=== PATIENT | female | born 1945 | race Caucasian/White ===

== ENCOUNTER 2018-11-21 07:23 | Day surgery (SDC) | payer OTHER, BC ==
--- OUTSIDE RECORDS SUMMARY | 2018-11-21 07:26 | XMS REPORT | Clinical Summary ---
:1945 Author Organization [facility] Address [address] [place] [address] Care Team Providers Name Role Phone Cayden Guzmán MD Primary Care Provider Allergies No Known Allergies Medications Medication Sig Dispensed Refills Start Date End Date Status BIOTIN ORAL Take by 0 Active mouth. nebivolol Take 10 mg by 0 Active (BYSTOLIC) 10 MG mouth daily. tablet CALCIUM Take by 0 Active CARBONATE/VITAMIN mouth. D3 (CALTRATE 600 + D ORAL) ibandronate Take 150 mg 0 Active (BONIVA) 150 mg by mouth tablet every 30 (thirty) days. Take in AM with glass of water prior to food, don't lie down for 30 minutes. montelukast Take 10 mg by 0 Active (SINGULAIR) 10 mg mouth tablet nightly. ipratropium 0 10/30/2016 Active (ATROVENT) 0.06 % nasal spray TRAVATAN Z 0.004 % 0 09/21/2016 Active choline Take 1 90 capsule 3 11/30/2017 Active fenofibrate capsule (135 (TRILIPIX) 135 mg mg total) by capsule mouth daily. dabigatran Take 1 180 capsule 3 05/31/2018 Active etexilate capsule (75 (PRADAXA) 75 mg mg total) by capsuleIndications mouth 2 (two) : Coronary artery times a day. disease involving [place] heart with angina pectoris, unspecified vessel or lesion type (HCC) digOXIN (LANOXIN) Take 1 tablet 90 tablet 3 05/31/2018 Active 125 mcg (125 mcg tabletIndications: total) by Atrial mouth daily. fibrillation, unspecified type (HCC) choline Take 135 mg 0 11/30/2017 Discontinued fenofibrate by mouth (TRILIPIX) 135 mg daily. capsule dabigatran Take 1 180 capsule 3 02/10/2017 02/17/2018 Discontinued etexilate capsule (75 (PRADAXA) 75 mg mg total) by capsuleIndications mouth 2 (two) : Coronary artery times a day. disease involving [place] heart with angina pectoris, unspecified vessel or lesion type (HCC) digOXIN (LANOXIN) Take 1 tablet 90 tablet 3 07/12/2017 11/30/2017 Discontinued 125 mcg (125 mcg tabletIndications: total) by Atrial mouth daily. fibrillation, unspecified type (HCC) digOXIN (LANOXIN) Take 1 tablet 90 tablet 3 11/30/2017 05/31/2018 Discontinued 125 mcg (125 mcg tabletIndications: total) by Atrial mouth daily. fibrillation, unspecified type (HCC) PRADAXA 75 mg TAKE ONE 180 capsule 3 02/18/2018 05/31/2018 Discontinued capsuleIndications CAPSULE BY : Coronary artery MOUTH TWICE disease involving DAILY [place] heart with angina pectoris, unspecified vessel or lesion type (HCC) Active Problems Problem Noted Date Atrial fibrillation 12/01/2016 SOB (shortness of breath) 12/01/2016 Bilateral carotid bruits 12/01/2016 Encounters Date Type Specialty Care Team Description 05/31/2018 Office Visit Cardiology Lg Landin MD Atrial fibrillation , unspecified type (Primary Dx); Coronary artery disease involving [place] heart with angina pectoris, unspecified vessel or lesion type 02/17/2018 Refill Cardiology Lg Landin MD Med Refill 11/30/2017 Office Visit Cardiology Lg Landin MD Atrial fibrillation, unspecified type (Primary Dx) after 11/20/2017 Family History Relation Name Status Comments Other FAMILY HISTORY OF CAD Alive Social History Tobacco Use Types Packs/Day Years Used Date Former Smoker Smokeless Tobacco: Never Used Sex Assigned at Date Recorded Not on file Job Start Date Occupation Industry Not on file Not on file Not on file Travel History Travel Start Travel End No recent travel history available. Last Filed Vital Signs Vital Sign Reading Time Taken Blood Pressure 177/77 05/31/2018 10:42 AM CDT Pulse 69 05/31/2018 10:42 AM CDT Temperature - - Respiratory Rate - - Oxygen Saturation - - Inhaled Oxygen Concentration - - Weight 63.5 kg (140 lb) 05/31/2018 10:42 AM CDT Height 167.6 cm (5' 6") 05/31/2018 10:42 AM CDT Body Mass Index 22.6 05/31/2018 10:42 AM CDT Plan of Treatment Date Type Specialty Care Team Description 05/30/2019 Office Visit Cardiology Lg Landin MD [address] [facility] [address] [place] [address] Health Maintenance Due Date Last Done Comments BREAST CANCER SCREENING 1993 COLON CANCER SCREENING 1993 SHINGLES VACCINES (1 of 2) 1993 PNEUMOCOCCAL POLYSACCHARIDE VACCINE AGE 65 AND OVER 2008 PNEUMOCOCCAL-13 2008 INFLUENZA VACCINE 05/18/2018 Results Not on fileafter 11/20/2017 Insurance Payer Benefit Plan / Group Subscriber ID Type Phone Address MEDICARE MEDICARE PART A AND B xxxxxxxxxx Medicare [place], [place] BCBS BCBS CHOICE PPO/FEDERAL EMPL PPO xxxxxxxxx PPO Advance Directives Patient has advance care planning documents on file. For more information, please contact:Slava Daniel[address] [place] [address]
[2018-11-21] MEDS ORDERED: NA CHLORIDE 0.9% 500 ML ONE (07:43)
[2018-11-21] MEDS ORDERED: PHENYLEPHRINE 10% OPTH 5ML ONE (07:44)
[2018-11-21] MEDS ORDERED: TETRACAINE HCL 0.5% 2ML OPTH ONE (07:44)
[2018-11-21] MEDS ORDERED: BUPIVACAINE 0.25% PF 10 ML VIAL ONE (07:44)
[2018-11-21] MEDS ORDERED: LIDOCAINE 2% MPF 5 ML VIAL ONE (07:44)
[2018-11-21] MEDS ORDERED: CYCLOPENTOLATE 1% OPTH 2 ML ONE (07:44)
[2018-11-21] MEDS ORDERED: LIDOCAINE 1% MPF 5 ML VIAL ONE ×2 (07:46→08:23)
[2018-11-21] MEDS ORDERED: CYCLOPENTOLATE 1% OPTH 2 ML OPTH ONE ×2 (08:03→08:13)
[2018-11-21] MEDS ORDERED: PHENYLEPHRINE 10% OPTH 5ML OPTH ONE ×2 (08:03→08:13)
[2018-11-21] MEDS ORDERED: EPINEPHRINE/PF 1 MG/ML AMP ONE (08:20)
[2018-11-21] MEDS ORDERED: NS 0.9% VIAL 10 ML ONE (08:20)
[2018-11-21] MEDS ORDERED: BALANCED SALT IRRIG PLAIN 500 ML BTL IRR ONE (08:20)
[2018-11-21] MEDS ORDERED: DUOVISC 1 KIT OPTH ONE (08:21)
[2018-11-21] MEDS ORDERED: LIDOCAINE HCL/PF 3.5% OPTH GEL ONE (08:35)
[2018-11-21] MEDS ORDERED: FENTANYL CITR 100 MCG/2 ML ONE (09:40)
[2018-11-21] MEDS ORDERED: MIDAZOLAM HCL 2 MG/2 ML INJ ONE (09:41)
[2018-11-21] MEDS: MOXIFLOXACIN HCL 10 DROPS/ML **OR USE OPTH ONE ×2 (09:42→09:55)
--- NOTE | 2018-11-21 10:02 | P.BOP ---
Preoperative diagnosis: Nuclear sclerotic and cortical cataract OD Postoperative diagnosis: Same Primary procedure: Phacoemulsification with IOL OD Estimated blood loss: None Anesthesia: Local (Topical with anesthesia for cataract surgery) Complications: None Implants: SA60WF +20.0 Transferred to: Other (Day surgery) Condition: Good
[2018-11-21 10:44] VITALS: BP 151/63; TEMP 98.6; O2SAT 98
--- NOTE | 2018-11-21 21:28 | OP ---
Date of Procedure: 11/21/2018 Surgeon: Edith Amador MD Anesthesiologist: 1. Tea French CRNA. 2. Gamaliel Dougherty M.D. Preoperative Diagnosis: Nuclear sclerotic cataract and cortical cataract OD (right eye). Operation Performed: Phacoemulsification with intraocular lens implant, right eye. Anesthesia: Per cataract surgery. Complications: None. Description Of Procedure: In the operating room the patient was prepped and draped in the usual ster ile fashion for ophthalmic surgery. A lid speculum was placed in the right eye. Two paracentesis si bobby were made superiorly and inferiorly in the limbal cornea. Viscoat was placed in the anterior sarah mber and a crescent blade was used to make a corneal groove and tunnel, and a keratome was used to en ter the anterior chamber. Provisc was placed in the anterior chamber and a 360 degree capsulotomy wa s performed with a cystitome. The lens was hydrodissected with BSS and rotated freely. The lens was removed with a stop and chop technique. A 6.7 phaco CDE was used to remove the lens. Residual chinyere ex was removed with the irrigation and aspiration. Provisc was placed in the capsular bag. A SA60WF +20.0 lens was placed in the capsular bag without complications. Irrigation and aspiration was used to remove residual viscoelastic. The paracentesis sites were hydrated with BSS. The wound and para centesis sites were inspected and found to be watertight. Vigamox 0.07 cc was placed intracamerally at the end of the procedure. The eye was irrigated with balanced salt solution. The eye was patched with a soft cotton patch and Rogel metal shield. The patient was returned to day surgery in good condition. Comments: Akten was placed in the eye in Day Surgery and irrigated out of the eye with BSS in the OR . Preservative-free 1% lidocaine was placed in the anterior chamber prior to Viscoat. Discharge Instructions: Ms. Soriano is discharged to home in good condition. She is to follow up with Dr. Amador today at 3 and then in the a.m. JHL/MODL Voice ID: [id number] Report ID: [id number]
== END 2018-11-21 10:37 | disposition home or self-care (01) ==
LOC: OR 07:23
PROVIDERS: ATTEND Ophthalmology Retina Specialist
PROC: 08RJ3JZ Replacement of Right Lens with Synthetic Substitute, Percutaneous Approach (ICD-10-PCS; principal; 2018-11-21 09:10)
DX: H25.11 Age-related nuclear cataract, right eye (principal); E78.00 Pure hypercholesterolemia, unspecified; I10 Essential (primary) hypertension; M85.80 Other specified disorders of bone density and structure, unspecified site
CPT/HCPCS: 66984; J0171; J2250; J3010

== ENCOUNTER 2019-01-02 08:11 | Day surgery (SDC) | payer OTHER, BC ==
--- OUTSIDE RECORDS SUMMARY | 2019-01-02 08:16 | XMS REPORT | Clinical Summary ---
:1945 Author Organization [facility] Address [address] [place] [address] Care Team Providers Name Role Phone Cayden [...] Coronary artery times a day. disease involving [place] heart with angina pectoris, unspecified vessel or lesion type (HCC) digOXIN (LANOXIN) Take 1 tablet 90 tablet 3 05/31/2018 Active 125 mcg (125 mcg tabletIndications: total) by Atrial mouth daily. fibrillation, unspecified type (HCC) dabigatran Take 1 180 capsule 3 02/10/2017 02/17/2018 Discontinued etexilate capsule (75 (PRADAXA) 75 mg mg total) by capsuleIndications mouth 2 (two) : Coronary artery times a day. disease involving [place] heart with angina pectoris, unspecified vessel or lesion type (HCC) digOXIN (LANOXIN) Take 1 tablet 90 tablet 3 11/30/2017 05/31/2018 Discontinued 125 mcg (125 mcg tabletIndications: total) by Atrial mouth daily. fibrillation, unspecified type (HCC) PRADAXA 75 mg TAKE ONE 180 capsule 3 02/18/2018 05/31/2018 Discontinued capsuleIndications CAPSULE BY : Coronary artery MOUTH TWICE disease involving DAILY [place] heart with angina pectoris, unspecified vessel or lesion type (HCC) Active Problems Problem Noted Date Atrial fibrillation 12/01/2016 SOB (shortness of breath) 12/01/2016 Bilateral carotid bruits 12/01/2016 Encounters Date Type Specialty Care Team Description 05/31/2018 Office Visit Cardiology Lg Landin MD Atrial fibrillation , unspecified type (Primary Dx); Coronary artery disease involving [place] heart with angina pectoris, unspecified vessel or lesion type 02/17/2018 Refill Cardiology Lg Landin MD Med Refill after 01/01/2018 Family History Relation Name Status Comments Other [...] 05/30/2019 Office Visit Cardiology Lg Landin MD [address] [address] [phone] Health Maintenance Due Date Last Done Comments BREAST CANCER SCREENING 1993 COLON CANCER SCREENING 1993 SHINGLES VACCINES (#1) 1993 65+ PNEUMOCOCCAL VACCINE (1 of 2 - PCV13) 2008 PNEUMOCOCCAL POLYSACCHARIDE VACCINE AGE 65 AND OVER 2008 INFLUENZA VACCINE 05/18/2018 Results Not on fileafter 01/01/2018 Insurance Payer Benefit Plan / Group Subscriber ID Type Phone Address MEDICARE MEDICARE PART A AND B xxxxxxxxxx Medicare [place], [place] BCBS BCBS CHOICE PPO/FEDERAL EMPL PPO xxxxxxxxx PPO Advance Directives Patient has advance care planning documents on file. For more information, please contact:Slava Daniel[address] [place] [address]
[2019-01-02] MEDS ORDERED: LIDOCAINE 2% MPF 5 ML VIAL ONE (09:21)
[2019-01-02] MEDS ORDERED: BUPIVACAINE 0.25% PF 10 ML VIAL ONE (09:21)
[2019-01-02] MEDS ORDERED: NA CHLORIDE 0.9% 500 ML ONE (09:21)
[2019-01-02] MEDS ORDERED: CYCLOPENTOLATE 1% OPTH 2 ML ONE (09:21)
[2019-01-02] MEDS ORDERED: PHENYLEPHRINE 10% OPTH 5ML ONE (09:22)
[2019-01-02] MEDS ORDERED: NS 0.9% VIAL 10 ML ONE (09:25)
[2019-01-02] MEDS ORDERED: LIDOCAINE 1% MPF 2 ML AMPULE ONE (09:26)
[2019-01-02] MEDS ORDERED: LIDOCAINE HCL/PF 3.5% OPTH GEL ONE (09:26)
[2019-01-02] MEDS ORDERED: CYCLOPENTOLATE 1% OPTH 2 ML OPTH ONE ×2 (09:45→09:50)
[2019-01-02] MEDS ORDERED: PHENYLEPHRINE 10% OPTH 5ML OPTH ONE ×2 (09:45→09:50)
[2019-01-02] MEDS: BALANCED SALT IRRIG PLAIN 500 ML BTL IRR ONE ×2 (10:34→11:04)
[2019-01-02] MEDS: EPINEPHRINE/PF 1 MG/ML AMP ONE ×2 (10:35→11:04)
[2019-01-02] MEDS: TETRACAINE HCL 0.5% 2ML OPTH ONE ×2 (10:35→11:03)
[2019-01-02] MEDS: DUOVISC 1 KIT OPTH ONE ×2 (10:36→11:04)
[2019-01-02] MEDS: MOXIFLOXACIN HCL 10 DROPS/ML **OR USE OPTH ONE ×3 (10:37→11:12)
[2019-01-02] MEDS ORDERED: MIDAZOLAM HCL 2 MG/2 ML INJ ONE (10:40)
[2019-01-02] MEDS ORDERED: FENTANYL CITR 100 MCG/2 ML ONE (10:40)
--- NOTE | 2019-01-02 11:39 | P.BOP ---
Preoperative diagnosis: Nuclear sclerotic cataract OS Postoperative diagnosis: Same Primary procedure: Phacoemulsification with IOL OS Estimated blood loss: None Anesthesia: Local (Topical with anesthesia for cataract surgery) Complications: None Implants: SA60WF +20.5 Transferred to: Other (Day surgery) Condition: Good
[2019-01-02 11:54] VITALS: BP 132/67; TEMP 97.1; O2SAT 96
--- NOTE | 2019-01-02 23:03 | OP ---
Date of Procedure: 01/02/2019 Surgeon: Edith Amador MD Anesthesiologist: 1. Ki Meza CRNA. 2. Willie Hdz M.D. Preoperative Diagnosis: Nuclear sclerotic cataract, OS. Operation Performed: Phacoemulsification with intraocular lens implant, left eye. Anesthesia: Per cataract surgery. Complications: None. Description Of Procedure: In day surgery, the patient was prepped with Betadine and draped. A conjunctival incision was made in the inferior nasal quadrant with Sharmila scissors. A sub-Tenon block consisting of a 1:1 mixture of 2% Xylocaine and 0.25% bupivacaine was placed through the conjunctival incision with a blunt cannula. A [place] balloon was placed over the eye and the patient was transferred to the operating room. In the operating room the patient was prepped and draped in the usual sterile fashion for ophthalmic surgery. A lid speculum was placed in the left eye. Two paracentesis sites were made superiorly and inferiorly in the limbal cornea. Viscoat was placed in the anterior chamber and a crescent blade was used to make a corneal groove and tunnel, and a keratome was used to enter the anterior chamber. Provisc was placed in the anterior chamber and a 360 degree capsulotomy was performed with a cystitome. The lens was hydrodissected with BSS and rotated freely. The lens was removed with a stop and chop technique. A 5.81 phaco CDE was used to remove the lens. Residual cortex was removed with the irrigation and aspiration. Provisc was placed in the capsular bag. SA60WF +20.5 lens was placed in the capsular bag without complications. Irrigation and aspiration were used to remove residual viscoelastic. The paracentesis sites were hydrated with BSS. The wound and paracentesis sites were inspected and found to be watertight. Vigamox 0.07 cc was placed intracamerally at the end of the procedure. The eye was irrigated with balanced salt solution. The eye was patched with a soft cotton patch and Rogel metal shield. The patient was returned to day surgery in good condition. Comments: Akten was placed in the eye in day surgery and irrigated out of the eye with BSS in the OR. Preservative free 1% lidocaine was placed in the anterior chamber prior to Viscoat. Discharge Instructions: Ms. Soriano is discharged to home in good condition and is to follow up with Dr. Amador today at 3 in the morning. ALYSSA/HAILE Voice ID: [id number] Report ID: [id number]
== END 2019-01-02 12:20 | disposition home or self-care (01) ==
LOC: OR 08:11
PROVIDERS: ATTEND Ophthalmology Retina Specialist
PROC: 08RK3JZ Replacement of Left Lens with Synthetic Substitute, Percutaneous Approach (ICD-10-PCS; principal; 2019-01-02 10:45)
DX: H25.12 Age-related nuclear cataract, left eye (principal); H40.1230 Low-tension glaucoma, bilateral, stage unspecified; H04.123 Dry eye syndrome of bilateral lacrimal glands; I10 Essential (primary) hypertension; J44.9 Chronic obstructive pulmonary disease, unspecified; E78.00 Pure hypercholesterolemia, unspecified; Z86.73 Personal history of transient ischemic attack (TIA), and cerebral infarction without residual deficits; Z88.6 Allergy status to analgesic agent; Z88.3 Allergy status to other anti-infective agents; Z80.9 Family history of malignant neoplasm, unspecified; Z87.891 Personal history of nicotine dependence; Z82.3 Family history of stroke
CPT/HCPCS: 66984; J0171; J2250; J3010; J2001

== ENCOUNTER 2020-02-08 03:27 | Emergency (ER) | payer OTHER, BC ==
[2020-02-08] MEDS ORDERED: MORPHINE 2 MG/ML SYR ONE (04:00)
[2020-02-08] MEDS ORDERED: NA CHLORIDE 0.9% 500 ML ONE (04:00)
[2020-02-08 04:51] LABS: Basophils % 0.6 % (0-1.3); Hematocrit 37.2 % (36.0-45.0); Lymphocytes % 8.2 % (15.3-44.8); MPV 8.9 fL (7.6-11.3); RBC Red Blood Cell Count 4.14 M/uL (3.86-4.86)
--- NOTE | 2020-02-08 05:05 | ER ---
Nurse's Notes [facility] Name: Ruby Soriano Age: 74 yrs Sex: Female : 1945 Arrival Date: 02/08/2020 Time: 03:31 Bed 7 Private MD: Diagnosis: Sprain of ligaments of thoracic spine;Sprain of ligaments of lumbar spine Presentation: 02/07 03:43 Chief complaint: Patient states: sudden onset of mid left back pain that woke her up lp1 out of sleep; States radiating to left upper abdomen; Denies any chest pain, shortness of breath, fever. Coronavirus screen: Proceed with normal triage. Ebola Screen: No symptoms or risks identified at this time. Initial Sepsis Screen: Does the patient meet any 2 criteria? No. Patient's initial sepsis screen is negative. Does the patient have a suspected source of infection? No. Patient's initial sepsis screen is negative. Risk Assessment: Do you want to hurt yourself or someone else? Patient reports no desire to harm self or others. Onset of symptoms was February 08, 2020 at 03:00. 03:43 Method Of Arrival: Wheelchair lp1 03:43 Acuity: SERINA 3 lp1 Historical: - Allergies: 03:50 No Known Drug Allergies; lp1 - Home Meds: 03:50 fenofibric acid (choline) 135 mg oral cpDR 1 cap once daily [Active]; Bystolic 10 mg lp1 Oral tab 1 tab once daily [Active]; ProAir HFA 90 mcg/actuation inhalation HFAA [Active]; Pradaxa 75 mg Oral cap 2 times per day [Active]; digoxin 125 mcg Oral tab once daily [Active]; Travatan Z 0.004 % ophthalmic drop 1 drop nightly [Active]; - PMHx: 03:50 Hypertension; Irregular heart rate; COPD; Hyperlipidemia; lp1 - PSHx: 03:50 Hysterectomy; lp1 - Immunization history:: Adult Immunizations up to date. - Social history:: Smoking status: Patient denies any tobacco usage or history of. Screenin:51 Abuse screen: Denies threats or abuse. Denies injuries from another. Nutritional lp1 screening: No deficits noted. Tuberculosis screening: No symptoms or risk factors identified. Fall Risk None identified. Assessment: 03:50 General: Appears uncomfortable, Behavior is appropriate for age. Pain: Complains of lp1 pain in left mid back Pain radiates to left upper quadrant Pain currently is 6 out of 10 on a pain scale. Quality of pain is described as sharp, Aggravated by repositioning. Neuro: Level of Consciousness is awake, alert, obeys commands, Oriented to person, place, time, situation. Cardiovascular: Patient's skin is warm and dry. Respiratory: Respiratory effort is even, unlabored, Respiratory pattern is regular. GI: No signs and/or symptoms were reported involving the gastrointestinal system. : No signs and/or symptoms were reported regarding the genitourinary system. EENT: No signs and/or symptoms were reported regarding the EENT system. Derm: Skin is intact, Skin is dry, Skin is normal. Musculoskeletal: No deficits noted. 05:00 Reassessment: Patient appears in no apparent distress at this time. Patient is alert, lp1 oriented x 3, equal unlabored respirations, skin warm/dry/pink. Patient states feeling better. Patient states symptoms have improved. Vital Signs: 03:43 BP 201 / 83; Pulse 86; Resp 18; Temp 98.6(TE); Pulse Ox 98% on R/A; Weight 60.78 kg lp1 (R); Height 5 ft. 6 in. (167.64 cm); Pain 6/10; 04:40 BP 184 / 86; Pulse 79; Resp 18; Pulse Ox 98% on R/A; lp1 05:04 BP 169 / 90; Pulse 79; Resp 18; Pulse Ox 97% on R/A; lp1 06:06 BP 164 / 70; Pulse 70; Resp 16; Pulse Ox 99% on R/A; Pain 0/10; lp1 03:43 Body Mass Index 21.63 (60.78 kg, 167.64 cm) lp1 ED Course: 03:31 Patient arrived in ED. ag3 03:36 Boo Downs MD is Attending Physician. tw4 03:42 Marbella Santamaria, EIRKA is Primary Nurse. lp1 03:45 Triage completed. lp1 03:45 Arm band placed on. lp1 03:51 Patient has correct armband on for positive identification. lp1 03:55 Missed attempt(s): 18 gauge in left antecubital area. Bleeding controlled, band aid ds4 applied, catheter tip intact. 04:00 Missed attempt(s): 22 gauge in right antecubital area. lp1 04:02 Radiology exam delayed due to Having IV started with lab draw and meds given at this kw1 time. 04:06 CXR XRAY In Process Unspecified. EDMS 04:25 Inserted saline lock: 22 gauge in left hand, using aseptic technique. Blood collected. rr5 04:27 CT Stone Protocol In Process Unspecified. EDMS 04:37 Lab(s) recollected, by me, sent to lab. rr5 05:30 No provider procedures requiring assistance completed. IV discontinued, No lp1 redness/swelling at site. Pressure dressing applied. Administered Medications: 04:25 Drug: NS 0.9% 500 ml Route: IV; Rate: bolus; Site: left hand; rr5 05:30 Follow up: IV Status: Completed infusion; IV Intake: 500ml lp1 04:27 Drug: morphine 2 mg {Note: rass 0.} Route: IVP; Site: left hand; rr5 05:30 Follow up: Response: Pain is decreased lp1 Intake: 05:30 IV: 500ml; Total: 500ml. lp1 Outcome: 05:04 Discharge ordered by . tw4 06:06 Discharged to home ambulatory. lp1 06:06 Condition: good 06:06 Discharge instructions given to patient, Instructed on discharge instructions, follow up and referral plans. medication usage, Demonstrated understanding of instructions, follow-up care, medications, Prescriptions given X 2. 06:07 Patient left the ED. lp1 Signatures: Dispatcher [employer] EDAR Marbella Santamaria, RN RN lp1 Mike Balderas 4 Rosa Hammond kw1 Boo Downs MD MD tw4 Afsaneh Alegre 3 Poncho Arnold, RN RN rr5
--- NOTE | 2020-02-08 05:05 | EDPHYS ---
Physician Documentation [facility] Name: Ruby Soriano Age: 74 yrs Sex: Female : 1945 Arrival Date: 02/08/2020 Time: 03:31 Bed 7 Private MD: ED Physician Boo Downs HPI: 02/07 04:59 This 74 yrs old Female presents to ER via Wheelchair with complaints of Back tw4 Pain. 04:59 The patient presents with pain that is acute. The patient presents with pain that is tw4 acute, with no known mechanism of injury. The symptoms are located in the left mid back. Onset: The symptoms/episode began/occurred just prior to arrival, today. The pain does not radiate. The problem was sustained from unknown cause. Historical: - Allergies: 03:50 No Known Drug Allergies; lp1 - Home Meds: 03:50 fenofibric acid (choline) 135 mg oral cpDR 1 cap once daily [Active]; Bystolic 10 mg lp1 Oral tab 1 tab once daily [Active]; ProAir HFA 90 mcg/actuation inhalation HFAA [Active]; Pradaxa 75 mg Oral cap 2 times per day [Active]; digoxin 125 mcg Oral tab once daily [Active]; Travatan Z 0.004 % ophthalmic drop 1 drop nightly [Active]; - PMHx: 03:50 Hypertension; Irregular heart rate; COPD; Hyperlipidemia; lp1 - PSHx: 03:50 Hysterectomy; lp1 - Immunization history:: Adult Immunizations up to date. - Social history:: Smoking status: Patient denies any tobacco usage or history of. ROS: 04:59 Constitutional: Negative for fever, chills, and weight loss, Eyes: Negative for injury, tw4 pain, redness, and discharge, Cardiovascular: Negative for chest pain, palpitations, and edema, Respiratory: Negative for shortness of breath, cough, wheezing, and pleuritic chest pain, Abdomen/GI: Negative for abdominal pain, nausea, vomiting, diarrhea, and constipation, MS/Extremity: Negative for injury and deformity, Skin: Negative for injury, rash, and discoloration, Neuro: Negative for headache, weakness, numbness, tingling, and seizure. 04:59 Back: Positive for decreased range of motion, pain at rest, pain with movement, flank pain, on the left, radiated pain. Exam: 04:59 Constitutional: This is a well developed, well nourished patient who is awake, alert, tw4 and in no acute distress. Head/Face: Normocephalic, atraumatic. Chest/axilla: Normal chest wall appearance and motion. Nontender with no deformity. No lesions are appreciated. Cardiovascular: Regular rate and rhythm with a normal S1 and S2. No gallops, murmurs, or rubs. Normal PMI, no JVD. No pulse deficits. Respiratory: Lungs have equal breath sounds bilaterally, clear to auscultation and percussion. No rales, rhonchi or wheezes noted. No increased work of breathing, no retractions or nasal flaring. Abdomen/GI: Soft, non-tender, with normal bowel sounds. No distension or tympany. No guarding or rebound. No evidence of tenderness throughout. 04:59 MS/ Extremity: Pulses equal, no cyanosis. Neurovascular intact. Full, normal range of motion. Neuro: Awake and alert, GCS 15, oriented to person, place, time, and situation. Cranial nerves II-XII grossly intact. Motor strength 5/5 in all extremities. Sensory grossly intact. Cerebellar exam normal. Normal gait. 04:59 Back: CVA tenderness, that is moderate, is noted on the left. Vital Signs: 03:43 BP 201 / 83; Pulse 86; Resp 18; Temp 98.6(TE); Pulse Ox 98% on R/A; Weight 60.78 kg lp1 (R); Height 5 ft. 6 in. (167.64 cm); Pain 6/10; 04:40 BP 184 / 86; Pulse 79; Resp 18; Pulse Ox 98% on R/A; lp1 05:04 BP 169 / 90; Pulse 79; Resp 18; Pulse Ox 97% on R/A; lp1 06:06 BP 164 / 70; Pulse 70; Resp 16; Pulse Ox 99% on R/A; Pain 0/10; lp1 03:43 Body Mass Index 21.63 (60.78 kg, 167.64 cm) lp1 MDM: 03:36 Patient medically screened. tw4 05:01 Differential diagnosis: Fatigue Fracture Osteoarthritis Peptic Ulcer Pyelonephritis tw4 sprain, Ureterolithiasis. Data reviewed: vital signs, nurses notes. Data interpreted: Pulse oximetry: Interpretation: normal. Counseling: I had a detailed discussion with the patient and/or guardian regarding: the historical points, exam findings, and any diagnostic results supporting the discharge/admit diagnosis. Medication response: morphine markedly relieved the patient's pain. Symptoms have improved, Zofran markedly relieved the patient's nausea. Response to treatment: the patient's symptoms have markedly improved after treatment, and as a result, I will discharge patient. Special discussion: I discussed with the patient/guardian in detail that at this point there is no indication for admission to the hospital. It is understood, however, that if the symptoms persist or worsen the patient needs to return immediately for re-evaluation. 02/07 03:44 Order name: Basic Metabolic Panel; Complete Time: 05:25 02/07 05:25 Interpretation: Normal except: GFR 39; CRE 1.32; BUN 23; GLUC 138. 02/07 03:44 Order name: CBC with Diff; Complete Time: 05:05 02/07 05:05 Interpretation: Normal except: WBC 12.1; NEUT A 10.2; LYM% 8.2; YESSI% 84.2. 02/07 03:44 Order name: Creatinine for Radiology; Complete Time: 05:05 02/07 05:05 Interpretation: Normal except: GFR 40. 02/07 03:44 Order name: Hepatic Function; Complete Time: 05:25 02/07 05:25 Interpretation: Normal except: AST 105; BILID 0.4; GLOB 3.6; A/G 1.0. 02/07 03:44 Order name: Lipase 02/07 03:44 Order name: IV Saline Lock; Complete Time: 05:06 02/07 03:44 Order name: Labs collected and sent; Complete Time: 05:06 02/07 03:44 Order name: CXR XRAY 02/07 03:44 Order name: CT Stone Protocol Administered Medications: 04:25 Drug: NS 0.9% 500 ml Route: IV; Rate: bolus; Site: left hand; rr5 05:30 Follow up: IV Status: Completed infusion; IV Intake: 500ml lp1 04:27 Drug: morphine 2 mg {Note: rass 0.} Route: IVP; Site: left hand; rr5 05:30 Follow up: Response: Pain is decreased lp1 Disposition: 02/08/20 05:04 Discharged to Home. Impression: Sprain of ligaments of thoracic spine, Sprain of ligaments of lumbar spine. - Condition is Stable. - Discharge Instructions: Back Pain, Adult, Thoracic Strain, Back Injury Prevention. - Prescriptions for Cyclobenzaprine 10 mg Oral Tablet - take 1 tablet by ORAL route every 8 hours As needed; 30 tablet. Tramadol 50 mg Oral Tablet - take 1 tablet by ORAL route every 8 hours as needed; 12 tablet. - Medication Reconciliation Form, Thank You Letter, Antibiotic Education, Prescription Opioid Use form. - Follow up: Private Physician; When: Upon discharge from the Emergency Department; Reason: Recheck today's complaints, Continuance of care, Re-evaluation by your physician. - Problem is new. - Symptoms have improved. Signatures: Dispatcher [employer] EDMS Marbella Santamaria RN RN lp1 Boo Downs MD MD tw4 Poncho Arnold RN RN rr5 Corrections: (The following items were deleted from the chart) 06:07 05:04 02/08/2020 05:04 Discharged to Home. Impression: Sprain of ligaments of thoracic lp1 spine; Sprain of ligaments of lumbar spine. Condition is Stable. Forms are Medication Reconciliation Form, Thank You Letter, Antibiotic Education, Prescription Opioid Use. Follow up: Private Physician; When: Upon discharge from the Emergency Department; Reason: Recheck today's complaints, Continuance of care, Re-evaluation by your physician. Problem is new. Symptoms have improved. tw4
[2020-02-08 05:07] LABS: Albumin 3.7 g/dL (3.4-5.0); Bilirubin Direct 0.4 mg/dL (0-0.2); Bilirubin Total 0.6 mg/dL (0.2-1.0); Potassium 3.8 mmol/L (3.5-5.1); Protein, Total 7.3 g/dL (6.4-8.2)
[2020-02-08 06:14] VITALS: TEMP 98.6
[2020-02-08 06:18] VITALS: BP 164/70; O2SAT 99
--- NOTE | 2020-02-08 09:09 | RAD REPORT ---
EXAM DESCRIPTION: CT Abdomen and Pelvis Without Intravenous Contrast CLINICAL HISTORY: The patient is 74 years old and is Female; FLANK PAIN TECHNIQUE: Axial computed tomography images of the abdomen and pelvis without intravenous contrast. Sagittal and coronal reformatted images were created and reviewed. This CT exam was performed usi ng one or more of the following dose reduction techniques: automated exposure control, adjustment o f the mA and/or kV according to patient size, and/or use of iterative reconstruction technique. COMPARISON: CT of the abdomen and pelvis January 05, 2020 FINDINGS: ARTIFACTS: The exam is suboptimal secondary to motion artifact. LUNG BASES: Unremarkable. No mass. No consolidation. ABDOMEN: LIVER: The cyst within the left hepatic lobe are not well evaluated secondary to significant mot ion artifact at this level. GALLBLADDER AND BILE DUCTS: The gallbladder is significantly distended. Suggestion of mild gallbl adder wall thickening is noted. No calcified gallstones are seen. PANCREAS: Unremarkable. No ductal dilation. SPLEEN: Unremarkable. ADRENALS: Unremarkable. No mass. KIDNEYS AND URETERS: No obstructing stones. No hydronephrosis. No perinephric fluid. STOMACH AND BOWEL: The stomach is distended with food contents and air. The small bowel is normal in caliber. A moderate amount of stool is present throughout colon. There is no mucosal thickening o r evidence of bowel obstruction. PELVIS: APPENDIX: No findings to suggest acute appendicitis. BLADDER: Unremarkable. No stones. REPRODUCTIVE: Unremarkable as visualized. ABDOMEN and PELVIS: INTRAPERITONEAL SPACE: Unremarkable. No free air. No significant fluid collection. BONES/JOINTS: No acute fracture. SOFT TISSUES: The soft tissues are normal. VASCULATURE: Several calcified phleboliths are present within the pelvis. Atherosclerosis of the vasculature is present. The vessels are normal in caliber. No abdominal aortic aneurysm. LYMPH NODES: Unremarkable. No enlarged lymph nodes. IMPRESSION: Examination is limited secondary to motion artifact. Significantly distended gallbladder with suggestion of gallbladder wall thickening. If there is cli nical concern for acute gallbladder pathology, findings could be further evaluated with ultrasound or HIDA scan. Electronically signed by: Gwen Kinney MD 02/08/2020 4:34 AM CDT Due to temporary technical issues with the PACS/Fluency reporting system, reports are being signed by the in house radiologist as a courtesy to ensure prompt reporting. The interpreting radiologist is f jasonly responsible for the content of the report.
--- NOTE | 2020-02-08 10:59 | RAD REPORT ---
EXAM DESCRIPTION: RAD - Chest Single View - 02/08/2020 4:06 am CLINICAL HISTORY: RIB PAIN - LEFT Chest pain. COMPARISON: Chest Single View dated 07/05/2016; CHEST PA AND LAT 2 VIEW dated 01/27/2015; CHEST PA AND LAT 2 VIEW dated 03/11/2012; CHEST PA AND LAT 2 VIEW dated 02/01/2004; Stone Protocol dated 02/08/2020 FINDINGS: Portable technique limits examination quality. Emphysematous changes are present throughout the lungs. No focal infiltrate is seen. The heart is nor mal in size. No displaced fractures. IMPRESSION: Mild diffuse COPD.
== END 2020-02-08 06:07 | disposition home or self-care (01) ==
LOC: ER 03:27
DX: S23.3XXA Sprain of ligaments of thoracic spine, initial encounter (principal); S33.5XXA Sprain of ligaments of lumbar spine, initial encounter; X58.XXXA Exposure to other specified factors, initial encounter; Y93.9 Activity, unspecified; Y92.9 Unspecified place or not applicable; I10 Essential (primary) hypertension; E78.5 Hyperlipidemia, unspecified; J44.9 Chronic obstructive pulmonary disease, unspecified
CPT/HCPCS: 96361; 85025; 80048; 36415; 80076; 83690; 76377; 74176; 71045; 96374; 99284; J2270; J7040

== ENCOUNTER 2020-03-19 08:24 | Day surgery (SDC) | payer OTHER, BC ==
[2020-03-13 11:13] LABS: Absolute Lymphocytes (CBC) 1.2 K/uL (0.7-4.9); Basophils % 0.7 % (0-1.3); Hematocrit 39.8 % (36.0-45.0); MPV 8.6 fL (7.6-11.3); RBC Red Blood Cell Count 4.43 M/uL (3.86-4.86)
--- NOTE | 2020-03-13 12:50 | EKG ---
Test Date: 2020-03-13 Test Time: 09:21:23 Life Skills Trainer: YURI MEASUREMENT RESULTS: Intervals: Rate: 73 ID: QRSD: [id number] QT: 352 QTc: 387 [place]: P: ID: [id number] T: 14 INTERPRETIVE STATEMENTS: Atrial fibrillation Abnormal ECG Compared to ECG 07/05/2016 15:17:54 ST (T wave) deviation no longer present Electronically Signed On 03-13-20 12:50:00 CDT by Dallas Pappas
[2020-03-13 13:29] LABS: Albumin 3.6 g/dL (3.4-5.0); Bilirubin Direct 0.2 mg/dL (0-0.2); Bilirubin Total 0.5 mg/dL (0.2-1.0); Potassium 5.1 mmol/L (3.5-5.1); Protein, Total 7.8 g/dL (6.4-8.2)
[2020-03-19] MEDS ORDERED: Ringers Lactate 1,000 ML IV ONE (08:40)
[2020-03-19] MEDS ORDERED: CEFAZOLIN/SWI 1gm 1 GM/10 ML SYR ONE (08:40)
[2020-03-19] MEDS ORDERED: ROCURONIUM 50 MG/5 ML VIAL IV ONE (08:41)
[2020-03-19] MEDS ORDERED: FENTANYL CITR 100 MCG/2 ML ONE (08:41)
[2020-03-19] MEDS ORDERED: propofoL 200 MG/20 ML VIAL IV ONE (08:41)
[2020-03-19] MEDS ORDERED: LIDOCAINE 2% MPF 5 ML VIAL ONE (08:41)
[2020-03-19] MEDS ORDERED: KETOROLAC 30 MG/ML INJ ONE (08:41)
[2020-03-19] MEDS ORDERED: ONDANSETRON 4 MG/2 ML VIAL ONE (08:42)
[2020-03-19] MEDS ORDERED: dexAMETHasone 4 MG/ML VIAL ONE (08:42)
--- OUTSIDE RECORDS SUMMARY | 2020-03-19 09:24 | XMS REPORT | Clinical Summary ---
:1945 Author Organization [facility] Address [address] [place] [address] Care Team Providers Name Role Phone Cayden Guzmán MD Primary Care Provider Allergies No Known Allergies Medications Medication Sig Dispensed Refills Start Date End Date Status BIOTIN ORAL Take by 0 Active mouth. CALCIUM Take by 0 Active CARBONATE/VITAMIN mouth. D3 (CALTRATE 600 + D ORAL) ibandronate Take 150 mg 0 Active (BONIVA) 150 mg by mouth tablet every 30 (thirty) days. Take in AM with glass of water prior to food, don't lie down for 30 minutes. montelukast Take 10 mg 0 Active (SINGULAIR) 10 mg by mouth tablet nightly. ipratropium 0 10/30/2016 Active (ATROVENT) 0.06 % nasal spray TRAVATAN Z 0.004 0 09/21/2016 Ac tive % nebivolol Take 1 90 tablet 3 05/30/2019 Active (BYSTOLIC) 10 MG tablet (10 tablet mg total) by mouth daily. digOXIN (LANOXIN) Take 1 90 tablet 3 05/30/2019 A ctive 125 mcg tablet (125 tabletIndications mcg total) : Atrial by mouth fibrillation, daily. unspecified type (HCC) dabigatran Take 1 180 capsule 3 05/30/2019 Active etexilate capsule (75 (PRADAXA) 75 mg mg total) by capsuleIndication mouth 2 s: Coronary (two) times artery disease a day. involving q[place] heart with angina pectoris, unspecified vessel or lesion type (HCC) choline Take 1 90 capsule 3 05/30/2019 Active fenofibrate capsule (135 (TRILIPIX) 135 mg mg total) by capsule mouth daily. nebivolol Take 10 mg 0 Discontin ued (BYSTOLIC) 10 MG by mouth 9 (Re order) tablet daily. choline Take 1 90 capsule 3 11/30/2017 Disconti nued fenofibrate capsule (135 9 (Reor lindsay) (TRILIPIX) 135 mg mg total) by capsule mouth daily. dabigatran Take 1 180 capsule 3 05/31/2018 Discon tinued etexilate capsule (75 9 (Reorder ) (PRADAXA) 75 mg mg total) by capsuleIndication mouth 2 s: Coronary (two) times artery disease a day. involving q[place] heart with angina pectoris, unspecified vessel or lesion type (HCC) digOXIN (LANOXIN) Take 1 90 tablet 0 01/30/2019 D iscontinued 125 mcg tablet (125 9 (Reorder ) tabletIndications mcg total) : Atrial by mouth fibrillation, daily. unspecified type (HCC) digOXIN (LANOXIN) Take 1 90 tablet 0 05/23/2019 D iscontinued 125 mcg tablet (125 9 (Reorder ) tabletIndications mcg total) : Atrial by mouth fibrillation, daily. 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, unspecified vessel or lesion type (HCC); Bilateral carot id artery disease, unspecified type (HCC); Bilateral carot id bruits 05/23/2019 Orders Only Cardiology Nba Garcias MA Atrial fibrill ation, unspecified typ e (HCC) after 03/19/2019 Family History Relation Name Status Comments Other [...] Vital Signs Vital Sign Reading Time Taken Comments Blood Pressure 207/83 05/30/2019 11:02 AM CDT Pulse 72 05/30/2019 11:02 AM CDT Temperature - - Respiratory Rate - - Oxygen Saturation - - Inhaled Oxygen Concentration - - Weight 63.5 kg (140 lb) 05/30/2019 11:02 AM CDT Height 167.6 cm (5' 6") 05/30/2019 11:02 AM CDT Body Mass Index 22.6 05/30/2019 11:02 AM CDT Plan of Treatment Date Type Specialty Care Team Description 05/28/2020 Office Visit Cardiology Lg Mathews MD [address] [facility] [address] [place], [place] [address] [phone] Health Maintenance Due Date Last Done Comments COLONOSCOPY SCREENING 1993 SHINGLES VACCINES (#1) 1993 65+ PNEUMOCOCCAL VACCINE (1 of 2 - PCV13) 2008 INFLUENZA VACCINE 05/18/2020 Procedures Procedure Name Priority Date/Time Associated Diagnosis Comme nts US CAROTID DUPLEX Routine 06/27/2019 11:51 AM Coronary artery Results for this BILATERAL CDT disease involving procedure are in qagan [place] heart with the result s angina pectoris, section. unspecified vessel or lesion type ( HCC) Bilateral carotid artery disease, unspecified type (HCC) Bilateral carotid bruits ECG 12-LEAD Routine 05/30/2019 10:04 AM Atrial fibrillation, Results for this CDT unspecified type procedure a re in (HCC) the results section. after 03/19/2019 Results Us carotid duplex (06/27/2019 11:51 AM CDT) Specimen Narrative Performed At [facility] Carotid Camila ry Ultrasound Report Pat.Name: RUBY SORIANO Pat.ID: [id number] St.Date: 06/27/2019 Refer.MD: LG MATHEWS MD Exam Time: 11:10:00 AM Study Type:Ca rotid Age: 6 1945,74Y Sex: FEMALE Sonogrphr: Roxanne Voss RVT Pat. Stat.:Outp atient Room: [facility] ol: SD, CPT - 4: 25036 Echo Even t ID:[id number] Order ID: [id number] Reason for Study:Carotid bruit, HX of At rial fibrillation Race: C SUMMARY: CAROTID ARTERY SCAN RIGHT: There is intimal thickening in the common carotid artery. There is hard and calcified plaque not ed in the bulb extending into the proximal internal carotid artery. Colorflow is undisturbed. There is antegrade flow in the vertebral artery. LEFT: There is intimal thickening in the co mmon carotid artery. There is hard and calcified plaque not ed in the bulb extending into the proximal internal carotid artery. Colorflow is undisturbed. There is antegrade flow in the vertebral artery. PRELIMINARY FINDINGS 1. <50% stenosis in the bulb/internal carotid artery, bilaterally. 2. There is antegrade flow in the verte bral artery. PHYSICIAN INTERPRETATION Bilateral carotid duplex examination de monstrated atherosclerotic plaques in the bulbs. Less than 50% stenosis in the bulb and internal carotid artery, bilaterally. Both vertebral arteries are antegrade. Carotid Findings: Right Left Verteb.Flw Antegrade Antegrade Subclavian Biphasic Biphasic MEASUREMENTS: DOPPLER Right CCA Dist CCA Dist PSV 76.6 cm/s CCA Dist EDV 9.84 cm/s Right CCA Mid CCA Mid PSV 71.1 cm/s CCA Mid EDV 15.3 cm/s Right CCA Prox CCA Prox PSV 79.8 cm/s CCA Prox EDV 8.75 cm/s Right Bulb Bulb PSV 54.7 cm/s Bulb EDV 10.9 cm/s Right ECA ECA PSV 94.3 cm/s ECA EDV 3.43 cm/s Right ICA Dist ICA Dist PSV 120 cm/s ICA Dist EDV 24 cm/s Right ICA Mid ICA Mid PSV 97.7 cm/s ICA Mid EDV 18.9 cm/s Right ICA Prox ICA Prox PSV 87.4 cm/s ICA Prox EDV 12 cm/s Right Vertebral Vertebral PSV 68.6 cm/s Vertebral EDV 8.57 cm/s Right SCA Prox SCA Prox PSV 94.3 cm/s SCA Prox EDV 0 cm/s Left CCA Dist CCA Dist PSV 67.2 cm/s CCA Dist EDV 14.9 cm/s Left CCA Mid CCA Mid PSV 68.5 cm/s CCA Mid EDV 10.3 cm/s Left CCA Prox CCA Prox PSV 77.1 cm/s CCA Prox EDV 12.6 cm/s Left Bulb Bulb PSV 64.7 cm/s Bulb EDV 11.2 cm/s Left ECA Prox ECA Prox PSV 65.9 cm/s ECA Prox EDV 0 cm/s Left ICA Dist ICA Dist PSV 125 cm/s ICA Dist EDV 26.1 cm/s Left ICA Mid ICA Mid PSV 112 cm/s ICA Mid EDV 22.4 cm/s Left ICA Prox ICA Prox PSV 78.4 cm/s ICA Prox EDV 16.2 cm/s Left Vertebral Vertebral PSV 65 cm/s Vertebral EDV 12.2 cm/s Left SCA Prox SCA Prox PSV 153 cm/s SCA Prox EDV 0 cm/s Right ECA Prox ECA Prox PSV 94 cm/s ECA Prox EDV 3 cm/s Right ICA/CCA Ratio ICA/CCA PSV 1.23 Left ICA/CCA Ratio ICA/CCA PSV 1.14 Signed 06/29/2019 06:33 AM Lg Mathews MD Procedure Note Interface, Radiology Results In - 2018 6:33 AM CDT [facility] Carotid Artery Ultras ound Report Pat.Name: RUBY SORIANO Pat.I D: [id number] St.Date: 06/27/2019 Refer .MD: LG MATHEWS MD Exam Time: 11:10:00 AM Study Type:Carotid Age: 6 1945,74Y Sex: FEMALE Sonogrphr: Roxanne Voss RVT Pat. Stat.:Outpatient Room: [facility] Vol: SD, CPT - 4: 55621 Echo Event ID:[id number] Order ID: [id number] Reason for Study:Carotid bruit, HX of At rial fibrillation Race: C SUMMARY: CAROTID ARTERY SCAN RIGHT: There is intimal thickening i n the common carotid artery. There is hard and calcified plaque note d in the bulb extending into the proximal internal carotid artery. C olorflow is undisturbed. There is antegrade flow in the vertebral artery. LEFT: There is intimal thickening in the common carotid artery. There is hard and calcified plaque note d in the bulb extending into the proximal internal carotid artery. C olorflow is undisturbed. There is antegrade flow in the vertebral artery. PRELIMINARY FINDINGS 1. <50% stenosis in the bulb/internal carotid artery, bilaterally. 2. There is antegrade flow in the verte bral artery. PHYSICIAN INTERPRETATION Bilateral carotid duplex examination de monstrated atherosclerotic plaques in the bulbs. Less than 50% stenosis in the bulb and internal carotid artery, bilaterally. Both vertebral arteries are antegrade. Carotid Findings: Right Left Verteb.Flw Antegrade Antegrade Subclavian Biphasic Biphasic MEASUREMENTS: DOPPLER Right CCA Dist CCA Dist PSV 76.6 cm/s CCA Dist EDV 9.84 cm/s Right CCA Mid CCA Mid PSV 71.1 cm/s CCA Mid EDV 15.3 cm/s Right CCA Prox CCA Prox PSV 79.8 cm/s CCA Prox EDV 8.75 cm/s Right Bulb Bulb PSV 54.7 cm/s Bulb EDV 10.9 cm/s Right ECA ECA PSV 94.3 cm/s ECA EDV 3.43 cm/s Right ICA Dist ICA Dist PSV 120 cm/s ICA Dist EDV 24 cm/s Right ICA Mid ICA Mid PSV 97.7 cm/s ICA Mid EDV 18.9 cm/s Right ICA Prox ICA Prox PSV 87.4 cm/s ICA Prox EDV 12 cm/s Right Vertebral Vertebral PSV 68.6 cm/s Vert ebral EDV 8.57 cm/s Right SCA Prox SCA Prox PSV 94.3 cm/s SCA Prox EDV 0 cm/s Left CCA Dist CCA Dist PSV 67.2 cm/s CCA Dist EDV 14.9 cm/s Left CCA Mid CCA Mid PSV 68.5 cm/s CCA Mid EDV 10.3 cm/s Left CCA Prox CCA Prox PSV 77.1 cm/s CCA Prox EDV 12.6 cm/s Left Bulb Bulb PSV 64.7 cm/s Bulb EDV 11.2 cm/s Left ECA Prox ECA Prox PSV 65.9 cm/s ECA Prox EDV 0 cm/s Left ICA Dist ICA Dist PSV 125 cm/s ICA Dist EDV 26.1 cm/s Left ICA Mid ICA Mid PSV 112 cm/s ICA Mid EDV 22.4 cm/s Left ICA Prox ICA Prox PSV 78.4 cm/s ICA Prox EDV 16.2 cm/s Left Vertebral Vertebral PSV 65 cm/s Vert ebral EDV 12.2 cm/s Left SCA Prox SCA Prox PSV 153 cm/s SCA Prox EDV 0 cm/s Right ECA Prox ECA Prox PSV 94 cm/s ECA Prox EDV 3 cm/s Right ICA/CCA Ratio ICA/CCA PSV 1.23 Left ICA/CCA Ratio ICA/CCA PSV 1.14 Signed 06/29/2019 06:33 AM Lg Mathews MD Performing Organization Address City/State/Zipcode Phone Number [facility] [address] [place] [address] ECG 12 lead (05/30/2019 10:04 AM CDT) Pathologist Sig nature Ventricular rate 63 [facility] Atrial rate 416 [facility] QRSD interval 80 [facility] QT interval 352 [facility] QTC interval 360 [facility] QRS axis 1 54 [facility] T wave axis 19 [facility] EKG impression Atrial [facility] MUSE fibrillation-Nonspecifi c ST abnormality-Abnormal ECG-In automated comparison with ECG of 01-DEC-2016 11:25,-T wave inversion no longer evident in Inferior leads-Electronically Signed By Michelet CHACON, [facility] ([id number]) on 05/30/2019 12:09:38 PM Specimen Narrative Performed At This result has an attachment that is no t available. 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
[2020-03-19] MEDS ORDERED: LABETALOL 20 MG/4ML SYRINGE IV ONE (10:14)
[2020-03-19] MEDS ORDERED: GLYCOPYRROLATE 0.2 MG/ML SYR ONE (10:20)
[2020-03-19] MEDS ORDERED: NEOSTIGMINE 1 MG/ML -5 ML ONE (10:24)
--- NOTE | 2020-03-19 11:03 | OP ---
Date of Procedure: 03/19/2020 Surgeon: Mehrdad Crandall MD Outside Plant Cable Engineer: DOMINICK Duncan. Preoperative Diagnosis: Symptomatic cholelithiasis and left upper quadrant epigastric mass. Postoperative Diagnosis: Symptomatic cholelithiasis and left upper quadrant epigastric mass with yudy tral hernia in the epigastric region. Procedure Performed: Laparoscopic cholecystectomy and repair of ventral hernia. Estimated Blood Loss: Minimal. Specimens: Gallbladder, lymph node next to the cystic duct, as well as the hernia sac and contents. Findings: As above. Anesthesia: General. Complications: None. Patient tolerated the procedure in stable condition, taken to the Recovery in good general condition. Procedure In Detail: Patient was brought to the OR and placed in supine position. General anesthesi a began. Patient was prepped and draped in the usual sterile fashion. Marcaine 0.5% was infiltrated locally. A 15-blade was used to make a 1 cm infraumbilical midline incision. Subcutaneous tissue w as divided. Fascia was identified and divided. #1 Vicryl stay suture was placed. Peritoneal cavity entered with sharp and blunt dissection. 12 mm trocar was placed into the peritoneal cavity under d irect vision. Pneumoperitoneum was established and then three 5 mm trocars were placed, 1 in the epi gastrium just to the right of midline and 2 in the right subcostal region. Laparoscopy revealed plumbing warehouse helper deidra inflammation of the gallbladder with adhesions to the body and infundibulum which were taken down with sharp and blunt dissection. Bleeding controlled with cautery. Cystic duct and cystic artery w ere clearly identified with blunt dissection. Clips placed. Both structures were divided. There wa s lymph node there, parts of it were removed and sent to Pathology as well near the cystic duct and s ubsequently the gallbladder was from the liver bed utilizing cautery and bleeding was contr olled with cautery. Gallbladder was retrieved through the umbilicus via an EndoCatch bag. Right upp er quadrant was examined, no evidence of bleeding or bile leakage appreciated. Subsequently, all tro cars were removed under direct vision. Stay sutures were tied to each other to reapproximate the fas cial defect. Subcutaneous wounds were irrigated. Bleeding controlled with cautery. 3-0 chromic use d to approximate the subcutaneous tissue and close the skin. Then, a 3 cm incision made in the epiga strium just to the left of midline. Subcutaneous tissue divided. Hernia sac and contents were ident ified. The defect was at the fascia which was approximately 1 cm in diameter. The hernia sac and co ntents were sent to pathology and then #1 PDS [id number] suture was used to close the fascial de fect. Subcutaneous wounds were irrigated. Bleeding controlled with cautery. 3-0 chromic used to ap proximate the subcutaneous tissue and close the skin. Sterile dressing was applied. Patient was lola kened and taken to Recovery in good general condition. Discharge Note: Patient will go to Day Surgery and home when stable. Disposition: Home. Condition: Stable. Discharge Instructions: Resume home medications and diet. Activity as tolerated. No heavy lifting. Remove outer dressing in 2 days. Shower. Keep wound clean and dry. Keep Steri-Strips on at all t imes. Tylenol No. 3 one tablet p.o. q.4 p.r.n. pain. Follow up in my office in a week. Call for appointment. Incentive spirometry as ordered as well as abdominal binder. /MODL Voice ID: [id number] Report ID: [id number]
[2020-03-19] MEDS ORDERED: HYDROMORPHONE HCL 1 MG/ML INJ ONE (11:10)
[2020-03-19] MEDS ORDERED: PROMETHAZINE INJ 25 MG/ML AMP ONE (11:10)
[2020-03-19] MEDS ORDERED: CODEINE 30MG/APAP 300MG TAB ONE (12:00)
[2020-03-19 12:48] VITALS: BP 176/82; TEMP 97.2; O2SAT 95
== END 2020-03-19 12:35 | disposition home or self-care (01) ==
LOC: OR 08:24
PROVIDERS: ATTEND Surgery
PROC: 0WQF0ZZ Repair Abdominal Wall, Open Approach (ICD-10-PCS; 2020-03-19)
PROC: 0FT44ZZ Resection of Gallbladder, Percutaneous Endoscopic Approach (ICD-10-PCS; principal; 2020-03-19 09:30)
DX: K80.10 Calculus of gallbladder with chronic cholecystitis without obstruction (principal); Z11.59 Encounter for screening for other viral diseases; K43.9 Ventral hernia without obstruction or gangrene; R19.02 Left upper quadrant abdominal swelling, mass and lump; J44.9 Chronic obstructive pulmonary disease, unspecified; I10 Essential (primary) hypertension; I48.91 Unspecified atrial fibrillation; M19.90 Unspecified osteoarthritis, unspecified site
CPT/HCPCS: 47562; 49560; 93005; 85025; 80048; 36415; 82150; 80076; 88302; 88304; 88305; J2704; J2550; J3010; J1170; J2710; J0690; J7120; J2405

== ENCOUNTER 2021-09-02 12:41 | Inpatient (IN) | payer OTHER, BC ==
--- OUTSIDE RECORDS SUMMARY | 2021-09-02 12:43 | XMS REPORT | Continuity of Care Document ---
:1945 Author Organization [facility] Address [address] [place] [address] [address] [place] [address] Care Team Providers Name Role Phone BISI Attending Clinician Unavailable Problems This patient has no known problems. Allergies, Adverse Reactions, Alerts This patient has no known allergies or adverse reactions. Medications This patient has no known medications. Procedures This patient has no known procedures. Encounters Start End Encounter Admission Attending Care Care Encounter Source Date/Time Date/Time Type Type Clinicians Facility Department ID 2021-07-29 2021-07-29 Outpatient [facility] [id number] [place] 00:00:00 00:00:00 CATHIE [address] 2021-07-22 2021-07-22 Outpatient [facility] [id number] [place] 00:00:00 00:00:00 CATHIE [address] 2020-05-28 2020-05-28 Outpatient [facility] [id number] [place] 00:00:00 00:00:00 CATHIE [address] Results This patient has no known results.
[2021-09-02 13:45] LABS: Protime INR 1.47
[2021-09-02 13:49] LABS: Absolute Lymphocytes (CBC) 0.9 K/uL (0.7-4.9); Lymphocytes % 14.3 % (15.3-44.8); MPV 7.4 fL (7.6-11.3); RBC Red Blood Cell Count 2.37 M/uL (3.86-4.86)
[2021-09-02 13:51] LABS: Hematocrit 17.7 % (36.0-45.0)
[2021-09-02 14:05] LABS: ALT/SGPT 12 U/L (12-78); AST/SGOT 15 U/L (15-37); Alkaline Phosphatase 57 U/L (45-117); BUN Blood Urea Nitrogen 17 mg/dL (7-18); Bicarbonate 26 mmol/L (21-32); Bilirubin Direct 0.2 mg/dL (0-0.2); Bilirubin Total 0.3 mg/dL (0.2-1.0); Glucose Level 146 mg/dL (74-106); Magnesium 1.8 mg/dL (1.8-2.4); NT PRO-BNP 3953 pg/mL (<450); Potassium 5.1 mmol/L (3.5-5.1); Protein, Total 6.7 g/dL (6.4-8.2); Sodium Level 143 mmol/L (136-145); Troponin (Emerg Dept Use Only) < 0.02 ng/mL (0.0-0.045)
--- NOTE | 2021-09-02 14:16 | RAD REPORT ---
EXAM DESCRIPTION: RAD - Chest Single View - 09/02/2021 2:05 pm CLINICAL HISTORY: DYSPNEA COMPARISON: Chest Pa And Lat (2 Views) dated 08/18/2021; Chest Single View dated 02/08/2020; Chest Sin gle View dated 07/05/2016; CHEST PA AND LAT 2 VIEW dated 01/27/2015 FINDINGS: Lines: None. Lungs: No evidence of edema or pneumonia. Emphysema. Pleural: No significant pleural effusions or pneumothorax. Cardiac: The heart size is within normal limits. Atherosclerosis. Bones: No acute fractures. Other: IMPRESSION: Emphysema without superimposed acute process identified.
--- NOTE | 2021-09-02 14:29 | EDPHYS ---
Physician Documentation [facility] Name: Ruby Soriano Age: 76 yrs Sex: Female : 1945 Arrival Date: 09/02/2021 Time: 12:45 Bed 17 Private MD: Cayden Guzmán ED Physician Akil Hartman HPI: 09/02 14:26 This 76 yrs old Female presents to ER via Wheelchair with complaints of jr8 Anemia. 14:26 This is a 76-year-old female patient who presented to emergency room for further jr8 evaluation of anemia. Patient was seen by her primary care physician and had recent blood work showing that her hemoglobin was significantly low. Patient is on blood thinners but denies any hematemesis, hematochezia, black tarry stools. Patient has however had increased shortness of breath along with fatigue over the past few days.. Historical: - Allergies: 12:48 No Known Allergies; ll1 - PMHx: 12:48 COPD; Hyperlipidemia; Hypertension; Irregular heart rate; stroke 2011; ll1 - PSHx: 12:48 Cholecystectomy; hysterectomy; ll1 - Immunization history:: Client reports receiving the 2nd dose of the Covid vaccine. - Social history:: Smoking status: Patient/guardian denies using tobacco, the patient reports quitting approximately 16 years ago. ROS: 14:26 Eyes: Negative for injury, pain, redness, and discharge, ENT: Negative for injury, jr8 pain, and discharge, Neck: Negative for injury, pain, and swelling, Cardiovascular: Negative for chest pain, palpitations, and edema, Abdomen/GI: Negative for abdominal pain, nausea, vomiting, diarrhea, and constipation, Back: Negative for injury and pain, MS/Extremity: Negative for injury and deformity, Skin: Negative for injury, rash, and discoloration. 14:26 Neuro: Negative for headache, weakness, numbness, tingling, and seizure. 14:26 Constitutional: Positive for fatigue. 14:26 Respiratory: Positive for dyspnea on exertion, shortness of breath. Exam: 14:26 ENT: Nares patent. No nasal discharge, no septal abnormalities noted. Tympanic jr8 membranes are normal and external auditory canals are clear. Oropharynx with no redness, swelling, or masses, exudates, or evidence of obstruction, uvula midline. Mucous membranes moist. Neck: Trachea midline, no thyromegaly or masses palpated, and no cervical lymphadenopathy. Supple, full range of motion without nuchal rigidity, or vertebral point tenderness. No Meningismus. Cardiovascular: Regular rate and rhythm with a normal S1 and S2. No gallops, murmurs, or rubs. Normal PMI, no JVD. No pulse deficits. Respiratory: Lungs have equal breath sounds bilaterally, clear to auscultation and percussion. No rales, rhonchi or wheezes noted. No increased work of breathing, no retractions or nasal flaring. Abdomen/GI: Soft, non-tender, with normal bowel sounds. No distension or tympany. No guarding or rebound. No evidence of tenderness throughout. Skin: Warm, dry with normal turgor. Pale in appearance with no rashes, no lesions, and no evidence of cellulitis. MS/ Extremity: Pulses equal, no cyanosis. Neurovascular intact. Full, normal range of motion. Neuro: Awake and alert, GCS 15, oriented to person, place, time, and situation. Cranial nerves II-XII grossly intact. Motor strength 5/5 in all extremities. Sensory grossly intact. 14:26 Eyes: Periorbital structures: appear normal, Pupils: equal, round, and reactive to light and accomodation, Extraocular movements: intact throughout, Conjunctiva: pale, bilaterally. Vital Signs: 12:50 BP 135 / 52; Pulse 79; Resp 16; Temp 98.4; Pulse Ox 96% ; Weight 60.78 kg; Height 5 ft. ll1 6 in. (167.64 cm); Pain 0/10; 15:33 BP 148 / 61; Pulse 89; Resp 18; Temp 98.2; Pulse Ox 100% ; sl2 16:30 BP 160 / 60; Pulse 96; Resp 18; Pulse Ox 99% ; sl2 17:30 BP 154 / 66; Pulse 92; Resp 18; Temp 98.2; Pulse Ox 100% ; sl2 19:00 BP 116 / 47; Pulse 113; Resp 20 S; Temp 98.5(O); Pulse Ox 99% on R/A; cc4 19:30 BP 117 / 78; Pulse 97; Resp 20; Temp 98.0; Pulse Ox 99% on R/A; cc4 20:00 BP 117 / 48; Pulse 91; Resp 19; Temp 97.8(O); Pulse Ox 100% on R/A; cc4 20:30 BP 101 / 48; Pulse 83; Resp 19 S; Temp 97.2(O); Pulse Ox 100% on R/A; cc4 20:40 BP 113 / 47; Pulse 82; Resp 17 S; Temp 97.2(O); Pulse Ox 100% on R/A; cc4 21:15 BP 107 / 58; Pulse 71; Resp 17; Temp 97.2(T); Pulse Ox 100% on R/A; cc4 12:50 Body Mass Index 21.63 (60.78 kg, 167.64 cm) ll1 MDM: 12:56 Patient medically screened. [facility] 14:26 Data reviewed: vital signs, nurses notes, lab test result(s), EKG, radiologic studies, jr8 plain films. Data interpreted: Pulse oximetry: on room air is 96 %. Interpretation: normal. Counseling: I had a detailed discussion with the patient and/or guardian regarding: the historical points, exam findings, and any diagnostic results supporting the discharge/admit diagnosis, lab results, radiology results, the need for further work-up and treatment in the hospital. 09/02 12:56 Order name: Basic Metabolic Panel [facility] 09/02 12:56 Order name: CBC with Diff [facility] 09/02 12:56 Order name: LFT's [facility] 09/02 12:56 Order name: Magnesium [facility] 09/02 12:56 Order name: NT PRO-BNP [facility] 09/02 12:56 Order name: PT-INR [facility] 09/02 12:56 Order name: Troponin (emerg Dept Use Only); Complete Time: 14:06 [facility] 09/02 12:56 Order name: TS [facility] 09/02 12:57 Order name: Basic Metabolic Panel; Complete Time: 14:06 EDMS 09/02 12:57 Order name: CBC with Automated Diff; Complete Time: 13:59 EDMS 09/02 12:57 Order name: Liver (Hepatic) Function; Complete Time: 14:06 EDMS 09/02 12:57 Order name: Magnesium; Complete Time: 14:06 EDMS 09/02 12:57 Order name: NT PRO-BNP; Complete Time: 14:06 EDMS 09/02 12:57 Order name: Protime (+INR); Complete Time: 13:59 EDMS 09/02 12:56 Order name: XRAY Chest (1 view); Complete Time: 14:29 8 09/02 12:56 Order name: EKG; Complete Time: 12:57 8 09/02 12:56 Order name: Cardiac monitoring; Complete Time: 20:22 8 09/02 12:56 Order name: EKG - Nurse/Tech; Complete Time: 20:22 8 09/02 12:56 Order name: IV Saline Lock; Complete Time: 13:36 8 09/02 12:56 Order name: Labs collected and sent; Complete Time: 13:36 8 09/02 12:56 Order name: O2 Per Protocol; Complete Time: 13:36 [facility] 09/02 12:56 Order name: O2 Sat Monitoring; Complete Time: 13:36 [facility] 09/02 14:04 Order name: Bb Add On bd 09/02 14:25 Order name: Packed RBC Leukored EDMN 09/02 14:27 Order name: Labs - recollect needed: recollect type and screen, please fill tube.; bd Complete Time: 15:05 09/02 14:57 Order name: COVID-19 SARS RT PCR (Document "Date of Onset" if Symptomatic); Complete bd Time: 17:10 09/02 15:30 Order name: ABO/RH no charge; Complete Time: 15:35 EDMS 09/02 17:35 Order name: Diet 2 Gm Sodium; Complete Time: 17:35 ss Administered Medications: No medications were administered Disposition: 09/03 07:06 Co-signature as Attending Physician, Akil Hartman MD I agree with the assessment and rn plan of care. Attestation: The patient's history, exam findings, diagnostics, and a summary of any interventions or procedures was reviewed in detail with Joel GREENWOOD. Disposition Summary: 09/02/21 14:28 Hospitalization Ordered Hospitalization Status: Observation jr8 Provider: Cayden Guzmán Location: Telemetry/MedSur (observation) jr Condition: Stable jr8 Problem: new jr8 Symptoms: have improved jr8 Bed/Room Type: Standard [facility] Room Assignment: 429(09/02/21 20:47) cg Diagnosis - Anemia, unspecified jr8 Forms: - Medication Reconciliation Form jr8 - SBAR form jr8 Signatures: Dispatcher [employer] Johana Tabor Roman, MD MD rn Roszak, Josh, PA PA jr8 Heidy Ricci RN RN cg Lewis, Lynsay, RN RN 1 Isabel Jones RN RN cc4 Corrections: (The following items were deleted from the chart) 09/02 12:50 12:48 Social history: Smoking status: Patient denies any tobacco usage or history of. [facility] 20:47 14:28 8
--- NOTE | 2021-09-02 14:29 | ER ---
Nurse's Notes [facility] Name: Ruby Soriano Age: 76 yrs Sex: Female : 1945 Arrival Date: 09/02/2021 Time: 12:45 Bed 17 Private MD: Cayden Guzmán Diagnosis: Anemia, unspecified Presentation: 09/02 12:50 Chief complaint: Patient states: Sent in by Dr. Guzmán for anemia. + weak and pale. ll1 Lethargic and SOB with exertion. Coronavirus screen: Vaccine status: Patient reports receiving the 2nd dose of the covid vaccine. Client denies travel out of the [place] in the last 14 days. At this time, the client does not indicate any symptoms associated with coronavirus-19. Ebola Screen: Patient denies travel to an Ebola-affected area in the 21 days before illness onset. Initial Sepsis Screen: Does the patient meet any 2 criteria? No. Patient's initial sepsis screen is negative. Does the patient have a suspected source of infection? No. Patient's initial sepsis screen is negative. Risk Assessment: Do you want to hurt yourself or someone else? Patient reports no desire to harm self or others. Onset of symptoms was June 18, 2021. 12:50 Method Of Arrival: Wheelchair ll1 12:50 Acuity: SERINA 2 ll1 Triage Assessment: 19:30 General: Appears uncomfortable, Behavior is cooperative, restless. Neuro: No deficits cc4 noted. Level of Consciousness is awake, alert, obeys commands, Oriented to person, place, time, situation. Cardiovascular: Rhythm is atrial fibrillation. Respiratory: No deficits noted. Airway is patent Respiratory effort is even, unlabored, Respiratory pattern is regular, symmetrical. GI: No signs and/or symptoms were reported involving the gastrointestinal system. : No signs and/or symptoms were reported regarding the genitourinary system. Derm: No deficits noted. Skin is intact. Musculoskeletal: No signs and/or symptoms reported regarding the musculoskeletal system. Capillary refill < 3 seconds, Range of motion: intact in all extremities. Historical: - Allergies: 12:48 No Known Allergies; ll1 - PMHx: 12:48 COPD; Hyperlipidemia; Hypertension; Irregular heart rate; stroke 2011; ll1 - PSHx: 12:48 Cholecystectomy; hysterectomy; ll1 - Immunization history:: Client reports receiving the 2nd dose of the Covid vaccine. - Social history:: Smoking status: Patient/guardian denies using tobacco, the patient reports quitting approximately 16 years ago. Screenin:33 Abuse screen: Denies threats or abuse. Nutritional screening: No deficits noted. sl2 Tuberculosis screening: No symptoms or risk factors identified. Fall Risk None identified. No fall in past 12 months (0 pts). No secondary diagnosis (0 pts). No IV (0 pts). Ambulatory Aid- None/Bed Rest/Nurse Assist (0 pts). Gait- Normal/Bed Rest/Wheelchair (0 pts) Mental Status- Oriented to own ability (0 pts). Total Main Fall Scale indicates No Risk (0-24 pts). Assessment: 14:29 Reassessment: After speaking with Haresh pest management supervisor and Dr. Guzmán, patient was ss intended to be a direct admit as no TELE beds are available at this time and patient was told by Dr. Guzmán's office to come to ED for admission. This was not discovered until after patient's care was started in the emergency room. 15:33 General: Appears in no apparent distress. well groomed, well developed. sl2 15:33 Pain: Denies pain. Neuro: No deficits noted. Level of Consciousness is awake, alert, sl2 obeys commands, Oriented to person, place, time, situation, Appropriate for age. Cardiovascular: No deficits noted. Respiratory: No deficits noted. GI: No deficits noted. No signs and/or symptoms were reported involving the gastrointestinal system. : No deficits noted. No signs and/or symptoms were reported regarding the genitourinary system. EENT: No deficits noted. No signs and/or symptoms were reported regarding the EENT system. Derm: No deficits noted. No signs and/or symptoms reported regarding the dermatologic system. Musculoskeletal: No deficits noted. No signs and/or symptoms reported regarding the musculoskeletal system. 17:39 Reassessment: Patient AAO X 3, denies pain or discomfort at this time - requesting sl2 food, ER dinner tray ordered. 19:30 Reassessment: Rec'd resting in bed; restless; reports having restless leg syndrome; IV cc4 PRBC's unit # [id number] transfusing left AC \T\ 150 ml/hr/pump with no s/sx's of infiltration; VSS; family member sitting \T\ bedside; CM intact \T\ monitoring atrial fibrillation with no ventricular ectopy; VR 90's; wiil con't to monitor. 20:00 Reassessment: Patient appears in no apparent distress at this time. Sleeping; PRBC' cc4 transfusing with no difficulty; VSS. 20:40 Reassessment: IV PRBC's transfusion complete, merlin. well; VSS; sleeping. cc4 21:30 Reassessment: Patient appears in no apparent distress at this time. Sleeping; VSS; cc4 report telephoned to ERIKA Maharaj of 4th floor med-surg. Vital Signs: 12:50 BP 135 / 52; Pulse 79; Resp 16; Temp 98.4; Pulse Ox 96% ; Weight 60.78 kg; Height 5 ft. ll1 6 in. (167.64 cm); Pain 0/10; 15:33 BP 148 / 61; Pulse 89; Resp 18; Temp 98.2; Pulse Ox 100% ; sl2 16:30 BP 160 / 60; Pulse 96; Resp 18; Pulse Ox 99% ; sl2 17:30 BP 154 / 66; Pulse 92; Resp 18; Temp 98.2; Pulse Ox 100% ; sl2 19:00 BP 116 / 47; Pulse 113; Resp 20 S; Temp 98.5(O); Pulse Ox 99% on R/A; cc4 19:30 BP 117 / 78; Pulse 97; Resp 20; Temp 98.0; Pulse Ox 99% on R/A; cc4 20:00 BP 117 / 48; Pulse 91; Resp 19; Temp 97.8(O); Pulse Ox 100% on R/A; cc4 20:30 BP 101 / 48; Pulse 83; Resp 19 S; Temp 97.2(O); Pulse Ox 100% on R/A; cc4 20:40 BP 113 / 47; Pulse 82; Resp 17 S; Temp 97.2(O); Pulse Ox 100% on R/A; cc4 21:15 BP 107 / 58; Pulse 71; Resp 17; Temp 97.2(T); Pulse Ox 100% on R/A; cc4 12:50 Body Mass Index 21.63 (60.78 kg, 167.64 cm) ll1 ED Course: 12:45 Patient arrived in ED. mr 12:45 Cayden Guzmán MD is Private Physician. mr 12:49 Arm band placed on. ll1 12:52 Triage completed. ll1 12:54 Joel Araya PA is PHCP. jr8 12:54 Akil Hartman MD is Attending Physician. jr8 13:18 Heidy Armenta RN is Primary Nurse. ss 13:36 Inserted saline lock: 20 gauge in left antecubital area, using aseptic technique. Blood dh4 collected. 13:51 Notified Nurse Practitioner and/or Physician Furniture Polisher of a critical lab result(s), HGB ll1 5.5, HCT 17.7. 14:05 XRAY Chest (1 view) In Process Unspecified. EDMS 14:28 Cayden Guzmán MD is Hospitalizing Provider. jr8 15:33 Patient has correct armband on for positive identification. Placed in gown. Bed in low sl2 position. Call light in reach. Side rails up X2. Adult w/ patient. 15:33 No provider procedures requiring assistance completed. IV is patent, is intact, with sl2 fluids infusing freely, with good blood return. 20:10 Bb Add On Sent. cc4 20:22 Basic Metabolic Panel Sent. cc4 20:22 CBC with Diff Sent. cc4 20:22 LFT's Sent. cc4 20:22 Magnesium Sent. cc4 20:22 NT PRO-BNP Sent. cc4 20:22 PT-INR Sent. cc4 21:50 Patient admitted, IV remains in place. cc4 Administered Medications: No medications were administered Outcome: 14:28 Decision to Hospitalize by Provider. jr8 21:50 Admitted to Med/surg accompanied by tech, via stretcher, room 429, Report called to ccStaci Maharaj RN. 21:50 Condition: stable 21:50 Instructed on the need for admit, Demonstrated understanding of instructions. 21:58 Patient left the ED. cc4 Signatures: Dispatcher [employer] EDMA Desi Ontiveros mr Heidy Armenta, ERIKA RN Joel Araya PA PA jr8 Dino Ortega 4 Reed Avery RN RN 1 Isabel Jones RN RN cc4 Mei Ivey RN RN sl2 Corrections: (The following items were deleted from the chart) 12:50 12:48 Social history: Smoking status: Patient denies any tobacco usage or history of. ll1 ll1
[2021-09-02] MEDS ORDERED: ACETAMINOPHEN 325 MG TABLET ONE (18:00)
[2021-09-02] MEDS ORDERED: NA CHLORIDE 0.9% 1,000 ML ONE (18:00)
[2021-09-02] MEDS ORDERED: DIPHENHYDRAMINE 50 MG/ML VIAL ONE (18:01)
[2021-09-02] MEDS ORDERED: LORAZEPAM 0.5 MG TABLET ONE ×2 (18:35→19:10)
[2021-09-02] MEDS ORDERED: TEMAZEPAM 15 MG CAP ONE (19:10)
[2021-09-02] MEDS ORDERED: LORazepam 2 MG/ML VIAL IV PRN (19:15)
[2021-09-02] MEDS ORDERED: TEMAZEPAM 15 MG CAP PO PRN (19:16)
[2021-09-02 23:09] LABS: Hematocrit 21.8 % (36.0-45.0)
[2021-09-03 05:33] LABS: Absolute Lymphocytes (CBC) 1.2 K/uL (0.7-4.9); Basophils % 1.3 % (0-1.3); Hematocrit 25.8 % (36.0-45.0); Lymphocytes % 21.1 % (15.3-44.8); MPV 7.6 fL (7.6-11.3); RBC Red Blood Cell Count 3.29 M/uL (3.86-4.86)
[2021-09-03 05:46] LABS: Magnesium 1.8 mg/dL (1.8-2.4); Potassium 4.3 mmol/L (3.5-5.1)
[2021-09-03] MEDS ORDERED: NEBIVOLOL HCL 5 MG TAB PO ONE (10:11)
[2021-09-03] MEDS: ARFORMOTEROL TARTRATE 15 MCG/2 ML VIAL.NEB NEB SCH ×2 (12:01→20:00)
--- NOTE | 2021-09-03 17:00 | EKG ---
Test Date: 2021-09-02 Test Time: 13:56:33 Medical Library Assistant: LETY MEASUREMENT RESULTS: Intervals: Rate: 95 NE: QRSD: 76 QT: 332 QTc: 417 [place]: P: NE: QRS: 63 T: 53 INTERPRETIVE STATEMENTS: Atrial fibrillation Nonspecific ST abnormality Abnormal ECG Compared to ECG 03/13/2020 09:21:23 ST (T wave) deviation now present Electronically Signed On 09-03-21 16:57:14 BONDING MACHINE TENDER by Dallas Pappas
[2021-09-03] MEDS ORDERED: NA CHLORIDE 0.9% 250 ML ONE ×2 (17:04)
[2021-09-03 19:35] VITALS: BMI 21.6
[2021-09-03] MEDS: [UNRECOGNIZED DRUG - OTHER] PO SCH (20:10)
--- NOTE | 2021-09-03 21:54 | PN ---
Date of Progress Note: 09/03/2021 The patient states she felt significantly better after blood transfusion, although she is still weak. Her breathing has been stable. Seen by Pulmonology. Cardiology felt that she possibly would quali fy for a procedure for her paroxysmal atrial fib. At this time, her rate has been stable. She shelley nues to hold her anticoagulants with no external bleeding noted. Awaiting stool guaiac test. PT was slightly elevated. INR was normal. We restarted her beta-blockers and digoxin. We will possibly c onsult GI depending on her blood results tomorrow for an endoscopic procedure, either in or outpatien t. HR/MODL Voice ID: [id number] Report ID: [id number]
[2021-09-03] MEDS ORDERED: FUROSEMIDE 40 MG/4 ML VIAL IV ONE (23:44)
[2021-09-04] MEDS: ARFORMOTEROL TARTRATE 15 MCG/2 ML VIAL.NEB NEB SCH ×2 (01:45→08:25)
[2021-09-04 03:58] LABS: Absolute Lymphocytes (CBC) 0.8 K/uL (0.7-4.9); Basophils % 0.6 % (0-1.3); Hematocrit 30.7 % (36.0-45.0); MPV 7.5 fL (7.6-11.3); RBC Red Blood Cell Count 4.03 M/uL (3.86-4.86)
[2021-09-04 04:05] LABS: Potassium 4.4 mmol/L (3.5-5.1)
[2021-09-04] MEDS: NEBIVOLOL HCL 5 MG TAB PO SCH (05:46)
[2021-09-04] MEDS ORDERED: DIGOXIN 0.125 MG TABLET PO SCH (06:00)
--- NOTE | 2021-09-04 06:55 | ECHO ---
HEIGHT: 5 ft 6 in WEIGHT: 134 lb 0 oz DATE OF STUDY: 09/03/[address]: Cayden Guzmán MD 2-DIMENSIONAL: YES M.MODE: YES DOPPLER: YES COLOR FLOW: YES TDS: PORTABLE: DEFINITY: BUBBLE STUDY: DIAGNOSIS: ATRIAL FIBRILLATION CARDIAC HISTORY: CATHERIZATION: NO SURGERY: NO PROSTHETIC VALVE: NO PACEMAKER: NO MEASUREMENTS (cm) DIASTOLIC (NORMALS) SYSTOLIC (NORMALS) IVSd 1.3 (0.6-1.2) LA Diam 4.2 (1.9-4.0) LVEF 50% LVIDd 3.8 (3.5-5.7) LVIDs 2.9 (2.0-3.5) %FS 25% LVPWd 1.3 (0.6-1.2) Ao Diam 2.9 (2.0-3.7) 2 DIMENSIONAL ASSESSMENT: RIGHT ATRIUM: NORMAL LEFT ATRIUM: DILATED RIGHT VENTRICLE: NORMAL LEFT VENTRICLE: NORMAL TRICUSPID VALVE: NORMAL MITRAL VALVE: MITRAL ANNULAR CALCIFICATION PULMONIC VALVE: NORMAL AORTIC VALVE: NORMAL PERICARDIAL EFFUSION: NONE AORTIC ROOT: NORMAL LEFT VENTRICULAR WALL MOTION: NORMAL DOPPLER/COLOR FLOW: MILD MITRAL AND TRICUSPID REGURGITATION COMMENTS: NORMAL LEFT VENTRICULAR SIZE AND FUNCTION. MILD PULMONARY HYPERTENSION. RIGHT VENTRICULAR SYSTOLIC PRESSURE 43mmHg. MILD MITRAL AND TRICUSPID REGURGITATION. MITRAL ANNULAR CALCIFICATION. LEFT ATRIAL ENLARGEMENT. TECHNOLOGIST: KRISTIN LEE
[2021-09-04] MEDS: [UNRECOGNIZED DRUG - OTHER] PO SCH ×2 (07:51→19:14)
[2021-09-04] MEDS: DIGOXIN 0.125 MG TABLET PO SCH (08:09)
[2021-09-04] MEDS ORDERED: TRAVOPROST 0.004% 2.5ML OPTH EACH EYE SCH (09:00)
[2021-09-04] MEDS ORDERED: NEBIVOLOL HCL 5 MG TAB PO ONE (10:02)
--- NOTE | 2021-09-04 11:10 | RAD REPORT ---
EXAM DESCRIPTION: XR Chest, 2 Views CLINICAL HISTORY: The patient is 76 years old and is Female; SOB TECHNIQUE: Frontal and lateral views of the chest. COMPARISON: No relevant prior studies available. FINDINGS: LUNGS: The lungs are hyperinflated with extensive interstitial opacities. PLEURAL SPACE: Unremarkable. No pneumothorax. HEART: The cardiac silhouette is enlarged. MEDIASTINUM: Unremarkable. BONES/JOINTS: There are degenerative changes of the bones. UPPER ABDOMEN: Unremarkable as visualized. IMPRESSION: Cardiomegaly with diffuse interstitial opacities which may be a combination of edema and /or infection. Electronically signed by: Gwen Kinney MD 09/04/2021 12:45 AM PRESS PULLER Due to temporary technical issues with the PACS/Fluency reporting system, reports are being signed by the in house radiologists without review as a courtesy to insure prompt reporting. The interpreting radiologist is fully responsible for the content of the report.
--- NOTE | 2021-09-04 12:08 | P.CNS ---
Date of Consult: 09/04/21 Reason for Consult: COPD Chief Complaint: Shortness of breath and weakness History of Present Illness: Patient is 68 years of age admitted with profound weakness shortness of breath on exertion was found to be severely anemia admitted and transfuse is no prior history of any GI bleeding no melenic stools patient was functional at baseline prior history of stroke although with no residual deficit he is currently ill drowsy daughters by her bedside has COPD dyspnea on exertion just uses a p.r.n. bronchodilator quit smoking 17 years ago Allergies No Known Allergies Allergy (Verified 03/13/20 10:04) Home Medications: Travoprost [Travatan Z] 2.5 ml OP DAILY 06/27/12 Ascorbic Acid [Vitamin C] 1,000 mg PO DAILY 11/15/18 Biotin 5,000 mcg PO DAILY 11/15/18 Digoxin [Lanoxin*] 0.125 mg PO [id number] 11/15/18 Fenofibric Acid (Choline) [Fenofibric Acid] 135 mg PO DAILY 11/15/18 Nebivolol HCl [Bystolic] 10 mg PO [id number] 11/15/18 - Past Medical/Surgical History Diabetic: No -: Stroke -: COPD - Social History Smoking Status: Former smoker Alcohol use: No CD- Drugs: No Caffeine use: Yes Place of Residence: Home Review of Systems is unable to be obtained Physical Examination Temp Pulse Resp BP Pulse Ox 98.3 F 76 16 186/76 H 94 09/04/21 11:31 09/04/21 11:31 09/04/21 11:31 09/04/21 11:31 09/04/21 11:31 General: Alert, Cooperative Respiratory: Clear to auscultation bilaterally, Diminished Cardiovascular: No edema, Normal pulses, Normal S1 S2 - Problems (1) Severe anemia Current Visit: Yes Status: Acute Plan: Patient is 76 years of age admitted with severe anemia and no history of GI bleed patient was transfused 3 units of packed red blood cells will need outpatient workup in during an endoscopy colonoscopy he does have a slight microcytosis CT of the abdomen and pelvis is pending (2) COPD (chronic obstructive pulmonary disease) Current Visit: Yes Status: Acute Plan: Chest x-ray shows COPD changes patient uses short-acting beta agonist on a p.r.n. basis he had outpatient workup with pulmonary function testing chest x- ray shows hyperinflation continue with Breztri samples did have added Brovana patient does not qualify for home O2 Qualifiers: COPD type: unspecified COPD Qualified Code(s): J44.9 - Chronic obstructive pulmonary disease, unspecified
--- NOTE | 2021-09-04 12:48 | RAD REPORT ---
EXAM DESCRIPTION: CTAbdomen Pelvis W Contrast - 09/04/2021 12:19 pm CLINICAL HISTORY: Abdominal pain. severe anemia w/anorexia COMPARISON: No comparisons TECHNIQUE: Biphasic CT imaging of the abdomen and pelvis was performed with 100 ml non-ionic IV cont rast. All CT scans are performed using dose optimization technique as appropriate and may include automated exposure control or mA/KV adjustment according to patient size. FINDINGS: Small bilateral pleural effusions are seen.Small hiatal hernia. Several benign liver cysts are present, largest measuring 19 mm in the left lobe of the liver. No agg ressive liver lesion or biliary dilatation is seen. Cholecystectomy clips. No bowel obstruction, free air, free fluid or abscess. The appendix is normal. No evidence of signi ficant lymphadenopathy. No suspicious bony findings. IMPRESSION: No acute intra-abdominal or pelvic finding. Small bilateral pleural effusions.
[2021-09-04 17:42] LABS: Hematocrit 31.2 % (36.0-45.0)
--- NOTE | 2021-09-04 20:31 | PN ---
Date of Progress Note: 09/04/2021 The patient states she does feel somewhat better today. Her hemoglobin after 3 units is now over 10. No longer having any dyspneic problems as she did apparently have third unit of blood, which she re sponded to Lasix. CAT scan is negative. If in fact her blood count was normal. Tried getting her e ndoscopy while she is in the hospital, otherwise I could discharge her and follow up with her gastroe nterologist next week if in fact her blood counts are stable. HR/MODL Voice ID: [id number] Report ID: [id number]
[2021-09-05] MEDS: NEBIVOLOL HCL 5 MG TAB PO SCH (05:46)
[2021-09-05 06:15] LABS: Hematocrit 31.2 % (36.0-45.0)
[2021-09-05] MEDS: DIGOXIN 0.125 MG TABLET PO SCH (08:42)
[2021-09-05] MEDS: [UNRECOGNIZED DRUG - OTHER] PO SCH ×2 (08:42→21:00)
[2021-09-05] MEDS: ARFORMOTEROL TARTRATE 15 MCG/2 ML VIAL.NEB NEB SCH ×2 (09:55→19:45)
[2021-09-05] MEDS ORDERED: Ringers Lactate 1,000 ML IV ONE (15:00)
[2021-09-05] MEDS ORDERED: LIDOCAINE 1% MPF 5 ML VIAL ONE (15:25)
[2021-09-05] MEDS ORDERED: propofoL 200 MG/20 ML VIAL IV ONE (15:25)
[2021-09-05] MEDS ORDERED: Phenylephrine HCl 10 MG/ML 1 ML VIAL ONE (15:26)
--- NOTE | 2021-09-05 16:40 | ENDO RPT ---
[address], [address] EGD PROCEDURE REPORT EXAM DATE: 09/05/2021 PATIENT NAME: Ruby Soriano MR#: [id number] BIRTHDATE: 1945 ATTENDING: Keyshawn Valente Dr STATUS: inpatient - [facility] MACHINE TOOL DRESSER: Ruby aDvidson RN and Radha Gomez CST INDICATIONS: The patient is a 76 yr old Female here for an EGD due to iron deficiency anemia, early satiety, and dyspepsia PROCEDURE PERFORMED: EGD with biopsy MEDICATIONS: Per Anesthesia. TOPICAL ANESTHETIC: none CONSENT: The patient understands the risks and benefits of the procedure and understands that these risks include, but are not limited to: sedation, allergic reaction, infection, perforation and/or bleeding. Alternative means of evaluation and treatment include, among others: physical exam, x-rays, and/or surgical intervention. The patient elects to proceed with this endoscopic procedure. DESCRIPTION OF PROCEDURE: During intra-op preparation period all mechanical medical equipment was checked for proper function. Hand hygiene and appropriate measures for infection prevention was taken. Procedure, possible complications, and alternatives including but not limited to the possibility of bleeding, perforation, tear, infection, sepsis, need for surgery, need for blood transfusion, and anesthesia related complications were explained to the patient. After the risks, benefits and alternatives of the procedure were thoroughly explained, Informed consent was verified, confirmed and timeout was successfully executed by the treatment team. The patient was placed in the left lateral position. The patient was anesthetized with topical anesthesia. Through the anesthetized oropharyngeal area, the scope was passed without any difficulty. The [id number] ([id number]) endoscope was introduced through the mouth and advanced to the third portion of the duodenum. Retroflexed views revealed a small hiatal hernia. The gastroscope was then slowly withdrawn and removed. A Schatzki's ring was found in the lower esophagus. A small hiatal hernia was found Mild gastritis was found in the antrum. Multiple biopsies were obtained and sent to pathology. Small bowel biopsies obtained with history of iron deficiency anemia. ADVERSE EVENTS: There were no complications. IMPRESSIONS: 1. Schatzki's ring in the lower esophagus (no history of dysphagia) 2. Small hiatal hernia 3. Mild gastritis in the antrum, s/p biopsies 4. Small bowel biopsies obtained with history of iron deficiency anemia RECOMMENDATIONS: 1. await biopsy results 2. acid suppression therapy REPEAT EXAM: Keyshawn Valente Dr eSigned: Keyshawn Valente Dr 09/05/2021 4:39 PM cc: Cayden Guzmán M.D. CPT CODES: ICD9 CODES: PATIENT NAME: Ruby Soriano MR#: [id number]
--- NOTE | 2021-09-05 18:37 | PN ---
Date of Progress Note: 09/05/2021 The patient feels about the same. Her H and H are stable just over 10. Stool guaiac was negative. She is awaiting an EGD either later this afternoon or early in the a.m. Depending on the results, we will depend on the disposition and followup treatment. HR/MODL Voice ID: [id number] Report ID: [id number]
[2021-09-05 18:51] LABS: Hematocrit 32.3 % (36.0-45.0)
[2021-09-06] MEDS ORDERED: D5W 1,000 ML IV SCH
[2021-09-06 04:16] VITALS: O2SAT 97
[2021-09-06 05:58] LABS: Hematocrit 29.4 % (36.0-45.0)
[2021-09-06] MEDS: NEBIVOLOL HCL 5 MG TAB PO SCH (05:59)
[2021-09-06] MEDS: ARFORMOTEROL TARTRATE 15 MCG/2 ML VIAL.NEB NEB SCH (08:14)
[2021-09-06] MEDS: DIGOXIN 0.125 MG TABLET PO SCH (08:24)
[2021-09-06] MEDS: [UNRECOGNIZED DRUG - OTHER] PO SCH (08:25)
--- NOTE | 2021-09-06 12:20 | PN ---
Date of Progress Note: 09/06/2021 The patient states she feels about the same; however, hemoglobin was dropped almost 1 g, it maybe hyd ration factor. She says she is eating somewhat better. We will repeat the PT, INR and PTT and UA pr ior to discharge. She has not had a bowel movement. There was negative stool guaiac. Has EGD, basi terence negative as far as showing any source of the bleeding. We will follow up as an outpatient with serial H and Hs and colonoscopy and if this does not show anything hematology and she is also awaiti ng a WATCHMAN procedure for her atrial fibrillation to avoid anticoagulation with dental equipment installer and servicer in [facility]. We will follow up next week. HR/MODL Voice ID: [id number] Report ID: [id number]
[2021-09-06 12:49] VITALS: BP 178/76; TEMP 98.5
[2021-09-06 12:55] LABS: Protime INR 1.09
[2021-09-06 16:05] LABS: Urine Color YELLOW (Yellow)
[2021-09-06 16:06] LABS: Urine Appearance CLEAR (Clear); Urine Bacteria <20 /HPF (<20); Urine Bilirubin NEGATIVE (Negative); Urine Blood NEGATIVE (Negative); Urine Glucose NEGATIVE (Negative); Urine Protein NEGATIVE (Negative); Urine RBC <5 /HPF (NONE SEEN)
--- NOTE | 2021-09-08 09:23 | CON ---
Date of Consultation: 09/05/2021 Reason For Consultation: Atrial fibrillation and anemia. History Of Present Illness: Ms. Soriano is 76 years old, sees Dr. Landin in [place] from a cardiac stand point. Has had a history of CVA, COPD, atrial fibrillation, and anemia. Apparently, has had a recen t cardiac workup that was fairly unremarkable including a stress test and there has been some plan fo r a Watchman procedure because of her anemia, comes to the emergency room with anemia and weakness. Last hemoglobin was 10. Atrial fibrillation is chronic at a rate of 88. Complaining of weakness and some shortness of breath, but no chest pain. No nausea, vomiting, diaphoresis, PND, orthopnea, peda l edema, palpitation, or syncope. Echocardiogram showed an ejection fraction of 50% with pulmonary h ypertension with right ventricular systolic pressure of 43 mmHg. Past Medical History: As stated above. Allergies: NONE. Review of Systems: Negative. Social History: Negative. Family History: Noncontributory. Medications: At home include Bystolic, Lasix, digoxin, and inhalers. Blood thinners have been held. Physical Examination: Vital Signs: Stable. She was afebrile. She was in atrial fibrillation at rate of 88. General: She is in no acute distress. HEENT: Negative. Neck: Supple with no bruit, lymphadenopathy, JVD, or thyromegaly. Chest: Clear. Cardiac: Revealed atrial fibrillation. No murmurs, gallops, or rubs. Abdomen: Benign. Extremities: Revealed no clubbing, cyanosis, or edema. Diagnostic Data: Hemoglobin is 10. EKG showed AFib. Chest x-ray is clear. Echocardiogram showed a n ejection fraction of 50% with right ventricular systolic pressure of 43 mmHg. Impression And Plan: Chronic atrial fibrillation with anemia, history of cerebrovascular accident. The patient should have a Watchman procedure and that is apparently planned in [place] for her in the next few weeks. I am comfortable with her going home whenever it is okay with Dr. Guzmán and yancy iyer up with her travel professional in [place]. She should continue Bystolic, Lasix, digoxin. She should con tinue her inhalers for her chronic obstructive pulmonary disease. I will be available for questions if the need arises. Anticoagulation should continue to be held. Baby aspirin would be reasonable. LATESHA/HAILE Voice ID: [id number] Report ID: [id number]
== END 2021-09-06 14:05 | disposition home or self-care (01) | DRG 812 ==
LOC: ER 12:41 → ERHOLD 17:24 → 4TH 21:44 → OBSVTOIN 09-03 15:10 → 2ND 09-04 22:48
PROVIDERS: ADMIT Family Medicine; ATTEND Family Medicine
PROC: 30233N1 Transfusion of Nonautologous Red Blood Cells into Peripheral Vein, Percutaneous Approach (ICD-10-PCS; 2021-09-03)
PROC: 0DB88ZX Excision of Small Intestine, Via Natural or Artificial Opening Endoscopic, Diagnostic (ICD-10-PCS; 2021-09-05)
PROC: 0DB68ZX Excision of Stomach, Via Natural or Artificial Opening Endoscopic, Diagnostic (ICD-10-PCS; principal; 2021-09-05 14:45)
DX: D50.9 Iron deficiency anemia, unspecified (principal); R68.81 Early satiety; K29.70 Gastritis, unspecified, without bleeding; K44.9 Diaphragmatic hernia without obstruction or gangrene; K22.2 Esophageal obstruction; I10 Essential (primary) hypertension; E78.5 Hyperlipidemia, unspecified; I48.0 Paroxysmal atrial fibrillation; J44.9 Chronic obstructive pulmonary disease, unspecified; Z87.891 Personal history of nicotine dependence; Z86.73 Personal history of transient ischemic attack (TIA), and cerebral infarction without residual deficits; Z20.822 Contact with and (suspected) exposure to COVID-19
CPT/HCPCS: 36415; 71045; 71046; 74177; 80048; 80061; 80076; 81001; 82274; 82805; 83735; 83880; 84443; 84484; 85014; 85018; 85025; 85610; 85730; 86850; 86900; 86901; 87086; 87088; 88305; 88312; 93005; 93306; 94640; 99285; G0378; J1200; J1940; J2370; J2704; J7030; J7050; J7120; J7605; P9016; Q9967; U0003

== ENCOUNTER 2021-09-24 10:19 | Day surgery (SDC) | payer OTHER, BC ==
[2021-09-24] MEDS ORDERED: Ringers Lactate 1,000 ML IV ONE (10:52)
[2021-09-24] MEDS ORDERED: propofoL 200 MG/20 ML VIAL IV ONE ×2 (11:07)
[2021-09-24] MEDS ORDERED: LIDOCAINE 1% MPF 2 ML AMPULE ONE (11:07)
[2021-09-24] MEDS ORDERED: GLYCOPYRROLATE 0.2 MG/ML SYR ONE (11:31)
[2021-09-24] MEDS ORDERED: EPHEDRINE SULF 50 MG/ML VIAL ONE (11:32)
--- NOTE | 2021-09-24 12:24 | ENDO RPT ---
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 ESTIMATED BLOOD LOSS: None CONSENT: The patient understands the risks and benefits of the procedure and understands that these risks include, but are not limited to: sedation, allergic reaction, infection, perforation and/or bleeding. Alternative means of evaluation and treatment include, among others: physical exam, x-rays, and/or surgical intervention. The patient elects to proceed with this endoscopic procedure. DESCRIPTION OF PROCEDURE: During intra-op preparation period all mechanical medical equipment was checked for proper function. Hand hygiene and appropriate measures for infection prevention was taken. Procedure, possible complications, alternatives including, but not limited to possibility of bleeding, perforation, tear, infection, sepsis, need for surgery, need for blood transfusion, were explained to the patient. After the risks, benefits and alternatives of the procedure were thoroughly explained, Informed consent was verified, confirmed and timeout was successfully executed by the treatment team. The patient was placed in the left lateral position. A digital rectal exam was performed and revealed no abnormalities of the rectum. After appropriate level of anesthesia, the scope was passed. The [id number] ([id number]) endoscope was introduced through the anus and advanced to the terminal ileum which was intubated for a short distance. The quality of the prep was good. The instrument was then slowly withdrawn as the colon was fully examined. Scope withdrawal time was 7 minutes. COLON FINDINGS: A smooth flat polyp measuring 6 mm in size was found in the ascending colon. A polypectomy was performed with cold forceps. Mild diverticulosis was noted in the sigmoid colon. No bleeding was noted from the diverticulosis. Small internal hemorrhoids were found. Retroflexed views revealed small hemorrhoids. The scope was then completely withdrawn from the patient and the procedure terminated. ADVERSE EVENTS: There were no complications. IMPRESSIONS: 1. 6 mm flat polyp in the ascending colon; polypectomy was performed with cold forceps 2. Mild diverticulosis in the sigmoid colon 3. Small internal hemorrhoids 4. Intubation to terminal ileum RECOMMENDATIONS: 1. await biopsy results 2. avoid NSAIDS for 2 weeks RECALL: Keyshawn Valente Dr eSigned: Keyshawn Valente Dr 09/24/2021 12:24 PM cc: Cayden Guzmán M.D. CPT CODES: ICD9 CODES: PATIENT NAME: Ruby Soriano MR#: [id number]
[2021-09-24] MEDS ORDERED: HYDRALAZINE HCL 20 MG/ML VIAL ONE (12:52)
[2021-09-24 13:08] VITALS: TEMP 97.5; O2SAT 100
[2021-09-24 14:23] VITALS: BP 164/74
--- NOTE | 2021-09-24 16:11 | RAD REPORT ---
EXAM DESCRIPTION: RAD - Small Bowel Series - 09/24/2021 3:58 pm CLINICAL HISTORY: ANEMIA Abdominal pain COMPARISON: Abdomen Pelvis W Contrast dated 09/04/2021 FINDINGS: Supervisor [employer] film shows a nonspecific bowel gas pattern. No obstruction or free air. No suspiciou s calcifications. Surgical clips in the right upper quadrant. Gastric size and mucosal fold pattern are normal. No delay in transit of contrast into the small sebastian l. Small bowel is normal in diameter with no mucosal fold thickening. No intrinsic or extrinsic mass identifiable. Terminal ileum has normal appearance. Transit time to the colon is normal. No fluoroscopy was performed. Total images acquired: 10 IMPRESSION: Normal small bowel series.
== END 2021-09-24 16:00 | disposition home or self-care (01) ==
LOC: PRE 10:19
PROVIDERS: ATTEND Internal Medicine Gastroenterology
PROC: 0DBK8ZX Excision of Ascending Colon, Via Natural or Artificial Opening Endoscopic, Diagnostic (ICD-10-PCS; principal; 2021-09-24 11:30)
DX: D12.2 Benign neoplasm of ascending colon (principal); K64.8 Other hemorrhoids; K57.30 Diverticulosis of large intestine without perforation or abscess without bleeding; Z20.822 Contact with and (suspected) exposure to COVID-19
CPT/HCPCS: 88305; 74250; 45380; U0003; J0360; J2704; J7120

== ENCOUNTER 2022-05-14 11:04 | Day surgery (SDC) | payer OTHER, BC ==
[2022-05-13 13:20] LABS: Protime INR 1.31
[2022-05-13 13:49] LABS: SARS-CoV-2 Antigen Rapid Res Negative (Negative)
[2022-05-14] MEDS ORDERED: MIDAZOLAM HCL 10 ML ONE (11:25)
[2022-05-14] MEDS ORDERED: FENTANYL CITR 100 MCG/2 ML ONE (11:25)
[2022-05-14] MEDS ORDERED: FLUMAZENIL 0.1 MG/ML (5 mL VIAL) IV ONE (11:26)
[2022-05-14] MEDS ORDERED: METOPROLOL TARTRATE 5 MG/5 ML INJ IV ONE (11:26)
[2022-05-14] MEDS ORDERED: ATROPINE SULF 1 MG/10 ML SYR IV ONE (11:26)
[2022-05-14 11:47] VITALS: BP 126/59; O2SAT 100
--- NOTE | 2022-05-14 13:01 | EKG ---
Test Date: 2022-05-14 Test Time: 12:22:28 Credit Collection Specialist: CLIFFORD MEASUREMENT RESULTS: Intervals: Rate: 65 MN: 178 QRSD: 82 QT: 426 QTc: 443 [place]: P: 90 MN: 178 QRS: 70 T: 39 INTERPRETIVE STATEMENTS: Normal sinus rhythm Normal ECG Compared to ECG 09/02/2021 13:56:33 Atrial fibrillation no longer present ST (T wave) deviation no longer present Electronically Signed On 05-14-22 13:01:02 CDT by Favian Rasmussen
--- NOTE | 2022-05-14 23:45 | OP ---
Date of Procedure: 05/14/2022 Surgeon: HINA TOWNSEND Procedure Performed: Synchronized electrocardioversion. Indication: Atrial fibrillation, symptomatic. Complications: None. Bleeding: None. Sedation Used: 5 mg of Versed. Description Of Procedure: After risks, benefits, and alternatives, the patient agreed to procedure a nd signed informed consent. The patient was brought into the recovery area, and after a proper time- out and patient identification, the patient was attached to the leather belt loop cutter and she was still in atrial fibrillation. I gave 5 mg of Versed, and once the patient achieved a good moderate sedation, then a 200-joule synchronized electrocardioversion was done, successfully converting rhythm to sinus rhythm. The patient was able to move all extremities after the shock. Conclusion: Successful synchronized electrocardioversion of atrial fibrillation to normal sinus sofia holland SR/MODL Voice ID: [id number] Report ID: [id number]
== END 2022-05-14 13:30 | disposition home or self-care (01) ==
LOC: CCL 11:04
PROVIDERS: ATTEND Internal Medicine
DX: I48.91 Unspecified atrial fibrillation (principal); I10 Essential (primary) hypertension; E78.5 Hyperlipidemia, unspecified; Z79.02 Long term (current) use of antithrombotics/antiplatelets; Z79.82 Long term (current) use of aspirin; Z79.899 Other long term (current) drug therapy; Z87.891 Personal history of nicotine dependence; Z20.822 Contact with and (suspected) exposure to COVID-19; Z82.49 Family history of ischemic heart disease and other diseases of the circulatory system
CPT/HCPCS: 93005; 36415; 85610; 85730; 92960; 87811; J2250; J3010

== ENCOUNTER 2022-05-27 14:22 | Inpatient (IN) | payer OTHER, BC ==
[2022-05-27 15:33] LABS: SARS-CoV-2 Antigen Rapid Res Negative (Negative)
--- OUTSIDE RECORDS SUMMARY | 2022-05-27 15:56 | XMS REPORT | Continuity of Care Document ---
:1945 Author Organization [facility] t Address [address] [place] [address] Care Team Providers Name Role Phone Favian Rasmussen Attending Clinician Unavailable Diego Branham Attending Clinician Unavailable CATHIE MATHEWS Attending Clinician Unavailable Cayden Guzmán Admitting Clinician Unavailable Diego Branham Admitting Clinician Unavailable Payers Payer Name Policy Type Policy Number Effective Date Expiration Date S ource Problems This patient has no known problems. Allergies, Adverse Reactions, Alerts Allergy Allergy Status Severity Reaction(s) Onset Inactive Treating Comm ents Source Name Type Date Date Clinician No Known DA Active U [facility] All[facility]ie 10-20 Clear s 00:00: [address] Medications This patient has no known medications. Procedures Procedure Date / Time Performed Performing Clinician Florencio naqvi [id number] 2021-10-22 00:00:00 [facility] [id number] 2021-10-22 00:00:00 [facility] Encounters Start End Encounter Admission Attending Care Care Encounter Source Date/Time Date/Time Type Type Clinicians Facility Department ID 2021-11-24 Inpatient EL Guillermonae, JORJECL OUTD [id number] [facility] 10:30:00 Favian [id number] [facility] 2021-11-19 Inpatient EL Guillermonae, HCACL OUTD [id number] [facility] 09:30:00 Favian [id number] [facility] 2021-11-17 Inpatient EL Valery, HCACL OUTD [id number] [facility] 10:30:00 Favian [id number] [facility] 2021-10-20 Inpatient JAIDA Rasmussen, HCACL OUTD [id number] [facility] 13:00:00 Favian [id number] [facility] 2021-11-26 2021-11-26 Outpatient JAIDA Rasmussen, HCACL OUTD [id number] [facility] 05:24:00 05:24:00 Favian [id number] [facility] 2021-11-26 2021-11-26 Outpatient JAIDA Rasmussen, HCACL [facility] [id number] [facility] 05:24:00 05:24:00 Favian 13 [facility] 2021-10-22 2021-10-22 Inpatient JAIDA Branham, HCACL INTE.02 [id number] [facility] 09:25:00 15:34:00 Diego [id number] [facility] 2021-10-22 2021-10-22 Inpatient JAIDA Branham, HCACL INTE.02 [id number] [facility] 09:25:00 15:34:00 Diego 65 [facility] 2021-09-25 2021-09-25 [facility] [id number] [place] 00:00:00 00:00:00 CATHIE [address] 2021-09-23 2021-09-23 [facility] [id number] [address] [place] 00:00:00 00:00:00 CATHIE [address] 2021-07-29 2021-07-29 [facility] [id number] [place] 00:00:00 00:00:00 CATHIE [address] 2021-07-22 2021-07-22 [facility] [id number] [address] [place] 00:00:00 00:00:00 CATHIE [address] 2020-05-28 2020-05-28 [facility] [id number] [address] [place] 00:00:00 00:00:00 CATHIE [address] Results Test Description Test Time Test Comments Results Result Comments Source BASIC METABOLIC PANEL 2021-11-24 12:58:00 Test Item Value Reference Range Interpretation Comme nts SODIUM (test code = NA) 136 mEq/L 134-147 N POTASSIUM (test code = K) 4.7 mEq/L 3.4-5.0 N CHLORIDE (test code = CL) 102 mEq/L 100-108 N CARBON DIOXIDE (test code = CO2) 29 mEq/l 21-33 N ANION GAP (test code = GAP) 9 0-20 N GLUCOSE (test code = GLU) 99 mg/dL 70-110 N BLOOD UREA NITROGEN (test code = 12 mg/dL 7-18 N BUN) GLOMERULAR FILTRATION RATE (test 48.0 70-80 L Units of measure = ml/min/1.73 code = GFR) m2 CREATININE (test code = CREAT) 1.1 mg/dL 0.6-1.3 N CALCIUM (test code = CA) 9.8 mg/dL 8.0-10.5 N PROTHROMBIN [id number] 12:46:00 Test Item Value Reference Range Interpretation Comments PROTHROMBIN TIME 14.8 SECONDS 9.3-12.9 H PATIENT (test code = PTP) INTERNATIONAL NORMAL 1.3 0.8-1.2 H TARGET INR BY RATIO (test code = INDICATIO N Indication INR) INR1. Prophylax is of venous thrombos is 2.0 - 3.0 (orthoped ic surgery), Proph ylaxis of venous throm bosis (other than hig h-risk surgery), Treat ment of Deep Vein Thrombosis/Pulm onary Embolism, Preve ntion of systemic emb olism - Tissue heart va lves, Acute Myocardia l Infarction (to prevent systemic emboli sm), Valvular heart disease, Atria l Fibrillation, Bileaflet mecha nical valve in aortic position.2. Mec hanical prosthetic valv es (high risk), 2. 5 - 3.5 Presence of Lup us Anticoagulant o r Antiphospholipi d Antibodies, Pre vention of systemic emb olism - Acute Myocardia l Infarction (to prevent recurrent infar ct). CBC W/AUTO [id number] 12:39:00 Test Item Value Reference Range Interpretation Comments WHITE BLOOD CELL (test code = 8.3 x10 3/uL 4.5-11.0 N WBC) RED BLOOD CELL (test code = 4.63 x10 6/uL 3.54-5.02 N RBC) HEMOGLOBIN (test code = HGB) 11.6 g/dL 11.0-15.0 N HEMATOCRIT (test code = HCT) 38.2 % 33.0-45.0 N MEAN CELL VOLUME (test code = 82.5 fL 81.0-99.0 N MCV) MEAN CELL HGB (test code = MCH) 25.1 pg 27.0-33.0 L MEAN CELL HGB CONCETRATION 30.4 g/dL 33.0-37.0 L (test code = MCHC) RED CELL DISTRIBUTION WIDTH CV 18.6 % 11.5-14.5 H (test code = RDW) PLATELET COUNT (test code = 309 x10 3/uL 150-400 N PLT) NEUTROPHIL % (test code = NT%) 64.8 % 56.0-77.0 N LYMPHOCYTE % (test code = LY%) 17.5 % 14.0-32.0 N NEUTROPHIL # (test code = NT#) 5.38 x10 3/uL 2.0-7.6 N LYMPHOCYTE # (test code = LY#) 1.45 x10 3/uL 1.0-3.8 N MANUAL DIFF REQUIRED (test code NO = MDIFF) RED CELL DISTRIBUTION WIDTH SD 55.6 fL 37.0-54.0 H (test code = RDW-SD) MEAN PLATELET VOLUME (test code 9.7 fL 7.0-9.0 H = MPV) IMMATURE GRANULOCYTE % (test 1.2 % 0.0-2.0 N code = IG%) MONOCYTE % (test code = MO%) 9.3 % 4.8-9.0 H EOSINOPHIL % (test code = EO%) 6.1 % 0.3-3.7 H BASOPHIL % (test code = BA%) 1.1 % 0.0-2.0 N NUCLEATED RBC % (test code = 0.0 % 0-0 N NRBC%) IMMATURE GRANULOCYTE # (test 0.10 x10 3/uL 0.00-0.03 H code = IG#) MONOCYTE # (test code = MO#) 0.77 x10 3/uL 0.1-0.8 N EOSINOPHIL # (test code = EO#) 0.51 x10 3/uL 0.0-0.2 H BASOPHIL # (test code = BA#) 0.09 x10 3/uL 0.0-0.2 N NUCLEATED RBC # (test code = 0.00 x10 3/uL 0.0-0.1 N NRBC#) COAGULATION TIME [id number] 10:50:00 Test Item Value Reference Range Interpretation Comments COAGULATION TIME 317 SECONDS Performed b y ACTIVATED (test code = certi fied erector operator ACT) at [facility] COAGULATION TIME [id number] 10:50:00 Test Item Value Reference Range Interpretation Comments COAGULATION TIME 285 SECONDS Performed b y ACTIVATED (test code = certi fied erector operator ACT) at [facility] - XR CHEST 1 [id number] 00:00:00 [facility] : 1945 Sex: F FAX: Favian Garcia MD [phone] Gamaliel: St: [facility] FAX: Cayden Garcia MD [phone] FAX: Yifan Catalan F [phone] Name: KAVITHA BRANHAM [facility] : 1945 Age/S: 76/F [address] [place] [address] Unit #: [id number] Loc: [place] [address] Phys: Yifna Catalan [facility] Acct: [id number] Dis Date: Status: ADM IN PHONE #: [phone] Exam Date: 10/22/2021 1302 FAX #: [phone] Reason: WATCHMAN EXA MS: CPT CODE: [id number] XR CHEST 1 V 99933 PROCEDURE INFORMATION: Exam: XR Chest Exam date and time: 10/22/2021 11:42 AM Age: 76 years old Clinical indication: Condition or disease; Other: Watchman TECHNIQUE: Imaging protocol: XR of the chest. Views: 1 view. COMPARISON: DX XR CHEST 2 V 10/20/2021 2:59 PM FINDINGS: Tubes, catheters and devices: Left atrial appendage closure device is demonstrated. Lungs: Pleural and lung parenchymal scarring identified within bilateral apices. Pulmonary emphysema identified within the lungs. Mild central pulmonary venous congestion with bilateral perihilar and basilar interstitial opacities, suggesting pulmonary edema within the lungs. The peripheral lungs are otherwise clear. No consolidation. Pleural spaces: See "Lungs" finding. Heart/Mediastinum: Cardiac silhouette appears mildly enlarged. Mitral valve calcification is demonstrated. Vasculature: Moderate to severe atherosclerotic calcification demonstrated within the aorta. Bones/joints: Diffusely decreased bone density. Mild to moderate generalized bony degenerative changes. IMPRESSION: 1. Pulmonary emphysema. Mild interstitial edema. 2. Mild enlarged cardiac silhouette. 3. Degenerative and postsurgical changes are demonstrated, as described above. at 1315 Reported and signed by: Nicko Vidales M.D. CC: Favian Rasmussen MD; Cayden Guzmán MD; Yifan Catalan Technologist: DON Sutherland) Trnscrd Date/Time/By: 10/22/2021 (6545) : By: [email or web address] Orig Print D/T: S: 10/22/2021 (0557) PAGE 1 Signed ReportCBC W/AUTO [id number] 15:26:00 Test Item Value Reference Range Interpretation Comments WHITE BLOOD CELL (test code = 7.4 x10 3/uL 4.5-11.0 N WBC) RED BLOOD CELL (test code = 5.08 x10 6/uL 3.54-5.02 H RBC) HEMOGLOBIN (test code = HGB) 12.0 g/dL 11.0-15.0 N HEMATOCRIT (test code = HCT) 40.7 % 33.0-45.0 N MEAN CELL VOLUME (test code = 80.1 fL 81.0-99.0 L MCV) MEAN CELL HGB (test code = MCH) 23.6 pg 27.0-33.0 L MEAN CELL HGB CONCETRATION 29.5 g/dL 33.0-37.0 L (test code = MCHC) RED CELL DISTRIBUTION WIDTH CV 18.6 % 11.5-14.5 H (test code = RDW) RED CELL DISTRIBUTION WIDTH SD 54.3 fL 37.0-54.0 H (test code = RDW-SD) PLATELET COUNT (test code = 324 x10 3/uL 150-400 N PLT) MEAN PLATELET VOLUME (test code 9.8 fL 7.0-9.0 H = MPV) NEUTROPHIL % (test code = NT%) 70.0 % 56.0-77.0 N IMMATURE GRANULOCYTE % (test 0.5 % 0.0-2.0 N code = IG%) LYMPHOCYTE % (test code = LY%) 17.1 % 14.0-32.0 N MONOCYTE % (test code = MO%) 8.8 % 4.8-9.0 N EOSINOPHIL % (test code = EO%) 2.7 % 0.3-3.7 N BASOPHIL % (test code = BA%) 0.9 % 0.0-2.0 N NUCLEATED RBC % (test code = 0.0 % 0-0 N NRBC%) NEUTROPHIL # (test code = NT#) 5.18 x10 3/uL 2.0-7.6 N IMMATURE GRANULOCYTE # (test 0.04 x10 3/uL 0.00-0.03 H code = IG#) LYMPHOCYTE # (test code = LY#) 1.27 x10 3/uL 1.0-3.8 N MONOCYTE # (test code = MO#) 0.65 x10 3/uL 0.1-0.8 N EOSINOPHIL # (test code = EO#) 0.20 x10 3/uL 0.0-0.2 N BASOPHIL # (test code = BA#) 0.07 x10 3/uL 0.0-0.2 N NUCLEATED RBC # (test code = 0.00 x10 3/uL 0.0-0.1 N NRBC#) MANUAL DIFF REQUIRED (test code NO = MDIFF) BASIC METABOLIC [id number] 15:25:00 Test Item Value Reference Range Interpretation Comments SODIUM (test code = NA) 142 mEq/L 134-147 N POTASSIUM (test code = 4.5 mEq/L 3.4-5.0 N K) CHLORIDE (test code = 106 mEq/L 100-108 N CL) CARBON DIOXIDE (test 29 mEq/l 21-33 N code = CO2) ANION GAP (test code = 12 0-20 N GAP) GLUCOSE (test code = 105 mg/dL 70-110 N GLU) BLOOD UREA NITROGEN 12 mg/dL 7-18 N (test code = BUN) GLOMERULAR FILTRATION 48.0 70-80 L Units of measure = RATE (test code = GFR) ml/mi n/1.73 m2 CREATININE (test code = 1.1 mg/dL 0.6-1.3 N CREAT) CALCIUM (test code = 9.7 mg/dL 8.0-10.5 N CA) [id number] 15:25:00 Test Item Value Reference Range Interpretation Comments PREALBUMIN (test code = PREALB) 18.0 mg/dL 16.0-40.0 N PROTHROMBIN [id number] 15:23:00 Test Item Value Reference Range Interpretation Comments PROTHROMBIN TIME 15.9 SECONDS 9.3-12.9 H PATIENT (test code = PTP) INTERNATIONAL NORMAL 1.4 0.8-1.2 H TARGET INR BY RATIO (test code = INDICATIO N Indication INR) INR1. Prophylax is of venous thrombos is 2.0 - 3.0 (orthoped ic surgery), Proph ylaxis of venous throm bosis (other than hig h-risk surgery), Treat ment of Deep Vein Thrombosis/Pulm onary Embolism, Preve ntion of systemic emb olism - Tissue heart va lves, Acute Myocardia l Infarction (to prevent systemic emboli sm), Valvular heart disease, Atrial Fibrillation, Bileaflet mecha nical valve in aortic position.2. Mec hanical prosthetic valv es (high risk), 2. 5 - 3.5 Presence of Lup us Anticoagulant o r Antiphospholipi d Antibodies, Pre vention of systemic emb olism - Acute Myocardia l Infarction (to prevent recurrent infar ct). COVID 19 Asymptomatic IH [id number] 13:58:00 Test Item Value Reference Range Interpretation Comments COVID 19 Asymptomatic Negative Negative A nega tive result is AG (test code = presumpti ve and should COVNONPUIAG) be confirmedwit h an FDA authorized mole cular assay, if neces laura forpatient lior gement.A positive result does not rule out co-inf ections withother patho gens.This test detects xavier th viable (live) and non-viable,SARS -CoV, and SARS-CoV-2. Bobby t performance dep ends on theamount of vi whitney (antigen) in th e sample.This bobby t has not been FDA cleare d or approved; the t est hasbeen authori zed by FDA under an Em ergency Use Authorizati on(EUA) for use by labo ratories certified under the CLIA thatmeet the requirements to perform moderate, high or waivedcomplexit y tests. - XR CHEST 2 [id number] 00:00:00 [facility] : 1945 Sex: F FAX: Favian Garcia MD [phone] Gamaliel: St: PRE FAX: Cayden Garcia MD [phone] Name: CARROLDOROTAE [facility] : 1945 Age/S: 76/F [address] [place] [address] Unit #: [id number] Loc: [place], [place] [address]Nrmr: Favian Rasmussen MD Acct: [id number] Dis Date: Status: PRE SDC PHONE #: [phone] Exam Date: 10/20/2021 1501 FAX #: [phone] Reason: PREOP EXAMS: CPT CODE: [id number] XR CHEST 2 V [id number] PROCEDURE INFORMATION: Exam: XR Chest Exam date and time: 10/20/2021 2:59 PM Age: 76 years old Clinical indication: Pre-operative exam; Respiratory screening exam; Additional info: Preop TECHNIQUE: Imaging protocol: XR of the chest. Views: 2 views. PA and Lateral COMPARISON: No relevant prior studies available. FINDINGS: Lungs: Normal lung volumes. No consolidation or infiltrate. Normal pulmonary vascularity. Pleural spaces: No pleural effusion. No pneumothorax. Heart/Mediastinum: Heart size is within normal limits. Vasculature: Atherosclerotic calcification of the aorta. Bones/joints: No acute abnormality seen. Chronic healed right lateral 5th rib fracture. IMPRESSION: 1. No acute cardiopulmonary disease. 2. Atherosclerotic disease. at 1532 Reported and signed by: Niharika Willard M.D. CC: Favian Rasmussen MD; Jennifer CHACON Technologist: RT Ignacio(Nish) Trnscrd Date/Time/By: 10/20/2021 (153) : By: [email or web address] Orig Print D/T: S: 10/20/2021 (153) PAGE 1 Signed Report
[2022-05-27 16:51] LABS: Absolute Lymphocytes (CBC) 1.1 K/uL (0.7-4.9); Hematocrit 35.1 % (36.0-45.0); Lymphocytes % 9.5 % (15.3-44.8); MCV 78.6 fL (80-100); RBC Red Blood Cell Count 4.46 M/uL (3.86-4.86)
[2022-05-27] MEDS ORDERED: NA CHLORIDE 0.9% 1,000 ML IV SCH (17:00)
[2022-05-27 17:10] LABS: Potassium 4.8 mmol/L (3.5-5.1)
--- NOTE | 2022-05-27 17:24 | RAD REPORT ---
EXAM DESCRIPTION: CT - Abdomen Pelvis Wo Contrast - 05/27/2022 4:55 pm CLINICAL HISTORY: weakness, hyperkalemia COMPARISON: Abdomen Pelvis W Contrast dated 09/04/2021; Chest For Pe Angio dated 05/05/2022 TECHNIQUE: Axial [address] imaging of the abdomen and pelvis was performed without IV contrast. No IV contrast was given because of allergy, abnormal renal function, patient refusal or physician re quest. No oral contrast administered. All CT scans are performed using dose optimization technique as appropriate and may include automated exposure control or mA/KV adjustment according to patient size. FINDINGS: Trace pleural effusion is noted in the posterior gutter on the left. Large right pleural e ffusion is present increased from the May 05 CT chest study. There is complete or near complete righ t lower lobe atelectasis and partial atelectasis of the right middle lobe. This is not a complete exa mination of the lung wilkerson. Pericardial thickening/ effusion has not changed. The liver, spleen and pancreas show no suspicious findings on non-contrast imaging. Approximately 2.1 centimeter cyst in the midline left lobe has not changed from 2020 imaging. Cholecystectomy clips ar e present. No abnormal biliary tree dilatation. No hydronephrosis or suspicious renal mass. No obstructing or nonobstructing calculi. No renal change s since 2020. No significant adrenal finding. Isodense renal masses and pyelonephritis cannot be excl uded in the absence of IV contrast. Partially filled urinary bladder shows no suspicious findings. Ut erus is absent. Ovaries are absent or atrophic. No dilated bowel loops or bowel wall thickening. No acute GI process identifiable. No free air, free fluid or inflammatory stranding. No hernia, mass or bulky lymphadenopathy. No suspicious bony findings. Disc and bone degenerative changes are present. No pathologic bone proce ss. Dense aortoiliac atherosclerotic calcifications are present without aneurysm. Mesenteric artery calci fications also present. IMPRESSION: No acute finding in the abdomen or pelvis. Large right pleural effusion with right lower lobe and right middle lobe atelectasis. Pleural effusio n has enlarged since May 05 imaging. Pericardial thickening/ effusion similar to the May 05 CT study. Full assessment is limited is the absence of IV contrast.
[2022-05-27 17:40] LABS: Platelet Estimate ADEQ; Toxic Granulation 1+
[2022-05-27 17:41] LABS: Blood Morphology Comment NOT SEEN (NOT SEEN)
[2022-05-27 17:43] VITALS: BMI 22.7
[2022-05-27] MEDS ORDERED: METOPROLOL TAR 50 MG TAB PO SCH (21:00)
[2022-05-27] MEDS: LEVALBUTEROL 0.63 MG/3 ML NEB NEB SCH (22:50)
--- NOTE | 2022-05-28 00:22 | PN ---
Date of Progress Note: 05/27/2022 The patient's workup includes a normal potassium, so it was unclear as to why she has had intermitten t hyperkalemic results as an outpatient. Her oxygen saturation is also of 95, however, she is slight ly dyspneic when talking. Her CT scan was basically normal for the abdomen, pelvis, however, it did show some significant changes in her pleural effusion status compared to 3 weeks ago, possibly contri buting to her overall fatigue and anorexia. We will consult Dr. Dunlap, whom in fact she saw today and put her on steroids and inhalation therapy and classified her as severe COPD possibly contributi ng also to the anorexia and weight loss. Cardiology will also be consulted as she has had a recent p rocedure and is slated for another one on a couple weeks. We will continue to monitor her atrial fib rillation and her intake as well. HR/MODL Voice ID: [id number] Report ID: [id number]
[2022-05-28] MEDS ORDERED: NA CHLORIDE 0.9% 1,000 ML IV SCH (01:00)
[2022-05-28] MEDS: LEVALBUTEROL 0.63 MG/3 ML NEB NEB SCH ×3 (03:10→14:00)
[2022-05-28 06:04] LABS: Absolute Lymphocytes (CBC) 0.9 K/uL (0.7-4.9); Hematocrit 31.6 % (36.0-45.0); Lymphocytes % 8.5 % (15.3-44.8); MCV 79.6 fL (80-100); MPV 7.1 fL (7.6-11.3); RBC Red Blood Cell Count 3.98 M/uL (3.86-4.86)
[2022-05-28 06:05] LABS: Potassium 4.2 mmol/L (3.5-5.1)
[2022-05-28] MEDS: ALBUTEROL 2.5 MG/3 ML NEB SOL IH SCH ×2 (08:41→14:00)
[2022-05-28] MEDS: IPRATROPIUM BROM 0.5MG/2.5ML NEB SCH ×3 (08:41→19:30)
[2022-05-28] MEDS ORDERED: HOME MED 1 EA UNK (Metoprolol Tartrate [Metoprolol Tartrate] 100 MG Tablet) PO SCH (09:00)
[2022-05-28] MEDS ORDERED: DILTIAZEM HCL 240 MG PO SCH (09:00)
--- NOTE | 2022-05-28 09:09 | RAD REPORT ---
EXAM DESCRIPTION: RAD - Chest Single View - 05/28/2022 9:00 am CLINICAL HISTORY: SOB COMPARISON: Chest Pa And Lat (2 Views) dated 09/04/2021; Chest Single View dated 09/02/2021; Chest P a And Lat (2 Views) dated 08/18/2021; Chest Single View dated 02/08/2020; Abdomen Pelvis Wo Contrast dated 05/27/2022 FINDINGS: Lines: None. Lungs: Diffuse prominence of the pulmonary interstitium. Pleural: Moderate right pleural effusion. Small left effusion. Cardiac: Cardiomegaly. Atrial appendage occluding device. Bones: No acute fractures. Other: IMPRESSION: Interstitial airspace disease bilaterally with effusions favored represent edema. Superi mposed pneumonia difficult to exclude radiographically.
[2022-05-28] MEDS: dexAMETHasone 4 MG/ML VIAL IV SCH ×2 (09:16→20:09)
[2022-05-28] MEDS: SERTRALINE HCL 50 MG TAB PO SCH (09:17)
[2022-05-28] MEDS: ASPIRIN 81 MG CHEWABLE TABLET PO SCH (09:17)
[2022-05-28] MEDS: DILTIAZEM HCL 120 MG SR CAP PO SCH (09:17)
[2022-05-28] MEDS: ROSUVASTATIN 10 MG TAB PO SCH (09:18)
--- NOTE | 2022-05-28 12:49 | P.CNS ---
Date of Consult: 05/28/22 Reason for Consult: Shortness of breath right-sided pleural effusion Chief Complaint: Shortness of breath hyperkalemia History of Present Illness: Patient is 77 years of age well-known to me I just saw her in my office complaining of worsening dyspnea tachypneic at rest patient also has baseline intermittent hyperkalemia also has a history of atrial fibrillation blockers were increased recently denies any fever or chills patient does have a significant right-sided pleural effusion Allergies No Known Allergies Allergy (Verified 09/23/21 14:48) Home Medications: Albuterol Sulfate [Proair Digihaler] 2 puff IH DAILY 05/27/22 Aspirin [Susan Chewable Aspirin] 1 tab PO DAILY 05/27/22 Diltiazem HCl [Cardizem Cd] 1 cap PO DAILY 05/27/22 Fluticasone/Umeclidin/Vilanter [Trelegy Ellipta 100-62.5-25] 1 puff IH BREAKFAST 05/27/22 Metoprolol Tartrate 1 tab PO BID 05/27/22 Rosuvastatin [Crestor*] 1 tab PO DAILY 05/27/22 Sertraline [Zoloft*] 0.5 tab PO DAILY 05/27/22 - Past Medical/Surgical History Diabetic: No -: Stroke -: COPD - Social History Smoking Status: Former smoker Alcohol use: No CD- Drugs: No Caffeine use: No Review of Systems 10-point ROS is otherwise unremarkable General: Weakness Respiratory: Shortness of Breath Physical Examination Temp Pulse Resp BP Pulse Ox 97.0 F 138 H 18 161/93 H 95 05/28/22 12:00 05/28/22 12:00 05/28/22 12:00 05/28/22 12:00 05/28/22 12:00 General: Alert, In no apparent distress, Moderate distress Respiratory: Diminished (Diminished air entry in the right lower lung) Cardiovascular: No edema, Irregular heart rate/rhythm Gastrointestinal: Soft and benign Laboratory Data (last 24 hrs) 05/28/22 05:27: Sodium 133 L, Potassium 4.2, BUN 12, Creatinine 0.83, Glucose 135 H 05/28/22 05:27: WBC 11.0 H, Hgb 10.7 L, Hct 31.6 L, Plt Count 374 05/27/22 16:41: Sodium 134 L, Potassium 4.8, BUN 17, Creatinine 1.02, Glucose 108 H 05/27/22 16:41: WBC 11.8 H, Hgb 11.7 L, Hct 35.1 L, Plt Count 385 - Problems (1) COPD (chronic obstructive pulmonary disease) Current Visit: No Status: Acute Plan: Patient is 77 years of age has underlying severe obstructive airways disease in addition patient has right-sided basal pleural effusion associated with dyspnea have added bronchodilators and steroid Qualifiers: (2) Hyperkalemia Current Visit: Yes Status: Acute Plan: Patient has intermittent hyperkalemia work-up has been ordered she is not on any EUGENIA inhibitor's have ordered serum aldosterone level urinary potassium and osmolality is quite possible the side effect of beta-blockers can cause hyperkalemia (3) Pleural effusion Current Visit: Yes Status: Acute Plan: Patient has right-sided pleural effusion this was absent on May 05 CT scan of the chest rule out thromboembolism ordered a CT pulmonary angiogram lateral decubitus of the chest echocardiogram recent thyroid function test was normal may have underlying diastolic dysfunction
--- NOTE | 2022-05-28 14:20 | RAD REPORT ---
EXAM DESCRIPTION: CT - Chest For Pe Angio - 05/28/2022 2:11 pm CLINICAL HISTORY: Chest pain. RO PE COMPARISON: Chest Single View dated 05/28/2022; Chest For Pe Angio dated 05/05/2022; Abdomen Pelvis W Contrast dated 09/04/2021 TECHNIQUE: CT angiogram of the pulmonary arteries was performed with MIP. All CT scans are performed using dose optimization technique as appropriate and may include automated exposure control or mA/KV adjustment according to patient size. FINDINGS: No evidence of pulmonary thromboembolism. No acute aortic finding demonstrated. Moderate diffuse emphysema. Small left and small to moderate right effusion. No concerning bony finding. IMPRESSION: No evidence of pulmonary thromboembolism. Moderate diffuse COPD. Small left and small to moderate right pleural effusion.
--- NOTE | 2022-05-28 14:34 | RAD REPORT ---
EXAM DESCRIPTION: RAD - Chest Lateral Decubitus - 05/28/2022 2:26 pm CLINICAL HISTORY: R effusion Pleural effusion COMPARISON: Chest Single View dated 05/28/2022; Abdomen Pelvis Wo Contrast dated 05/27/2022 FINDINGS: Right-sided up decubitus view shows no significantly layering left pleural fluid. Left-elie e up decubitus view shows moderate sized partially layering right pleural effusion.
[2022-05-28 15:48] LABS: Arterial Blood Carboxyhemoglob 1.2 % (0-1.5); Blood Gas Oxyhemoglobin 85.7 % (94-97); Blood O2 Saturation 87.6 % (92-98.5)
[2022-05-28 16:35] LABS: Specific Gravity <= 1.005 (1.005-1.030); Urine Bilirubin Negative (Negative); Urine Blood Trace-intact (Negative); Urine Clarity Clear (Clear); Urine Color Yellow (Yellow); Urine Glucose Trace (Negative); Urine Protein Negative (Negative); Urine pH 5.5 (5.0-7.0)
[2022-05-28 16:43] LABS: Urine Bacteria <20 /HPF (<20); Urine RBC <5 /HPF (None Seen)
[2022-05-28] MEDS ORDERED: AMIODARONE HCL 150 MG in D5W 100 ML IV STA (17:37)
[2022-05-28] MEDS ORDERED: AMIODARONE HCL 900 MG in Dextrose 5%-Water 482 ML IV SCH (18:00)
--- NOTE | 2022-05-28 19:23 | CON ---
Date of Consultation: 05/28/2022 Reason For Consultation: Atrial fibrillation. History Of Present Illness: A 77-year-old female, history of atrial fibrillation and diastolic conge stive heart failure, diagnosed recently with severe COPD, is having significant shortness of breath o n exertion. She comes into the hospital because her potassium was elevated. Metoprolol was held and her heart rate is running high. She does have shortness of breath on minimal exertion. No chest pa in. Past Medical History: As outlined above in the HPI. Medications: Refer to reconciliation sheet for detailed list. Allergies: NO KNOWN DRUG ALLERGIES. Family History: No premature coronary artery disease or cancer. Social History: Does not smoke or drink. Does not use any drugs. Review of Systems: All systems reviewed and they were negative except for what mentioned in HPI. Physical Examination: Vital Signs: Reviewed. Head and Neck: Pupils are equal, reactive to light. Intact eye movements. No JVD. No cervical lym phadenopathy. Neck is supple. Thyroid is not enlarged. Lungs: Decreased breathing sounds with scattered wheezing. No accessory muscle use or muscle retrac tion. Heart: Irregularly irregular. No extra sounds. Abdomen: Soft, nontender. Bowel sounds positive. No organomegaly. No masses or hernia. No rigidi ty or rebound. Extremities: No clubbing or cyanosis. Intact pulses. Skin: No rash. Neurologic: Alert, awake, oriented x3. No acute focal deficits appreciated. Investigations: Labs were reviewed. Hemoglobin is 10.7, white blood cell count is 11, creatinine 0. 83. Assessment And Recommendations: 1.Atrial fibrillation. Rate is uncontrolled. We will start her on amiodarone, start 150 mg over 10 minutes and then 1 mg/minute for 6 hours and then 0.5 mg/minute for 16 hours. She is status post le ft atrial appendage closure, so continue aspirin. Get control on above, we will consider doing atria l fibrillation ablation. 2.Diastolic heart failure. Resume home medications and adjust diuretics as needed. Thank you for the consult. /HAILE Voice ID: [id number] Report ID: [id number]
[2022-05-28] MEDS: ENSURE CLEAR 200 ML CAN PO SCH (20:09)
--- NOTE | 2022-05-28 20:53 | PN ---
Date of Progress Note: 05/28/2022 The patient is basically status quo as far as her eating is concerned, closer questioning of the fami ly. Apparently, there have been some significant stress and possible anxiety, depression status with the patient in the past. These have resulted. She has some anorexia. CT scan and enzymes are with in normal limits as far as her GI problem is concerned cardiac system and then decide whet her further coping procedures are necessary although the latter was done around 6 months ago at the [facility] of GI bleed and basically negative as far as any other pathology is concerned. The fluid will be evaluated with a lateral decubitus and a CT angio and the rhythm will be handled by Cardiology with medication hopefully successfully. Hydration has improved. The potassium has improved. Some questi on whether the latter was related to beta-blockers. We will continue to monitor. HR/MODL Voice ID: [id number] Report ID: [id number]
[2022-05-29] MEDS: IPRATROPIUM BROM 0.5MG/2.5ML NEB SCH ×2 (01:20→08:00)
[2022-05-29 06:09] LABS: Absolute Lymphocytes (CBC) 0.6 K/uL (0.7-4.9); Hematocrit 33.4 % (36.0-45.0); Lymphocytes % 5.8 % (15.3-44.8); MCV 79.9 fL (80-100); RBC Red Blood Cell Count 4.19 M/uL (3.86-4.86)
[2022-05-29 06:20] LABS: Potassium 3.7 mmol/L (3.5-5.1)
--- NOTE | 2022-05-29 07:07 | ECHO ---
HEIGHT: 5 ft 6 in WEIGHT: 141 lb 0 oz DATE OF STUDY: 05/28/[address]: Kemar Dunlap MD 2-DIMENSIONAL: YES M.MODE: YES DOPPLER: YES COLOR FLOW: YES TDS: PORTABLE: DEFINITY: BUBBLE STUDY: DIAGNOSIS: SHORTNESS OF BREATH CARDIAC HISTORY: CATHERIZATION: SURGERY: PROSTHETIC VALVE: PACEMAKER: MEASUREMENTS (cm) DIASTOLIC (NORMALS) SYSTOLIC (NORMALS) IVSd 1.3 (0.6-1.2) LA Diam 4.3 (1.9-4.0) LVEF 50-60% LVIDd 3.5 (3.5-5.7) LVIDs 2.9 (2.0-3.5) %FS 17% LVPWd 1.3 (0.6-1.2) Ao Diam 2.3 (2.0-3.7) 2 DIMENSIONAL ASSESSMENT: RIGHT ATRIUM: NORMAL LEFT ATRIUM: ENLARGED RIGHT VENTRICLE: NORMAL LEFT VENTRICLE: MILD LEFT VENTRICULAR HYPERTROPHY TRICUSPID VALVE: MILD TRICUSPID REGURGIATION MITRAL VALVE: MITRAL ANNULAR CALCIFICATION WITH MITRAL REGURGITATION PULMONIC VALVE: NORMAL AORTIC VALVE: NORMAL PERICARDIAL EFFUSION: NONE AORTIC ROOT: NORMAL LEFT VENTRICULAR WALL MOTION: NORMAL DOPPLER/COLOR FLOW: SEE BELOW COMMENTS: NORMAL LEFT VENTRICULAR EJECTION FRACTION 50-60%. NORMAL WALL MOTION. SEVERE LEFT ATRIAL ENLARGEMENT. MITRAL ANNULAR CALCIFICATION WITH MILD MITRAL REGURGIATION. MILD TRICUSPID REGURGITATION. TECHNOLOGIST: GULSHAN DUMONT
[2022-05-29] MEDS: HOME MED 1 EA UNK (Fluticasone/Umeclidin/Vilanter [Trelegy Ellipta 100-62.5-25] Blst.W.Dev IH SCH (08:00)
--- NOTE | 2022-05-29 08:01 | P.PN ---
Subjective Date of Service: 05/29/22 Chief Complaint: Shortness of breath hyperkalemia Subjective: Improving (Patient is doing slightly better still complaining of dyspnea on exertion) Review of Systems General: Weakness Respiratory: Shortness of Breath Physical Examination - Vital Signs Temperature: 97 F Blood Pressure: 163/84 Pulse: 108 Respirations: 19 Pulse Ox (%): 97 - Physical Exam General: Alert, Mild distress Respiratory: Diminished (Diminished at the right base some crackles) Cardiovascular: No edema, Irregular heart rate/rhythm - Studies Laboratory Data (last 24 hrs) 05/29/22 05:48: Sodium 131 L, Potassium 3.7, BUN 10, Creatinine 1.06, Glucose 250 H 05/29/22 05:48: WBC 10.7, Hgb 11.3 L, Hct 33.4 L, Plt Count 469 H D Assessment And Plan - Current Problems (Diagnosis) (1) COPD (chronic obstructive pulmonary disease) Current Visit: No Status: Acute Plan: Currently stable continue with Trelegy reduce the dose of dexamethasone arterial blood gases show moderate hypoxemia Qualifiers: (2) Hyperkalemia Current Visit: Yes Status: Acute Plan: Most likely is from a beta-blockers she has been now changed to amiodarone patient is transtubular potassium gradient is 4 possibility of hypoaldosteronism. Serum aldosterone level is pending (3) Pleural effusion Current Visit: Yes Status: Acute Plan: Patient has a moderate right-sided pleural effusion that layers on decubitus chest x-ray no evidence of thromboembolism we will discuss with cardiology regarding low-dose anticoagulation
--- NOTE | 2022-05-29 08:42 | RAD REPORT ---
EXAM DESCRIPTION: RAD - Chest Single View - 05/29/2022 5:42 am CLINICAL HISTORY: SOB Chest pain. COMPARISON: Chest Single View dated 05/28/2022; Chest Pa And Lat (2 Views) dated 09/04/2021; Chest Si ngle View dated 09/02/2021; Chest Pa And Lat (2 Views) dated 08/18/2021 FINDINGS: Portable technique limits examination quality. Since yesterday's study, improvement pulmonary aeration is noted with reduction in the size of the ri ght pleural effusion mildly. The heart remains moderately enlarged. No displaced fractures. IMPRESSION: Mild improvement in lung aeration is seen since yesterday's study.
[2022-05-29] MEDS: ENSURE CLEAR 200 ML CAN PO SCH ×2 (09:05→21:00)
[2022-05-29] MEDS: dexAMETHasone 4 MG TAB PO SCH ×2 (09:06→21:28)
[2022-05-29] MEDS: ASPIRIN 81 MG CHEWABLE TABLET PO SCH (09:06)
[2022-05-29] MEDS: ROSUVASTATIN 10 MG TAB PO SCH (09:06)
[2022-05-29] MEDS: SERTRALINE HCL 50 MG TAB PO SCH (09:07)
[2022-05-29] MEDS: DILTIAZEM HCL 120 MG SR CAP PO SCH (09:07)
[2022-05-29] MEDS: FUROSEMIDE 20 MG/ 2ML VIAL IV SCH ×2 (09:10→17:23)
[2022-05-29 10:47] LABS: Platelet Estimate INCR; Platelets, Giant PRESENT
[2022-05-29 10:48] LABS: Anisocytosis SLIGHT; Blood Morphology Comment NOTED (NOT SEEN); Hypochromasia 1+
[2022-05-29] MEDS: METOPROLOL XL 25 MG TAB PO SCH (17:23)
--- NOTE | 2022-05-29 19:36 | PN ---
Date of Progress Note: 05/29/2022 Subjective: Seen by bedside. Continues to feel short of breath. Heart rate still running close to 100. Denies having any chest pain. Review of Systems: No chest pain and shortness of breath and palpitations, nausea, vomiting, diarrhea. No abdominal judith n. No dysuria, polyuria, or urinary urgency. No skin rash. All other systems reviewed and are nega tive. Physical Examination: Vital Signs: Reviewed. Head and Neck: Pupils are equal, reactive to light. Intact eye movements. No JVD. No cervical lym phadenopathy. Neck: Supple. Thyroid is not enlarged. Lungs: Clear to auscultation bilaterally. No rhonchi, wheezing, or crackles. No accessory muscle u se. Heart: Regular rate and rhythm. No extra sounds. Abdomen: Soft, nontender. Bowel sounds positive. No organomegaly. No masses or hernia. No rigidi ty or rebound. Extremities: No clubbing or cyanosis. Intact pulses. Skin: No rash noted. Neurologic: Alert, awake, oriented x3. No acute focal deficits appreciated. Lymph Nodes: No cervical or axillary lymphadenopathy. Investigations: Labs were reviewed. Assessment And Recommendations: 1.Atrial fibrillation with rapid ventricle response. Continue IV amiodarone load. Once the full 24 hours IV load is completed to switch to amiodarone 200 mg twice a day by mouth. Also start the logan ent on Toprol-XL 25 mg only and we will monitor her potassium closely. 2.Acute on chronic diastolic heart failure. Agree with Lasix. Monitor BUN, creatinine, electrolyte s. This patient will need atrial fibrillation ablation, which I have already arranged for. When she gets released, we will plan to proceed with this on an outpatient basis. SR/MODL Voice ID: [id number] Report ID: [id number]
[2022-05-30 06:37] LABS: Absolute Lymphocytes (CBC) 0.6 K/uL (0.7-4.9); Hematocrit 32.2 % (36.0-45.0); Lymphocytes % 2.6 % (15.3-44.8); MCV 80.8 fL (80-100); MPV 7.1 fL (7.6-11.3); RBC Red Blood Cell Count 3.99 M/uL (3.86-4.86)
[2022-05-30 06:59] LABS: Potassium 4.3 mmol/L (3.5-5.1)
[2022-05-30] MEDS: HOME MED 1 EA UNK (Fluticasone/Umeclidin/Vilanter [Trelegy Ellipta 100-62.5-25] Blst.W.Dev IH SCH (08:00)
--- NOTE | 2022-05-30 08:32 | P.PN ---
Subjective Date of Service: 05/30/22 Chief Complaint: COPD exacerbation atrial fibrillation Subjective: Improving (Patient is doing better able to ambulate not appear to be as short of breath) Review of Systems General: Weakness Respiratory: Shortness of Breath Physical Examination - Vital Signs Temperature: 97.6 F Blood Pressure: 162/90 Pulse: 89 Respirations: 20 Pulse Ox (%): 96 - Physical Exam General: Alert, In no apparent distress, Oriented x3 Respiratory: Diminished (Diminished at the right base) Cardiovascular: No edema, Irregular heart rate/rhythm - Studies Laboratory Data (last 24 hrs) 05/30/22 06:04: Sodium 132 L, Potassium 4.3, BUN 16, Creatinine 0.89, Glucose 198 H 05/30/22 06:04: WBC 22.9 H* D, Hgb 10.7 L, Hct 32.2 L, Plt Count 467 H 05/29/22 05:48: WBC 10.7, Hgb 11.3 L, Hct 33.4 L, Plt Count 469 H D Assessment And Plan - Current Problems (Diagnosis) (1) COPD (chronic obstructive pulmonary disease) Current Visit: No Status: Acute Plan: Doing well reduce the Decadron to 2 mg once a day now as patient back on Trelegy Qualifiers: (2) Pleural effusion Current Visit: Yes Status: Acute Plan: Patient has a moderate right-sided pleural effusion that layers on decubitus chest x-ray no evidence of thromboembolism we will discuss with cardiology regarding low-dose anticoagulation (3) Diastolic heart failure Current Visit: Yes Status: Acute Plan: Continue with Lasix p.o. Qualifiers: Heart failure chronicity: acute on chronic Qualified Code(s): I50.33 - Acute on chronic diastolic (congestive) heart failure (4) Atrial fibrillation Current Visit: Yes Status: Acute Plan: Patient is now on amiodarone very low-dose of beta-mayr and diltiazem Qualifiers: Atrial fibrillation type: longstanding persistent Qualified Code(s): I48.11 - Longstanding persistent atrial fibrillation
[2022-05-30] MEDS: ENSURE CLEAR 200 ML CAN PO SCH ×2 (09:00→22:24)
[2022-05-30] MEDS: DILTIAZEM HCL 120 MG SR CAP PO SCH (09:00)
[2022-05-30] MEDS: ASPIRIN 81 MG CHEWABLE TABLET PO SCH (09:21)
[2022-05-30] MEDS: ROSUVASTATIN 10 MG TAB PO SCH (09:21)
[2022-05-30] MEDS: METOPROLOL XL 25 MG TAB PO SCH (09:21)
[2022-05-30] MEDS: FUROSEMIDE 40 MG TABLET PO SCH (09:23)
[2022-05-30] MEDS: dexAMETHasone 4 MG TAB PO SCH (09:23)
[2022-05-30] MEDS: SERTRALINE HCL 50 MG TAB PO SCH (09:24)
[2022-05-30] MEDS: AMIODARONE HCL 200 MG TAB PO SCH ×2 (09:24→22:24)
[2022-05-30 10:08] LABS: Blood Morphology Comment NOT SEEN (NOT SEEN); Platelet Estimate ADEQ; White Blood Cell Scan OK (OK)
--- NOTE | 2022-05-30 20:03 | PN ---
Date of Progress Note: 05/30/2022 The patient continues to improve. Physical therapy is being started. Her breathing is somewhat bett er. Cough is loose. Electrolytes are stable. Her pulse is also stable, but increases with minimal exertion. Will observe for the next 24 hours and then decide whether to try her as an outpatient or just try and transfer her to have her ablation. HR/MODL Voice ID: [id number] Report ID: [id number]
[2022-05-31] MEDS: HOME MED 1 EA UNK (Fluticasone/Umeclidin/Vilanter [Trelegy Ellipta 100-62.5-25] Blst.W.Dev IH SCH (08:00)
[2022-05-31] MEDS: METOPROLOL XL 50 MG TAB PO SCH (08:23)
[2022-05-31] MEDS: ASPIRIN 81 MG CHEWABLE TABLET PO SCH (08:23)
[2022-05-31] MEDS: ROSUVASTATIN 10 MG TAB PO SCH (08:23)
[2022-05-31] MEDS: AMIODARONE HCL 200 MG TAB PO SCH ×2 (08:24→21:22)
[2022-05-31] MEDS: SERTRALINE HCL 50 MG TAB PO SCH (08:24)
[2022-05-31] MEDS: dexAMETHasone 4 MG TAB PO SCH (08:24)
[2022-05-31] MEDS: FUROSEMIDE 40 MG TABLET PO SCH (08:24)
[2022-05-31] MEDS: ENSURE CLEAR 200 ML CAN PO SCH ×2 (08:25→21:22)
[2022-05-31] MEDS: DILTIAZEM HCL 120 MG SR CAP PO SCH (08:25)
[2022-05-31 12:05] LABS: Absolute Lymphocytes (CBC) 0.5 K/uL (0.7-4.9); Hematocrit 36.2 % (36.0-45.0); Lymphocytes % 2.1 % (15.3-44.8); MCV 81.3 fL (80-100); RBC Red Blood Cell Count 4.45 M/uL (3.86-4.86)
[2022-05-31 12:24] LABS: Potassium 3.7 mmol/L (3.5-5.1)
[2022-05-31] MEDS ORDERED: GLUCAGON 1 MG/VIAL IM PRN (15:12)
[2022-05-31] MEDS ORDERED: DEXTROSE 10%-WATER 500 ML IV BAG IV PRN (15:19)
[2022-05-31] MEDS: INSULIN -REGULAR HUMAN 50 UNIT/0.5 ML ML SQ SCH ×2 (17:10→21:22)
--- NOTE | 2022-05-31 22:45 | PN ---
Date of Progress Note: 05/31/2022 Subjective: Seen at bedside. She is clinically doing better. Does not have any chest pain, but she still has shortness of breath with activity. No nausea, vomiting, diarrhea. No abdominal pain, dys uria, polyuria, or urinary urgency. All other systems reviewed and are negative. Physical Examination: Vital Signs: Reviewed. Head and Neck: Pupils are equal, reactive to light. Intact eye movements. No JVD. No cervical lym phadenopathy. Neck: Supple. Thyroid is not enlarged. Lungs: Decreased breathing sounds bilaterally. No accessory muscle use or muscle retraction. Heart: Irregularly irregular. No extra sounds. Abdomen: Soft, nontender. Bowel sounds positive. No organomegaly. No masses or hernia. No rigidi ty or rebound. Extremities: No clubbing or cyanosis. Intact pulses. Skin: No rash noted. Neurologic: Alert, awake, oriented x3. No acute focal deficits appreciated. Investigations: Labs were reviewed. Assessment And Recommendations: 1.Atrial fibrillation with rapid ventricular response. Rate is getting better. I will plan for deneen ctrical cardioversion tomorrow, as the patient is followed with amiodarone and continue baby aspirin. The patient is status post left atrial appendage closure. 2.Chronic obstructive pulmonary disease exacerbation, gradually improving. Continue current managem ent. 3.Acute on chronic diastolic heart failure. Now on oral Lasix. Continue current treatment. Monitor BUN, creatinine, and electrolytes. SR/MODL Voice ID: [id number] Report ID: [id number]
--- NOTE | 2022-05-31 22:54 | PN ---
Date of Progress Note: 05/30/2022 Subjective: Seen by bedside. Heart rate is better and the patient is feeling generally better. Review of Systems: There is shortness of breath on exertion. No nausea, vomiting, diarrhea. No abdominal pain. No silvio st pain. All others systems reviewed and are negative. Physical Examination: Vital Signs: Reviewed. Head and Neck: Pupils are equal, reactive to light. Intact eye movements. No JVD. No cervical lym phadenopathy. Neck: Supple. Thyroid is not enlarged. Lungs: Decreased breathing sounds bilaterally. No accessory muscle use or muscle retraction. Heart: Irregularly irregular. No extra sounds. Abdomen: Soft, nontender. Bowel sounds positive. No organomegaly. No masses or hernia. No rigidi ty or rebound. Extremities: No clubbing or cyanosis. Intact pulses. Skin: No rash noted. Neurologic: Alert, awake. No acute focal deficits appreciated. Investigations: Labs were reviewed. Assessment And Recommendations: 1.Atrial fibrillation. Rate is still fast. Increase Toprol-XL to 50 mg. Continue amiodarone by [facility] and aspirin. The patient is status post left atrial appendage closure. 2.Acute on chronic diastolic heart failure exacerbation. Agree with Lasix. However, recommend to c hange it to oral and carefully monitor BUN, creatinine, and electrolytes. 3.Chronic obstructive pulmonary disease, clinically improving under the care of Pulmonology. SR/MODL Voice ID: [id number] Report ID: [id number]
[2022-06-01 05:58] LABS: Absolute Lymphocytes (CBC) 1.1 K/uL (0.7-4.9); Hematocrit 34.2 % (36.0-45.0); Lymphocytes % 5.1 % (15.3-44.8); MCV 80.8 fL (80-100); MPV 6.8 fL (7.6-11.3); RBC Red Blood Cell Count 4.23 M/uL (3.86-4.86)
[2022-06-01] MEDS: INSULIN -REGULAR HUMAN 50 UNIT/0.5 ML ML SQ SCH ×4 (07:30→21:04)
[2022-06-01] MEDS ORDERED: FENTANYL CITR 100 MCG/2 ML ONE (07:38)
[2022-06-01] MEDS ORDERED: MIDAZOLAM HCL 2 MG/2 ML INJ ONE (07:38)
[2022-06-01] MEDS ORDERED: ATROPINE SULF 1 MG/10 ML SYR IV ONE (07:39)
[2022-06-01] MEDS ORDERED: FLUMAZENIL 0.1 MG/ML (5 mL VIAL) IV ONE (07:39)
[2022-06-01] MEDS ORDERED: METOPROLOL TARTRATE 5 MG/5 ML INJ IV ONE (07:39)
[2022-06-01] MEDS ORDERED: MIDAZOLAM HCL 5 ML ONE (07:39)
[2022-06-01] MEDS: HOME MED 1 EA UNK (Fluticasone/Umeclidin/Vilanter [Trelegy Ellipta 100-62.5-25] Blst.W.Dev IH SCH (08:00)
[2022-06-01] MEDS ORDERED: NA CHLORIDE 0.9% 500 ML ONE (08:10)
[2022-06-01 08:17] LABS: Protime INR 1.24
--- NOTE | 2022-06-01 08:35 | RAD REPORT ---
EXAM DESCRIPTION: RAD - Chest Pa And Lat (2 Views) - 06/01/2022 6:09 am CLINICAL HISTORY: Follow upthe Pleural effusion Chest pain. COMPARISON: Chest Single View dated 05/29/2022; Chest Single View dated 05/28/2022; Chest Pa And Lat ( 2 Views) dated 09/04/2021; Chest Single View dated 09/02/2021; Chest For Pe Angio dated 05/28/2022 FINDINGS: The lungs are clear. Small right pleural effusion is seen with little change since prior s tudy. The heart is moderately enlarged. IMPRESSION: Small right pleural effusion.
--- NOTE | 2022-06-01 09:06 | OP ---
Date of Procedure: 06/01/2022 Surgeon: HINA TOWNSEND Procedure Performed: Synchronized electrocardioversion. Indication: Atrial fibrillation, symptomatic. Complications: None. Bleeding: None. Anesthesia: Sedation time was 15 minutes. Used Versed. Description Of Procedure: After risks, benefits, and alternatives were explained, the patient agreed to the procedure and signed informed consent. The patient was brought into the preop recovery area and she was connected to the case monitor. We gave 5 mg of Versed. After proper sedation, synchr onized electrocardioversion was performed using 200 joules successfully converting the rhythm into si nus. The patient tolerated the procedure very well. Conclusion: Successful electrocardioversion into sinus rhythm. Plan: Continue amiodarone and metoprolol. SR/MODL Voice ID: [id number] Report ID: [id number]
[2022-06-01] MEDS: ASPIRIN 81 MG CHEWABLE TABLET PO SCH (09:24)
[2022-06-01] MEDS: ROSUVASTATIN 10 MG TAB PO SCH (09:24)
[2022-06-01] MEDS: DILTIAZEM HCL 120 MG SR CAP PO SCH (09:25)
[2022-06-01] MEDS: SERTRALINE HCL 50 MG TAB PO SCH (09:26)
[2022-06-01] MEDS: FUROSEMIDE 40 MG TABLET PO SCH (09:26)
[2022-06-01] MEDS: dexAMETHasone 4 MG TAB PO SCH (09:27)
[2022-06-01] MEDS: AMIODARONE HCL 200 MG TAB PO SCH ×2 (09:27→21:03)
[2022-06-01] MEDS: METOPROLOL XL 50 MG TAB PO SCH (09:27)
[2022-06-01] MEDS: ENSURE CLEAR 200 ML CAN PO SCH ×2 (09:29→21:00)
--- NOTE | 2022-06-01 11:00 | PN ---
Date of Progress Note: 05/29/2022 The patient is still not stable as far as her AFib is concerned despite the amiodarone drip. Discuss ion is moving upper her time table for the procedure in [place] for ablation was discussed. Dr. Nathanael fitzgerald also added steroids to the regimen which seemed to improve her appetite and her breathing. Her overall status has improved. HR/MODL Voice ID: [id number] Report ID: [id number]
--- NOTE | 2022-06-01 19:27 | PN ---
Date of Progress Note: 06/01/2022 Subjective: Seen at bedside. Continues to be in atrial fibrillation that she does not tolerate very well. Review of Systems: Positive for shortness of breath and generalized fatigue. No chest pain. No nausea, vomiting, or di arrhea. All other systems reviewed and are negative. Laboratory Investigations: Creatinine 0.98 today. BUN is 27 and white count is 20,900, but she is o n steroids. Physical Examination: Vital Signs: Reviewed. Head and Neck: Pupils are equal, reactive to light. Intact eye movements. No JVD. No cyanosis. Neck: Supple. Thyroid is not enlarged. Lungs: Decreased breathing sounds bilaterally. No accessory muscle use or muscle retraction. Heart: Irregularly irregular. No extra sounds. Abdomen: Soft, nontender. Bowel sounds positive. No organomegaly. No masses or hernia. No rigidi ty or rebound. Extremities: No clubbing or cyanosis. Intact pulses. Skin: No rash noted. Neurologic: Alert, awake. No acute focal deficits appreciated. Investigations and labs were reviewed. Assessment And Recommendation: 1.Atrial fibrillation. Rate is still fast. She was loaded with amiodarone. We will plan for synch ronized electrocardioversion today and keep medications the same. 2.Chronic obstructive pulmonary disease with exacerbation, gradually improving. Continue current me dications. 3.Acute on chronic diastolic heart failure, currently appears to be euvolemic. Carefully monitor BU N and creatinine while on Lasix. SR/MODL Voice ID: [id number] Report ID: [id number]
[2022-06-02] MEDS: INSULIN -REGULAR HUMAN 50 UNIT/0.5 ML ML SQ SCH ×4 (07:30→19:54)
[2022-06-02] MEDS: HOME MED 1 EA UNK (Fluticasone/Umeclidin/Vilanter [Trelegy Ellipta 100-62.5-25] Blst.W.Dev IH SCH (08:00)
--- NOTE | 2022-06-02 08:16 | EKG ---
Test Date: 2022-06-01 Test Time: 08:34:50 Fiber Designer: CLIFFORD MEASUREMENT RESULTS: Intervals: Rate: 77 VA: 166 QRSD: 90 QT: 410 QTc: 463 [place]: P: 102 VA: 166 QRS: 40 T: 49 INTERPRETIVE STATEMENTS: Sinus rhythm with premature atrial complexes Otherwise normal ECG Compared to ECG 05/14/2022 12:22:28 Atrial premature complex(es) now present Electronically Signed On 06-02-22 08:11:27 CDT by Dallas Pappas
[2022-06-02] MEDS: DILTIAZEM HCL 120 MG SR CAP PO SCH (09:28)
[2022-06-02] MEDS: ROSUVASTATIN 10 MG TAB PO SCH (09:28)
[2022-06-02] MEDS: AMIODARONE HCL 200 MG TAB PO SCH ×2 (09:29→19:53)
[2022-06-02] MEDS: FUROSEMIDE 40 MG TABLET PO SCH (09:29)
[2022-06-02] MEDS: METOPROLOL XL 50 MG TAB PO SCH (09:29)
[2022-06-02] MEDS: ASPIRIN 81 MG CHEWABLE TABLET PO SCH (09:29)
[2022-06-02] MEDS: SERTRALINE HCL 50 MG TAB PO SCH (09:30)
[2022-06-02] MEDS: ENSURE CLEAR 200 ML CAN PO SCH ×2 (09:31→19:54)
--- NOTE | 2022-06-02 15:39 | PN ---
Date of Progress Note: 06/02/2022 Subjective: Seen by bedside. She is feeling much better. She remains in sinus. Review of Systems: No chest pain. Minimal shortness of breath on exertion. No nausea, vomiting, diarrhea. No abdomina l pain. No dysuria, polyuria, or urinary urgency. All other systems reviewed and they were negative . Physical Examination: Vital Signs: Reviewed. Head and Neck: Pupils are equal, reactive to light. Intact eye movements. No JVD. No cervical lym phadenopathy. Neck is supple. Thyroid is not enlarged. Lungs: Clear to auscultation bilaterally. No rhonchi, wheezing, or crackles. No accessory muscle u se. Heart: Regular rate and rhythm. No extra sounds. Abdomen: Soft, nontender. Bowel sounds positive. No organomegaly. No masses or hernia. No rigidi ty or rebound. Extremities: No clubbing or cyanosis. Intact pulses. Skin: No rash. Neurologic: Alert, awake. No acute focal deficits appreciated. Investigations: Labs were reviewed. Assessment And Recommendations: 1.Atrial fibrillation, status post cardioversion. Rate is controlled at this point and she is statu s post left atrial appendage closure. Discontinue aspirin and plan for outpatient atrial fibrillatio n ablation. From Cardiology standpoint, the patient can be released and follow up as an outpatient. 2.Chronic obstructive pulmonary disease exacerbation, off steroids and doing well. 3.Chronic diastolic congestive heart failure. She is euvolemic. SR/MODL Voice ID: [id number] Report ID: [id number]
[2022-06-02 17:23] VITALS: TEMP 97.1
[2022-06-02 18:40] VITALS: O2SAT 94
[2022-06-02 20:06] VITALS: BP 131/66
--- NOTE | 2022-06-03 04:46 | PN ---
The patient is feeling fine tonight. Her pulse has been stable since the cardioversion. No evidence of any atrial fibrillation, seen by Cardiology. Will discharge on her home medications with the add ition of amiodarone 200 mg twice a day and Lasix 40 mg daily. She is to continue on her home medicat ions with Crestor, metoprolol 100 mg b.i.d., and Zoloft 50, and Cardizem 240 myself on ne cessary basis the next week or so. HR/MODL Voice ID: [id number] Report ID: [id number]
== END 2022-06-02 20:15 | disposition home health service (06) | DRG 291 ==
LOC: 2ND 15:53 → OBSVTOIN 05-28 11:01
PROVIDERS: ADMIT Family Medicine; ATTEND Family Medicine
PROC: 5A2204Z Restoration of Cardiac Rhythm, Single (ICD-10-PCS; principal; 2022-06-01)
DX: I11.0 Hypertensive heart disease with heart failure (principal); I50.33 Acute on chronic diastolic (congestive) heart failure; I48.11 Longstanding persistent atrial fibrillation; E44.0 Moderate protein-calorie malnutrition; J44.1 Chronic obstructive pulmonary disease with (acute) exacerbation; Z68.22 Body mass index [BMI] 22.0-22.9, adult; I25.10 Atherosclerotic heart disease of native coronary artery without angina pectoris; R09.02 Hypoxemia; E87.5 Hyperkalemia; Z86.73 Personal history of transient ischemic attack (TIA), and cerebral infarction without residual deficits; Z87.891 Personal history of nicotine dependence; Z20.822 Contact with and (suspected) exposure to COVID-19
CPT/HCPCS: 36415; 71045; 71046; 71275; 74176; 80048; 80061; 81001; 82088; 82150; 82805; 82947; 83690; 83930; 83935; 84132; 85025; 85610; 85730; 87070; 87086; 87088; 87205; 87811; 92960; 93005; 93306; 94640; 97116; 97161; 97530; J0282; J1100; J1815; J1940; J2250; J3010; J7030; J7040; J7060; J8540; Q9967

== ENCOUNTER 2022-09-04 10:58 | Inpatient (IN) | payer OTHER, BC ==
--- OUTSIDE RECORDS SUMMARY | 2022-09-04 11:03 | XMS REPORT | Continuity of Care Document ---
:1945 Author Organization [facility] t Address [address] [place] [address] Care Team Providers Name Role Phone Cayden Guzmán MD Primary Care Physician Nba Garcias MA Attending Clinician Unavailable Bisi CHACON, Cathie Medina Attending Clinician Doctor Unassigned, [place] Attending Clinician Unavailable MACO FULLER Attending Clinician Unavailable Hortencia Zamorano MD Attending Clinician Maco Fuller DO Attending Clinician Jimmie Neal MD Attending Clinician HORTENCIA ZAMORANO Attending Clinician Unavailable Favian Rasmussen Attending Clinician Unavailable Diego Branham Attending Clinician Unavailable JIMMIE NEAL Admitting Clinician Unavailable Jimmie Neal MD Admitting Clinician Cayden Guzmán Admitting Clinician Unavailable Diego Branham Admitting Clinician Unavailable Payers Payer Name Policy Type Policy Number Effective Date Expiration Date S ource Problems Condition Condition Condition Status Onset Resolution Last Treating Co mments Source Name Details Category Date Date Treatment Clinician Date Paroxysmal Paroxysmal Disease Active U nivers atrial atrial 06-18 [place] COPD COPD Disease Recurre Univers (chronic (chronic nce 06-18 ity of obstructiv [place]iv [place] Medical pulmonary pulmonary Bran ch disease) disease) CAD in CAD in Disease Active 2020-10 [facility] [place] 2-07 [facility] artery artery 00:00: [facility]ospita 00 l Primary Primary Disease Active 2020-10 [facility] hypertensi hypertensi 2-07 st on on 00:00: Hospita 00 l Atrial Atrial Disease Active [facility]i fibrillati fibrillati 2-14 st on on 00:00: Hospita 00 l SOB SOB Disease Active [facility] (shortness (shortness 2-14 st of breath) of breath) 00:00: Ho spita 00 l Bilateral Bilateral Disease Active Met hodi carotid carotid 2-14 st bruits bruits 00:00: Hospita 00 l Allergies, Adverse Reactions, Alerts Allergy Allergy Status Severity Reaction(s) Onset Inactive Treating Comm ents Source Name Type Date Date Clinician No Known DA Active U [facility] Allergie 1-03 Clear s 00:00: [place] [address] [facility] NO KNOWN Drug Active Univers ALLERGIE Class ity of S [facility] Family History Family Member Diagnosis Comments Start Date Stop Date Source Other [facility] Social History Social Habit Start Date Stop Date Quantity Comments Source History of Current smoker [facility] use [facility] Tobacco use and 2017-11-30 2017-11-30 Smokeless tobacco [facility] exposure 00:00:00 00:00:00 non-user Hospital Sex Assigned At [birth year] [facility] 00:[facility] Hospital Smoking Status Start Date Stop Date Source Tobacco smoking [facility] [place] consumption unknown Medical Bran ch Ex-smoker 2017-11-30 00:00:00 2017-11-30 [facility] 00:[facility]:00 Medications Ordered Filled Start Stop Current Ordering Indication Dosage Frequency Signature Comments Components Source Medication Medication Date Date Medication? Clinician (SIG) Name Name metoprolol 2021-10 Yes 100mg Q.5D Take 1 Meth lyn tartrate 1-[address] (LOPRESSOR) 00:00: (100 mg Hos breonna 100 mg 00 total) by l tablet mouth 2 (two) times a day. ALBUTEROL 0 Yes Inhale. Unive rs SULFATE 02 ity of INHALE 14:24: [place] [address] Medical Branch fluticasone 0 Yes Inhale Univ ers -umeclidin- 02 daily. ity of vilanter 14:24: [place] (TRELEGY 58 Medical ELLIPTA) Branch 100-62.5-25 mcg DsDv SERTraline 0 Yes 25mg Take 25 mg U nivers 25 mg 06-19 by mouth ity of tablet 14:24: in the [place] [address] morning. Medical Branch metoprolol Yes 100mg Take 100 Un padmini succinate 06-19 mg by ity of XL 100 mg 14:24: mouth in [facility] 24 hr 58 the Medical tablet morning. Branch rosuvastati Yes Take by Uni vers n 10 mg 06-19 mouth. ity of CpSP 14:24: [place] [address] Medical Branch furosemide 0 Yes 40mg Take 40 mg U nivers 40 mg 06-19 by mouth ity of tablet 14:24: in the [place] [address] morning. Medical Branch amiodarone Yes 200mg Take 200 Un padmini 200 mg 06-19 mg by ity of tablet 14:24: mouth in [place] [address] the Medical morning. Branch diltiazem Yes 240mg Take 240 Uni vers XR 240 mg 06-19 mg by ity of 24 hr 14:24: mouth in [place] [address] the Medical morning. Branch SERTraline Yes [id number] 25mg 25 mg, Univers (ZOLOFT) 06-19 Oral, ity of tablet 25 14:00: DAILY, [place] mg 00 First dose Medical on Wed Branch 06/19/22 at 0900, Until Discontinu ed, Routine metoprolol 0 Yes [id number] 100mg 100 mg, Univers succinate 06-19 Oral, ity of XL (TOPROL 14:00: DAILY, [place] XL) tablet 00 First dose Med ical 100 mg on Wed Branch 06/19/22 at 0900, Until Discontinu ed, Routine furosemide 2021-0 Yes [id number] 40mg 40 mg, Univers (LASIX) 06-19 Oral, ity of tablet 40 14:00: DAILY, [place] mg 00 First dose Medical on Wed Branch 06/19/22 at 0900, Until Discontinu ed, Routine diltiazem Yes [id number] 240mg 240 mg, Univers XR 06-19 Oral, ity of (DILT-XR) 14:00: DAILY, [place] capsule 240 00 First dose Me dical mg on Wed Branch 06/19/22 at 0900, Until Discontinu ed, Routine amiodarone Yes [id number] 200mg 200 mg, Univers (PACERONE) 06-19 Oral, ity of tablet 200 14:00: DAILY, [place] mg 00 First dose Medical on Wed Branch 06/19/22 at 0900, Until Discontinu ed, Routine amiodarone 2021- No [id number] 200mg 200 mg, Univers (PACERONE) 06-19 Oral, ity of tablet 200 14:00: 21:25 DAILY, [place] mg 00 :00 First dose Medical on Wed Branch 06/19/22 at 0900, Until Discontinu ed, Routine SERTraline 2021- No [id number] 25mg 25 mg, Univers (ZOLOFT) 06-19 Oral, ity of tablet 25 14:00: 21:25 DAILY, [place] mg 00 :00 First dose Medical on Wed Branch 06/19/22 at 0900, Until Discontinu ed, Routine metoprolol 2021- No [id number] 100mg 100 mg, Univers succinate 06-19 Oral, ity of XL (TOPROL 14:00: 21:25 DAILY, [place] XL) tablet 00 :00 First dose Med ical 100 mg on Wed Branch 06/19/22 at 0900, Until Discontinu ed, Routine furosemide 2021- No [id number] 40mg 40 mg, Univers (LASIX) 06-19 Oral, ity of tablet 40 14:00: 21:25 DAILY, [place] mg 00 :00 First dose Medical on Wed Branch 06/19/22 at 0900, Until Discontinu ed, Routine diltiazem 2021- No [id number] 240mg 240 mg, Univers XR 06-19 Oral, ity of (DILT-XR) 14:00: 21:25 DAILY, [place] capsule 240 00 :00 First dose Me dical mg on Wed Branch 06/19/22 at 0900, Until Discontinu ed, Routine apixaban Yes [id number] 2.5mg 2.5 mg, Univers (ELIQUIS) 06-19 Oral, BID, ity of tablet 2.5 13:45: First [place] mg 00 (after Medical last Branch modificati on) on Wed06/19/22 at 0845, Until Discontinu ed, Routine
Indicatio ns: Non-Valvul ar Atrial Fibrillati on apixaban 2021- No [id number] 2.5mg 2.5 mg, Univers (ELIQUIS) 06-19 Oral, BID, ity of tablet 2.5 13:45: 21:25 First dose [place] mg 00 :00 (after Medical last Branch modificati on) on Wed06/19/22 at 0845, Until Discontinu ed, Routine
Indicatio ns: Non-Valvul ar Atrial Fibrillati on ALBUTEROL Yes Inhale. Unive rs SULFATE 06-19 ity of INHALE 11:20: [place] [address] Medical Branch fluticasone Yes Inhale Univ ers -umeclidin- 06-19 daily. ity of vilanter 11:20: [place] [address] Medical ELLIPTA) Branch 100-62.5-25 mcg DsDv SERTraline Yes 25mg Take 25 mg U nivers 25 mg 06-19 by mouth ity of tablet 11:20: in the [place] [address] morning. Medical Branch metoprolol Yes 100mg Take 100 Un padmini succinate 06-19 mg by ity of XL 100 mg 11:20: mouth in [facility] s 24 hr 12 the Medical tablet morning. Branch rosuvastati Yes Take by Uni vers n 10 mg 06-19 mouth. ity of CpSP 11:20: [place] [address] Medical Branch furosemide Yes 40mg Take 40 mg U nivers 40 mg 06-19 by mouth ity of tablet 11:20: in the [place] [address] morning. Medical Branch amiodarone Yes 200mg Take 200 Un padmini 200 mg - mg by ity of tablet 11:20: mouth in [place] 12 the morning. Branch diltiazem Yes 240mg Take 240 Uni vers XR 240 mg 9- mg by ity of 24 hr 11:20: mouth in [facility] 12 the morning. Branch rosuvastati Yes [id number] 10mg 10 mg, Univers n (CRESTOR) 06-19 Oral, QHS, it y of tablet 10 02:00: [place] 00 on [facility] 06/18/22 at Clear 2100, Until Discontinu ed rosuvastati 2021- No [id number] 10mg 10 mg, Univers n (CRESTOR) 06-19 Oral, QHS, i ty of tablet 10 02:00: 21:25 First dose [place] mg 00 :00 on [facility] 06/18/22 at Clear 2100, Until Discontinu ed apixaban Yes 1358 2.5mg Take 1 Univer s 2.5 mg 06-19 tablet by ity of tablet 00:00: mouth in [place] 00 the morning Branch and 1 tablet in the evening. Indication s: atrial fibrillati on apixaban Yes 1358 2.5mg Take 1 Univer s 2.5 mg 06-19 tablet by ity of tablet 00:00: mouth in [place] 00 the morning Branch and 1 tablet in the evening. Indication s: atrial fibrillati on apixaban Yes 1358 2.5mg Take 1 Univer s 2.5 mg 06-19 tablet by ity of tablet 00:00: mouth in [address] morning Clear and 1 tablet in the evening. Indication s: atrial fibrillati on heparin 2021- No [id number] 18U/kg/ 18 U nivers 25,000 06-18 0902 h Units/kg/h ity of Units/250 23:00: 13:00 r ?64 kg [place] as mL 00 :00 (11.52 Medical (Premixed mL/hr), IV Bran ch Bag) in Infusion, 0.45 % NS TITRATE, Starting on [place] 06/18/22 at 1800, Until Wed06/19/22 at 0800, Routine heparin 2021- No [id number] 18U/kg/ 18 U nivers 25,000 06-1802 h Units/kg/h ity of Units/250 23:00: 13:00 r ?64 kg [place] as mL 00 :00 (11.52 Medical (Premixed mL/hr), IV Bran ch Bag) in Infusion, 0.45 % NS TITRATE, Starting on [place] 06/18/22 at 1800, Until Wed06/19/22 at 0800, Routine ondansetron Yes 4mg 4 mg, Slow Univers (ZOFRAN 06-18 IV Push, ity of (PF)) 18:12: Q6HPRN, [place] injection 4 30 Starting Medi adeline mg on [place] Branch 06/18/22 at 1312, Until Discontinu ed, Routine, Nausea and Vomiting (N/V) ondansetron 2021- No 4mg 4 mg, Slow Univers (ZOFRAN 06-18 IV Push, ity of (PF)) 18:12: 21:25 Q6HPRN, [place] injection 4 30 :00 Starting Medi adleine mg on [place] Branch 06/18/22 at 1312, Until Wed06/19/22 at 1625, Routine, Nausea and Vomiting (N/V) HYDROcodone 2021- Yes 1{tbl} 1 tablet, Univers -acetaminop 06-18 Oral, ity of hen (NORCO 18:12: 18:11 Q6HPRN, [place] as 5) 5-325 mg 25 :25 Starting Medi adeline tablet 1 on [place] Branch tablet 06/18/22 at 1312, Until 06/20/22 at 1311, Routine, Pain (scale 4-6) HYDROcodone 0 2021- No 1{tbl} 1 tablet, Univers -acetaminop 06-18 Oral, ity of hen (NORCO 18:12: 21:25 Q6HPRN, [place] as 5) 5-325 mg 25 :00 Starting Medi adeline tablet 1 on [place] Branch tablet 06/18/22 at 1312, Until Wed06/19/22 at 1625, Routine, Pain (scale 4-6) acetaminoph Yes 650mg 650 mg, Un padmini en 06-18 Oral, ity of (TYLENOL) 18:12: Q6HPRN, [place] tablet 650 23 Starting Medic al mg on [facility] Branch 06/18/22 at 1312, Until Discontinu ed, Routine, Pain (scale 1-3) acetaminoph 2021- No 650mg 650 mg, U nivers en 06-18 Oral, ity of (TYLENOL) 18:12: 21:25 Q6HPRN, [place] tablet 650 23 :00 Starting Medic al mg on [place] Branch 06/18/22 at 1312, Until 06/19/22 at 1625, Routine, Pain (scale 1-3) albuterol Yes [id number] 2.5mg 2.5 mg, Univers (PROVENTIL) 06-18 Inhalation it y of 2.5 mg /3 17:34: , Q4HPRN, [place] as mL (0.083 45 Starting Medica l %) on [facility] Branch nebulizer 06/18/22 at solution 1234, 2.5 mg Until Discontinu ed, Routine, Shortness of Breath, Wheezing albuterol 2021- No [id number] 2.5mg 2.5 mg, Univers (PROVENTIL) 06-18 Inhalation i ty of 2.5 mg /3 17:34: 21:25 , Q4HPRN, [place] mL (0.083 45 :00 Starting Medica l %) on [facility] Branch nebulizer 06/18/22 at solution 1234, 2.5 mg Until 06/19/22 at 1625, Routine, Shortness of Breath, Wheezing BIOTIN ORAL 2020-10 Yes Take by Met hodi 2-[address] 11:02: Hospita 00 l CALCIUM 2020-10 Yes Take by Methodi CARBONATE/V 2-[address] ITAMIN D3 11:02: Hospita (CALTRATE 00 l 600 + D ORAL) ibandronate 2020-10 Yes 150mg Q30D Take 150 M ethodi (BONIVA) 2-[address] 150 mg 11:02: mouth Hospita tablet 00 every 30 l (thirty) days. Take in AM with glass of water prior to food, don't lie down for 30 minutes. montelukast 2020-10 Yes 10mg QD Take 10 mg Methodi (SINGULAIR) [address] 10 mg 11:02: nightly. Hospita tablet 00 l apixaban 2020-10 Yes 2.5mg Q.5D Take 1 Method i (Eliquis) 2-[address] 2.5 mg 00:00: (2.5 mg Hospita tablet 00 total) by l mouth 2 (two) times a day. metoprolol 2020-10- No 100mg Q.5D Take 1 Met hodi tartrate 11-24- tablet st (LOPRESSOR) 00:00: 00:00 (100 mg Ho spita 100 mg 00 :00 total) by l tablet mouth 2 (two) times a day. digOXIN 2020-10 Yes [id number] Take 1 Meth lyn (LANOXIN) 11-[address] 125 mcg 00:00: mouth once Hosp deion (0.125 mg) 00 daily l tablet apixaban 2020-10- No 5mg Q.5D Take 1 Method i (Eliquis) 5 10-28 tablet (5 st mg tablet 00:00: 00:00 mg total) Ho spita 00 :00 by mouth 2 l (two) times a day. Bystolic 10 2020- No Take 1 Met hodi mg tablet 07-[address] 00:00: 00:00 mouth once Hospit a 00 :00 daily l choline Yes 135mg QD Take 1 Methodi fenofibrate - capsule st (TRILIPIX) 00:00: (135 mg Hosp deion 135 mg 00 total) by l capsule mouth daily. digOXIN 2020- No [id number] 125ug QD Take 1 Me thodi (LANOXIN) 8 11- tablet st 125 mcg 00:00: 00:00 (125 mcg Hospi ta (0.125 mg) 00 :00 total) by l tablet mouth daily. ipratropium Yes Method i (ATROVENT) 1-13 st 0.06 % 00:00: Hospita nasal spray 00 l TRAVATAN Z 2015-10 Yes Methodi 0.004 % 2-05 st 00:00: Hospita 00 l Vital Signs Vital Name Observation Time Observation Value Comments Source Systolic blood 2022-06-19 12:31:00 164 mm[Hg] Univer sity of pressure [facility] Diastolic blood 2022-06-19 12:31:00 78 mm[Hg] Unive rsity of pressure [facility] Heart rate 2022-06-19 12:31:00 91 /[facility] 2022-06-19 12:31:00 36.33 [facility] [place] [facility] saturation in 2022-06-19 12:31:00 92 /min University of Arterial blood by [place] [employer] adeline Pulse oximetry Branch Respiratory rate 2022-06-19 09:30:00 18 /min Univ ersity [facility] Systolic blood 2022-06-18 14:45:00 158 mm[Hg] Univer sity of pressure [facility] Diastolic blood 2022-06-18 14:45:00 72 mm[Hg] [facility] Heart rate 2022-06-18 14:45:00 71 /min [facility] Respiratory rate 2022-06-18 14:45:00 20 /min [facility] [place] [facility] Oxygen saturation in 2022-06-18 14:45:00 100 /min University of Arterial blood by [place] [facility] [employer] [facility] Pulse oximetry Branch Systolic blood 2021-09-23 17:08:00 230 mm[Hg] [facility] [place] pressure Diastolic blood 2021-09-23 17:08:00 93 mm[Hg] [facility] pressure Heart rate 2021-09-23 17:08:00 70 /min [facility] Body height 2021-09-23 17:01:[address] [facility] Body weight 2021-09-23 17:01:[address] [facility] BMI 2021-09-23 17:01:00 22.08 kg/m2 [facility] Procedures Procedure Date / Time Performing Clinician Source Performed EXTERNAL PROVIDER RECORDS 2022-06-29 05:01:00 Doctor Unassigned, [facility] [place] Medical Branch BASIC METABOLIC PANEL (NA, 2022-06-19 05:29:00 [facility], CL, CO2, GLUCOSE, BUN, Medica l Branch CREATININE, CA) CBC WITH DIFF 2022-06-19 05:29:00 [facility] [place] [facility] ACTIVATED PARTIAL THRMPLAS 2022-06-19 05:29:00 Amadeo [facility] BASIC METABOLIC PANEL (NA, 2022-06-19 05:29:00 Codijacque [facility] K, CL, CO2, GLUCOSE, BUN, Medica l Branch CREATININE, CA) CBC WITH DIFF 2022-06-19 05:29:00 [facility] [place] [facility] ACTIVATED PARTIAL THRMPLAS 2022-06-19 05:29:00 Amadeo [facility] POCT ACT LOW RANGE 2022-06-18 17:06:[address] [facility] POCT ACT LOW RANGE 2022-06-18 17:06:[address] [facility] ELECTROPHYSIOLOGY PROCEDURE 2022-06-18 16:49:58 Lona [facility] POCT ACT LOW RANGE 2022-06-18 16:29:[address] [facility] POCT ACT LOW RANGE 2022-06-18 16:29:[address] [facility] POCT ACT LOW RANGE 2022-06-18 16:07:[address] [facility] POCT ACT LOW RANGE 2022-06-18 16:07:[address] [facility] POCT ACT LOW RANGE 2022-06-18 15:50:[address] [facility] POCT ACT LOW RANGE 2022-06-18 15:50:[address] [facility] CATH PROCEDURE LOG 2022-06-18 15:25:[address] [facility] CATH PROCEDURE LOG 2022-06-18 15:25:[address] [facility] TRANSESOPHAGEAL ECHO (ALIE) 2022-06-18 14:19:29 Hortencia Zamorano [facility] COMPLETE W/ DOPPLER AND Medical Branch COLOR HB ECG ROUTINE & RHYTHM 2022-06-18 12:25:50 Hortencia Zamorano Uni versity [facility] HB ABO GROUPING 2022-06-18 12:10:00 Jose [facility] o f [facility] EXTERNAL PROVIDER RECORDS 2022-06-12 05:01:00 Doctor Unassigned, [facility] [place] [facility] EXTERNAL PROVIDER RECORDS 2022-06-12 05:01:00 Doctor Unassigned, [facility] [place] [facility] Branch [id number] 2021-10-22 00:00:00 RASSA [facility] [id number] 2021-10-22 00:00:00 RASSA [facility] US RENAL DOPPLER 2021-09-25 17:00:18 Cathie Landin H ospital ECG 12-LEAD 2021-09-23 17:05:29 Cathie Landin Ho spital Plan of Care Planned Activity Planned Date Details Comments Source Future Scheduled 2022-09-03 HEPATITIS B VACCINES [facility] Test 09:04:03 (1 of 3 - 3-dose series) [code = HEPATITIS B VACCINES (1 of 3 - 3-dose series)] Future Scheduled 2022-09-03 COVID-19 VACCINE (#1) [facility] Test 09:04:03 [code = COVID-19 VACCINE (#1)] Future Scheduled 2022-09-03 65+ [facility]OCCAL [facility] 09:04:03 VACCINE (1 - PCV) [code = 65+ PNEUMOCOCCAL VACCINE (1 - PCV)] Future Scheduled 2022-09-03 Hepatitis C screening [facility] Test 09:04:03 (procedure) [code = [id number]] Future Scheduled 2022-09-03 SHINGLES VACCINES (1 [facility] Test 09:04:03 of 2) [code = SHINGLES VACCINES (1 of 2)] Future Scheduled 2022-09-03 INFLUENZA VACCINE [facility] Test 09:04:03 [code = INFLUENZA VACCINE] Encounters Start End Encounter Admission Attending Care Care Encounter Source Date/Time Date/Time Type Type Clinicians Facility Department ID 2022-09-03 2022-09-03 Orders Nba Garcias 1.2.840.1 [id number] Methodi 00:00:00 00:00:[address] 3.430.2.7 Hospit a .3.533739 l .8 2022-09-03 2022-09-03 Orders Nba Garcias 1.2.840.1 [id number] 2099 [id number] Methodi 00:00:00 00:00:[address] 3.430.2.7 Hospit a .3.773013 l .8 2022-08-20 2022-08-20 Marissa Landin 1.2.840.1 [id number] Methodi 00:00:00 00:00:00 Cathie Medina [address]75.1.[address] 3.430.2.7 Hospit a .3.268958 l .8 2022-08-20 2022-08-20 Marissa Landin 1.2.840.1 [id number] Methodi 00:00:00 00:00:00 Cathie Medina [address]1401.1.[address] 3.430.2.7 Hospit a .3.461843 l .8 2022-06-29 2022-06-29 Orders Doctor VIDALES 1.2.840.114 [id number] Univers 00:00:00 00:00:00 Only Unassigned, MAXI 350.1.13.10 ity of [place] [facility] 4.2.7.2.686 [place] as [id number] [address] 2022-06-18 2022-06-19 Outpatient Nish FULELR [facility] [id number] Univers 07:00:00 12:30:00 MACO ity [facility] 2022-06-18 2022-06-19 Outpatient Nish FULLER [facility] [id number] Univers 07:00:00 12:30:00 MACO ity [facility] 2022-06-18 2022-06-19 [facility] Hortencia Zamorano [facility] 1.2.840. 114 [id number] Univers 07:00:00 12:30:00 Encounter Maco Fuller [facility] 350.1.13.10 ity of Jimmie Neal CLEAR 4.2.7.2.686 [place] EDISON [id number] [facility] 110 Branch ([facility]) 2022-06-18 2022-06-18 Surgery [facility] 1.2.840.114 [id number] Univers 09:00:00 11:00:00 [facility] 350.1.13.10 it y of [place] 4.[place].2.686 [place] [id number] [facility] 840 Branch ([facility]) 2022-06-18 2022-06-18 Hospital [facility] 1.2.723.968 [id number] Univers 06:57:51 06:59:00 Encounter [facility] 350.1.13.10 ity of [place] 4.[place].2.686 [place] [id number] [facility] 851 Branch ([facility]) 2022-06-16 2022-06-16 Outpatient [facility] [id number] [facility] 09:30[facility]00 [facility] 2021-11-26 2021-11-26 Inpatient JAIDA Valery, [facility]ACL OUTD [id number] [facility] 05:24:00 05:24:00 Favian 13 [facility] 2021-10-22 2021-10-22 Inpatient JAIDA Simmonsz, HCACL INTE.02 [id number] [facility] 09:25:00 15:34:00 Diego 65 [facility] 2021-09-25 2021-09-25 Travel 1.2.840.1 [id number] [id number] Methodi 00:00:00 00:00:[address] 3.430.2.7 0.2.7.3.698 Ho spita .3.827492 084.8 l .8 2021-09-25 2021-09-25 [facility] [id number] [place] 00:00:00 00:00:[address] CATHIE [address] 2021-09-25 2021-09-25 Travel 1.2.840.1 [id number] [id number] Methodi 00:00:00 00:00:[address] 3.430.2.7 0.2.7.3.698 Ho spita .3.973637 084.8 l .8 2021-09-23 2021-09-23 Office Landin, 1.2.840.1 [id number] Methodi 11:00:00 12:42:45 Visit Cathie Medina 40637.1.[address] 3.430.2.7 Hospit a .3.679196 l .8 2021-09-23 2021-09-23 Office Landin, 1.2.840.1 [id number] Methodi 11:00:00 12:42:45 Visit Cathie Medina 63126.1.[address] 3.430.2.7 Hospit a .3.038408 l .8 2021-09-23 2021-09-23 Travel 1.2.840.1 1.2.189.134 [id number] Methodi 00:00:00 00:00:[address] 3.430.2.7 0.2.7.3.698 Ho spita .3.267400 084.8 l .8 2021-09-23 2021-09-23 Travel 1.2.840.1 1.2.753.852 [id number] Methodi 00:00:00 00:00:[address] 3.430.2.7 0.2.7.3.698 Ho spita .3.116427 084.8 l .8 2021-09-16 2021-09-16 Telephone Landin, 1.2.840.1 [id number] [id number] Methodi 00:00:00 00:00:00 Cathie Medina [address]84.1.[address] 3.430.2.7 Hospit a .3.077780 l .8 2021-09-16 2021-09-16 Telephone Bisi, 1.2.840.1 [id number] Methodi 00:00:00 00:00:[address] 3.430.2.7 Hospit a .3.965532 l .8 2021-09-13 2021-09-13 Refill Bisi, 1.2.840.1 [id number] Methodi 00:00:00 00:00:[address] 3.430.2.7 Hospit a .3.303952 l .8 2021-09-13 2021-09-13 Refill Bisi, 1.2.840.1 [id number] Methodi 00:00:00 00:00:[address] 3.430.2.7 Hospit a .3.696250 l .8 2021-07-29 2021-07-29 Outpatient [facility] [id number] [place] 00:00:00 00:00:00 CATHIE [address] 2021-07-22 2021-07-22 Outpatient [facility] [id number] [place] 00:00:00 00:00:00 CATHIE [address] 2020-05-28 2020-05-28 Outpatient [facility] [id number] 393 [place] 00:00:00 00:00:00 CATHIE [address] Results Test Description Test Time Test Comments Results Result Comments Source aPTT (for use with Heparin Drip) 2022-06-19 06:47:24 Test Item Value Reference Range Interpretation Comme nts APTT Patient (test code = See_Comment [ Automated message] The system 3173-2) which generated this result transmitted ref erence range: 26 - 36 Seconds. T he reference range was not u sed to interpret this result as normal/abnormal. Lab Interpretation (test code Abnormal = 36112-4) [facility]2022-06-19 06:47:24 Test Item Value Reference Range Interpretation Comments APTT Patient (test code See_Comment HH [Au tomated message] = 3173-2) The system whic h generated this result transmitted ref erence range: 26 - 36 Seconds. The reference range was not used to int erpret this result as normal/abnormal . Lab Interpretation (test Abnormal code = 98419-7) [place] [facility] [facility] with [id number] 06:22:37 Test Item Value Reference Range Interpretation Comments WBC (test code = See_Comment [Automated 6690-2) message] The sy stem which generated this result transmitted reference range : 4.30 - 11.10 10*3/?L. The reference range was not used to interpret this result as normal/abnormal . RBC (test code = See_Comment [Automated 789-8) message] The sy stem which generated this result transmitted reference range : 3.93 - 5.25 10*6/?L. The reference range was not used to interpret this result as normal/abnormal . HGB (test code = 11.1 g/dL 11.6-15 L 718-7) HCT (test code = 33.7 % 35.7-45.2 L 4544-3) MCV (test code = 81.6 fL 80.6-95.5 787-2) MCH (test code = 26.9 pg 25.9-32.8 785-6) MCHC (test code = 32.9 g/dL 31.6-35.1 786-4) RDW-SD (test code = 47.8 fL 39-49.9 77530-1) RDW-CV (test code = 16.0 % 12-15.5 H 788-0) PLT (test code = See_Comment [Automated 777-3) message] The sy stem which generated this result transmitted reference range : 166 - 358 10*3/ ?L. The reference r abdirizak was not used to interpret this result as normal/abnormal . MPV (test code = 8.6 fL 9.5-12.9 L 99785-5) NRBC/100 WBC (test See_Comment [Automat ed code = 2529725262) message] The system which generated this result transmitted reference range : 0.0 - 10.0 /100 WBCs. The refer ence range was not u sed to interpret th is result as normal/abnormal . NRBC x10^3 (test code See_Comment [Auto mated = 0216357866) message] The s ystem which generated this result transmitted reference range : 10*3/?L. The reference range was not used to interpret this result as normal/abnormal . SEG % (test code = 91 % 33-76 H 36587-2) BAND % (test code = 2 % 0-1 H 86437-0) MYELO % (test code = 1 % See_Comment H [Autom ated 72408-2) message] The sy stem which generated this result transmitted reference range : <=0. The refere nce range was not u sed to interpret th is result as normal/abnormal . LYMPH % (test code = 4 % 14-54 L 61177-5) MONO % (test code = 2 % 0-4 10332-6) ANC (test code = 9.69 10*3/uL 1.88-7.09 H 753-4) RITCHIE CELLS (test code 2+ See_Comment A [Auto mated = 4290-9) message] The sy stem which generated this result transmitted reference range : (none). The reference range was not used to interpret this result as normal/abnormal . Lab Interpretation Abnormal (test code = 27265-1) [facility] with Aiusqhwsznca4683-42-63 06:22:37 Test Item Value Reference Range Interpretation Comments WBC (test code = See_Comment [Automated 6690-2) message] The sy stem which generated this result transmitted reference range : 4.30 - 11.10 10*3/?L. The reference range was not used to interpret this result as normal/abnormal . RBC (test code = See_Comment [Automated 789-8) message] The sy stem which generated this result transmitted reference range : 3.93 - 5.25 10*6/?L. The reference range was not used to interpret this result as normal/abnormal . HGB (test code = 11.1 g/dL 11.6-15 L 718-7) HCT (test code = 33.7 % 35.7-45.2 L 4544-3) MCV (test code = 81.6 fL 80.6-95.5 787-2) MCH (test code = 26.9 pg 25.9-32.8 785-6) MCHC (test code = 32.9 g/dL 31.6-35.1 786-4) RDW-SD (test code = 47.8 fL 39-49.9 76195-8) RDW-CV (test code = 16.0 % 12-15.5 H 788-0) PLT (test code = See_Comment [Automated 777-3) message] The sy stem which generated this result transmitted reference range : 166 - 358 10*3/ ?L. The reference r abdirizak was not used to interpret this result as normal/abnormal . MPV (test code = 8.6 fL 9.5-12.9 L 28858-4) NRBC/100 WBC (test See_Comment [Automat ed code = 6172268329) message] The system which generated this result transmitted reference range : 0.0 - 10.0 /100 WBCs. The refer ence range was not u sed to interpret th is result as normal/abnormal . NRBC x10^3 (test code See_Comment [Auto mated = 3387813051) message] The s ystem which generated this result transmitted reference range : 10*3/?L. The reference range was not used to interpret this result as normal/abnormal . SEG % (test code = 91 % 33-76 H 82635-3) BAND % (test code = 2 % 0-1 H 11822-4) MYELO % (test code = 1 % See_Comment H [Autom ated 59380-5) message] The sy stem which generated this result transmitted reference range : <=0. The refere nce range was not u sed to interpret th is result as normal/abnormal . LYMPH % (test code = 4 % 14-54 L 89648-1) MONO % (test code = 2 % 0-4 28381-6) ANC (test code = 9.69 10*3/uL 1.88-7.09 H 753-4) RITCHIE CELLS (test code 2+ See_Comment A [Auto mated = 7790-9) message] The sy stem which generated this result transmitted reference range : (none). The reference range was not used to interpret this result as normal/abnormal . Lab Interpretation Abnormal (test code = 98465-5) [facility] Metabolic Panel (NA, K, CL, CO2, GLUCOSE, BUN, CREATININE, CA)2022-06-19 05:51:33 Test Item Value Reference Range Interpretation Comments NA (test code = 135 mmol/L 135-145 0435441181) K (test code = 3.3 mmol/L 3.5-5 L 5982755858) CL (test code = 96 mmol/L 98-108 L 2168971579) CO2 TOTAL (test code = 31 mmol/L 23-31 5583643864) AGAP (test code = 2-16 5859111706) BUN (test code = 15 mg/dL 7-23 8179023373) GLUCOSE (test code = 210 mg/dL 70-110 H 6156451369) CREATININE (test code = 0.82 mg/dL 0.5-1.04 7266512963) CALCIUM (test code = 8.5 mg/dL 8.6-10.6 L 6413956923) eGFR (test code = mL/min/1.73m2 6361174420) VIK (test code = VIK) Association of Glomerular Filtration Rate (GFR) and Staging of Kidney Disease* + --+ --+ ------+| GFR (mL/min/1.73 m2) ?| With Kidney Damage ?| ?Without Kidney Damage+ --------+ --------+ +| ?>90 ?| ?Stage one ?| ? Normal ?+ ---+ ---+ -------+| ?60-89 ?| ?Stage two ?| ? Decreased GFR ? + --+ --+ ------+| ?30-59 ?| ?Stage three ?| ? Stage three ? + --+ --+ ------+| ?15-29 ?| ?Stage four ? | ? Stage four ?+ ---+ ---+ -------+| ?<15 (or dialysis) ? ?| ?Stage five ? | ? Stage five ?+ ---+ ---+ -------+ *Each stage assumes the associated GFR level has been in effect for at least three months. ?Stages 1 to 5, with or without kidney disease, indicate chronic kidney disease. Notes: Determination of stages one and two (with eGFR >59mL/min/1.73 m2) requires estimation of kidney damage for at least three months as defined by structural or functional abnormalities of the kidney, manifested by either:Pathological abnormalities or Markers of kidney damage (including abnormalities in the composition of the blood or urine or abnormalities in imaging tests). Lab Interpretation Abnormal (test code = 20226-0) [facility] Metabolic Panel (NA, K, CL, CO2, GLUCOSE, BUN, CREATININE, CA)2022-06-19 05:51:33 Test Item Value Reference Range Interpretation Comments NA (test code = 135 mmol/L 135-145 7565973167) K (test code = 3.3 mmol/L 3.5-5 L 7023732082) CL (test code = 96 mmol/L 98-108 L 6378782624) CO2 TOTAL (test code = 31 mmol/L 23-31 3000818025) AGAP (test code = 2-16 7323395815) BUN (test code = 15 mg/dL 7-23 6056824342) GLUCOSE (test code = 210 mg/dL 70-110 H 0084581598) CREATININE (test code = 0.82 mg/dL 0.5-1.04 9304696365) CALCIUM (test code = 8.5 mg/dL 8.6-10.6 L 9014015814) eGFR (test code = mL/min/1.73m2 5401674210) VIK (test code = VIK) Association of Glomerular Filtration Rate (GFR) and Staging of Kidney Disease* + --+ --+ ------+| GFR (mL/min/1.73 m2) ?| With Kidney Damage ?| ?Without Kidney Damage+ --------+ --------+ +| ?>90 ?| ?Stage one ?| ? Normal ?+ ---+ ---+ -------+| ?60-89 ?| ?Stage two ?| ? Decreased GFR ? + --+ --+ ------+| ?30-59 ?| ?Stage three ?| ? Stage three ? + --+ --+ ------+| ?15-29 ?| ?Stage four ? | ? Stage four ?+ ---+ ---+ -------+| ?<15 (or dialysis) ? ?| ?Stage five ? | ? Stage five ?+ ---+ ---+ -------+ *Each stage assumes the associated GFR level has been in effect for at least three months. ?Stages 1 to 5, with or without kidney disease, indicate chronic kidney disease. Notes: Determination of stages one and two (with eGFR >59mL/min/1.73 m2) requires estimation of kidney damage for at least three months as defined by structural or functional abnormalities of the kidney, manifested by either:Pathological abnormalities or Markers of kidney damage (including abnormalities in the composition of the blood or urine or abnormalities in imaging tests). Lab Interpretation Abnormal (test code = 02408-2) [facility] LOW [id number] 21:01:51 Test Item Value Reference Range Interpretation Comments ACTLR (test code = See_Comment H [Automat ed message] 2062918988) The system Kimeltu generated this result transmitted ref erence range: 89 - 169 Seconds. The reference range was not used to int erpret this result as normal/abnormal . Lab Interpretation (test Abnormal code = 32088-7) [facility] LOW [id number] 21:01:51 Test Item Value Reference Range Interpretation Comments ACTLR (test code = See_Comment [Automat ed message] 6073724105) The system Kimeltu generated this result transmitted ref erence range: 89 - 169 Seconds. The re ference range was not u sed to interpret this result as normal/abnor mal. Lab Interpretation (test Normal code = 54380-3) [facility] LOW [id number] 21:01:51 Test Item Value Reference Range Interpretation Comments ACTLR (test code = See_Comment H [Automat ed message] 3708006914) The system Kimeltu generated this result transmitted ref erence range: 89 - 169 Seconds. The reference range was not used to int erpret this result as normal/abnormal . Lab Interpretation (test Abnormal code = 14332-5) [facility] LOW [id number] 21:01:51 Test Item Value Reference Range Interpretation Comments ACTLR (test code = See_Comment [Automat ed message] 4368528958) The system Kimeltu generated this result transmitted ref erence range: 89 - 169 Seconds. The re ference range was not u sed to interpret this result as normal/abnor mal. Lab Interpretation (test Normal code = 83299-7) [facility] LOW [id number] 21:01:50 Test Item Value Reference Range Interpretation Comments ACTLR (test code = See_Comment H [Automat ed message] 2137365182) The system Kimeltu generated this result transmitted ref erence range: 89 - 169 Seconds. The reference range was not used to int erpret this result as normal/abnormal . Lab Interpretation (test Abnormal code = 73214-5) [facility] LOW [id number] 21:01:50 Test Item Value Reference Range Interpretation Comments ACTLR (test code = See_Comment H [Automat ed message] 2679065172) The system Kimeltu generated this result transmitted ref erence range: 89 - 169 Seconds. The reference range was not used to int erpret this result as normal/abnormal . Lab Interpretation (test Abnormal code = 48446-4) [facility] LOW [id number] 21:01:45 Test Item Value Reference Range Interpretation Comments ACTLR (test code = See_Comment H [Automat ed message] 0543112988) The system Kimeltu generated this result transmitted ref erence range: 89 - 169 Seconds. The reference range was not used to int erpret this result as normal/abnormal . Lab Interpretation (test Abnormal code = 00494-2) [facility] LOW [id number] 21:01:45 Test Item Value Reference Range Interpretation Comments ACTLR (test code = See_Comment H [Automat ed message] 3122421086) The system Kimeltu generated this result transmitted ref erence range: 89 - 169 Seconds. The reference range was not used to int erpret this result as normal/abnormal . Lab Interpretation (test Abnormal code = 36928-4) [facility] 18:15:42 Test Item Value Reference Range Interpretation Comments Height (test code = in 0579064924) Weight (test code = lbs 7351964677) Systolic BP (test mmHg code = 9754169850) Diastolic BP (test mmHg code = 2459522761) Heart Rate (test code bpm = 4967168604) BSA (test code = 1.72 m2 9222340027) Radiology Study observation (narrative) (test code = 03819-1) VIK (test code = VIK) Formatting of this result is different from the original. ?Left?Atrium: No PFO present by color Doppler. Left atrial appendage is occluded with occluder device likely Watchman device which appears to be sitting well and partially endothelialized. There is non-significant awilda-device leak with vena contracta of about 3 mm. ?Right?Ventricle: Normal systolic function. ?Mitral?Valve: Moderate transvalvular regurgitation. ?Tricuspid?Valve: Mild anterior leaflet prolapse. Mild to moderate transvalvular regurgitation. ?Pericardium: No pericardial effusion. Left VentricleLeft ventricle size is normal. Septal motion is normal. No regional wall motion abnormalities. Normal systolic function.Right VentricleRight ventricle size is normal. Normal systolic function.Left AtriumLeft atrium is severely dilated. No PFO present by color Doppler. Left atrial appendage is occluded with occluder device likely Watchman device which appears to be sitting well and partially endothelialized. There is non-significant awilda-device leak with vena contracta of about 3 mm.Right AtriumRight atrium is dilated.IVC/SVCIVC was not well visualized. SVC was not well visualized.Mitral ValveMildly thickened leaflets. Moderate mitral annular calcification. Moderate transvalvular regurgitation. No stenosis.Tricuspid ValveMild anterior leaflet prolapse. Mild to moderate transvalvular regurgitation. No stenosis.Aortic ValveTricuspid. Mildly thickened cusps. Mildly calcified cusps. No transvalvular regurgitation. No evidence of aortic stenosis.Pulmonic ValveValve structure is normal. Trace transvalvular regurgitation. No stenosis.Ascending AortaAnnulus, sinus of Valsalva, ascending aorta and descending aorta is normal in size. Mild atherosclerosis of descending thoracic aorta.PericardiumNo pericardial effusion.Study DetailsA complete transesophageal echocardiogram was performed using complete 2D, color flow Doppler, spectral Doppler and complete 3D. During the study the esophageal, transgastric and descending thoracic views were captured. The probe was inserted by the cad specialist. There was no probe insertion difficulty.There were 1 attempts to insert the probe. Probe in 08:17 am. Probe out 08: 39 am. Sedation and monitoring provided by anesthesia, see Epic documentation. There were no complications during the procedure. Based on abnormal findings of 2D echocardiogram, 3D was performed on an acquisition scanner for further assessment of the left atrium. [facility] ONCE [id number] 13:33:41 Test Item Value Reference Range Interpretation Comments ABO & RH (test code O Positive Performe d at [facility] = 20) Laboratory Serv [facility] [address] [place], [place] [address]Toll Free: [phone] 266CLIA No. [id number] IAT (test code = Negative Performed a t [facility] 1185) Laboratory Serv [facility] [address] [place], [place] [address]Toll Free: [phone] 266CLIA No. [id number] [facility] MET[facility]OL[facility] [id number] 12:58:00 Test Item Value Reference Range Interpretation Comments SODIUM (test code = NA) 136 mEq/L 134-147 N POTASSIUM (test code = 4.7 mEq/L 3.4-5.0 N K) CHLORIDE (test code = 102 mEq/L 100-108 N CL) CARBON DIOXIDE (test 29 mEq/l 21-33 N code = CO2) ANION GAP (test code = 9 0-20 N GAP) GLUCOSE (test code = 99 mg/dL 70-110 N GLU) BLOOD UREA NITROGEN 12 mg/dL 7-18 N (test code = BUN) GLOMERULAR FILTRATION 48.0 70-80 L Units of measure = RATE (test code = GFR) ml/mi n/1.73 m2 CREATININE (test code = 1.1 mg/dL 0.6-1.3 N CREAT) CALCIUM (test code = 9.8 mg/dL 8.0-10.5 N CA) PROTHROMBIN [id number] 12:46:00 Test Item Value Reference Range Interpretation Comments PROTHROMBIN TIME 14.8 SECONDS 9.3-12.9 H PATIENT (test code = PTP) INTERNATIONAL NORMAL 1.3 0.8-1.2 H TARGE T INR BY RATIO (test code = INDICATIO N Indication INR) INR1. Prophylax is of venous thrombos is 2.0 - 3.0 (orthoped ic surgery), Proph ylaxis of venous throm bosis (other than hig h-risk surgery), Treat ment of Deep Vein Thrombosis/Pulm onary Embolism, Preve ntion of systemic emb olism - Tissue heart va lves, Acute Myocardia l Infarction (to prevent systemic embol ism), Valvular heart disease, Atrial Fibrillation, Bileaflet mecha nical valve in aortic position.2. Mec hanical prosthetic valv es (high risk), 2. 5 - 3.5 Presence of Lup us Anticoagulant o r Antiphospholipi d Antibodies, Pre vention of systemic emb olism - Acute Myocardia l Infarction (to prevent recurrent infar ct). 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 [facility] - XR CHEST 1 [id number] 00:00:00 [facility] : 1945 Sex: F FAX: Favian Garcia MD [phone] [place]: St: ADM FAX: Cayden Garcia MD [phone] FAX: Yifan Catalan [phone] Name: KAVITHA BRANHAM [facility] [place]In[facility] [place] : 1945 Age/S: 76/F [address] [place] [address] Blvd Unit #: [id number] Loc: [place] [address] Phys: Yifan Catalan Acct: [id number] Dis Date: Status: ADM IN PHONE #: [phone] Exam Date: 10/22/2021 1308 FAX #: [phone] Reason: WATCHMAN EX AMS: CPT CODE: [id number] XR CHEST 1 V 31664 PROCEDURE INFORMATION: Exam: XR Chest Exam date [...] by: Nicko Vidales M.D. CC: Favian Rasmussen MD;Cayden Guzmán MD; Yifan Catalan Technologist: Ivonne Morales RT(R) Trnscrd Date/Time/By: 10/22/2021 (0855) : By: [email or web address] Orig Print D/T: S: 10/22/2021 (1755) PAGE 1 Signed ReportCBC W/AUTO [id number] 15:26:00 Test Item Value Reference Range Interpretation [...] (test code NO = MDIFF) BASIC METABOLIC [id number] 15:25:00 Test Item Value Reference Range Interpretation [...] code = 9.7 mg/dL 8.0-10.5 N CA) [id number] 15:25:00 Test Item Value Reference Range Interpretation Comments PREALBUMIN (test code = PREALB) 18.0 mg/dL 16.0-40.0 N PROTHROMBIN [id number] 15:23:00 Test Item Value Reference Range Interpretation [...] recurrent infar ct). COVID 19 Asymptomatic IH [id number] 13:58:00 Test Item Value Reference Range Interpretation Comments COVID 19 Asymptomatic Negative Negative A nega tive result is IH AG (test code = presumpti ve and [...] waivedcomplexit y tests. - XR CHEST 2 [id number] 00:00:00 [facility] : 1945 Sex: F FAX: Favian Garcia MD [phone] [place]: St: PRE FAX: Cayden Garcia MD [phone] Name: KAVITHA BRANHAM [facility] : 1945 Age/S: 76/F [address] [place] [address] Unit #: [id number] Loc: [place], [place] [address]Bwqf: Favian Rasmussen MD Acct: [id number] Dis Date: Status: PRE [facility] PHONE #: [phone] Exam Date: 10/20/2021 1501 FAX #: [phone] Reason: PREOP EXAMS: CPT CODE: [id number] XR CHEST 2 V 39294 PROCEDURE INFORMATION: Exam: XR Chest Exam date [...] Niharika Willard M.D. CC: Favian Rasmussen MD; Cayden odom MD Technologist: Tsering Guerrero RT(R) Trnscrd Date/Time/By: 10/20/2021 (153) : By: [email or web address] Orig Print D/T: S: 10/20/2021 (7143) PAGE [address] Signed ReportECG [address] [place], [place] [id number] 20:48:45 Test Item Value Reference Range Interpretation Comments Ventricular rate (test code = 253) Atrial rate (test code = 255) QRSD interval (test code = 260) QT interval (test code = 264) QTC interval (test code = 265) QRS axis 1 (test code = 268) T wave axis (test code = 270) EKG impression (test atrial fibrillation-ST code = 273) & T wave abnormality, consider inferior ischemia-Abnormal ECG-In automated comparison with ECG of 22-JUL-2021 11:30,-Sinus rhythm has replaced Atrial fibrillation-T wave inversion now evident in Lateral leads- [facility] HospitalEC08 Cook [id number] 20:48:45 Test Item Value Reference Range Interpretation Comments Ventricular rate (test code = 253) Atrial rate (test code = 255) QRSD interval (test code = 260) QT interval (test code = 264) QTC interval (test code = 265) QRS axis 1 (test code = 268) T wave axis (test code = 270) EKG impression (test atrial fibrillation-ST code = 273) & T wave abnormality, consider inferior ischemia-Abnormal ECG-In automated comparison with ECG of 22-JUL-2021 11:30,-Sinus rhythm has replaced Atrial fibrillation-T wave inversion now evident in Lateral leads- [facility]
[2022-09-04] MEDS ORDERED: LEVALBUTEROL 1.25 MG/3 ML NEB ONE (11:52)
[2022-09-04] MEDS ORDERED: METHYLPREDNISOLONE 125 MG INJ ONE (11:52)
[2022-09-04 11:58] LABS: Absolute Lymphocytes (CBC) 0.5 K/uL (0.7-4.9); Hematocrit 34.9 % (36.0-45.0); Lymphocytes % 2.6 % (15.3-44.8); MCV 88.1 fL (80-100); MPV 7.3 fL (7.6-11.3); RBC Red Blood Cell Count 3.96 M/uL (3.86-4.86)
[2022-09-04 11:59] LABS: Protime INR 1.21
[2022-09-04 12:18] LABS: Bilirubin Direct 0.7 mg/dL (0-0.2); Bilirubin Total 1.1 mg/dL (0.2-1.0); Magnesium 2.2 mg/dL (1.8-2.4); Potassium 4.2 mmol/L (3.5-5.1); Protein, Total 7.5 g/dL (6.4-8.2); Troponin High Sensitivity 44.5 pg/mL (<58.9)
[2022-09-04] MEDS ORDERED: CEFTRIAXONE 1000 MG/VIAL ONE (12:39)
[2022-09-04 12:40] LABS: SARS-COV-2 RT PCR NEGATIVE (NEGATIVE)
[2022-09-04 12:55] LABS: Blood Morphology Comment NOT SEEN (NOT SEEN); Platelet Estimate ADEQ; White Blood Cell Scan OK (OK)
--- NOTE | 2022-09-04 13:42 | RAD REPORT ---
EXAM DESCRIPTION: RAD - Chest Single View - 09/04/2022 1:17 pm CLINICAL HISTORY: SOB COMPARISON: Chest Pa And Lat (2 Views) dated 07/20/2022; Chest Pa And Lat (2 Views) dated 06/01/2022; Chest Single View dated 05/29/2022; Chest Single View dated 05/28/2022 FINDINGS: Lines: None. Lungs: Diffuse coarsening of the pulmonary interstitium. Pleural: No significant pleural effusions or pneumothorax. Cardiac: The heart size is within normal limits. Mediastinum: Within normal limits. Bones: No acute fractures. Other: None IMPRESSION: Coarsened interstitium that may reflect multifocal pneumonia and/or edema.
[2022-09-04] MEDS ORDERED: OSELTAMIVIR 75 MG CAP ONE (14:33)
--- NOTE | 2022-09-04 15:23 | P.HP ---
Certification for Inpatient Patient admitted to: Inpatient With expected LOS: >2 Midnights Practitioner: I am a practitioner with admitting privileges, knowledge of patient current condition, hospital course, and medical plan of care. Services: Services provided to patient in accordance with Admission requirements found in Title 42 Section 412.3 of the Code of Federal Regulations Patient History Date of Service: 09/04/22 Reason for admission: Shortness of breath History of Present Illness: 77-year-old woman with a history of COPD presented to the emergency department with a complaint of progressive shortness of breath. Symptoms have been present for about 10 days. According to the patient had initial symptom were sore throat, nonproductive cough, runny nose which progressed to shortness of breath and productive cough. Patient also reports generalized weakness and poor oral intake over the last 3 days, fever and chills. Has symptoms did not improve with steroid. Patient presented to the emergency department with chest x-ray demonstrated multifocal pneumonia. She is influenza A positive, has leukocytosis, WBC count up to 21,000. Lactic acid is pending. Blood work shows acute renal failure. Patient requiring 3 L oxygen by nasal cannula. She is admitted for further management. Allergies No Known Allergies Allergy (Verified 09/23/21 14:48) Home Medications: Albuterol Sulfate [Proair Digihaler] 2 puff IH DAILY 05/27/22 Diltiazem HCl [Cardizem Cd] 1 cap PO DAILY 05/27/22 Fluticasone/Umeclidin/Vilanter [Trelegy Ellipta 100-62.5-25] 1 puff IH BREAKFAST 05/27/22 Metoprolol Tartrate 1 tab PO BID 05/27/22 Rosuvastatin [Crestor*] 1 tab PO DAILY 05/27/22 Sertraline [Zoloft*] 0.5 tab PO DAILY 05/27/22 Amiodarone HCl [Cordarone*] 200 mg PO BID #60 tab 06/02/22 Furosemide [Lasix] 40 mg PO DAILY #30 tab 06/02/22 - Past Medical/Surgical History Diabetic: No -: Stroke -: COPD - Family History Family History: Reviewed- Non-Contributory - Social History Alcohol use: No CD- Drugs: No Caffeine use: No Review of Systems Other: Patient denied any diarrhea or nausea or vomiting. She denied any chest pain She endorsed cough productive of yellowish sputum. Except as documented, all other systems reviewed and negative. Physical Examination - Physical Exam General: Alert, In no apparent distress, Moderate distress HEENT: PERRLA, Mucous membr. moist/pink Neck: Supple, JVD not distended Respiratory: Normal air movement, Crackles/rales (Bibasilar crackles), Expiratory wheezes Cardiovascular: Regular rate/rhythm, Normal S1 S2, Edema (1+ bilateral lower extremity edema) Gastrointestinal: Soft and benign, Non-distended, No tenderness Musculoskeletal: No swelling, No tenderness Integumentary: No rashes, No cyanosis Neurological: Normal speech, Normal strength at 5/5 x4 extr, Cranial nerves 3-12 intact Lymphatics: No axilla or inguinal lymphadenopathy - Studies Laboratory Data (last 24 hrs) 09/04/22 11:40: PT 13.3 H, INR 1.21 09/04/22 11:40: WBC 21.20 H*, Hgb 11.5 L, Hct 34.9 L, Plt Count 276 09/04/22 11:40: Sodium 130 L, Potassium 4.2, BUN 81 H, Creatinine 3.43 H, Glucose 301 H, Magnesium 2.2, Total Bilirubin 1.1 H, AST 14 L, ALT 21, Alkaline Phosphatase 146 H Assessment and Plan - Problems (Diagnosis) (1) Pneumonia Current Visit: Yes Status: Acute (2) Influenza A Current Visit: Yes Status: Acute (3) Hyponatremia Current Visit: Yes Status: Acute (4) COPD exacerbation Current Visit: Yes Status: Acute (5) Acute renal failure Current Visit: Yes Status: Acute - Plan Admit patient to the medical floor. Start Tamiflu. Start aggressive antibiotics for secondary bacterial pneumonia-IV Rocephin and Zithromax. Diet as tolerated IV normal saline for RICHARD and hyponatremia. Consult to pulmonary. Schedule bronchodilators. Follow blood cultures. Follow lactate level. Monitor CBC to follow leukocytosis. Monitor renal function. Supplemental oxygen. - Advance Directives Does patient have a Living Will: No Does patient have a Durable POA for Healthcare: No
--- NOTE | 2022-09-04 15:25 | EDPHYS ---
Physician Documentation [facility] Name: Ruby Soriano Age: 77 yrs Sex: Female : 1945 Arrival Date: 09/04/2022 Time: 11:00 Bed 13 Private MD: Cayden Guzmán ED Physician Joo Silva HPI: 09/04 11:11 This 77 yrs old Female presents to ER via Wheelchair with complaints of Low O2. jmm 11:11 The patient or guardian reports cough. Onset: The symptoms/episode began/occurred jmm gradually, 2 week(s) ago. This is a 77-year-old female with history of COPD, hyperlipidemia, hypertension, atrial fibrillation the presents emerged department with complaints of cough shortness of breath progressively worsening over the past 2 weeks. Patient was put on a course of steroids with no relief. Historical: - Allergies: 11:14 No Known Allergies; vg1 - PMHx: 11:14 COPD; Hyperlipidemia; Hypertension; Irregular heart rate; stroke 2011; vg1 - Immunization history:: Client reports receiving the 2nd dose of the Covid vaccine. - Social history:: Smoking status: Patient/guardian denies using tobacco, the patient reports quitting approximately 25 years ago. ROS: 11:11 Constitutional: Positive for body aches. jmm 11:11 Cardiovascular: Positive for chest pain, with cough. 11:11 Respiratory: Positive for cough, shortness of breath. 11:11 All other systems are negative. Exam: 11:11 Constitutional: This is a well developed, well nourished patient who is awake, alert, jmm and in no acute distress. Head/Face: atraumatic. Eyes: EOMI, no conjunctival erythema appreciated ENT: Moist Mucus Membranes Neck: Trachea midline, Supple Chest/axilla: Normal chest wall appearance and motion. 11:11 Abdomen/GI: Non distended Back: Normal ROM Skin: General appearance color normal MS/ Extremity: Moves all extremities, no obvious deformities appreciated, no edema noted to the lower extremities Neuro: Awake and alert Psych: Behavior is normal, Mood is normal, Patient is cooperative and pleasant 11:11 Cardiovascular: Rate: normal. 11:11 Respiratory: mild respiratory distress is noted, Respirations: diffuse wheezing appreciated. Vital Signs: 11:12 BP 118 / 80; Pulse 90; Resp 28; Temp 98.3(O); Pulse Ox 97% on 4 lpm NC; vg1 MDM: 11:11 Patient medically screened. sarah 15:23 Data reviewed: vital signs, nurses notes. Counseling: I had a detailed discussion with [facility] the patient and/or guardian regarding: the historical points, exam findings, and any diagnostic results supporting the discharge/admit diagnosis, lab results, radiology results, the need for further work-up and treatment in the hospital. ED course: I discussed the patient with Dr. Lowery whom accepted the patient to his service. . 09/04 11:23 Order name: Basic Metabolic Panel; Complete Time: 12:23 [facility] 09/04 11:23 Order name: CBC with Diff; Complete Time: 12:56 [facility] 09/04 11:23 Order name: LFT's; Complete Time: 12:23 [facility] 09/04 11:23 Order name: Magnesium; Complete Time: 12:23 [facility] 09/04 11:23 Order name: NT PRO-BNP; Complete Time: 12:23 [facility] 09/04 11:23 Order name: PT-INR; Complete Time: 12:13 [facility] 09/04 11:23 Order name: Troponin HS; Complete Time: 12:23 [facility] 09/04 11:23 Order name: XRAY Chest (1 view); Complete Time: 13:46 [facility] 09/04 11:23 Order name: COVID-19/FLU A+B; Complete Time: 12:47 [facility] 09/04 12:03 Order name: CBC Smear Scan; Complete Time: 12:56 [facility] 09/04 12:35 Order name: Blood Culture Adult (2) [facility] 09/04 12:39 Order name: Lactate w/ 2H reflex if indic.; Complete Time: 16:19 [facility] 09/04 11:23 Order name: EKG; Complete Time: 11:24 [facility] 09/04 11:23 Order name: Cardiac monitoring; Complete Time: 12:30 [facility] 09/04 11:23 Order name: EKG - Nurse/Tech; Complete Time: 12:30 [facility] 09/04 11:23 Order name: IV Saline Lock; Complete Time: 11:59 [facility] 09/04 11:23 Order name: Labs collected and sent; Complete Time: 11:59 [facility] 09/04 11:23 Order name: O2 Per Protocol; Complete Time: 12:09 [facility] 09/04 11:23 Order name: O2 Sat Monitoring; Complete Time: 12:09 [facility] Administered Medications: 12:09 Drug: SOLU-Medrol (methylPrednisoLONE) 125 mg Route: IVP; Site: right antecubital; kr3 12:09 Drug: Xopenex (levalbuterol) (3) 1.25 mg Route: Inhalation; kr3 14:32 Drug: Tamiflu (oseltamivir) 75 mg Route: PO; kr3 15:59 Drug: Rocephin (cefTRIAXone) 1 grams Route: IV; Rate: calculated rate; Site: right kr3 antecubital; Disposition Summary: 09/04/22 15:25 Hospitalization Ordered Hospitalization Status: Inpatient Admission [facility] Provider: Arvind Lowery Location: Telemetry/MedSurg (Inpatient) [facility] Condition: Stable [facility] Problem: new jmm Symptoms: are unchanged [facility] Bed/Room Type: Standard [facility] Room Assignment: 412(09/04/22 15:47) Diagnosis - Influenza jmm - Acute Kidney Injury [facility] Forms: - Medication Reconciliation Form [facility] - SBAR form [facility] Addendum: 09/06/2022 13:36 Co-signature as Attending Physician, Joo Silva MD I agree with the assessment and c hidalgo plan of care. Signatures: Dispatcher [employer] Marisa Urias, RN Joo Pulido MD MD cha Mickail, Joel PA TIMO [facility] Tatiana Concepcion Victoria RN RN vg1 Maya Barnes RN RN kr3 Corrections: (The following items were deleted from the chart) 09/04 15:45 15:25 [facility] eb 15:47 15:[address] [place] [address]
--- NOTE | 2022-09-04 15:25 | ER ---
Nurse's Notes [facility] Name: Ruby Soriano Age: 77 yrs Sex: Female : 1945 Arrival Date: 09/04/2022 Time: 11:00 Bed 13 Private MD: Cayden Guzmán Diagnosis: Influenza;Acute Kidney Injury Presentation: 09/04 11:12 Chief complaint: Patient's son or daughter states: Was at Dr Rivas office and pt O2 vg1 was 70% RA; stated cough x 2 weeks; pt placed on O2 4L NC at 97%. Pt uses O2 at home 2 L NC. Pt Left leg appears to be swollen. Coronavirus screen: Vaccine status: Patient reports receiving the 2nd dose of the covid vaccine. Client denies travel out of the [place] in the last 14 days. Ebola Screen: Patient negative for fever greater than or equal to 101.5 degrees Fahrenheit, and additional compatible Ebola Virus Disease symptoms. Initial Sepsis Screen: Does the patient meet any 2 criteria? RR > 20 per min. Does the patient have a suspected source of infection? No. Patient's initial sepsis screen is negative. Risk Assessment: Do you want to hurt yourself or someone else? Patient reports no desire to harm self or others. Onset of symptoms was September 04, 2022. 11:12 Method Of Arrival: Wheelchair vg1 11:12 Acuity: SERINA 2 vg1 Triage Assessment: 11:14 General: Appears distressed, uncomfortable, Behavior is cooperative. Cardiovascular: vg1 Capillary refill is > 3 seconds in bilateral fingers. Respiratory: Airway is patent Respiratory effort is labored, pursed lip, Respiratory pattern is tachypnea. Derm: Skin is pink, warm \T\ dry. Musculoskeletal: Swelling present in left leg. Historical: - Allergies: 11:14 No Known Allergies; vg1 - PMHx: 11:14 COPD; Hyperlipidemia; Hypertension; Irregular heart rate; stroke 2011; vg1 - Immunization history:: Client reports receiving the 2nd dose of the Covid vaccine. - Social history:: Smoking status: Patient/guardian denies using tobacco, the patient reports quitting approximately 25 years ago. Screenin:00 Fall Risk IV access (20 points). Gait- Weak (10 pts.). Total Main Fall Scale indicates kr3 Low Risk Score (25-44 pts). Fall prevention measures have been instituted. Side Rails Up X 2 Frequent Obs/Assesments occuring Family Present and informed to notify staff if they need to leave bedside. 18:39 Abuse screen: Denies threats or abuse. Nutritional screening: No deficits noted. kr3 Tuberculosis screening: No symptoms or risk factors identified. Vital Signs: 11:12 BP 118 / 80; Pulse 90; Resp 28; Temp 98.3(O); Pulse Ox 97% on 4 lpm NC; vg1 ED Course: 11:00 Patient arrived in ED. mr 11:00 Cayden Guzmán MD is Private Physician. mr 11:09 Fernando Taylor [facility]. jmm 11:09 Joo Silva MD is Attending Physician. jmm 11:14 Triage completed. vg1 11:14 Arm band placed on. vg1 11:47 Maya Barnes, RN is Primary Nurse. kr3 13:19 XRAY Chest (1 view) In Process Unspecified. EDMS 15:24 Arvind Lowery is Hospitalizing Provider. m 18:40 No provider procedures requiring assistance completed. Patient admitted, IV remains in kr3 place. Administered Medications: 12:09 Drug: SOLU-Medrol (methylPrednisoLONE) 125 mg Route: IVP; Site: right antecubital; kr3 12:09 Drug: Xopenex (levalbuterol) (3) 1.25 mg Route: Inhalation; kr3 14:32 Drug: Tamiflu (oseltamivir) 75 mg Route: PO; kr3 15:59 Drug: Rocephin (cefTRIAXone) 1 grams Route: IV; Rate: calculated rate; Site: right kr3 antecubital; Outcome: 15:25 Decision to Hospitalize by Provider. jmm 17:21 Patient left the ED. ld1 18:41 Admitted to Med/surg accompanied by tech, via wheelchair. kr3 18:41 Condition: stable 18:41 Instructed on the need for admit. Signatures: Dispatcher [employer] EDMS Fernando Taylor PA PA jennifer PadillaaDesi Kina Ricci, RN RN vg1 Rain Frost RN RN ld1 Maya Barnes RN RN kr3
[2022-09-04 17:38] VITALS: BMI 21.1
[2022-09-04] MEDS ORDERED: ONDANSETRON 4 MG/2 ML VIAL IV PRN (18:05)
[2022-09-04] MEDS ORDERED: ACETAMINOPHEN 500 MG TAB PO PRN (18:05)
[2022-09-04] MEDS: HEPARIN 5000 UNIT/ML 1 ML VIAL SQ SCH (18:22)
[2022-09-04] MEDS: ALBUTEROL 2.5 MG/3 ML NEB SOL NEB SCH (20:30)
[2022-09-04] MEDS: IPRATROPIUM BROM 0.5MG/2.5ML NEB SCH (20:30)
[2022-09-04] MEDS: AZITHROMYCIN IV 500 MG in NA CHLORIDE 0.9% 250 ML IVPB SCH (21:34)
[2022-09-04] MEDS: CEFTRIAXONE 1,000 MG in NA CHLORIDE 0.9% 50 ML IVPB SCH (21:52)
[2022-09-05] MEDS: HEPARIN 5000 UNIT/ML 1 ML VIAL SQ SCH ×3 (00:09→17:00)
[2022-09-05] MEDS: ALBUTEROL 2.5 MG/3 ML NEB SOL NEB SCH ×4 (02:00→19:40)
[2022-09-05] MEDS: IPRATROPIUM BROM 0.5MG/2.5ML NEB SCH ×4 (02:00→19:40)
[2022-09-05 05:51] LABS: Absolute Lymphocytes (CBC) 0.3 K/uL (0.7-4.9); Hematocrit 31.1 % (36.0-45.0); Lymphocytes % 1.9 % (15.3-44.8); MCV 88.1 fL (80-100); MPV 7.5 fL (7.6-11.3); RBC Red Blood Cell Count 3.53 M/uL (3.86-4.86)
[2022-09-05 06:19] LABS: Albumin 1.8 g/dL (3.4-5.0); Bilirubin Total 0.4 mg/dL (0.2-1.0); Magnesium 2.1 mg/dL (1.8-2.4); Phosphorus 5.1 mg/dL (2.5-4.9); Potassium 3.3 mmol/L (3.5-5.1); Protein, Total 6.7 g/dL (6.4-8.2); Thyroid Stimulating Hormone 0.782 uIU/mL (0.360-3.740)
[2022-09-05] MEDS ORDERED: D50W 25 GM/50 ML SYRINGE IV PRN (06:34)
[2022-09-05] MEDS ORDERED: GLUCAGON 1 MG/VIAL IM PRN (06:34)
[2022-09-05] MEDS ORDERED: D10W 125 ML IV PRN (06:40)
[2022-09-05] MEDS: INSULIN -REGULAR HUMAN 50 UNIT/0.5 ML ML SQ SCH ×4 (06:48→21:04)
[2022-09-05 08:16] LABS: Platelet Estimate ADEQ
[2022-09-05 08:17] LABS: Blood Morphology Comment NOT SEEN (NOT SEEN); Platelets, Giant 1+
[2022-09-05] MEDS: AZITHROMYCIN IV 500 MG in NA CHLORIDE 0.9% 250 ML IVPB SCH (08:46)
[2022-09-05] MEDS: CEFTRIAXONE 1,000 MG in NA CHLORIDE 0.9% 50 ML IVPB SCH ×2 (08:47→21:05)
[2022-09-05] MEDS: INSULIN GLARGINE 100 UNIT/ML SQ SCH (08:47)
[2022-09-05] MEDS ORDERED: POTASSIUM CL SA 10 MEQ TAB PO ONE (09:00)
--- NOTE | 2022-09-05 13:26 | P.PN ---
Subjective Date of Service: 09/05/22 Chief Complaint: Shortness of breath Patient states she feels better than yesterday though still significantly short of breath. Physical Examination - Vital Signs Temperature: 97.9 F Blood Pressure: 113/51 Pulse: 112 Respirations: 18 Pulse Ox (%): 93 Assessment And Plan - Current Problems (Diagnosis) (1) Pneumonia Current Visit: Yes Status: Acute (2) Influenza A Current Visit: Yes Status: Acute (3) Hyponatremia Current Visit: Yes Status: Acute (4) COPD exacerbation Current Visit: Yes Status: Acute (5) Acute renal failure Current Visit: Yes Status: Acute (6) Hyperglycemia Current Visit: Yes Status: Acute - Plan Continue Tamiflu. WBC is trending doen. Continue IV Rocephin. Change Zithromax to IV Levaquin. Renal function is improving slowly with IV fluid. Sodium level corrected for hyperglycemia is 138. Pulmonary consulted Continue bronchodilators. Blood cultures are pending. Normal lactate level. Monitor CBC to follow leukocytosis. Monitor renal function. Wean oxygen. Diet as tolerated. Increase activity as tolerated.
[2022-09-05] MEDS: Levofloxacin 750mg IV 750 MG/150 ML BAG IV SCH (14:42)
--- NOTE | 2022-09-05 19:13 | EKG ---
Test Date: 2022-09-04 Test Time: 12:22:34 Wagon Driver: YUAN MEASUREMENT RESULTS: Intervals: Rate: 94 SC: QRSD: 86 QT: 368 QTc: 460 [place]: P: SC: QRS: 46 T: -5 INTERPRETIVE STATEMENTS: Atrial fibrillation Nonspecific ST abnormality Abnormal ECG Compared to ECG 06/01/2022 08:34:50 ST (T wave) deviation now present Sinus rhythm no longer present Atrial premature complex(es) no longer present Electronically Signed On 09-05-22 19:10:31 TACKER OFF by Dallas Pappas
[2022-09-05] MEDS: METOPROLOL TAR 50 MG TAB PO SCH (21:02)
[2022-09-06] MEDS: HEPARIN 5000 UNIT/ML 1 ML VIAL SQ SCH ×4 (00:02→23:19)
[2022-09-06] MEDS: IPRATROPIUM BROM 0.5MG/2.5ML NEB SCH ×4 (01:20→20:15)
[2022-09-06] MEDS: ALBUTEROL 2.5 MG/3 ML NEB SOL NEB SCH ×4 (02:00→20:00)
[2022-09-06 05:41] LABS: Absolute Lymphocytes (CBC) 0.6 K/uL (0.7-4.9); Hematocrit 31.7 % (36.0-45.0); Lymphocytes % 2.2 % (15.3-44.8); RBC Red Blood Cell Count 3.61 M/uL (3.86-4.86)
[2022-09-06 05:52] LABS: Albumin 1.8 g/dL (3.4-5.0); Bilirubin Total 0.3 mg/dL (0.2-1.0); Potassium 5.1 mmol/L (3.5-5.1); Protein, Total 6.5 g/dL (6.4-8.2)
[2022-09-06] MEDS: INSULIN -REGULAR HUMAN 50 UNIT/0.5 ML ML SQ SCH ×4 (07:30→19:27)
[2022-09-06] MEDS: METOPROLOL TAR 50 MG TAB PO SCH ×2 (08:34→20:35)
[2022-09-06] MEDS: CEFTRIAXONE 1,000 MG in NA CHLORIDE 0.9% 50 ML IVPB SCH ×2 (08:34→20:35)
[2022-09-06 10:23] LABS: Anisocytosis 1+; Blood Morphology Comment NOTED (NOT SEEN); Platelet Estimate ADEQ
--- NOTE | 2022-09-06 12:25 | P.PN ---
Subjective Date of Service: 09/06/22 Chief Complaint: Shortness of breath No major changes from yesterday. Patient still with significant cough and short of breath. Physical Examination - Vital Signs Temperature: 97.6 F Blood Pressure: 113/76 Pulse: 89 Respirations: 18 Pulse Ox (%): 99 Assessment And Plan - Current Problems (Diagnosis) (1) Pneumonia Current Visit: Yes Status: Acute (2) Influenza A Current Visit: Yes Status: Acute (3) Hyponatremia Current Visit: Yes Status: Acute (4) COPD exacerbation Current Visit: Yes Status: Acute (5) Acute renal failure Current Visit: Yes Status: Acute (6) Hyperglycemia Current Visit: Yes Status: Acute - Plan On Tamiflu WBC trended up from yesterday. I suspect superimposed steroid-induced hyperglycemia Continue IV Rocephin and IV Levaquin. Chest physiotherapy. Renal function is improving slowly. Encourage oral intake. Pulmonary edema not excluded on the chest x-ray. Hold IV fluid for now. IV Lasix as needed. Sodium level corrected for hyperglycemia is 138. Pulmonary consulted Continue bronchodilators. Blood cultures: No growth to date Normal lactate level. Monitor CBC to follow leukocytosis. Monitor renal function. Wean oxygen. Diet as tolerated. Increase activity as tolerated.
[2022-09-06] MEDS: INSULIN GLARGINE 100 UNIT/ML SQ SCH (12:41)
[2022-09-06] MEDS: Levofloxacin 750mg IV 750 MG/150 ML BAG IV SCH (12:42)
[2022-09-06] MEDS: OSELTAMIVIR 75 MG CAP PO SCH ×2 (12:42→20:35)
[2022-09-07] MEDS: ALBUTEROL 2.5 MG/3 ML NEB SOL NEB SCH ×3 (02:00→14:00)
[2022-09-07] MEDS: IPRATROPIUM BROM 0.5MG/2.5ML NEB SCH ×4 (02:15→20:45)
[2022-09-07 03:42] LABS: Hematocrit 33.3 % (36.0-45.0); Lymphocytes % 4.6 % (15.3-44.8); MCV 87.6 fL (80-100); MPV 7.1 fL (7.6-11.3)
[2022-09-07 04:07] LABS: Albumin 1.6 g/dL (3.4-5.0); Bilirubin Total 0.3 mg/dL (0.2-1.0); Potassium 4.9 mmol/L (3.5-5.1)
[2022-09-07] MEDS: INSULIN -REGULAR HUMAN 50 UNIT/0.5 ML ML SQ SCH ×4 (07:30→21:24)
[2022-09-07] MEDS: INSULIN GLARGINE 100 UNIT/ML SQ SCH (08:08)
[2022-09-07] MEDS ORDERED: DILTIAZEM HCL 240 MG PO SCH (09:00)
[2022-09-07] MEDS: AZITHROMYCIN 250 MG TAB PO SCH (09:22)
[2022-09-07] MEDS: DILTIAZEM HCL 120 MG SR CAP PO SCH (09:22)
[2022-09-07] MEDS: METOPROLOL TAR 50 MG TAB PO SCH ×2 (09:22→21:24)
[2022-09-07] MEDS: FUROSEMIDE 40 MG/4 ML VIAL IV SCH (09:22)
[2022-09-07] MEDS: OSELTAMIVIR 75 MG CAP PO SCH ×2 (09:23→21:24)
[2022-09-07] MEDS: HEPARIN 5000 UNIT/ML 1 ML VIAL SQ SCH ×2 (09:23→16:33)
--- NOTE | 2022-09-07 12:22 | P.CNS ---
Date of Consult: 09/07/22 Reason for Consult: COPD exacerbation Chief Complaint: Shortness of breath History of Present Illness: Patient is 77 years of age has been complaining of cough congestion for the past 2 weeks ended up in the hospital there is been no change in her status short of breath and congested pliant with therapy at home Allergies No Known Allergies Allergy (Verified 09/23/21 14:48) Home Medications: Albuterol Sulfate [Proair Digihaler] 2 puff IH DAILY PRN 05/27/22 Diltiazem HCl [Cardizem Cd] 1 cap PO DAILY 05/27/22 Fluticasone/Umeclidin/Vilanter [Trelegy Ellipta 100-62.5-25] 1 puff IH BREAKFAST 05/27/22 Metoprolol Tartrate 1 tab PO BID 05/27/22 Rosuvastatin [Crestor*] 1 tab PO DAILY 05/27/22 Furosemide [Lasix] 40 mg PO DAILY #30 tab 06/02/22 - Past Medical/Surgical History Diabetic: No -: Stroke -: COPD - Family History Mother Notes: Congestive heart failure - Social History Smoking Status: Former smoker Alcohol use: No CD- Drugs: No Caffeine use: Yes Place of Residence: Home Review of Systems General: Weakness Respiratory: Cough, Shortness of Breath Physical Examination Temp Pulse Resp BP Pulse Ox 97.8 F 87 20 143/82 H 100 09/07/22 08:00 09/07/22 08:00 09/07/22 08:00 09/07/22 08:00 09/07/22 08:00 General: Alert, Oriented x3, Mild distress Respiratory: Clear to auscultation bilaterally, Crackles/rales, Expiratory wheezes, Rhonchi/gurgles Cardiovascular: No edema, Regular rate/rhythm, Normal S1 S2 Gastrointestinal: Normal bowel sounds, Soft and benign, W/out succussion splash Integumentary: No rashes, No breakdown - Problems (1) COPD exacerbation Current Visit: Yes Status: Acute Plan: Patient is 77 years of age admitted with COPD exacerbation no change since admission he is on levofloxacin sputum cultures have been ordered renal function is improving I have added Lasix oxygenation stable sputum culture Zithromax for anti-inflammatory purposes resume home bronchodilators patient is positive for influenza A chest x-ray shows COPD changes
--- NOTE | 2022-09-07 13:45 | P.PN ---
Subjective Date of Service: 09/07/22 Chief Complaint: Shortness of breath Patient states she is still short of breath. She is in rapid A. fib today. She reports generalized weakness. Physical Examination - Vital Signs Temperature: 97.8 F Blood Pressure: 142/62 Pulse: 123 Respirations: 20 Pulse Ox (%): 95 Assessment And Plan - Current Problems (Diagnosis) (1) Pneumonia Current Visit: Yes Status: Acute (2) Influenza A Current Visit: Yes Status: Acute (3) Hyponatremia Current Visit: Yes Status: Acute (4) COPD exacerbation Current Visit: Yes Status: Acute (5) Acute renal failure Current Visit: Yes Status: Acute (6) Hyperglycemia Current Visit: Yes Status: Acute - Plan On Tamiflu WBC trended up from yesterday. I suspect superimposed steroid-induced hyperglycemia Continue IV Rocephin and IV Levaquin. Chest physiotherapy. Renal function continues to improve. Serum creatinine trended down to 1.8 Monitor renal Encourage oral intake. Pulmonary edema not excluded on the chest x-ray. Hold IV fluid for now. IV Lasix as needed. Encourage oral intake. Sodium level corrected for hyperglycemia is 138. Noted an episode of hypoglycemia this morning. Discontinue Lantus insulin. Seen by pulmonary. Chest physiotherapy with Mucomyst. Continue bronchodilators. Blood cultures: No growth to date Normal lactate level. Leukocytosis trended down from yesterday. Patient with intermittent atrial fibrillation. Pulmonary added Cardizem to metoprolol for A. fib rate control. Status post cardiac ablation recently. Cardiology consult. Wean oxygen. Diet as tolerated. Increase activity as tolerated.
--- NOTE | 2022-09-07 19:53 | P.PN ---
Date of Service: 09/08/22 Subjective: no acute events overnight feels very mild improvement no significant worsening / new symptoms ROS: 10 point ROS as noted above, otherwise negative Physical Exam: Gen: NAD, AOx3, fatigued appearing HEENT: normal conjunctiva, sclera anicteric CV: irregularly irregular rhythm, no edema Pulm: non-labored respirations, clear bilaterally Abd: soft, non-tender, non-distended Neuro: normal speech, normal affect, moves all extremities vitals reviewed Problem List acute hypoxemic respiratory failure pneumonia secondary to influenza A acute on chronic COPD exacerbation RICHARD, prerenal DM2, with hyperglycemia afib, paroxysmal Flu respiratory failure COPD steroids levaquin pulm consulted chest physiotherapy blood Cx: NGTD improving slowly wean O2 as tolerated uses O2 supplementation as needed at home - has been several weeks since last needed RICHARD, prerenal significant improvement afib paroxysmal/intermittent continue metoprolol cardizem added by pulm cardiology consulted h/o cardiac ablation recently. and had watchman done within last ~year VTE: heparin SQ Code: full Dispo: home; pending PT consult and further improvement Time Spent Managing Pts Care (In Minutes): 25 in
[2022-09-07] MEDS: ACETYLCYST 20% 4 ML VIAL IH SCH (20:45)
--- NOTE | 2022-09-07 21:03 | CON ---
Date of Consultation: 09/07/2022 Reason For Consultation: Atrial fibrillation. History Of Present Illness: This is a 77-year-old female who was admitted to the hospital back on 2021 for shortness of breath and diagnosed with pneumonia and influenza. The patient has a past medical history of COPD, dyslipidemia, atrial fibrillation on amiodarone at home and diastolic heart failure and presented with worsening shortness of breath, cough, generalized weakness, and fev er and chills for 3 days. Diagnosed with pneumonia and COPD exacerbation. The patient, while in the hospital went into rapid ventricular response with AFib and hence Cardiology was consulted. Denies having any chest pain. No nausea, vomiting, diarrhea, dysuria, polyuria, or urinary urgency. All ot her systems reviewed are negative. Past Medical History: As outlined above in the HPI. Medications: Refer to reconciliation sheet for detailed list. Allergies: NO KNOWN DRUG ALLERGIES. Family History: No premature coronary artery disease or cancer. Social History: Does not smoke or drink. Does not use any drugs. Review of Systems: All systems reviewed and they were negative except as mentioned in HPI. Physical Examination: Vital Signs: Reviewed. Head And Neck: Pupils are equal, reactive to light. Intact eye movements. No JVD. No cervical lym phadenopathy. Neck is supple. Thyroid is not enlarged. Lungs: Bilateral rhonchi. No accessory muscle use or muscle retraction. Heart: Irregularly irregular. No extra sounds. Abdomen: Soft, nontender. Bowel sounds positive. No organomegaly. No masses or hernia. No rigidi ty or rebound. Extremities: No clubbing or cyanosis. Intact pulses. Skin: No rash. Neurologic: Alert, awake, and oriented x3. No focal deficits appreciated. Investigations: BUN 66, creatinine 1.82. Troponin is negative. White blood count 21,000 and hemogl obin 11.0. Assessment And Recommendation: 1.Atrial fibrillation with rapid ventricular response. The patient is on high dose of metoprolol an d diltiazem. Continue current management and use metoprolol 5 mg IV q.1 hour as needed for rate cont rol and this patient will need to be placed on anticoagulant. Recommend Eliquis 2.5 mg twice a day a nd obtain echocardiogram. 2.Congestive heart failure, chronic on Lasix. Continue current management. 3.Pneumonia with chronic obstructive pulmonary disease exacerbation. Current antibiotics per [facility] and nebulizers treatment. I expect once the pneumonia is controlled, her heart rate wi ll improve. In the interim, use metoprolol IV as needed for rate control. Thank you for the consult. /HAILE Voice ID: [id number] Report ID: [id number]
[2022-09-08] MEDS: HEPARIN 5000 UNIT/ML 1 ML VIAL SQ SCH (00:27)
[2022-09-08] MEDS: ACETYLCYST 20% 4 ML VIAL IH SCH ×2 (01:40→08:00)
[2022-09-08] MEDS: IPRATROPIUM BROM 0.5MG/2.5ML NEB SCH ×4 (01:40→20:00)
[2022-09-08 04:07] LABS: Absolute Lymphocytes (CBC) 1.1 K/uL (0.7-4.9); Hematocrit 34.6 % (36.0-45.0); Lymphocytes % 5.5 % (15.3-44.8); MCV 87.6 fL (80-100); MPV 7.5 fL (7.6-11.3); RBC Red Blood Cell Count 3.95 M/uL (3.86-4.86)
[2022-09-08 04:12] LABS: Albumin 1.7 g/dL (3.4-5.0); Bilirubin Total 0.3 mg/dL (0.2-1.0); Potassium 3.7 mmol/L (3.5-5.1); Protein, Total 6.1 g/dL (6.4-8.2)
[2022-09-08 04:17] LABS: Magnesium 1.4 mg/dL (1.8-2.4)
[2022-09-08] MEDS: INSULIN -REGULAR HUMAN 50 UNIT/0.5 ML ML SQ SCH ×4 (07:30→21:19)
[2022-09-08] MEDS ORDERED: Magnesium Sulfate 2gm IVPB 2 G/50 ML BAG IV ONE (09:00)
[2022-09-08] MEDS ORDERED: POTASSIUM CL SA 10 MEQ TAB PO ONE (09:00)
[2022-09-08] MEDS: HOME MED 1 EA UNK (Fluticasone/Umeclidin/Vilanter [Trelegy Ellipta 100-62.5-25] Blst.W.Dev IH SCH (09:29)
[2022-09-08] MEDS: FUROSEMIDE 40 MG/4 ML VIAL IV SCH (09:31)
[2022-09-08] MEDS: ENOXAPARIN 30 MG/0.3 ML SQ SCH (09:31)
[2022-09-08] MEDS: METOPROLOL TAR 50 MG TAB PO SCH ×2 (09:31→21:29)
[2022-09-08] MEDS: AZITHROMYCIN 250 MG TAB PO SCH (09:31)
[2022-09-08] MEDS: OSELTAMIVIR 75 MG CAP PO SCH ×2 (09:32→21:16)
[2022-09-08] MEDS: DILTIAZEM HCL 120 MG SR CAP PO SCH (09:34)
[2022-09-08] MEDS: predniSONE 20 MG TAB PO SCH ×2 (09:35→21:16)
--- NOTE | 2022-09-08 11:59 | RAD REPORT ---
EXAM DESCRIPTION: Joselin Single View09/08/2022 10:54 am CLINICAL HISTORY: Chest pain COMPARISON: 2020 FINDINGS: Small bilateral pleural effusions Diffuse bilateral interstitial lung opacities. Lungs are hyperaerated. Heart is mildly enlarged IMPRESSION: COPD Diffuse bilateral interstitial lung opacities. I suspect that this represents a combination of inters titial pulmonary edema superimposed over chronic changes.
[2022-09-08] MEDS: levoFLOXacin 750 MG TAB PO SCH (12:39)
--- NOTE | 2022-09-08 12:42 | P.PN ---
Subjective Date of Service: 09/08/22 Chief Complaint: COPD exacerbation No change still complaining of cough congestion unable to cough up any phlegm short of breath no change Review of Systems General: Weakness Respiratory: Cough, Shortness of Breath Physical Examination - Vital Signs Temperature: 98 F Blood Pressure: 101/57 Pulse: 108 Respirations: 21 Pulse Ox (%): 92 - Physical Exam General: Alert, Oriented x3, Mild distress Respiratory: Diminished, Expiratory wheezes Cardiovascular: No edema, Regular rate/rhythm, Normal S1 S2 Gastrointestinal: Normal bowel sounds, Soft and benign Assessment And Plan - Current Problems (Diagnosis) (1) COPD exacerbation Current Visit: Yes Status: Acute Plan: Patient is 77 years of age admitted with COPD exacerbation no change complaining of cough congestion complains of hoarseness with Mucomyst will DC patient is renal function is improving continue with diuretic White count is also declining
[2022-09-08] MEDS ORDERED: INSULIN GLARGINE 100 UNIT/ML SQ SCH (17:00)
[2022-09-08] MEDS ORDERED: INSULIN -REGULAR HUMAN 50 UNIT/0.5 ML ML SQ ONE (18:47)
[2022-09-08] MEDS ORDERED: GLUCAGON 1 MG/VIAL IM PRN (18:47)
[2022-09-08] MEDS ORDERED: D50W 25 GM/50 ML SYRINGE IV PRN (18:47)
[2022-09-08] MEDS ORDERED: DEXTROSE 10%-WATER 125 ML IV PRN (18:55)
--- NOTE | 2022-09-08 18:56 | PN ---
Date of Progress Note: 09/08/2022 Subjective: Seen by bedside, doing clinically well. No chest pain, but she is having shortness of b reath and cough. Heart rate has improved. Review of Systems: No chest pain. Positive shortness of breath and cough. No nausea, vomiting, or diarrhea. No abdomi nal pain. Generally, she is weak. All other systems reviewed and they were negative. Physical Examination: Vital Signs: Reviewed. Head and Neck: Pupils are equal and reactive to light. Intact eye movements. No JVD. No cervical lymphadenopathy. Neck is supple. Thyroid is not enlarged. Lungs: Clear to auscultation bilaterally. No rhonchi, wheezing, or crackles. No accessory muscle u se. Heart: Irregularly irregular. No extra sounds. Abdomen: Soft, nontender. Bowel sounds positive. No organomegaly. No masses or hernia. No rigidi ty or rebound. Extremities: No clubbing or cyanosis. Intact pulses. Skin: No rash. No nodules. Neurologic: Alert, awake, and oriented x3. No acute focal deficits appreciated. Investigations: Labs reviewed. Assessment And Recommendation: 1.[id number] diastolic heart failure exacerbation, improving with Lasix. BUN and creatinine h ave improved. Carefully diurese, monitoring BUN, creatinine, and electrolytes. Her blood pressure i s on the low side. I will hold off on any further Lasix for now and re-dose on daily basis. 2.Atrial fibrillation. Rate is better. Continue beta-mary and calcium channel mary and use IV metoprolol as needed for rate control. SR/MODL Voice ID: [id number] Report ID: [id number]
[2022-09-09] MEDS: IPRATROPIUM BROM 0.5MG/2.5ML NEB SCH ×5 (01:55→20:05)
[2022-09-09 04:09] LABS: Magnesium 2.1 mg/dL (1.8-2.4); Potassium 4.5 mmol/L (3.5-5.1)
[2022-09-09 07:24] LABS: Hematocrit 34.8 % (36.0-45.0); MCV 88.5 fL (80-100); MPV 7.7 fL (7.6-11.3); RBC Red Blood Cell Count 3.93 M/uL (3.86-4.86)
[2022-09-09] MEDS: INSULIN -REGULAR HUMAN 50 UNIT/0.5 ML ML SQ SCH ×4 (07:30→20:43)
--- NOTE | 2022-09-09 08:23 | RAD REPORT ---
EXAM DESCRIPTION: RAD - Chest Single View - 09/09/2022 5:31 am CLINICAL HISTORY: COPD Chest pain. COMPARISON: Chest Single View dated 09/08/2022; Chest Single View dated 09/04/2022; Chest Pa And Lat (2 Views) dated 07/20/2022; Chest Pa And Lat (2 Views) dated 06/01/2022 FINDINGS: Portable technique limits examination quality. The lungs are emphysematous but grossly clear. The heart is mildly enlarged in size. No displaced fra ctures. IMPRESSION: Prominent COPD.
[2022-09-09] MEDS: HOME MED 1 EA UNK (Fluticasone/Umeclidin/Vilanter [Trelegy Ellipta 100-62.5-25] Blst.W.Dev IH SCH (09:38)
[2022-09-09] MEDS: METOPROLOL TAR 50 MG TAB PO SCH ×2 (09:39→21:00)
[2022-09-09] MEDS: ENOXAPARIN 30 MG/0.3 ML SQ SCH (09:39)
[2022-09-09] MEDS: predniSONE 20 MG TAB PO SCH ×2 (09:39→20:43)
[2022-09-09] MEDS: OSELTAMIVIR 75 MG CAP PO SCH ×2 (09:39→20:43)
[2022-09-09] MEDS: DILTIAZEM HCL 120 MG SR CAP PO SCH (09:39)
[2022-09-09] MEDS ORDERED: GLUCAGON 1 MG/VIAL IM PRN (16:02)
[2022-09-09] MEDS ORDERED: D50W 25 GM/50 ML SYRINGE IV PRN (16:02)
[2022-09-09] MEDS ORDERED: INSULIN -REGULAR HUMAN 50 UNIT/0.5 ML ML SQ ONE ×2 (16:03→18:47)
--- NOTE | 2022-09-09 16:32 | P.PN ---
Date of Service: 09/09/22 Subjective: feels improvement, breathing easier, cough is less hyperglycemic no new/worsening symptoms has not ambulated much ROS: 10 point ROS as noted above, otherwise negative Physical Exam: Gen: NAD, AOx3, fatigued appearing HEENT: normal conjunctiva, sclera anicteric CV: irregularly irregular rhythm, no edema Pulm: non-labored respirations, +cough Abd: soft, non-tender, non-distended Neuro: normal speech, normal affect, moves all extremities vitals reviewed Problem List acute hypoxemic respiratory failure pneumonia secondary to influenza A acute on chronic COPD exacerbation RICHARD, prerenal DM2, with hyperglycemia afib, paroxysmal Flu respiratory failure COPD steroids, levaquin pulm consulted blood Cx: NGTD improving slowly wean O2 as tolerated uses O2 supplementation as needed at home - has been several weeks since last needed worsening leukocytosis, suspect secondary to steroid use, decrease steroids, repeat CXR, pt clinically improving, afebrile RICHARD documented as possible chf vs prerenal, did not receive IV fluids or diuretics early on had improvement with IV fluids from antibiotics and PO intake received a day of lasix 09/07 improved, now plateau'd, slight increase Cr 09/09 afib paroxysmal/intermittent continue metoprolol cardizem added by pulm cardiology consulted h/o cardiac ablation recently. and had watchman done within last ~year VTE: heparin SQ Code: full Dispo: home; home health, PT anticipate dc Tuesday 09/11 Time Spent Managing Pts Care (In Minutes): 25 in
[2022-09-09] MEDS: INSULIN GLARGINE 100 UNIT/ML SQ SCH (17:04)
[2022-09-10] MEDS: IPRATROPIUM BROM 0.5MG/2.5ML NEB SCH ×4 (01:40→20:00)
[2022-09-10 05:35] LABS: Hematocrit 33.3 % (36.0-45.0); Lymphocytes % 3.4 % (15.3-44.8); MCV 87.7 fL (80-100); MPV 6.9 fL (7.6-11.3); RBC Red Blood Cell Count 3.79 M/uL (3.86-4.86)
[2022-09-10 05:50] LABS: Potassium 4.4 mmol/L (3.5-5.1)
[2022-09-10 06:10] LABS: Platelets, Giant FEW
[2022-09-10 06:11] LABS: Anisocytosis 1+; Blood Morphology Comment NOTED (NOT SEEN); Platelet Estimate ADEQ
[2022-09-10] MEDS: INSULIN -REGULAR HUMAN 50 UNIT/0.5 ML ML SQ SCH ×4 (08:27→20:37)
[2022-09-10] MEDS: DILTIAZEM HCL 120 MG SR CAP PO SCH (08:33)
[2022-09-10] MEDS: ENOXAPARIN 30 MG/0.3 ML SQ SCH (08:34)
[2022-09-10] MEDS: OSELTAMIVIR 75 MG CAP PO SCH ×2 (08:34→20:36)
[2022-09-10] MEDS: predniSONE 20 MG TAB PO SCH ×2 (08:34→20:36)
[2022-09-10] MEDS: METOPROLOL TAR 50 MG TAB PO SCH ×2 (08:34→20:36)
[2022-09-10] MEDS: HOME MED 1 EA UNK (Fluticasone/Umeclidin/Vilanter [Trelegy Ellipta 100-62.5-25] Blst.W.Dev IH SCH (08:34)
--- NOTE | 2022-09-10 10:34 | P.CNS ---
Date of Consult: 09/10/22 Reason for Consult: RICHARD Requesting Physician: Poncho Hartman Chief Complaint: COPD exacerbation History of Present Illness: 77F w/ PMHx of COPD, DM2, & afib, who p/w worsening SOB w/ sore throat & non- productive cough, admitted for acute respi failure 2/2 influenza pna & copd exacerbation. Referred to Nephrology for RICHARD. Baseline SCr 0.9 -1.1 as of 07/20/2022. SCr on adm 3.4, improved to 1.4, now increased to 1.8. Bld gluc very high a few days ago, now better. BP borderline low yesterday. Allergies No Known Allergies Allergy (Verified 09/23/21 14:48) Home Medications: Albuterol Sulfate [Proair Digihaler] 2 puff IH DAILY PRN 05/27/22 Diltiazem HCl [Cardizem Cd] 1 cap PO DAILY 05/27/22 Fluticasone/Umeclidin/Vilanter [Trelegy Ellipta 100-62.5-25] 1 puff IH BREAKFAST 05/27/22 Metoprolol Tartrate 1 tab PO BID 05/27/22 Rosuvastatin [Crestor*] 1 tab PO DAILY 05/27/22 Furosemide [Lasix] 40 mg PO DAILY #30 tab 06/02/22 - Past Medical/Surgical History Diabetic: No -: Stroke -: COPD - Family History Mother Notes: Congestive heart failure - Social History Smoking Status: Former smoker Alcohol use: No CD- Drugs: No Caffeine use: Yes Place of Residence: Home Review of Systems General: Malaise Eyes: Unremarkable ENT: Unremarkable Respiratory: Cough, Shortness of Breath, SOB with Excertion Cardiovascular: Unremarkable Gastrointestinal: Unremarkable Genitourinary: Unremarkable Musculoskeletal: Unremarkable Integumentary: Unremarkable Neurological: Unremarkable Lymphatics: Unremarkable Physical Examination Temp Pulse Resp BP Pulse Ox 97.8 F 104 H 16 128/63 96 09/10/22 08:00 09/10/22 08:34 09/10/22 08:00 09/10/22 08:34 09/10/22 08:00 General: Other (Appears as her stated age) HEENT: Atraumatic, Normocephalic Neck: Supple Respiratory: Other (Symmetric chest expansion) Cardiovascular: No rubs, No murmurs Gastrointestinal: Soft and benign, No guarding Musculoskeletal: No clubbing Integumentary: No warmth Neurological: Normal tone Urinary: Other (No bladder distention) External genitalia: Deferred Rectal: Deferred Conclusions/Impression: # RICHARD 2/2 prerenal state, aggravated by hyperglycemia & relative hypotension SCr on adm 3.4, improved to 1.4, now increased to 1.8 Baseline SCr 0.9 -1.1 as of 07/20/2022 Urinalysis no proteinuria but +pyuria, no hematuria. F/u UCx. +Min proteinuria on random UPCR Urine chem c/w prerenal state +/- secondary hyperaldo state F/u CPK BNP sig elevated. Avoid Na containing IV fluid. [place] po fluid intake. If po fluid intake is poor, give D5W gtt & inc insulin dosing accordingly. Bld gluc very high a few days ago, now better BP borderline low yesterday. Keep MAP > 65. # Hyponatremia Mild, monitor # Acute respi failure 2/2 influenza A pna + copd exacerbation On empiric abx, steroids, inhalers, O2 suppl # pAfib Hx of watchman & cardiac ablation On metoprolol + cardizem # DM2 Mngt per primary team
--- NOTE | 2022-09-10 13:36 | PN ---
Subjective: The patient lying in bed. According to the staff, the patient was very short of breath with mild exertion. Denies any chest pain, abdominal pain, constipation, or diarrhea. Continued to have some cough. Currently on 3 L nasal cannula. Objective: Vital Signs: Temperature 97.8, pulse 104, respirations 16, blood pressure 128/63. Lungs: Basal crackles. Heart: S1, S2. Regular. Abdomen: Soft, nontender. Bowel sounds present. Extremities: No edema. Laboratory Data: Shows WBC 28.2, hemoglobin 11.1, platelets are 320. Chemistry shows BUN 68, creati nine 1.8. Assessment And Plan: Multifocal pneumonia. Leukocytosis, possible infectious versus steroids. Cons ider switching to meropenem. Continue current pulmonary hygiene and respiratory care. We will follo w the patient as needed. NF/MODL Voice ID: [id number] Report ID: [id number]
[2022-09-10] MEDS: levoFLOXacin 750 MG TAB PO SCH (14:04)
--- NOTE | 2022-09-10 15:43 | P.PN ---
Date of Service: 09/10/22 Subjective: no significant change compared to yesterday, maybe slightly easier to breathe still very fatigued, with generalized weakness denies new / worsening symptoms no diarrhea ROS: 10 point ROS as noted above, otherwise negative Physical Exam: Gen: NAD, AOx3, fatigued appearing HEENT: normal conjunctiva, sclera anicteric CV: irregularly irregular rhythm, no edema Pulm: non-labored respirations, clear bilaterally, +cough Abd: soft, non-tender, non-distended Neuro: normal speech, normal affect, moves all extremities vitals reviewed Problem List acute hypoxemic respiratory failure pneumonia secondary to influenza A acute on chronic COPD exacerbation RICHARD, prerenal DM2, with hyperglycemia afib, paroxysmal Flu respiratory failure COPD steroids, levaquin - changed to IV on 09/10 per ID recs leukocytosis increasing, likely steroid induced, clinically improving, CXR on 09/09 without worsening pulm consulted blood Cx: NGTD improving slowly wean O2 as tolerated uses O2 supplementation as needed at home - has been several weeks since last needed RICHARD documented as possible chf vs prerenal, did not receive IV fluids or diuretics early on had improvement with IV fluids from antibiotics and PO intake received a day of lasix 09/07 improved, now increasing again nephrology consulted afib paroxysmal/intermittent continue metoprolol cardizem added by pulm cardiology consulted h/o cardiac ablation recently. and had watchman done within last ~year VTE: heparin SQ Code: full Dispo: possibly good candidate for inpatient rehab licensed master social worker consulted anticipate dc Wednesday vs Wednesday, pending renal function / leukocytosis Time Spent Managing Pts Care (In Minutes): 25 in
[2022-09-10] MEDS ORDERED: Levofloxacin500mg IV 500 MG/100 ML BAG IV SCH (16:00)
[2022-09-10] MEDS: INSULIN GLARGINE 100 UNIT/ML SQ SCH (17:35)
[2022-09-10 18:21] LABS: UR SODIUM < 15 mmol/L (27-287)
[2022-09-10 18:23] LABS: Specific Gravity 1.013 (1.005-1.030); Urine Bilirubin NEGATIVE (Negative); Urine Blood Negative (Negative); Urine Clarity Clear (Clear); Urine Color Light-Yellow (Yellow); Urine Glucose 4+ (Over) (Negative); Urine Mucus Slight /HPF (None Seen); Urine Protein NEGATIVE (Negative); Urine RBC <5 /HPF (None Seen); Urine Urobilinogen Normal (Normal); Urine WBC Clump Rare /HPF (None Seen)
[2022-09-10 18:31] LABS: UR PROTEIN 23.2 mg/dL (<11.9); Urine Protein/Creatinine Ratio 0.39 ratio (<0.15)
[2022-09-11] MEDS: IPRATROPIUM BROM 0.5MG/2.5ML NEB SCH ×4 (01:35→20:15)
[2022-09-11 06:23] LABS: Absolute Lymphocytes (CBC) 0.9 K/uL (0.7-4.9); Lymphocytes % 3.5 % (15.3-44.8); MCV 88.2 fL (80-100); MPV 6.9 fL (7.6-11.3); RBC Red Blood Cell Count 3.75 M/uL (3.86-4.86)
[2022-09-11 06:35] LABS: Magnesium 1.9 mg/dL (1.8-2.4); Potassium 4.7 mmol/L (3.5-5.1)
--- NOTE | 2022-09-11 09:00 | RAD REPORT ---
EXAM DESCRIPTION: Joselin Single View09/11/2022 5:42 am CLINICAL HISTORY: Cough COMPARISON: September 09, 2022 FINDINGS: The lungs are moderately hyperaerated consistent COPD Mild bilateral interstitial opacities probably chronic. There may be a small left pleural effusion. Heart remains enlarged
[2022-09-11] MEDS: INSULIN -REGULAR HUMAN 50 UNIT/0.5 ML ML SQ SCH ×4 (09:12→21:21)
[2022-09-11] MEDS: predniSONE 20 MG TAB PO SCH (09:13)
[2022-09-11] MEDS: HOME MED 1 EA UNK (Fluticasone/Umeclidin/Vilanter [Trelegy Ellipta 100-62.5-25] Blst.W.Dev IH SCH (09:13)
[2022-09-11] MEDS: OSELTAMIVIR 75 MG CAP PO SCH (09:13)
[2022-09-11] MEDS: DILTIAZEM HCL 120 MG SR CAP PO SCH (09:14)
[2022-09-11] MEDS: METOPROLOL TAR 50 MG TAB PO SCH ×2 (09:14→21:20)
[2022-09-11] MEDS: ENOXAPARIN 30 MG/0.3 ML SQ SCH (09:15)
--- NOTE | 2022-09-11 10:23 | P.PN ---
Subjective Date of Service: 09/11/22 Chief Complaint: COPD exacerbation Patient is still very congested and weak able to cough up any sputum shortness of breath on mild exertion Review of Systems General: Weakness Respiratory: Cough, Dry, Shortness of Breath Physical Examination - Vital Signs Temperature: 97.4 F Blood Pressure: 136/68 Pulse: 60 Respirations: 19 Pulse Ox (%): 96 - Physical Exam General: Alert, In no apparent distress, Mild distress Respiratory: Clear to auscultation bilaterally, Crackles/rales Cardiovascular: No edema, Regular rate/rhythm, Normal S1 S2 Assessment And Plan - Current Problems (Diagnosis) (1) COPD exacerbation Current Visit: Yes Status: Acute Plan: Patient is 77 years of age admitted with COPD exacerbation White count remains persistently elevated less cough congestion with rhonchi I have advised the daughter to get a flutter valve patient is unable to cough up anything renal function is improving oxygenation and vital signs satisfactory changed to meropenem and doxycycline
--- NOTE | 2022-09-11 14:32 | PN ---
Subjective: Patient is lying in bed. No new acute event. Daughter by the bedside. Currently, on 3 L nasal cannula. Denies any chest pain, back pain, abdominal pain. Only exertional dyspnea. Objective: Vital Signs: Temperature 97, pulse 60, respiration 19, blood pressure 136/68. Lungs: Basal crackles. Heart: S1, S2. Regular. Abdomen: Soft, nontender. Bowel sounds present. Extremities: No edema. Laboratory Data: Shows WBC 26,000, hemoglobin 11, platelets are 339. Chemistry shows BUN 60, creati nine 1.6. Assessment And Plan: Multifocal pneumonia with chronic obstructive pulmonary disease; leukocytosis, infections versus steroids. Continue IV antibiotic while patient is in hospital. We will follow the patient closely. No other recommendation. Continue steroid therapy. We will follow the patient as needed. NF/MODL Voice ID: [id number] Report ID: [id number]
--- NOTE | 2022-09-11 14:44 | P.PN ---
Subjective Date of Service: 09/11/22 Chief Complaint: COPD exacerbation Subjective: No new changes Physical Examination - Vital Signs Temperature: 97.6 F Blood Pressure: 104/60 Pulse: 86 Respirations: 18 Pulse Ox (%): 96 - Physical Exam General: In no apparent distress HEENT: Atraumatic, Normocephalic Neck: Supple Respiratory: Clear to auscultation bilaterally Cardiovascular: No rubs, No murmurs Gastrointestinal: Soft and benign, No guarding Musculoskeletal: No clubbing Integumentary: No warmth Neurological: Normal speech, Normal tone Urinary: Other (No bladder distention) External genitalia: Deferred Rectal: Deferred Assessment And Plan - Plan # RICHARD 2/2 prerenal state, aggravated by hyperglycemia & relative hypotension SCr on adm 3.4, improved to 1.4, increased to 1.8, now improved to 1.6 Baseline SCr 0.9 -1.1 as of 07/20/2022 Urinalysis no proteinuria but +pyuria, no hematuria. F/u UCx. +Min proteinuria on random UPCR Urine chem c/w prerenal state +/- secondary hyperaldo state CPK low, no rhabdo BNP sig elevated. Avoid Na containing IV fluid. [place] po fluid intake. If po fluid intake is poor, give D5W gtt & inc insulin dosing accordingly. Bld gluc very high a few days ago, now better Keep MAP > 65. # Hyponatremia Mild, monitor # Acute respi failure 2/2 influenza A pna + copd exacerbation On empiric abx, steroids, inhalers, O2 suppl # pAfib Hx of watchman & cardiac ablation On metoprolol + cardizem # DM2 Mngt per primary team
--- NOTE | 2022-09-11 15:09 | RAD REPORT ---
EXAM DESCRIPTION: US - Renal Ultrasound-Complete - 09/11/2022 2:05 pm CLINICAL HISTORY: Abdominal pain COMPARISON: None FINDINGS: The right kidney measures 9 cm with a mildly echotexture. The left kidney measures 9 cm with a mildly echotexture. Hydronephrosis is not seen. No gross abnormality of bladder IMPRESSION: Mildly increased renal echotexture may indicate parenchymal disease
--- NOTE | 2022-09-11 16:09 | P.PN ---
Date of Service: 09/11/22 Subjective: feels improved compared to yesterday still dyspneic, but breathing better, cough better no diarrhea, no dysuria, denies changes in urinary habits ROS: 10 point ROS as noted above, otherwise negative Physical Exam: Gen: NAD, AOx3, fatigued appearing HEENT: normal conjunctiva, sclera anicteric CV: irregularly irregular rhythm, no edema Pulm: non-labored respirations on 3L NC, +cough Abd: soft, non-tender, non-distended Neuro: normal speech, normal affect, moves all extremities vitals reviewed Problem List acute hypoxemic respiratory failure pneumonia secondary to influenza A acute on chronic COPD exacerbation RICHARD, prerenal DM2, with hyperglycemia afib, paroxysmal Flu Respiratory failure COPD steroids, levaquin - changed to IV on 09/10 per ID recs; considering merrem if clinically worsens Leukocytosis increasing, likely steroid induced, clinically improving, CXR on 09/09 without worsening pulm consulted blood Cx: NGTD improving slowly wean O2 as tolerated uses O2 supplementation as needed at home - has been several weeks since last needed RICHARD documented as possible chf vs prerenal, did not receive IV fluids or diuretics early on had improvement with IV fluids from antibiotics and PO intake received a day of lasix 09/07 improved, now Cr increasing again nephrology consulted afib paroxysmal/intermittent; remains in afib continue metoprolol cardizem added by pulm cardiology consulted h/o cardiac ablation recently. and had watchman done within last ~year VTE: heparin SQ Code: full Dispo: possibly good candidate for inpatient rehab social media marketing specialist consulted anticipate dc ~Wednesday, pending renal function / leukocytosis Time Spent Managing Pts Care (In Minutes): 25
[2022-09-11] MEDS: Meropenem 500 MG in NA CHLORIDE 0.9% 100 ML IV SCH (17:12)
[2022-09-11] MEDS: INSULIN GLARGINE 100 UNIT/ML SQ SCH (17:12)
[2022-09-11] MEDS: DOXYCYCLINE 100 MG CAP PO SCH (21:22)
[2022-09-11] MEDS: predniSONE 10 MG TAB PO SCH (21:22)
[2022-09-12] MEDS: Meropenem 500 MG in NA CHLORIDE 0.9% 100 ML IV SCH ×3 (00:27→16:22)
[2022-09-12] MEDS: IPRATROPIUM BROM 0.5MG/2.5ML NEB SCH ×4 (01:25→20:10)
[2022-09-12 06:35] LABS: Hematocrit 35.2 % (36.0-45.0); Lymphocytes % 4.2 % (15.3-44.8); MPV 6.6 fL (7.6-11.3)
[2022-09-12 06:48] LABS: Magnesium 1.8 mg/dL (1.8-2.4); Potassium 5.2 mmol/L (3.5-5.1)
[2022-09-12] MEDS: INSULIN -REGULAR HUMAN 50 UNIT/0.5 ML ML SQ SCH ×4 (07:30→20:34)
[2022-09-12] MEDS: ENOXAPARIN 30 MG/0.3 ML SQ SCH (08:51)
[2022-09-12] MEDS: predniSONE 10 MG TAB PO SCH ×2 (08:51→20:35)
[2022-09-12] MEDS: DOXYCYCLINE 100 MG CAP PO SCH ×2 (08:51→20:35)
[2022-09-12] MEDS: METOPROLOL TAR 50 MG TAB PO SCH ×2 (08:51→20:42)
[2022-09-12] MEDS: DILTIAZEM HCL 120 MG SR CAP PO SCH (08:52)
[2022-09-12] MEDS: HOME MED 1 EA UNK (Fluticasone/Umeclidin/Vilanter [Trelegy Ellipta 100-62.5-25] Blst.W.Dev IH SCH (08:52)
[2022-09-12] MEDS ORDERED: MAGNESIUM SULFATE 1 gm IVPB 1 GM/100 ML BAG IV ONE (09:00)
--- NOTE | 2022-09-12 14:06 | P.PN ---
Subjective Date of Service: 09/12/22 Chief Complaint: COPD exacerbation Subjective: No new changes Physical Examination - Vital Signs Temperature: 97 F Blood Pressure: 115/62 Pulse: 70 Respirations: 18 Pulse Ox (%): 97 - Physical Exam General: Other (Appears as her stated age) HEENT: Atraumatic, Normocephalic Neck: Supple Respiratory: Other (Symmetric chest expansion) Cardiovascular: No rubs, No murmurs Gastrointestinal: Soft and benign, No rebound Musculoskeletal: No clubbing Integumentary: No warmth Neurological: Normal tone Urinary: Other (No bladder distention) External genitalia: Deferred Rectal: Deferred Assessment And Plan - Plan # RICHARD 2/2 prerenal state, aggravated by hyperglycemia & relative hypotension SCr on adm 3.4, improved to 1.4, increased to 1.8, now improved to 1.4 Baseline SCr 0.9 -1.1 as of 07/20/2022 Urinalysis no proteinuria but +pyuria, no hematuria. F/u UCx. +Min proteinuria on random UPCR Urine chem c/w prerenal state +/- secondary hyperaldo state CPK low, no rhabdo BNP sig elevated. Avoid Na containing IV fluid. [place] po fluid intake. If po fluid intake is poor, give D5W gtt & inc insulin dosing accordingly. Bld gluc very high a few days ago, now better Keep MAP > 65 Encourage po fluid intake # Hyponatremia Mild, monitor # Acute respi failure 2/2 influenza A pna + copd exacerbation On empiric abx, steroids, inhalers, O2 suppl # pAfib Hx of watchman & cardiac ablation On metoprolol + cardizem # DM2 Mngt per primary team
--- NOTE | 2022-09-12 14:21 | P.PN ---
Date of Service: 09/12/22 Subjective: continues with daily improvement sitting up in bedside chair voiding, generalized weakness unsure when she last had BM ROS: 10 point ROS as noted above, otherwise negative Physical Exam: Gen: NAD, AOx3, pleasant HEENT: normal conjunctiva, sclera anicteric CV: irregularly irregular rhythm, no edema Pulm: non-labored respirations on 2L NC, +cough Abd: soft, non-tender, non-distended Neuro: normal speech, normal affect, moves all extremities vitals reviewed Problem List acute hypoxemic respiratory failure pneumonia secondary to influenza A acute on chronic COPD exacerbation RICHARD, prerenal DM2, with hyperglycemia afib, paroxysmal Flu Respiratory failure COPD steroids, levaquin - changed to IV on 09/10 per ID recs; changed to IV merrem and PO doxy on 09/11 Leukocytosis increasing, likely steroid induced, clinically improving, CXR on 09/09 without worsening leukocytosis improved prior to change of abx, but will continue for now pulm consulted blood Cx: NGTD improving slowly wean O2 as tolerated, has O2 at home, which she uses intermittently RICHARD secondary to prerenal state, aggravated by hyperglycemia and relative hypotension Cr: 3.4 -> 1.4, now to 1.6 documented as possible chf vs prerenal, did not receive IV fluids or diuretics early on had improvement with IV fluids from antibiotics and PO intake received a day of lasix 09/07 nephrology consulted plateau'd UA +pyuria, culture negative afib paroxysmal/intermittent; remains in afib continue metoprolol cardizem added by pulm cardiology consulted h/o cardiac ablation recently. and had watchman done within last ~year VTE: heparin SQ Code: full Dispo: inpatient rehab [employer] school social science teacher consulted anticipate dc ~Wednesday, pending renal function / leukocytosis continues to improve pulm recommends 7-10 days antibiotics Time Spent Managing Pts Care (In Minutes): 25
[2022-09-12] MEDS: INSULIN GLARGINE 100 UNIT/ML SQ SCH (16:21)
[2022-09-12 22:15] LABS: SARS-COV-2 RT PCR NEGATIVE (NEGATIVE)
[2022-09-13] MEDS: Meropenem 500 MG in NA CHLORIDE 0.9% 100 ML IV SCH ×2 (00:10→08:20)
[2022-09-13] MEDS: IPRATROPIUM BROM 0.5MG/2.5ML NEB SCH ×2 (02:15→08:45)
[2022-09-13 05:57] LABS: Absolute Lymphocytes (CBC) 0.8 K/uL (0.7-4.9); Hematocrit 35.4 % (36.0-45.0); Lymphocytes % 4.3 % (15.3-44.8); MCV 87.5 fL (80-100); MPV 6.6 fL (7.6-11.3); RBC Red Blood Cell Count 4.05 M/uL (3.86-4.86)
[2022-09-13 06:17] LABS: Magnesium 1.9 mg/dL (1.8-2.4)
[2022-09-13 06:19] LABS: Potassium 5.6 mmol/L (3.5-5.1)
[2022-09-13] MEDS ORDERED: SOD POLYSTYREN SUL 15 GM/60 ML UCUP PO ONE (06:27)
[2022-09-13] MEDS: INSULIN -REGULAR HUMAN 50 UNIT/0.5 ML ML SQ SCH ×2 (07:26→12:12)
[2022-09-13] MEDS ORDERED: NA CHLORIDE 0.9% 500 ML IV ONE (08:04)
--- NOTE | 2022-09-13 08:06 | P.PN ---
Subjective Date of Service: 09/13/22 Chief Complaint: COPD exacerbation Subjective: No new changes Physical Examination - Vital Signs Temperature: 97 F Blood Pressure: 115/62 Pulse: 70 Respirations: 18 Pulse Ox (%): 97 - Physical Exam General: In no apparent distress HEENT: Atraumatic, Normocephalic Neck: Supple Respiratory: Other (Symmetric chest expansion) Cardiovascular: No rubs, No murmurs Gastrointestinal: Soft and benign, No guarding Musculoskeletal: No clubbing Integumentary: No warmth Neurological: Normal tone Urinary: Other (No bladder distention) External genitalia: Deferred Rectal: Deferred Assessment And Plan - Plan # RICHARD 2/2 prerenal state, aggravated by hyperglycemia & relative hypotension SCr on adm 3.4, improved to 1.4, increased to 1.8, now improved to 1.5 Baseline SCr 0.9 -1.1 as of 07/20/2022 Urinalysis no proteinuria but +pyuria, no hematuria. F/u UCx. +Min proteinuria on random UPCR Urine chem c/w prerenal state +/- secondary hyperaldo state CPK low, no rhabdo BNP sig elevated. Avoid Na containing IV fluid. [place] po fluid intake. If po fluid intake is poor, give D5W gtt & inc insulin dosing accordingly. Bld gluc very high a few days ago, now better Keep MAP > 65 Encourage po fluid intake # HyperK from renal dysfxn aggravated by constipation Serum K increased to 5.6 Received kayexalate Start stool softeners as below Give NS 500 cc IV bolus + lasix 40 mg IV x 1 # Constipation Start docusate 100 mg po bid + senna 8.6 mg po bid # Hyponatremia Mild, monitor # Acute respi failure 2/2 influenza A pna + copd exacerbation On empiric abx, steroids, inhalers, O2 suppl # pAfib Hx of watchman & cardiac ablation On metoprolol + cardizem # DM2 Mngt per primary team # Dispo Transfer to rehab flr today
[2022-09-13] MEDS: ENOXAPARIN 30 MG/0.3 ML SQ SCH (08:20)
[2022-09-13] MEDS: predniSONE 10 MG TAB PO SCH (08:20)
[2022-09-13] MEDS: METOPROLOL TAR 50 MG TAB PO SCH (08:21)
[2022-09-13] MEDS: DOXYCYCLINE 100 MG CAP PO SCH (08:21)
[2022-09-13] MEDS: HOME MED 1 EA UNK (Fluticasone/Umeclidin/Vilanter [Trelegy Ellipta 100-62.5-25] Blst.W.Dev IH SCH (08:21)
[2022-09-13] MEDS: DILTIAZEM HCL 120 MG SR CAP PO SCH (08:21)
--- NOTE | 2022-09-13 08:25 | P.DS ---
Admission Date: 09/04/22 Discharge Date: 09/13/22 Disposition: TRANSFER TO INPATIENT REHAB Discharge Condition: GOOD Reason for Admission: COPD exacerbation Hospital Course: Continue Merrem and Doxycycline to complete 7 day course. End date: 09/18 5 more days of prednisone 10mg twice daily Vital Signs/Physical Exam: Temp Pulse Resp BP Pulse Ox 97 F 70 18 115/62 97 09/13/22 08:06 09/13/22 08:06 09/13/22 08:06 09/13/22 08:06 09/13/22 08:06 Laboratory Data at Discharge: WBC 19.10 K/uL (4.3-10.9) H 09/13/22 05:18 Hgb 11.7 g/dL (12.0-15.0) L 09/13/22 05:18 Hct 35.4 % (36.0-45.0) L 09/13/22 05:18 Plt Count 325 K/uL (152-406) 09/13/22 05:18 PT 13.3 SECONDS (9.5-12.5) H 09/04/22 11:40 INR 1.21 09/04/22 11:40 Sodium 131 mmol/L (136-145) L 09/13/22 05:18 Potassium 5.6 mmol/L (3.5-5.1) H* 09/13/22 05:18 BUN 52 mg/dL (7-18) H 09/13/22 05:18 Creatinine 1.46 mg/dL (0.55-1.3) H 09/13/22 05:18 Glucose 108 mg/dL (74-106) H 09/13/22 05:18 Phosphorus 5.1 mg/dL (2.5-4.9) H 09/05/22 05:34 Magnesium 1.9 mg/dL (1.8-2.4) 09/13/22 05:18 Total Bilirubin 0.3 mg/dL (0.2-1.0) 09/08/22 02:47 AST 10 U/L (15-37) L 09/08/22 02:47 ALT 20 U/L (12-78) 09/08/22 02:47 Alkaline Phosphatase 118 U/L (45-117) H 09/08/22 02:47 Triglycerides 170 mg/dL (<150) H 09/05/22 05:34 Cholesterol 108 mg/dL (<200) 09/05/22 05:34 HDL Cholesterol 24 mg/dL (40-60) L 09/05/22 05:34 Cholesterol/HDL Ratio 4.50 09/05/22 05:34 Home Medications: Albuterol Sulfate [Proair Digihaler] 2 puff IH DAILY PRN 05/27/22 Diltiazem HCl [Cardizem Cd] 1 cap PO DAILY 05/27/22 Fluticasone/Umeclidin/Vilanter [Trelegy Ellipta 100-62.5-25] 1 puff IH BREAKFAST 05/27/22 Metoprolol Tartrate 1 tab PO BID 05/27/22 Rosuvastatin [Crestor*] 1 tab PO DAILY 05/27/22 predniSONE [Deltasone*] 10 mg PO BID 5 Days #10 tab 09/13/22 Followup: Cayden Guzmán MD [Primary Care Provider] -
[2022-09-13] MEDS ORDERED: DOCUSATE NA/SENNA CONC 1 TAB PO SCH (09:00)
[2022-09-13] MEDS ORDERED: FUROSEMIDE 40 MG/4 ML VIAL IV ONE (09:00)
[2022-09-13 10:12] VITALS: O2SAT 100
[2022-09-14 07:05] VITALS: BP 115/62; TEMP 97
--- NOTE | 2022-09-14 10:54 | CON ---
History Of Present Illness: This is a 77-year-old female with longstanding history of COPD, oxygen-d ependent, coming in with progressive shortness of breath. The patient was found to have shortness of breath, cough, with fever and chills. The patient's chest x-ray demonstrated multifocal pneumonia m ostly focused in the lower base area, with white count of 21,000. The patient is currently on steroi ds and Zithromax and Levaquin. Feels slightly better. Currently on 4 L nasal cannula. Denies any c hest pain, back pain, or abdominal pain. She continues to have cough and congestion. Past Medical History: COPD, stroke, hypertension, coronary artery disease, cardiac arrhythmias. Social History: Former tobacco use. No alcohol use. Family History: Noncontributory. Medications: Zithromax and Levaquin. See MAR for other medications. Allergies: NO KNOWN DRUG ALLERGIES. Review of Systems: A 10-point review was performed. Physical Examination: General: This is a 77-year-old female, lying in bed. Daughter by the bedside. Not in any acute car diopulmonary distress except mild shortness of breath. Vital Signs: Temperature 97.8, pulse 87, respirations 20, blood pressure 143/82. HEENT: Unremarkable. Neck: Supple. Lungs: Basal crackles. Right-sided rhonchi heard. Heart: S1, S2. Regular. Abdomen: Soft, nontender. Bowel sounds present. Extremities: No edema. Laboratory Data: Shows WBC 21,000, hemoglobin 11, platelets are 225. Chemistry shows BUN of 66, cre atinine 1.2 down from 3.4, albumin level is 1.6. Micro data; blood cultures are negative for 24 hour s. Assessment And Plan: 1.A 77-year-old female coming in with influenza A and multifocal pneumonia, currently on Zithromax a nd Levaquin empirically as cultures are negative. Otherwise, leukocytosis, steroid plus infections. Etiology is is elevated. 2.Anemia of chronic disease. 3.Severe protein-calorie malnutrition. 4.Renal failure including to dehydration. We will follow the patient closely. Thank you Dr. Lowery for consult. NF/MODL Voice ID: [id number] Report ID: [id number]
--- NOTE | 2022-09-14 10:54 | PN ---
Subjective: The patient is lying in bed. Daughter by the bedside. Denies any chest pain, abdominal pain. Continue to have cough and shortness of breath. Objective: Vital Signs: Temperature 97.5, pulse 84, respirations 24, blood pressure 102/50, current ly on 2 L nasal cannula. Lungs: Basal crackles. Scattered rhonchi. Heart: S1, S2. Regular. Abdomen: Soft, nontender. Bowel sounds present. Extremities: No edema. Laboratory Data: WBC 27.9, hemoglobin 9.5, platelets 284. Chemistry shows BUN of 61, creatinine 1.6 . Currently, patient is on Levaquin. Assessment And Plan: Acute hypoxic respiratory failure with pneumonia, secondary to influenza A; candie kocytosis, steroid versus infectious; chronic obstructive pulmonary disease exacerbation; diabetes me llitus; anemia of chronic disease; renal insufficiency. Continue pulmonary hygiene. We will follow the patient closely. NF/MODL Voice ID: [id number] Report ID: [id number]
--- NOTE | 2022-09-15 01:17 | PN ---
Chief Complaint: Acute kidney injury. Subjective: Patient is a 77-year-old woman with history of COPD, diabetes mellitus, and atrial fibri llation. She presented to the hospital and was admitted on 09/10 for nonproductive cough, respirator y failure secondary to influenza, pneumonia, and COPD exacerbation. Nephrology was consulted for deneen vated creatinine, level on admission was 3.4, baseline creatinine was 0.9 to 1.5 in July 2022. Se rum creatinine subsequently improved to 1.4, but increased to 1.8. Review of Systems: Denies fever or chills. Physical Examination: Lungs: Clear to auscultation bilaterally. Heart: S1, S2. Abdomen: Soft. Extremities: No edema. Impression And Plan: 1.Waqgt-[id number] kidney injury. Avoid nephrotoxic medication. Adjust Lasix for volume control. Continue low-sodium diet. 2.Hypertension. Continue blood pressure medication. 3.Deconditioning. Patient will continue rehab. 4.Fluid overload. Continue Lasix. Monitor fluid balance. 5.Hyperlipidemia. Patient does not have muscle aches. CK level will be checked. 6.Atrial fibrillation, per Primary Team. EB/MODL Voice ID: [id number] Report ID: [id number]
== END 2022-09-13 13:30 | DRG 193 ==
LOC: ER 10:58 → ERHOLD 15:07 → 4TH 16:49
PROVIDERS: ADMIT Internal Medicine; ATTEND Hospitalist
DX: J10.08 Influenza due to other identified influenza virus with other specified pneumonia (principal); E43 Unspecified severe protein-calorie malnutrition; I50.33 Acute on chronic diastolic (congestive) heart failure; J96.01 Acute respiratory failure with hypoxia; E87.1 Hypo-osmolality and hyponatremia; N17.9 Acute kidney failure, unspecified; J15.9 Unspecified bacterial pneumonia; J44.1 Chronic obstructive pulmonary disease with (acute) exacerbation; J44.0 Chronic obstructive pulmonary disease with (acute) lower respiratory infection; I11.0 Hypertensive heart disease with heart failure; I48.91 Unspecified atrial fibrillation; E78.5 Hyperlipidemia, unspecified; E11.65 Type 2 diabetes mellitus with hyperglycemia; E11.649 Type 2 diabetes mellitus with hypoglycemia without coma; I48.0 Paroxysmal atrial fibrillation; E87.5 Hyperkalemia; K59.00 Constipation, unspecified; D63.8 Anemia in other chronic diseases classified elsewhere; E86.0 Dehydration; Z79.52 Long term (current) use of systemic steroids; Z68.21 Body mass index [BMI] 21.0-21.9, adult; Z99.81 Dependence on supplemental oxygen; Z86.73 Personal history of transient ischemic attack (TIA), and cerebral infarction without residual deficits; Z79.899 Other long term (current) drug therapy; Z87.891 Personal history of nicotine dependence; Z20.822 Contact with and (suspected) exposure to COVID-19
CPT/HCPCS: 0240U; 36415; 71045; 76770; 80048; 80053; 80061; 80076; 81001; 82550; 82570; 82947; 83036; 83605; 83735; 83880; 83935; 84100; 84132; 84145; 84156; 84300; 84443; 84484; 85025; 85027; 85610; 87040; 87086; 87088; 93005; 94640; 96374; 96375; 97110; 97116; 97161; 97530; 99285; J0456; J1644; J1650; J1815; J1940; J2930; J3475; J7040; J7050; J7512; J7608; J7613; J7614; J7644; Q0144

== ENCOUNTER 2022-10-08 11:30 | Day surgery (SDC) | payer OTHER, BC ==
[2022-10-07 14:31] LABS: Absolute Lymphocytes (CBC) 1.8 K/uL (0.7-4.9); Hematocrit 30.8 % (36.0-45.0); Lymphocytes % 20.2 % (15.3-44.8); MPV 6.6 fL (7.6-11.3); RBC Red Blood Cell Count 3.42 M/uL (3.86-4.86)
[2022-10-07 14:46] LABS: Potassium 4.8 mmol/L (3.5-5.1)
[2022-10-07 15:37] LABS: Protime INR 1.67
[~2022-10-08 11:30] MED LIST: ATROPINE SULF 1 MG/10 ML SYR IV ONE; FENTANYL CITR 100 MCG/2 ML ONE; METOPROLOL TARTRATE 5 MG/5 ML INJ IV ONE; MIDAZOLAM HCL 10 ML ONE; NA CHLORIDE 0.9% 500 ML ONE
[2022-10-08] MEDS ORDERED: FLUMAZENIL 0.1 MG/ML (5 mL VIAL) IV ONE (12:10)
[2022-10-08] MEDS ORDERED: AMIODARONE HCL 150 MG in D5W 100 ML IV ONE (13:30)
--- NOTE | 2022-10-08 14:43 | OP ---
Date of Procedure: 10/08/2022 Surgeon: HINA TOWNSEND Procedure Performed: Synchronized electrocardioversion into normal sinus rhythm. Diagnosis: Atrial fibrillation. Description Of Procedure: After risks, benefits, and alternatives were explained, patient agreed to procedure and signed informed consent. Patient was brought into the recovery area. After proper angela e-out, we gave 5 mg of Versed and the patient was sedated appropriately. Then, a synchronized electr ocardioversion was done using 200 joules successfully converting the rhythm into sinus rhythm. Conclusion: Successful cardioversion into normal sinus rhythm. Plan: Start on amiodarone and follow up with me in the office in 4 weeks. SR/MODL Voice ID: [id number] Report ID: [id number]
[2022-10-08 14:59] VITALS: BP 163/77; O2SAT 97
--- NOTE | 2022-10-10 17:27 | EKG ---
Test Date: 2022-10-08 Test Time: 13:45:10 Truck Headlight Assembler: CLIFFORD MEASUREMENT RESULTS: Intervals: Rate: 74 AL: 178 QRSD: 80 QT: 420 QTc: 466 [place]: P: 86 AL: 178 QRS: 21 T: 55 INTERPRETIVE STATEMENTS: Sinus rhythm with premature atrial complexes Otherwise normal ECG Compared to ECG 10/07/2022 14:04:28 Atrial premature complex(es) now present Atrial fibrillation no longer present Electronically Signed On 10-10-22 17:25:07 SLIDE ATTENDANT by Favian Rasmussen
--- NOTE | 2022-10-10 17:31 | EKG ---
Test Date: 2022-10-07 Test Time: 14:04:28 Packing Inspector: MICHELE MEASUREMENT RESULTS: Intervals: Rate: 109 [place]: QRSD: 86 QT: 358 QTc: 482 [place]: P: [place]: QRS: 69 T: 112 INTERPRETIVE STATEMENTS: Atrial fibrillation with rapid ventricular response Abnormal ECG Compared to ECG 09/04/2022 12:22:34 ST (T wave) deviation no longer present Electronically Signed On 10-10-22 17:27:37 CASH MANAGEMENT SPECIALIST by Favian Rasmussen
== END 2022-10-08 14:20 | disposition home or self-care (01) ==
LOC: CCL 11:30
PROVIDERS: ATTEND Internal Medicine
PROC: 5A2204Z Restoration of Cardiac Rhythm, Single (ICD-10-PCS; principal; 2022-10-08)
DX: I48.91 Unspecified atrial fibrillation (principal); I10 Essential (primary) hypertension; E78.5 Hyperlipidemia, unspecified; Z87.891 Personal history of nicotine dependence; Z82.49 Family history of ischemic heart disease and other diseases of the circulatory system
CPT/HCPCS: 36415; 80048; 85025; 85610; 85730; 92960; 93005; J0282; J0461; J2250; J3010; J7040

== ENCOUNTER 2022-10-09 23:57 | Inpatient (IN) | payer OTHER, BC ==
--- OUTSIDE RECORDS SUMMARY | 2022-10-10 00:04 | XMS REPORT | Continuity of Care Document ---
:1945 Author Organization [facility] t Address 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 2-[address] st bruits bruits 00:00: Hospita 00 l Atrial Atrial Disease Active [facility] fibrillati fibrillati 2-14 st on on 00:00: Hospita 00 l Allergies, Adverse Reactions, Alerts Allergy Allergy Status Severity Reaction(s) Onset Inactive Treating Comm ents Source Name Type Date Date Clinician No Known DA Active [facility] Allergie 10-20 Clear s 00:00: [facility] 00 [facility] NO KNOWN Drug Active [facility] ALLERGIE Class ity of S [facility] Family History Family Member Diagnosis Comments Start Date Stop Date Source [facility] Social History Social Habit Start Date Stop Date Quantity Comments Source History of Current smoker [facility] Tobacco use and 2017-11-30 2017-11-30 Smokeless tobacco [facility] exposure 00:00:00 00:00:00 non-user Hospital Sex Assigned At [birth year] [facility] Smoking Status Start Date Stop Date Source Tobacco smoking [facility] consumption [facility] Bran ch Ex-smoker 2017-11-30 00:00:00 2017-11-30 [facility] 00:[facility]:00 Medications Ordered Filled Start Stop Current Ordering Indication Dosage Frequency Signature Comments Components Source Medication Medication Date Date Medication? Clinician (SIG) Name Name metoprolol 2021-10 Yes 100mg Q.5D Take 1 Meth lyn tartrate 1-[address] (LOPRESSOR) 00:00: (100 mg Hos breonna 100 mg 00 total) by l tablet mouth 2 (two) times a day. metoprolol 2021-10 Yes 100mg Q.5D Take 1 Meth lyn tartrate 1-[address] (LOPRESSOR) 00:00: (100 mg Hos breonna 100 mg 00 total) by l tablet mouth 2 (two) times a day. metoprolol 1 Yes 100mg Q.5D Take 1 Meth lyn tartrate 1-[address] (LOPRESSOR) 00:00: (100 mg Hos breonna 100 mg 00 total) by l tablet mouth 2 (two) times a day. ALBUTEROL 0 Yes Inhale. Unive rs SULFATE 06-19 ity of INHALE 14:24: [place] [address] Medical Branch fluticasone 0 Yes Inhale Univ ers -umeclidin- 06-19 daily. ity of vilanter 14:24: [place] (TRELE 58 Medical ELLIP) Branch 100-62.5-25 mcg DsDv SERTraline Yes 25mg Take 25 mg U nivers 25 mg 02 by mouth ity of tablet 14:24: in the [place] [address] morning. Medical Branch metoprolol Yes 100mg Take 100 Un padmini succinate 9-02 mg by ity of XL 100 mg 14:24: mouth in [facility] 24 hr 58 the Medical tablet morning. Branch rosuvastati Yes Take by Uni vers n 10 mg 02 mouth. ity of CpSP 14:24: [place] [address] Medical Branch furosemide 0 Yes 40mg Take 40 mg U nivers 40 mg 02 by mouth ity of tablet 14:24: in the [place] [address] morning. Medical Branch amiodarone 0 Yes 200mg Take 200 Un padmini 200 mg 9-02 mg by ity of tablet 14:24: mouth in [place] [address] the Medical morning. Branch diltiazem 0 Yes 240mg Take 240 Uni vers XR 240 mg 9-02 mg by ity of 24 hr 14:24: mouth in [place] [address] the Medical morning. Branch SERTraline 0 Yes [id number] 25mg 25 mg, Univers (ZOLOFT) 02 Oral, ity of tablet 25 14:00: DAILY, [place] mg 00 First dose Medical on Wed Branch 06/19/22 at 0900, Until Discontinu ed, Routine metoprolol Yes [id number] 100mg 100 mg, Univers succinate 06-19 Oral, ity of XL (TOPROL 14:00: DAILY, [place] XL) tablet 00 First dose Med ical 100 mg on Wed Branch 06/19/22 at 0900, Until Discontinu ed, Routine furosemide Yes [id number] 40mg 40 mg, Univers (LASIX) 06-19 Oral, ity of tablet 40 14:00: DAILY, [place] mg 00 First dose Medical on Wed Branch 06/19/22 at 0900, Until Discontinu ed, Routine diltiazem Yes [id number] 240mg 240 mg, Univers XR 06-19 Oral, ity of (DILT-XR) 14:00: DAILY, [place] capsule 240 00 First dose Me dical mg on Wed Branch 06/19/22 at 0900, Until Discontinu ed, Routine amiodarone Yes [id number] 200mg 200 mg, Univers (PACERONE) 06-19 Oral, ity of tablet 200 14:00: DAILY, [place] mg 00 First dose Medical on Wed Branch 06/19/22 at 0900, Until Discontinu ed, Routine SERTraline 2021- No [id number] 25mg 25 mg, Univers (ZOLOFT) 06-19 Oral, ity of tablet 25 14:00: 21:25 DAILY, [place] mg 00 :00 First dose Medical on Wed Branch 06/19/22 at 0900, Until Discontinu ed, Routine metoprolol 2021- No [id number] 100mg 100 mg, Univers succinate 06-19 Oral, ity of XL (TOPROL 14:00: 21:25 [place]ILY, [place] XL) tablet 00 :00 First dose Med ical 100 mg on Wed Branch 06/19/22 at 0900, Until Discontinu ed, Routine furosemide 2021- No [id number] 40mg 40 mg, Univers (LASIX) 06-19 Oral, ity of tablet 40 14:00: 21:25 DAILY, [place] mg 00 :00 First dose Medical on Wed Branch 06/19/22 at 0900, Until Discontinu ed, Routine diltiazem 2021- No [id number] 240mg 240 mg, Univers XR 06-19 Oral, ity of (DILT-XR) 14:00: 21:25 DAILY, [place] capsule 240 00 :00 First dose Me dical mg on Wed Branch 06/19/22 at 0900, Until Discontinu ed, Routine amiodarone 2021- No [id number] 200mg 200 mg, Univers (PACERONE) 06-19 Oral, ity of tablet 200 14:00: 21:25 [place]ILY, [place] mg 00 :00 First dose Medical on Wed Branch 06/19/22 at 0900, Until Discontinu ed, Routine apixaban Yes [id number] 2.5mg 2.5 mg, Univers (ELIQUIS) 06-19 Oral, BID, ity of tablet 2.5 13:45: First dose [place] mg 00 (after Medical last Branch modificati on) on Wed06/19/22 at 0845, Until Discontinu ed, Routine
Indicatio ns: Non-Valvul ar Atrial Fibrillati on apixaban 2021- No [id number] 2.5mg 2.5 mg, Univers (ELIQUIS) 06-19 Oral, BID, ity of tablet 2.5 13:45: 21:25 First dose [place] mg 00 :00 (after Medical last Branch modificati on) on Wed06/19/22 at 0845, Until Discontinu ed, Routine
Indicatio ns: Non-Valvul ar Atrial Fibrillati on ALBUTEROL Yes Inhale. Unive rs SULFATE 06-19 ity of INHALE 11:20: [address] Branch fluticasone Yes Inhale Univ ers -umeclidin- 06-19 daily. ity of vilanter 11:20: [place] [facility]LL[facility] Branch 100-62.5-25 mcg DsDv SERTraline Yes 25mg Take 25 mg U nivers 25 mg 06-19 by mouth ity of tablet 11:20: in the [place] [address] morning. Medical Branch metoprolol Yes 100mg Take 100 Un padmini succinate 06-19 mg by ity of XL 100 mg 11:20: mouth in [facility] 24 hr 12 the Medical tablet morning. Branch rosuvastati Yes Take by Uni vers n 10 mg 06-19 mouth. ity of CpSP 11:20: [place] [address] Medical Branch furosemide Yes 40mg Take 40 mg U nivers 40 mg 02 by mouth ity of tablet 11:20: in the [place] [address] morning. Medical Branch amiodarone Yes 200mg Take 200 Un padmini 200 mg 06-19 mg by ity of tablet 11:20: mouth in [place] [address] the Medical morning. Branch diltiazem Yes 240mg Take 240 Uni vers XR 240 mg 06-19 mg by ity of 24 hr 11:20: mouth in [facility] 12 the Medical morning. Branch rosuvastati Yes [id number] 10mg 10 mg, Univers n (CRESTOR) 902 Oral, QHS, it y of tablet 10 02:00: [place] 00 on [facility] 06/18/22 at [place] 2100, Until Discontinu ed rosuvastati 2021- No [id number] 10mg 10 mg, Univers n (CRESTOR) 9- 09-02 Oral, QHS, i ty of tablet 10 02:00: 21:25 First dose [place] mg 00 :00 on [facility] 06/18/22 at Branch 2100, Until Discontinu ed apixaban Yes 1358 2.5mg Take 1 Univer s 2.5 mg - tablet by ity of tablet 00:00: mouth in [place] [address] the morning Branch and 1 tablet in the evening. Indication s: atrial fibrillati on apixaban Yes 1358 2.5mg Take 1 Univer s 2.5 mg -02 tablet by ity of tablet 00:00: mouth in [place] [address] the Medical morning Branch and 1 tablet in the evening. Indication s: atrial fibrillati on apixaban Yes 1358 2.5mg Take 1 Univer s 2.5 mg 9-02 tablet by ity of tablet 00:00: mouth in [place] [address] the morning Branch and 1 tablet in the evening. Indication s: atrial fibrillati on heparin 2021- No [id number] 18U/kg/ 18 U nivers 25,000 06-18 h Units/kg/h ity of Units/250 23:00: 13:00 r ?64 kg [place] as mL 00 :00 (11.52 Medical (Premixed mL/hr), IV Bran ch Bag) in Infusion, 0.45 % NS TITRATE, Starting on [place] 06/18/22 at 1800, Until Wed06/19/22 at 0800, Routine heparin 2021- No [id number] 18U/kg/ 18 U nivers 25,000 06-18 h Units/kg/h ity of Units/250 23:00: 13:00 r ?64 kg [place] as mL 00 :00 (11.52 Medical (Premixed mL/hr), IV Bran ch Bag) in Infusion, 0.45 % NS TITRATE, Starting on [place] 06/18/22 at 1800, Until Wed06/19/22 at 0800, Routine ondansetron Yes 4mg 4 mg, Slow Univers (ZOFRAN 06-18 IV Push, ity of (PF)) 18:12: Q6HPRN, [place] injection 4 30 Starting Medi adeline mg on [place] Branch 06/18/22 at 1312, Until Discontinu ed, Routine, Nausea and Vomiting (N/V) ondansetron 2021- No 4mg 4 mg, Slow Univers (ZOFRAN 06-18 IV Push, ity of (PF)) 18:12: 21:25 Q6HPRN, [place] injection 4 30 :00 Starting Medi adeline mg on [place] Branch 06/18/22 at 1312, Until 06/19/22 at 1625, Routine, Nausea and Vomiting (N/V) HYDROcodone 2021- No 1{tbl} 1 tablet, Univers -acetaminop 06-18 Oral, ity of hen (NORCO 18:12: 18:11 Q6HPRN, [place] as 5) 5-325 mg 25 :25 Starting Medi adeline tablet 1 on [place] Branch tablet 06/18/22 at 1312, Until 06/20/22 at 1311, Routine, Pain (scale 4-6) HYDROcodone 2021- No 1{tbl} 1 tablet, Univers -acetaminop 06-18 Oral, ity of hen (NORCO 18:12: 21:25 Q6HPRN, [place] as 5) 5-325 mg 25 :00 Starting Medi adeline tablet 1 on [facility] tablet 06/18/22 at 1312, Until 06/19/22 at 1625, Routine, Pain (scale 4-6) acetaminoph 2021-0 Yes 650mg 650 mg, Un padmini en 06-18 Oral, ity of (TYLENOL) 18:12: Q6HPRN, [place] tablet 650 23 Starting Medic al mg on [place] Branch 06/18/22 at 1312, Until Discontinu ed, Routine, Pain (scale 1-3) acetaminoph 2021-0 2021- No 650mg 650 mg, U nivers en 06-18 Oral, ity of (TYLENOL) 18:12: 21:25 Q6HPRN, [place] tablet 650 23 :00 Starting Medic al mg on [facility] Branch 06/18/22 at 1312, Until Wed06/19/22 at 1625, Routine, Pain (scale 1-3) albuterol 0 Yes [id number] 2.5mg 2.5 mg, Univers (PROVENTIL) 06-18 Inhalation it y of 2.5 mg /3 17:34: , Q4HPRN, [place] as mL (0.083 45 Starting Medica l %) on [facility] Branch nebulizer 06/18/22 at solution 1234, 2.5 mg Until Discontinu ed, Routine, Shortness of Breath, Wheezing albuterol 2021-0 202- No [id number] 2.5mg 2.5 mg, Univers (PROVENTIL) 06-18 Inhalation i ty of 2.5 mg /3 17:34: 21:25 , Q4HPRN, [place] mL (0.083 45 :00 Starting Medica l %) on [facility] Branch nebulizer 06/18/22 at solution 1234, 2.5 [...] 10mg QD Take 10 mg [facility] (SINGULAIR) 2-[address] 10 mg 11:02: nightly. Hospita tablet 00 l BIOTIN ORAL 2020-10 Yes Take by Met [...] 10mg QD Take 10 mg [facility] (SINGULAIR) 2-[address] 10 mg 11:02: nightly. Hospita tablet 00 l BIOTIN ORAL 2020-10 Yes Take by Met [...] 10mg QD Take 10 mg [facility] (SINGULAIR) 2-[address] 10 mg 11:02: nightly. Hospita tablet 00 l apixaban 2020-10 Yes 2.5mg Q.5D Take 1 Method i (Eliquis) 2-[address] 2.5 mg 00:00: (2.5 mg Hospita tablet 00 total) by l mouth 2 (two) times a day. apixaban 2020-10 Yes 2.5mg Q.5D Take 1 Method i (Eliquis) 2-[address] 2.5 mg 00:00: (2.5 mg Hospita tablet 00 total) by l mouth 2 (two) times a day. apixaban 2020-10 Yes 2.5mg Q.5D Take 1 Method i (Eliquis) 2-[address] 2.5 mg 00:00: (2.5 mg Hospita tablet 00 total) by l mouth 2 (two) times a day. metoprolol 2020-10 No 100mg Q.5D Take 1 Met hodi tartrate 11-[address] (LOPRESSOR) 00:00: 00:00 (100 mg Ho spita 100 mg 00 :00 total) by l tablet mouth 2 (two) times a day. metoprolol 2020-10 No 100mg Q.5D Take 1 Met hodi tartrate 11-[address] (LOPRESSOR) 00:00: 00:00 (100 mg Ho spita 100 mg 00 :00 total) by l tablet mouth 2 (two) times a day. metoprolol 2020-10- No 100mg Q.5D Take 1 Met hodi tartrate 11-[address] (LOPRESSOR) 00:00: 00:00 (100 mg Ho spita 100 mg 00 :00 total) by l tablet mouth 2 (two) times a day. digOXIN 2020-10 Yes [id number] Take 1 Meth lyn (LANOXIN) 1-[address] 125 mcg 00:00: mouth once Hosp deion (0.125 mg) 00 daily l tablet digOXIN 2020-10 Yes [id number] Take 1 Meth lyn (LANOXIN) 1-[address] 125 mcg 00:00: mouth once Hosp deion (0.125 mg) 00 daily l tablet digOXIN 2020-10 Yes [id number] Take 1 Meth lyn (LANOXIN) 1-[address] 125 mcg 00:00: mouth once Hosp deion (0.125 mg) 00 daily l tablet apixaban 2020-10- No 5mg Q.5D Take 1 Method i (Eliquis) 5 10-28 tablet (5 st mg tablet 00:00: 00:00 mg total) Ho spita 00 :00 by mouth 2 l (two) times a day. apixaban 2020-10- No 5mg Q.5D Take 1 Method i (Eliquis) 5 10-28 tablet (5 st mg tablet 00:00: 00:00 mg total) Ho spita 00 :00 by mouth 2 l (two) times a day. Bystolic 10 2020- No Take 1 Met hodi mg tablet 07-[address] 00:00: 00:00 mouth once Hospit a 00 :00 daily l Bystolic 10 2020- No Take 1 Met hodi mg tablet 07-[address] 00:00: 00:00 mouth once Hospit a 00 :00 daily l choline 2020-0 Yes 135mg QD Take 1 [facility] fenofibrate 8-[address] (TRILIPIX) 00:00: (135 mg Hosp deion 135 mg 00 total) by l capsule mouth daily. choline 2020-0 Yes 135mg QD Take 1 [facility] fenofibrate 8-[address] (TRILIPIX) 00:00: (135 mg Hosp deion 135 mg 00 total) by l capsule mouth daily. choline 2020-0 Yes 135mg QD Take 1 [facility] fenofibrate 8-[address] (TRILIPIX) 00:00: (135 mg Hosp deion 135 mg 00 total) by l capsule mouth daily. digOXIN 2020- No [id number] 125ug QD Take 1 Me thodi (LANOXIN) 05-[address] 125 mcg 00:00: 00:00 (125 mcg Hospi ta (0.125 mg) 00 :00 total) by l tablet mouth daily. digOXIN 2020- No [id number] 125ug QD Take 1 Me thodi (LANOXIN) 05-[address] 125 mcg 00:00: 00:00 (125 mcg Hospi ta (0.125 mg) 00 :00 total) by l tablet mouth daily. ipratropium 2017-0 Yes Method i (ATROVENT) 1-13 st 0.06 % 00:00: Hospita nasal spray 00 l ipratropium 2017-0 Yes Method i (ATROVENT) 1-13 st 0.06 % 00:00: Hospita nasal spray 00 l ipratropium 2017-0 Yes Method i (ATROVENT) 1-13 st 0.06 % 00:00: Hospita nasal spray 00 l TRAVATAN Z 2015-10 Yes Methodi 0.004 % 2-05 st 00:00: Hospita 00 l TRAVATAN Z 2015-10 Yes Methodi 0.004 % 2-05 st 00:00: Hospita 00 l TRAVATAN Z 2015-10 Yes Methodi 0.004 % 2-05 st 00:00: Hospita 00 l Vital Signs Vital Name Observation Time Observation Value Comments Source Systolic blood 2022-06-19 12:31:00 164 mm[Hg] Univer sity of pressure [facility] Diastolic blood 2022-06-19 12:31:00 78 mm[Hg] Unive rsity of [facility] Heart rate 2022-06-19 12:31:00 91 /min [facility] Body temperature 2022-06-19 12:31:00 36.33 [facility] saturation in 2022-06-19 12:31:00 92 /min University of Arterial blood by [facility] Pulse oximetry Branch Respiratory rate 2022-06-19 09:30:00 18 /min Univ ersity [facility] Systolic blood 2022-06-18 14:45:00 158 mm[Hg] Univer sity of [facility] Branch Diastolic blood 2022-06-18 14:45:00 72 mm[Hg] Unive rsity of pressure [facility] Heart rate 2022-06-18 14:45:00 71 /min [facility] Respiratory rate 2022-06-18 14:45:00 20 /min [facility] Oxygen saturation in 2022-06-18 14:45:00 100 /min University of Arterial blood by [facility] Pulse oximetry Branch Systolic blood 2021-09-23 17:08:00 230 mm[Hg] Method ist [facility] pressure Diastolic blood 2021-09-23 17:08:00 93 mm[Hg] Metho [facility] pressure Heart rate 2021-09-23 17:08:00 70 /min [facility] Body height 2021-09-23 17:01:00 167.6 cm [facility] Body weight 2021-09-23 17:01:00 62.052 kg [facility] BMI 2021-09-23 17:01:00 22.08 kg/m2 [facility] Procedures Procedure Date / Time Performing Clinician Source Performed EXTERNAL PROVIDER RECORDS 2022-06-29 05:01:00 Doctor Unassigned, [facility] BASIC METABOLIC PANEL (NA, 2022-06-19 05:29:00 [facility], CO2, GLUCOSE, BUN, Medica l [place] CREATININE, [place]) CBC WITH DIFF 2022-06-19 05:29:00 AlexisDell [facility] [place] ACTIVATED PARTIAL THRMPLAS 2022-06-19 05:29:00 [facility]OL[facility] PANEL (NA, 2022-06-19 05:29:00 [facility], CL, CO2, GLUCOSE, BUN, Medica l [place] CREATININE, [place]) CBC WITH DIFF 2022-06-19 05:29:00 [facility] ACTIVATED PARTIAL THRMPLAS 2022-06-19 05:29:00 [facility] PO[facility] ACT LOW RANGE 2022-06-18 17:06:00 Artem [facility] POCT ACT LOW RANGE 2022-06-18 17:06:00 Artem [facility] ELECTROPHYSIOLOGY PROCEDURE 2022-06-18 16:49:58 Artem [facility] POCT ACT LOW RANGE 2022-06-18 16:29:00 Artem [facility] POCT ACT LOW RANGE 2022-06-18 16:29:00 rodo [facility] POCT ACT LOW RANGE 2022-06-18 16:07:00 rodo [facility] POCT ACT LOW RANGE 2022-06-18 16:07:00 Hortencia Zamorano [facility] POCT ACT LOW RANGE 2022-06-18 15:50:00 [facility] POCT ACT LOW RANGE 2022-06-18 15:50:00 Lona [facility] CATH PROCEDURE LOG 2022-06-18 15:25:11 Artem [facility] CATH PROCEDURE LOG 2022-06-18 15:25:11 Artem [facility] TRANSESOPHAGEAL ECHO (ALIE) 2022-06-18 14:19:29 Hortencia Zamorano [facility] COMPLETE W/ DOPPLER AND [facility] COLOR HB ECG ROUTINE & RHYTHM 2022-06-18 12:25:50 Hortencia Zamorano Uni versity [place] [facility] HB ABO GROUPING 2022-06-18 12:10:00 Jose Lange [place] o [facility] EXTERNAL PROVIDER RECORDS 2022-06-12 05:01:00 Doctor Unassigned, [facility] [place] [facility] EXTERNAL PROVIDER RECORDS 2022-06-12 05:01:00 Doctor Unassigned, [facility] [place] [facility] [id number] 2021-10-22 00:00:00 ROJELIOA [facility] [id number] 2021-10-22 00:00:00 ELEAZAR [facility] US RENAL DOPPLER 2021-09-25 17:00:18 Cathie Landin H ospital ECG 12-LEAD 2021-09-23 17:05:29 Cathie Landin Ho spital Plan of Care Planned Activity Planned Date Details Comments Source Future Scheduled 2022-10-02 COVID-19 VACCINE (#1) [facility] [place] [facility] Test 17:15:31 [code = COVID-19 VACCINE (#1)] Future Scheduled 2022-10-02 65+ PNEUMOCOCCAL [facility] Test 17:15:31 VACCINE (1 - PCV) [code = 65+ PNEUMOCOCCAL VACCINE (1 - PCV)] Future Scheduled 2022-10-02 [facility] 17:15:31 (procedure) [code = 570752133] Future Scheduled 2022-10-02 SHINGLES VACCINES (1 Met [facility] Test 17:15:31 of 2) [code = SHINGLES VACCINES (1 of 2)] Future Scheduled 2022-10-02 INFLUENZA VACCINE Method [facility] Test 17:15:31 [code = INFLUENZA VACCINE] Future Scheduled 2022-09-09 HEPATITIS B VACCINES Met [facility] Test 07:58:21 (1 of 3 - 3-dose series) [code = HEPATITIS B VACCINES (1 of 3 - 3-dose series)] Future Scheduled 2022-09-09 COVID-19 VACCINE (#1) [facility] Test 07:58:21 [code = COVID-19 VACCINE (#1)] Future Scheduled 2022-09-09 65+ [facility] 07:58:21 VACCINE (1 - PCV) [code = 65+ PNEUMOCOCCAL VACCINE (1 - PCV)] Future Scheduled 2022-09-09 Hepatitis C screening [facility] [place] [facility] Test 07:58:21 (procedure) [code = 369307485] Future Scheduled 2022-09-09 SHINGLES VACCINES (1 Met [facility] Test 07:58:21 of 2) [code = SHINGLES VACCINES (1 of 2)] Future Scheduled 2022-09-09 INFLUENZA VACCINE [facility] Test 07:58:21 [code = INFLUENZA VACCINE] Future Scheduled 2022-09-03 HEPATITIS B VACCINES Met [facility] Test 09:04:03 (1 of 3 - 3-dose series) [code = HEPATITIS B VACCINES (1 of 3 - 3-dose series)] Future Scheduled 2022-09-03 COVID-19 VACCINE (#1) [facility] Test 09:04:03 [code = COVID-19 VACCINE (#1)] Future Scheduled 2022-09-03 65+ PNEUMOCOCCAL [facility] Test 09:04:03 VACCINE (1 - PCV) [code = 65+ PNEUMOCOCCAL VACCINE (1 - PCV)] Future Scheduled 2022-09-03 Hepatitis C screening [facility] [place] [facility] Test 09:04:03 (procedure) [code = [id number]] Future Scheduled 2022-09-03 SHINGLES VACCINES (1 Met [facility] Test 09:04:03 of 2) [code = SHINGLES VACCINES (1 of 2)] Future Scheduled 2022-09-03 INFLUENZA VACCINE Method ist Hospital Test 09:04:03 [code = INFLUENZA VACCINE] Encounters Start End Encounter Admission Attending Care Care Encounter Source Date/Time Date/Time Type Type Clinicians Facility Department ID 2022-09-03 2022-09-03 Orders Nba Garcias 1.2.840.1 [id number] Methodi 00:00:00 00:00:[address] 3.430.2.7 Hospit a .3.550851 l .8 2022-09-03 2022-09-03 Orders Nba Garcias 1.2.840.1 [id number] Methodi 00:00:00 00:00:[address] 3.430.2.7 Hospit a .3.763802 l .8 2022-08-20 2022-08-20 Marissa Landin 1.2.840.1 [id number] Methodi 00:00:00 00:00:00 Ctahie Medina [address]202.[address] 3.430.2.7 Hospit a .3.163032 l .8 2022-08-20 2022-08-20 Marissa Landin 1.2.840.1 [id number] Methodi 00:00:00 00:00:00 Cathie Medina [address]64.1.[address] 3.430.2.7 Hospit a .3.803743 l .8 2022-06-29 2022-06-29 Orders Doctor VIDALES [id number] Univers 00:00:00 00:00:00 Only Unassigned, MAXI 350.1.13.10 ity of [place] [facility] 4.2.7.2.686 [place] as [id number] [address] 2022-06-18 2022-06-19 Outpatient Nish [facility]ULLER [facility] [id number] Univers 07:00:00 12:30:00 MACO ospina of [facility] 2022-06-18 2022-06-19 Outpatient Nish [facility] [id number] Univers 07:00:00 12:30:00 MACO ity of [facility] 2022-06-18 2022-06-19 [facility] 1.2.840. 114 [id number] Univers 07:00:00 12:30:00 Encounter Maco Fuller HEALTH 350.1.13.10 ity of Jimmie Neal CLEAR 4.2.7.2.686 [place] MOORE [id number] [facility] [address] ([facility]) 2022-06-18 2022-06-18 Surgery [facility] 1.2.840.114 [id number] Univers 09:00:00 11:00:00 [facility] HEALTH 350.1.13.10 it y of [place].686 [place] [id number] [facility] [address] [place] ([facility]) 2022-06-18 2022-06-18 [facility] 1.2.105.683 [id number] Univers 06:57:51 06:59:00 Encounter [facility] 350.1.13.10 ity of [place] [id number] [facility] [address] [place] ([facility]) 2022-06-16 2022-06-16 Outpatient R [facility] [id number] [facility] 09:30:00 09:30:00 [facility] 2021-11-26 2021-11-26 Inpatient JAIDA Rasmussen, [facility] OUTD [id number] [facility] 05:24:00 05:24:00 F[facility] 13 [facility] 2021-10-22 2021-10-22 Inpatient JAIDA Branham, [facility] INTE.02 [id number] [facility] 09:25:00 15:34:00 [place] 65 [facility] 2021-09-25 2021-09-25 Outpatient [facility] [id number] [place] 00:00:00 00:00:00 CATHIE Morgan [facility] 2021-09-25 2021-09-25 Travel 1.2.840.1 1.2.066.872 [id number] [id number] Methodi 00:00:00 00:00:[address] 3.430.2.7 0.2.7.3.698 Ho spita .3.724396 084.8 l .8 2021-09-23 2021-09-23 Office [place], 1.2.840.1 [id number] Methodi 11:00:00 12:42:45 Visit Cathie R. 52878.1.[address] 3.430.2.7 Hospit a .3.244744 l .8 2021-09-23 2021-09-23 Travel 1.2.840.1 1.2.430.206 [id number] [id number] Methodi 00:00:00 00:00:[address] 3.430.2.7 0.2.7.3.698 Ho spita .3.544081 084.8 l .8 2021-09-16 2021-09-16 Telephone Landin, 1.2.840.1 [id number] Methodi 00:00:00 00:00:[address] 3.430.2.7 Hospit a .3.403816 l .8 2021-09-13 2021-09-13 Refill Landin, 1.2.840.1 [id number] 6749 Methodi 00:00:00 00:00:[address] 3.430.2.7 Hospit a .3.812063 l .8 2021-07-29 2021-07-29 Outpatient [facility] [id number] [place] 00:00:00 00:00:00 CATHIE [address] 2021-07-22 2021-07-22 Outpatient [facility] [id number] 110 [place] 00:00:00 00:00:00 CATHIE [address] 2020-05-28 2020-05-28 Outpatient [facility] [id number] 393 [place] 00:00:00 00:00:00 CATHIE [address] Results Test Description Test Time Test Comments Results Result Comments Source aPTT (for use with Heparin Drip) 2022-06-19 06:47:24 Test Item Value Reference Range Interpretation Comme nts APTT Patient (test code = See_Comment HH [ Automated message] The system 3173-2) which generated this result transmitted ref erence range: 26 - 36 Seconds. T he reference range was not u sed to interpret this result as normal/abnormal. Lab Interpretation (test code Abnormal = 71646-2) [facility]2022-06-19 06:47:24 Test Item Value Reference Range Interpretation Comments APTT Patient (test code See_Comment HH [Au tomated message] = 3173-2) The system whic h generated this result transmitted ref erence range: 26 - 36 Seconds. The reference range was not used to int erpret this result as normal/abnormal . Lab Interpretation (test Abnormal code = 98326-4) [facility] with [id number] 06:22:37 Test Item Value Reference Range Interpretation Comments WBC (test code = See_Comment [Automated 6690-2) message] The sy stem which generated this result transmitted reference range : 4.30 - 11.10 10*3/?L. The reference range was not used to interpret this result as normal/abnormal . RBC (test code = See_Comment [Automated 089-8) message] The sy stem which generated this [...] RDW-SD (test code = 47.8 fL 39-49.9 58085-4) RDW-CV (test code = 16.0 % 12-15.5 H 788-0) PLT (test code = See_Comment [Automated 777-3) message] The sy stem which generated this result transmitted reference range : 166 - 358 10*3/ ?L. The reference r abdirizak was not used to interpret this result as normal/abnormal . MPV (test code = 8.6 fL 9.5-12.9 L 55181-6) NRBC/100 WBC (test See_Comment [Automat ed code = 0574308659) message] The system which generated this result transmitted reference range : 0.0 - 10.0 /100 WBCs. The refer ence range was not u sed to interpret th is result as normal/abnormal . NRBC x10^3 (test code See_Comment [Auto mated = 4936909195) message] The s ystem which generated this result transmitted reference range : 10*3/?L. The reference range was not used to interpret this result as normal/abnormal . SEG % (test code = 91 % 33-76 H 03975-6) BAND % (test code = 2 % 0-1 H 61277-8) MYELO % (test code = 1 % See_Comment H [Autom ated 04681-0) message] The sy stem which generated this result transmitted reference range : <=0. The refere nce range was not u sed to interpret th is result as normal/abnormal . LYMPH % (test code = 4 % 14-54 L 44191-8) MONO % (test code = 2 % 0-4 49643-5) ANC (test code = 9.69 10*3/uL 1.88-7.09 H 753-4) RITCHIE CELLS (test code 2+ See_Comment A [Auto mated = 6790-9) message] The sy stem which generated this result transmitted reference range : (none). The reference range was not used to interpret this result as normal/abnormal . Lab Interpretation Abnormal (test code = 41707-1) [facility] with [id number] 06:22:37 Test Item Value Reference Range Interpretation [...] RDW-SD (test code = 47.8 fL 39-49.9 43787-1) RDW-CV (test code = 16.0 % 12-15.5 H 788-0) PLT (test code = See_Comment [Automated 777-3) message] The sy stem which generated this result transmitted reference range : 166 - 358 10*3/ ?L. The reference r abdirizak was not used to interpret this result as normal/abnormal . MPV (test code = 8.6 fL 9.5-12.9 L 44296-5) NRBC/100 WBC (test See_Comment [Automat ed code = 9569873843) message] The system which generated this result transmitted reference range : 0.0 - 10.0 /100 WBCs. The refer ence range was not u sed to interpret th is result as normal/abnormal . NRBC x10^3 (test code See_Comment [Auto mated = 0366630900) message] The s ystem which generated this result transmitted reference range : 10*3/?L. The reference range was not used to interpret this result as normal/abnormal . SEG % (test code = 91 % 33-76 H 93024-8) BAND % (test code = 2 % 0-1 H 41645-6) MYELO % (test code = 1 % See_Comment H [Autom ated 54090-0) message] The sy stem which generated this result transmitted reference range : <=0. The refere nce range was not u sed to interpret th is result as normal/abnormal . LYMPH % (test code = 4 % 14-54 L 77974-5) MONO % (test code = 2 % 0-4 04787-3) ANC (test code = 9.69 10*3/uL 1.88-7.09 H 753-4) RITCHIE CELLS (test code 2+ See_Comment A [Auto mated = 7790-9) message] The sy stem which generated this result transmitted reference range : (none). The reference range was not used to interpret this result as normal/abnormal . Lab Interpretation Abnormal (test code = 64470-2) [facility] Metabolic Panel (NA, K, CL, CO2, GLUCOSE, BUN, CREATININE, CA)2022-06-19 05:51:33 Test Item Value Reference Range Interpretation Comments NA (test code = 135 mmol/L 135-145 1560991242) K (test code = 3.3 mmol/L 3.5-5 L 0192363845) CL (test code = 96 mmol/L 98-108 L 3479456213) CO2 TOTAL (test code = 31 mmol/L 23-31 6408678620) AGAP (test code = 2-16 9755246106) BUN (test code = 15 mg/dL 7-23 2234399656) GLUCOSE (test code = 210 mg/dL 70-110 H 7584492612) CREATININE (test code = 0.82 mg/dL 0.5-1.04 3115859647) CALCIUM (test code = 8.5 mg/dL 8.6-10.6 L 8355348053) eGFR (test code = mL/min/1.73m2 6845267921) VIK (test code = VIK) Association of [...] tests). Lab Interpretation Abnormal (test code = 64872-7) [facility] Metabolic Panel (NA, K, CL, CO2, GLUCOSE, BUN, CREATININE, CA)2022-06-19 05:51:33 Test Item Value Reference Range Interpretation Comments NA (test code = 135 mmol/L 135-145 8024873929) K (test code = 3.3 mmol/L 3.5-5 L 6843688729) CL (test code = 96 mmol/L 98-108 L 7123098489) CO2 TOTAL (test code = 31 mmol/L 23-31 8544560961) AGAP (test code = 2-16 2360186422) BUN (test code = 15 mg/dL 7-23 8333543906) GLUCOSE (test code = 210 mg/dL 70-110 H 7294932678) CREATININE (test code = 0.82 mg/dL 0.5-1.04 8384794897) CALCIUM (test code = 8.5 mg/dL 8.6-10.6 L 5619116027) eGFR (test code = mL/min/1.73m2 7871217647) VIK (test code = VIK) Association of [...] tests). Lab Interpretation Abnormal (test code = 63063-9) [facility] ACT LOW [id number] 21:01:51 Test Item Value Reference Range Interpretation Comments ACTLR (test code = See_Comment H [Automat ed message] 7967219602) The system [employer] generated this result transmitted ref erence range: 89 - 169 Seconds. The reference range was not used to int erpret this result as normal/abnormal . Lab Interpretation (test Abnormal code = 19395-5) [facility] ACT LOW [id number] 21:01:51 Test Item Value Reference Range Interpretation Comments ACTLR (test code = See_Comment [Automat ed message] 4152287271) The system [employer] generated this result transmitted ref erence range: 89 - 169 Seconds. The re ference range was not u sed to interpret this result as normal/abnor mal. Lab Interpretation (test Normal code = 33981-1) [facility] ACT LOW [id number] 21:01:51 Test Item Value Reference Range Interpretation Comments ACTLR (test code = See_Comment H [Automat ed message] 9275481654) The system [employer] generated this result transmitted ref erence range: 89 - 169 Seconds. The reference range was not used to int erpret this result as normal/abnormal . Lab Interpretation (test Abnormal code = 25156-2) [facility] ACT LOW [id number] 21:01:51 Test Item Value Reference Range Interpretation Comments ACTLR (test code = See_Comment [Automat ed message] 8387100200) The system [employer] generated this result transmitted ref erence range: 89 - 169 Seconds. The re ference range was not u sed to interpret this result as normal/abnor mal. Lab Interpretation (test Normal code = 00410-8) [facility] LOW [id number] 21:01:50 Test Item Value Reference Range Interpretation Comments ACTLR (test code = See_Comment H [Automat ed message] 5228259830) The system [employer] generated this result transmitted ref erence range: 89 - 169 Seconds. The reference range was not used to int erpret this result as normal/abnormal . Lab Interpretation (test Abnormal code = 00817-5) [facility] ACT LOW [id number] 21:01:50 Test Item Value Reference Range Interpretation Comments ACTLR (test code = See_Comment H [Automat ed message] 3663080372) The system [employer] generated this result transmitted ref erence range: 89 - 169 Seconds. The reference range was not used to int erpret this result as normal/abnormal . Lab Interpretation (test Abnormal code = 29650-4) [facility] ACT LOW [id number] 21:01:45 Test Item Value Reference Range Interpretation Comments ACTLR (test code = See_Comment H [Automat ed message] 4125439642) The system [employer] generated this result transmitted ref erence range: 89 - 169 Seconds. The reference range was not used to int erpret this result as normal/abnormal . Lab Interpretation (test Abnormal code = 19756-3) [facility] ACT LOW [id number] 21:01:45 Test Item Value Reference Range Interpretation Comments ACTLR (test code = See_Comment H [Automat ed message] 3453814342) The system [employer] generated this result transmitted ref erence range: 89 - 169 Seconds. The reference range was not used to int erpret this result as normal/abnormal . Lab Interpretation (test Abnormal code = 42908-9) [facility] 18:15:42 Test Item Value Reference Range Interpretation Comments Height (test code = in 3757269193) Weight (test code = lbs 1484713373) Systolic BP (test mmHg code = 0609399844) Diastolic BP (test mmHg code = 2038942210) Heart Rate (test code bpm = 6184493729) BSA (test code = 1.72 m2 1122891433) Radiology Study observation (narrative) (test code = 26617-3) VIK (test code = VIK) Formatting of [...] captured. The probe was inserted by the c d still operator. There was no probe insertion difficulty.There were 1 attempts to insert the probe. Probe in 08:17 am. Probe out 08: 39 am. Sedation and monitoring provided by anesthesia, see Epic documentation. There were no complications during the procedure. Based on abnormal findings of 2D echocardiogram, 3D was performed on an acquisition scanner for further assessment of the left atrium. [facility] and Screen - ONCE [id number] 13:33:41 Test Item Value Reference Range Interpretation Comments ABO & RH (test code O Positive Performe d at [facility] = 20) Laboratory [facility] [address] [address] 4Toll Free: [phone] 266CLIA No. [id number] IAT (test code = Negative Performed a t [facility] 1185) Laboratory [facility] [address] [id number] 4Toll Free: [phone] 266CLIA No. [id number] [facility] [id number] 12:58:00 Test Item Value Reference Range Interpretation [...] = 9.8 mg/dL 8.0-10.5 N CA) PROTHROMBIN [id number] 12:46:00 Test Item Value Reference Range Interpretation [...] (to prevent recurrent infar ct). CBC W/AUTO [id number] 12:39:00 Test Item Value Reference Range Interpretation [...] x10 3/uL 0.0-0.1 N NRBC#) COAGULATION TIME [id number] 10:50:00 Test Item Value Reference Range Interpretation Comments COAGULATION TIME 317 SECONDS Performed b y ACTIVATED (test code = certi fied well drill operator ACT) at [facility] COAGULATION TIME [id number] 10:50:00 Test Item Value Reference Range Interpretation Comments COAGULATION TIME 285 SECONDS Performed b y ACTIVATED (test code = certi fied well drill operator ACT) at [facility] - XR CHEST 1 [id number] 00:00:00 [facility] : 1945 Sex: F FAX: Favian Garcia MD [phone] [place]: St: ADM FAX: Cayden Garcia MD [phone] FAX: Yifan Catalan [phone] Name: KAVITHA BRANHAM [facility] [place] : 1945 Age/S: 76/F [address] [place] [address] Unit #: [id number] Loc: [place] [address] Phys: Yifan Catalan [facility] Acct: [id number] Dis Date: Status: ADM IN PHONE #: [phone] Exam Date: 10/22/2021 1308 FAX #: [phone] Reason: WATCHMAN EXAMS: CPT CODE: [id number] XR CHEST 1 V 09599 PROCEDURE INFORMATION: Exam: XR Chest Exam date and time: 10/22/2021 11:42 AM Age: 76 years old Clinical indication: Condition or disease; Other: Watchman TECHNIQUE: Imaging protocol: XR of the chest. Views: 1 view. COMPARISON: DX XR CHEST 2 V 10/20/2021 2:59 PM FI NDINGS: Tubes, catheters and devices: Left atrial appendage closure device is demonstrated. Lungs: Pleural and lung parenchymal scarring identified within bilateral apices. Pulmonary emphysema identified within the lungs. Mild central pulmonary venous congestion with bilateral perihilar and basilar interstitial opacities, suggesting pulmonary edema within the lungs. The peripheral lungs are otherwiseclear. No consolidation. Pleural spaces: See "Lungs" finding. Heart/Mediastinum: Cardiac silhouette appears mildly enlarged. Mitral valve calcification is demonstrated. Vasculature: Moderate to severe atherosclerotic calcification demonstrated within the aorta. Bones/joints: Diffusely decreased bone density. Mild to moderate generalized bony degenerative changes. IMPRESSION: 1. Pulmonary emphysema. Mild interstitial edema. 2. Mild enlarged cardiac silhouette. 3. Degenerative and postsurgical changesare demonstrated, as described above. at 1315 Reported and signed by: Nicko Vidales M.D. CC: Favian Rasmussen MD; Cayden Guzmán MD; Yifan Catalan Technologist: RT Koko(Nish) Trnscrd Date/Time/By: 10/22/2021 (1592) : By: [email or web address] Orig Print D/T: S: 10/22/2021 (2946) PAGE 1 Signed ReportCBC W/AUTO [id number] 15:26:00 Test Item Value Reference Range Interpretation [...] (test code NO = MDIFF) BASIC METABOLIC [id number] 15:25:00 Test Item Value Reference Range Interpretation [...] code = 9.7 mg/dL 8.0-10.5 N CA) [id number] 15:25:00 Test Item Value Reference Range Interpretation Comments PREALBUMIN (test code = PREALB) 18.0 mg/dL 16.0-40.0 N PROTHROMBIN [id number] 15:23:00 Test Item Value Reference Range Interpretation [...] recurrent infar ct). COVID 19 Asymptomatic IH [id number] 13:58:00 Test Item Value Reference Range Interpretation [...] Use Authorizati on(EUA) for use by labo tristen certified under the CLIA thatmeet the requirements to perform moderate, high or waivedcomplexit y tests. - XR CHEST 2 [id number] 00:00:00 [facility] : 1945 Sex: F FAX: Favian Garcia MD [phone] [place]: St: PRE FAX: Cayden Garcia MD [phone] Name: CARROLKAVITHA [facility] : 1945 Age/S: 76/F [address] [place] [address] Unit #: [id number] Loc: [place] [address] Phys: Favian Rasmussen MD Acct: [id number] Dis Date: Status: PRE [facility] PHONE #: [phone] Exam Date: 10/20/2021 1501 FAX #: [phone] Reason: PREOP EXAMS: CPT CODE: [id number] XR CHEST 2 V 32148 PROCEDURE INFORMATION: Exam: XR Chest Exam date [...] Favian Rasmussen MD; Jennifer CHACON Technologist: RT Ignacio(R) Trnscrd Date/Time/By: 10/20/2021 (1531) : By: [email or web address] Orig Print D/T: S: 10/20/2021 (1531) PAGE 1 Signed ReportECG [address] [place], [place] [id number] 20:48:45 Test Item Value Reference Range Interpretation [...] wave inversion now evident in Lateral leads- [facility] [address] [place], [place] [id number] 20:48:45 Test Item Value Reference Range Interpretation [...] ischemia-Abnormal ECG-In automated comparison with ECG of 05-OCT-2021 11:30,-Sinus rhythm has replaced Atrial fibrillation-T wave inversion now evident in Lateral leads- [facility]
[2022-10-10] MEDS ORDERED: ALBUTEROL 2.5 MG/3 ML NEB SOL ONE (00:20)
[2022-10-10] MEDS ORDERED: METHYLPREDNISOLONE 125 MG INJ ONE (00:20)
[2022-10-10] MEDS ORDERED: IPRATROPIUM BROM 0.5MG/2.5ML ONE (00:20)
[2022-10-10 01:20] LABS: Absolute Lymphocytes (CBC) 0.8 K/uL (0.7-4.9); Hematocrit 30.6 % (36.0-45.0); Lymphocytes % 5.4 % (15.3-44.8); MCV 90.7 fL (80-100); MPV 6.9 fL (7.6-11.3); RBC Red Blood Cell Count 3.38 M/uL (3.86-4.86)
[2022-10-10 01:36] LABS: Albumin 2.6 g/dL (3.4-5.0); Bilirubin Total 1.2 mg/dL (0.2-1.0); Potassium 4.1 mmol/L (3.5-5.1); Protein, Total 7.2 g/dL (6.4-8.2)
[2022-10-10 01:46] LABS: Troponin High Sensitivity 211.4 pg/mL (<58.9)
--- NOTE | 2022-10-10 02:04 | ER ---
Nurse's Notes [facility] Name: Ruby Soriano Age: 77 yrs Sex: Female : 1945 Arrival Date: 10/10/2022 Time: 00:06 Bed 6 Private MD: Diagnosis: Acute pulmonary edema;Acute respiratory failure with hypoxia Presentation: 10/10 00:08 Chief complaint: EMS states: Toned out for difficulty breathing, pt c/o SOB since 183, ll3 pt is 76% on RA upon arrival. Coronavirus screen: Vaccine status: Patient reports receiving the 2nd dose of the covid vaccine. Client presents with at least one sign or symptom that may indicate coronavirus-19. Ebola Screen: No symptoms or risks identified at this time. Initial Sepsis Screen: Does the patient meet any 2 criteria? RR > 20 per min. HR > 90 bpm. Yes Does the patient have a suspected source of infection? No. Patient's initial sepsis screen is negative. Risk Assessment: Do you want to hurt yourself or someone else? Patient reports desire/thoughts of hurting themselves or someone else. Provider notified. Onset of symptoms was October 09, 2022 at 18:30. Care prior to arrival: Medication(s) given: Albuterol Neb x 1, Atrovent Neb x 1. 00:08 Method Of Arrival: EMS: [facility] 3 00:08 Acuity: SERINA 2 ll3 Triage Assessment: 00:18 General: Appears distressed, uncomfortable, Behavior is cooperative, anxious. Pain: ll3 Denies pain. Neuro: Level of Consciousness is awake, alert, obeys commands, Oriented to person, place, time, situation. Respiratory: Respiratory effort is labored, Respiratory pattern is tachypnea. Respiratory: Reports shortness of breath since 183. Derm: Skin is pink, warm \\T\\ dry. Historical: - Allergies: 00:12 No Known Allergies; ll3 - Home Meds: 00:12 bumetanide 1 mg Oral tab 1 tab 2 times per day [Active]; Eliquis 2.5 mg oral tab 1 tab ll3 2 times per day [Active]; ferrous sulfate 325 mg (65 mg iron) Oral TbEC [Active]; metoprolol tartrate 50 mg Oral tab 1 tab 2 times per day [Active]; magnesium oxide 400 mg magnesium Oral cap twice a day [Active]; amiodarone 200 mg Oral tab 1 tab 2 times per day [Active]; insulin glargine 100 unit/mL (3 mL) Sub-Q inpn [Active]; Zoloft 50 mg Oral tab 1 tab once daily [Active]; - PMHx: 00:12 COPD; Hyperlipidemia; Hypertension; Irregular heart rate; stroke 2011; ll3 - PSHx: 00:12 Cholecystectomy; hysterectomy; ll3 - Immunization history:: Client reports receiving the 2nd dose of the Covid vaccine. - Social history:: Smoking status: Patient/guardian denies using tobacco. - Family history:: not pertinent. Screenin:13 [facility] ED Fall Risk Assessment (Adult) History of falling in the last 3 months, tw5 including since admission Yes- single mechanical fall (1 pt). Abuse screen: Denies threats or abuse. Denies injuries from another. Nutritional screening: No deficits noted. Tuberculosis screening: No symptoms or risk factors identified. Assessment: 01:09 General: Reports "I am not feeling as short of breath as I was when I came in.". Neuro: tw5 No deficits noted. Respiratory: Airway is patent Trachea midline Respiratory effort is labored, Respiratory pattern is tachypnea. Derm: Skin is fragile, is thin, with poor turgor. 02:21 General: patient dropped to 89% on 2 L Nc. Increased to 3 L NC. Neuro: Level of tw5 Consciousness is awake, alert, obeys commands, Oriented to person, place, time, situation. Vital Signs: 00:08 BP 145 / 81; Pulse 102; Resp 21; Temp 98.1(O); Pulse Ox 76% on R/A; Weight 58.51 kg ll3 (R); Height 5 ft. 6 in. (167.64 cm) (R); 01:09 BP 110 / 68; Pulse 90; Resp 26; Pulse Ox 100% on 6 lpm NC; tw5 01:55 BP 132 / 59; Pulse 89; Resp 19 S; Pulse Ox 93% on 2 lpm NC; ha1 00:08 Body Mass Index 20.82 (58.51 kg, 167.64 cm) ll3 ED Course: 00:06 Patient arrived in ED. bb 00:07 Pablito Moyer MD is Attending Physician. rt 00:12 Triage completed. ll3 00:12 Fabiola Peña is Primary Nurse. tw5 00:18 Arm band placed on Patient placed in an exam room, on a stretcher, on oxygen, on ll3 hair worker, on pulse oximetry. 00:32 Chest Single View XRAY In Process Unspecified. EDMS 00:50 Missed attempt(s): 24 gauge in right hand. Bleeding controlled, band aid applied, tw5 catheter tip intact. 00:50 First set of blood cultures drawn by me. tw5 00:50 Initial lab(s) drawn, by me, sent to lab. Inserted saline lock: 22 gauge in left tw5 antecubital area, using aseptic technique. Blood collected. 01:10 BNP Sent. tw 01:10 Troponin High Sensitivity Sent. tw 01:10 CMP Sent. tw02 15:10 CBC with Diff Sent. tw5 01:14 Patient has correct armband on for positive identification. Placed in gown. Bed in low tw5 position. Call light in reach. Side rails up X 1. Adult w/ patient. Client placed on continuous cardiac and pulse oximetry monitoring. NIBP monitoring applied. Door closed. Noise minimized. Moved to private room. Warm blanket given. Verbal reassurance given. 01:28 BNP Sent. tw5 01:28 Troponin High Sensitivity Sent. tw02 15:28 CMP Sent. tw 01:28 Oxygen administration via nasal cannula Oxygen level decreased to 2 L from 6 L after tw5 duneb to see how patient tolerates being back on her regular 2 L. 01:52 Blood Culture Adult (2) Sent. bb 02:03 Kemar Dunlap MD is Hospitalizing Provider. rt 02:21 COVID swab sent to lab. tw5 03:14 No provider procedures requiring assistance completed. Patient admitted, IV remains in tw5 place. Administered Medications: 01:10 Drug: SOLU-Medrol (methylPrednisoLONE) 125 mg Route: IVP; Site: left antecubital; tw 03:15 Follow up: Response: No adverse reaction 01:13 Drug: DuoNeb (albuterol 2.5 mg, ipratropium 0.5 mg) (3:1) (2.5 mg - 0.5 mg) 3 ml Route: tw5 Nebulizer; 03:15 Follow up: Response: No adverse reaction tw5 02:12 Drug: Lasix (furosemide) 40 mg Route: IVP; Site: left antecubital; ha1 03:15 Follow up: Response: No adverse reaction tw5 02:16 Drug: Cefepime 2 grams Route: IVPB; Rate: 200 ml/hr; Infused Over: 30 mins; Site: left ha1 antecubital; 02:50 Follow up: Response: No adverse reaction; IV Status: Completed infusion; IV Intake: ha1 100ml 03:01 Drug: vancoMYCIN 15 mg/kg Route: IVPB; Site: left antecubital; ha1 03:15 Follow up: IV Status: Infusion continued upon admission tw5 Medication: 01:14 VIS not applicable for this client. tw5 Intake: 02:50 IV: 100ml; Total: 100ml. ha1 Outcome: 02:03 Decision to Hospitalize by Provider. rt 03:14 Admitted to Med/surg room 431, Report called to Called report to Karyn JAMES tw5 03:14 Condition: improved 03:14 Instructed on the need for admit. 03:54 Patient left the ED. ha1 Signatures: Dispatcher [employer] EDMS Rose Kirk RN Fabiola Pate tw5 Robe Servin RN RN ll3 Sandra Irizarry RN RN ha1 Pablito Moyer MD MD rt Corrections: (The following items were deleted from the chart) 00:18 00:08 Acuity: SERINA 3 ll3 ll3 01:59 01:55 BP 132 / 59; Pulse 89bpm; Resp 19bpm; Spontaneous; Pulse Ox 93% 6 lpm Nasal ha1 Cannula; ha1
--- NOTE | 2022-10-10 02:04 | EDPHYS ---
Physician Documentation [facility] Name: Ruby Soriano Age: 77 yrs Sex: Female : 1945 Arrival Date: 10/10/2022 Time: 00:06 Bed 6 Private MD: ED Physician Pablito Moyer HPI: 10/10 00:17 This 77 yrs old Female presents to ER via EMS with complaints of Shortness Of Breath. rt 00:23 Onset: The symptoms/episode began/occurred acutely, at 18:30. Duration: The symptoms rt are continuous. The patient's shortness of breath has no apparent modifying factors. Associated signs and symptoms: The patient has no apparent associated signs or symptoms. Severity of symptoms: At their worst the symptoms were moderate. Patient presents to the ED with an acute onset of dyspnea starting at about 1830. She was sitting down when this occurred. She denies any chest pain, cough. Patient chronically wears 2 L of oxygen at home, EMS noted that she was hypoxic to 79% on her 2 L, improving with supplemental O2. Denies other acute complaints at this time, symptoms are moderate severity, no other aggravating alleviating factors.. Historical: - Allergies: 00:12 No Known Allergies; ll3 - Home Meds: 00:12 bumetanide 1 mg Oral tab 1 tab 2 times per day [Active]; Eliquis 2.5 mg oral tab 1 tab ll3 2 times per day [Active]; ferrous sulfate 325 mg (65 mg iron) Oral TbEC [Active]; metoprolol tartrate 50 mg Oral tab 1 tab 2 times per day [Active]; magnesium oxide 400 mg magnesium Oral cap twice a day [Active]; amiodarone 200 mg Oral tab 1 tab 2 times per day [Active]; insulin glargine 100 unit/mL (3 mL) Sub-Q inpn [Active]; Zoloft 50 mg Oral tab 1 tab once daily [Active]; - PMHx: 00:12 COPD; Hyperlipidemia; Hypertension; Irregular heart rate; stroke 2011; ll3 - PSHx: 00:12 Cholecystectomy; hysterectomy; ll3 - Immunization history:: Client reports receiving the 2nd dose of the Covid vaccine. - Social history:: Smoking status: Patient/guardian denies using tobacco. - Family history:: not pertinent. ROS: 00:23 Constitutional: Negative for fever, chills, and weight loss, Eyes: Negative for injury, rt pain, redness, and discharge, ENT: Negative for injury, pain, and discharge, Neck: Negative for injury, pain, and swelling, Cardiovascular: Negative for chest pain, palpitations, and edema, Abdomen/GI: Negative for abdominal pain, nausea, vomiting, diarrhea, and constipation, MS/Extremity: Negative for injury and deformity, Skin: Negative for injury, rash, and discoloration, Neuro: Negative for headache, weakness, numbness, tingling, and seizure, Psych: Negative for depression, anxiety, suicide ideation, homicidal ideation, and hallucinations. 00:23 Respiratory: Positive for shortness of breath, Negative for cough. Exam: 00:23 Constitutional: This is a well developed, well nourished patient who is awake, alert, rt and in no acute distress. Head/Face: Normocephalic, atraumatic. Eyes: Pupils equal round and reactive to light, extra-ocular motions intact. Lids and lashes normal. Conjunctiva and sclera are non-icteric and not injected. Cornea within normal limits. Periorbital areas with no swelling, redness, or edema. ENT: Nares patent. No nasal discharge, no septal abnormalities noted. Tympanic membranes are normal and external auditory canals are clear. Oropharynx with no redness, swelling, or masses, exudates, or evidence of obstruction, uvula midline. Mucous membranes moist. Neck: Trachea midline, no thyromegaly or masses palpated, and no cervical lymphadenopathy. Supple, full range of motion without nuchal rigidity, or vertebral point tenderness. No Meningismus. Chest/axilla: Normal chest wall appearance and motion. Nontender with no deformity. No lesions are appreciated. Cardiovascular: Regular rate and rhythm with a normal S1 and S2. No gallops, murmurs, or rubs. Normal PMI, no JVD. No pulse deficits. Abdomen/GI: Soft, non-tender, with normal bowel sounds. No distension or tympany. No guarding or rebound. No evidence of tenderness throughout. Skin: Warm, dry with normal turgor. Normal color with no rashes, no lesions, and no evidence of cellulitis. MS/ Extremity: Pulses equal, no cyanosis. Neurovascular intact. Full, normal range of motion. Neuro: Awake and alert, GCS 15, oriented to person, place, time, and situation. Cranial nerves II-XII grossly intact. Motor strength 5/5 in all extremities. Sensory grossly intact. Cerebellar exam normal. Normal gait. Psych: Awake, alert, with orientation to person, place and time. Behavior, mood, and affect are within normal limits. 00:23 Respiratory: Tachypnea, wheezes heard on all lung wilkerson.. 00:26 ECG was reviewed by the Attending Physician. rt Vital Signs: 00:08 BP 145 / 81; Pulse 102; Resp 21; Temp 98.1(O); Pulse Ox 76% on R/A; Weight 58.51 kg ll3 (R); Height 5 ft. 6 in. (167.64 cm) (R); 01:09 BP 110 / 68; Pulse 90; Resp 26; Pulse Ox 100% on 6 lpm NC; tw5 01:55 BP 132 / 59; Pulse 89; Resp 19 S; Pulse Ox 93% on 2 lpm NC; ha1 00:08 Body Mass Index 20.82 (58.51 kg, 167.64 cm) ll3 MDM: 00:07 Patient medically screened. rt 02:03 Differential diagnosis: Chronic Obstructive Pulmonary Disease pneumonia, Pneumothorax rt pulmonary edema, Pulmonary Embolism. Data reviewed: vital signs, nurses notes, old medical records, lab test result(s), EKG, radiologic studies. ED course: She presents to the ED with acute dyspnea. She was found to be hypoxic to 79%. The patient is correcting with increasing her supplemental O2. The patient has findings consistent with a pulmonary edema on the chest x-ray, has an elevated troponin, BNP. I suspect a cardiogenic etiology. Patient does meet SIRS criteria with a leukocytosis, will cover for HCAP. But the patient is volume overloaded, believe that fluid boluses are more likely to harm the patient by worsening respiratory condition rather than improve the patient's condition, therefore, will not give IV fluids. She requires diuresis, Lasix was ordered. Patient will be admitted for further care.. 10/10 00:14 Order name: CBC with Diff; Complete Time: 01:29 rt 10/10 00:14 Order name: CMP; Complete Time: :47 rt 10/10 00:14 Order name: BNP; Complete Time: rt 10/10 00:14 Order name: Troponin High Sensitivity; Complete Time: 01:47 rt 12 00:19 Order name: Blood Culture Adult (2) rt 10/10 00:19 Order name: Lactate w/ 2H reflex if indic.; Complete Time: 01:47 rt 10/10 00:14 Order name: Chest Single View XRAY rt 10/10 02:08 Order name: COVID-19/FLU A+B; Complete Time: 03:03 mw2 10/10 02:20 Order name: ABG Arterial Blood Gas; Complete Time: 03:03 EDMS 10/10 00:14 Order name: EKG; Complete Time: 00:15 rt 10/10 00:14 Order name: EKG - Nurse/Tech; Complete Time: 00:50 rt EC:26 Rate is 96 beats/min. Rhythm is regular, Normal Sinus Rhythm with No ectopy. QRS [place] rt is Normal. [place] interval is normal. QRS interval is normal. QT interval is normal. No Q waves. T waves are Normal. No ST changes noted. Administered Medications: 01:10 Drug: SOLU-Medrol (methylPrednisoLONE) 125 mg Route: IVP; Site: left antecubital; tw5 03:15 Follow up: Response: No adverse reaction tw5 01:13 Drug: DuoNeb (albuterol 2.5 mg, ipratropium 0.5 mg) (3:1) (2.5 mg - 0.5 mg) 3 ml Route: tw5 Nebulizer; 03:15 Follow up: Response: No adverse reaction tw5 02:12 Drug: Lasix (furosemide) 40 mg Route: IVP; Site: left antecubital; ha1 03:15 Follow up: Response: No adverse reaction tw5 02:16 Drug: Cefepime 2 grams Route: IVPB; Rate: 200 ml/hr; Infused Over: 30 mins; Site: left ha1 antecubital; 02:50 Follow up: Response: No adverse reaction; IV Status: Completed infusion; IV Intake: ha1 100ml 03:01 Drug: vancoMYCIN 15 mg/kg Route: IVPB; Site: left antecubital; ha1 03:15 Follow up: IV Status: Infusion continued upon admission tw5 Disposition: 02:03 Critical Care:. rt Disposition Summary: 10/10/22 02:03 Hospitalization Ordered Hospitalization Status: Inpatient Admission rt Provider: Kemar Dunlap rt Location: Telemetry/[facility] (Inpatient) rt Condition: Fair rt Problem: an acute exacerbation rt Symptoms: have improved rt Bed/Room Type: Standard rt Room Assignment: 431(10/10/22 03:06) cg Diagnosis - Acute pulmonary edema rt - Acute respiratory failure with hypoxia rt Forms: - Medication Reconciliation Form rt - SBAR form rt Critical care time excluding procedures: 02:03 Critical care time: Bedside Care: 30 minutes, Consultation: 5 minutes. Total time: 35 rt minutes Signatures: Dispatcher [employer] Heidy Méndez RN RN cg Fabiola Peña tw5 Robe Servin RN RN ll3 Sandra Irizarry RN RN ha1 Pablito Moyer MD MD rt Corrections: (The following items were deleted from the chart) 03:06 02:03 rt cg
[2022-10-10] MEDS ORDERED: CEFEPIME 2 GM VIAL ONE (02:09)
[2022-10-10] MEDS ORDERED: FUROSEMIDE 40 MG/4 ML VIAL ONE (02:10)
[2022-10-10] MEDS ORDERED: VANCOMYCIN 1 GM/VIAL ONE (02:10)
[2022-10-10] MEDS ORDERED: NA CHLORIDE 0.9% 250 ML ONE (02:10)
[2022-10-10] MEDS ORDERED: NA CHLORIDE 0.9% 100 ML IV ONE (02:11)
[2022-10-10 02:22] LABS: Arterial Blood Carboxyhemoglob 2.8 % (0-1.5); Blood Gas Oxyhemoglobin 91.2 % (94-97); Blood O2 Saturation 94.9 % (92-98.5)
--- NOTE | 2022-10-10 02:55 | P.HP ---
Certification for Inpatient Patient admitted to: Inpatient With expected LOS: >2 Midnights Patient will require the following post-hospital care: None Practitioner: I am a practitioner with admitting privileges, knowledge of patient current condition, hospital course, and medical plan of care. Services: Services provided to patient in accordance with Admission requirements found in Title 42 Section 412.3 of the Code of Federal Regulations Patient History Date of Service: 10/10/22 Reason for admission: CHF exacerbation, NSTEMI History of Present Illness: 77-year-old female with history of COPD on chronic home O22 L, chronic diastolic congestive heart failure, atrial fibrillation status post watchman procedure October 2021/cardioversion 10/08/2022, insulin-dependent diabetes presented to the emergency department for shortness of breath that began suddenly earlier this morning. She was evaluated in the emergency department her labs were significant for leukocytosis white blood cell count of 14.5 hemoglobin 10 hematocrit 30.6 creatinine 1.42 GFR 38 glucose 246 lactic acid 2.3 high-sensitivity troponin initially 211.4 BNP 6816 ABG pH 7.45 PCO2 44.3 PO2 74.8 chest x-ray revealed small trace of right pleural effusion, increased interstitial pulmonary markings for which interstitial pulmonary edema could be of consideration. Patient was given Solu-Medrol, nebulizer treatments, IV Lasix as well as vancomycin and cefepime in ED. ED prior wishes to admit for further evaluation and management of acute on chronic hypoxic respiratory failure secondary to CHF exacerbation. Allergies No Known Allergies Allergy (Verified 10/07/22 13:38) Home Medications: Albuterol Sulfate [Proair Digihaler] 2 puff IH DAILY PRN 05/27/22 Fluticasone/Umeclidin/Vilanter [Trelegy Ellipta 100-62.5-25] 1 puff IH BREAKFAST 05/27/22 Rosuvastatin [Crestor*] 1 tab PO DAILY 05/27/22 Apixaban [Eliquis *] 2.5 mg PO BID #60 09/28/22 Bumetanide [Bumex*] 1 mg PO BID #60 tab 09/28/22 Cranberry Fruit Extract 200 mg PO BID cap 09/28/22 Docusate/Senna [Senokot-S*] 2 tab PO BID PRN tab 09/28/22 Ferrous Sulfate [Ferrous Sulfate*] 325 mg PO DAILY #30 tab 09/28/22 Insulin Glargine,Hum.rec.anlog [Semglee] 5 unit SQ BREAKFAST #10 ml 09/28/22 Magnesium Oxide [Mag 0X*] 400 mg PO BID tab 09/28/22 Metoprolol Tartrate [Lopressor*] 50 mg PO BID #60 tab 09/28/22 - Past Medical/Surgical History Diabetic: No -: Stroke -: COPDon home O2 -: Chronic diastolic congestive heart failure -: Insulin-dependent diabetes -: Atrial fibrillation S/P watchman/cardioversion 202 Past Surgical History: Reviewed- Non-Contributory Psychosocial/ Personal History: Patient lives at home with her daughter - Family History Mother Notes: Congestive heart failure - Social History Smoking Status: Never smoker Alcohol use: No CD- Drugs: No Caffeine use: No Place of Residence: Home Review of Systems 10-point ROS is otherwise unremarkable Respiratory: Cough, Dry, Shortness of Breath Physical Examination - Physical Exam General: Alert, In no apparent distress, Oriented x3 HEENT: Atraumatic, PERRLA, Mucous membr. moist/pink, EOMI, Sclerae nonicteric Neck: Supple, 2+ carotid pulse no bruit, No LAD, Without JVD or thyroid abnormality Respiratory: Diminished, Crackles/rales Cardiovascular: Regular rate/rhythm, Normal S1 S2 Capillary refill: <2 Seconds Gastrointestinal: No tenderness Musculoskeletal: No tenderness Integumentary: No rashes Neurological: Normal speech, Normal strength at 5/5 x4 extr, Normal tone, Normal affect - Studies Laboratory Data (last 24 hrs) 10/10/22 01:03: Sodium 137, Potassium 4.1, BUN 31 H, Creatinine 1.42 H, Glucose 246 H, Total Bilirubin 1.2 H, AST 27, ALT 27, Alkaline Phosphatase 91 10/10/22 01:03: WBC 14.50 H, Hgb 10.0 L, Hct 30.6 L, Plt Count 414 H Assessment and Plan - Plan Assessment: Acute on chronic hypoxic respiratory failure secondary to acute decompensated diastolic congestive heart failure COPD on chronic home O22 L Atrial fibrillation S/P watchman procedure, recent cardioversion now NSR Diabetes mellitus type 2insulin-dependent SIRS criteria Plan: Acute on chronic hypoxic respiratory failure secondary to acute decompensated diastolic congestive heart failure: Last echocardiogram in May shows normal ejection fraction, patient with recent cardioversion at home she is taking Bumex 1 mg p.o. twice daily. Continue with IV Lasix for diuresis, other medications continued including metoprolol, amiodarone. We will wean off oxygen, cardiology consult in place. COPD on chronic home O22 L: Patient currently up to 3 to 4 L per nasal cannula to maintain saturations greater than 90%. Believe this is likely related to CHF exacerbation rather than COPD, continue diuresis. Pulmonology also to see patient. Atrial fibrillation S/P watchman procedure, recent cardioversion now NSR: Patient was placed back on her Eliquis 2.5 mg p.o. twice daily by cardiology with plans to discontinue after "a couple of weeks" per family. Continue Eliquis for time being, patient does have watchman device in place. Monitor on telemetry. Diabetes mellitus type 2insulin-dependent: ACH S Accu-Chek, sliding scale insulin. SIRS criteria: SIRS criteria present including tachycardia, tachypnea, leukocytosis. Patient with recent bout of pneumonia requiring broad-spectrum antibiotics Merrem/doxycycline. She was started on vancomycin/cefepime by ED staff with concern for HCAP. Continue antibiotics for time being, follow-up on cultures. No fever noted, patient did have some chills prior to arrival today. DVT PPX: Continue Eliquis 2.5 mg p.o. twice daily Code status: Full Discharge Plan: Home Plan to discharge in: 72 Hours - Advance Directives Does patient have a Living Will: Yes Does patient have a Durable POA for Healthcare: Yes - Code Status/Comfort Care Code Status Assessed: Yes (Full code) Critical Care: No Time Spent Managing Pts Care (In Minutes): 70
[2022-10-10 03:02] LABS: SARS-COV-2 RT PCR NEGATIVE (NEGATIVE)
[2022-10-10] MEDS ORDERED: ONDANSETRON 4 MG/2 ML VIAL IV PRN (03:42)
[2022-10-10] MEDS ORDERED: ACETAMINOPHEN 500 MG TAB PO PRN (03:42)
[2022-10-10] MEDS ORDERED: IPRATROPIUM BROM 0.5MG/2.5ML NEB PRN (03:42)
[2022-10-10] MEDS ORDERED: ALBUTEROL 2.5 MG/3 ML NEB SOL NEB PRN (03:42)
[2022-10-10] MEDS ORDERED: VANCOMYCIN 500 MG in NA CHLORIDE 0.9% 100 ML IVPB ONE (04:00)
[2022-10-10] MEDS: CEFEPIME 2 GM in NA CHLORIDE 0.9% 100 ML IV SCH (08:48)
[2022-10-10] MEDS: INSULIN -REGULAR HUMAN 50 UNIT/0.5 ML ML SQ SCH ×4 (08:48→21:32)
[2022-10-10] MEDS ORDERED: APIXABAN 2.5 MG TABLET PO SCH (09:00)
[2022-10-10] MEDS ORDERED: CEFEPIME 1 GM in NA CHLORIDE 0.9% 100 ML IV SCH (09:00)
[2022-10-10] MEDS ORDERED: FUROSEMIDE 40 MG/4 ML VIAL IV SCH (09:00)
[2022-10-10] MEDS ORDERED: VANCOMYCIN 1 GM in NA CHLORIDE 0.9% 250 ML IVPB SCH (09:00)
[2022-10-10] MEDS ORDERED: AMIODARONE HCL 200 MG TAB PO SCH (09:00)
[2022-10-10] MEDS ORDERED: METOPROLOL TAR 50 MG TAB PO SCH (09:00)
[2022-10-10] MEDS ORDERED: DOCUSATE NA/SENNA CONC 1 TAB PO PRN (12:05)
[2022-10-10] MEDS: predniSONE 20 MG TAB PO SCH ×2 (12:45→21:32)
--- NOTE | 2022-10-10 18:00 | CON ---
Date of Consultation: 10/10/2022 Reason For Consultation: Shortness of breath. History Of Present Illness: A 77-year-old female with COPD on 2 L oxygen at home; diastolic heart fa ilure; chronic atrial fibrillation, status post recent cardioversion; placed on amiodarone and denies having any chest pain, but she has shortness of breath, generally weak, lower extremity edema. No o rthopnea. No other complaints. Of note, patient had a recent prolonged hospital stay for pneumonia and influenza. Past Medical History: As outlined above in the HPI. Medications: Refer to reconciliation sheet for detailed list. Allergies: NO KNOWN DRUG ALLERGIES. Family History: No premature coronary artery disease or cancer. Social History: She does not smoke or drink. Does not use any drugs. Review of Systems: All systems reviewed and they were negative except what is mentioned in HPI. Physical Examination: Vital Signs: Reviewed. Head and Neck: Pupils are equal, reactive to light. Intact eye movements. No JVD. No cervical lym phadenopathy. Neck is supple. Thyroid is not enlarged. Lungs: Decreased breathing sounds bilaterally with faint crackles. No accessory muscle use or muscl e retraction. Heart: Regular rate and rhythm. No extra sounds. Abdomen: Soft, nontender. Bowel sounds positive. No organomegaly. No masses or hernia. No rigidi ty or rebound. Extremities: There is no clubbing or cyanosis. Trace edema bilaterally. Neurologic: Alert, awake, oriented x3. No acute focal deficits appreciated. Investigations: BUN 31, creatinine 1.42. NT proBNP 6816 and the troponin at 834. Assessment/recommendation: 1.Acute on chronic diastolic heart failure exacerbation. I agree with diuresis. Apparently, she wa s placed on Lasix and Bumex. I will hold the Bumex orally and keep her on IV Lasix and monitor fluid status very carefully. 2.Atrial fibrillation. She is in sinus, status post recent cardioversion. Continue the amiodarone and apixaban. 3.Elevated troponin. No chest pain. This is likely demand ischemia. However, we will check 1 more set tomorrow morning and plan to obtain echocardiogram to further evaluate. This patient had a nega tive stress test back in February of this year. SR/MODL Voice ID: [id number] Report ID: [id number]
[2022-10-10] MEDS: BUMETANIDE 1 MG TABLET PO SCH (21:30)
[2022-10-10] MEDS: ROSUVASTATIN 10 MG TAB PO SCH (21:32)
[2022-10-10] MEDS: AMIODARONE HCL 200 MG TAB PO SCH (21:32)
[2022-10-10] MEDS: METOPROLOL TAR 50 MG TAB PO SCH (21:35)
[2022-10-10] MEDS: APIXABAN 2.5 MG TABLET PO SCH (21:35)
[2022-10-11] MEDS ORDERED: VANCOMYCIN 0.75 GM in NA CHLORIDE 0.9% 150 ML IVPB SCH (02:00)
[2022-10-11] MEDS ORDERED: VANCOMYCIN 1 GM/VIAL ONE (02:35)
[2022-10-11 04:33] VITALS: BMI 21.9
[2022-10-11 06:06] LABS: Hematocrit 27.2 % (36.0-45.0); Lymphocytes % 5.4 % (15.3-44.8); MCV 90.5 fL (80-100); MPV 7.1 fL (7.6-11.3)
[2022-10-11 06:24] LABS: Albumin 2.1 g/dL (3.4-5.0); Bilirubin Total 0.6 mg/dL (0.2-1.0); Potassium 4.1 mmol/L (3.5-5.1); Protein, Total 6.2 g/dL (6.4-8.2)
[2022-10-11] MEDS: INSULIN -REGULAR HUMAN 50 UNIT/0.5 ML ML SQ SCH ×4 (07:14→21:45)
[2022-10-11] MEDS: HOME MED 1 EA UNK (Fluticasone/Umeclidin/Vilanter [Trelegy Ellipta 100-62.5-25] Blst.W.Dev IH SCH (08:00)
[2022-10-11] MEDS: BUMETANIDE 1 MG TABLET PO SCH (08:05)
[2022-10-11] MEDS: predniSONE 20 MG TAB PO SCH (08:06)
[2022-10-11] MEDS: APIXABAN 2.5 MG TABLET PO SCH ×2 (08:06→21:44)
[2022-10-11] MEDS: AMIODARONE HCL 200 MG TAB PO SCH ×2 (08:06→21:45)
[2022-10-11] MEDS: METOPROLOL TAR 50 MG TAB PO SCH ×2 (08:06→21:44)
[2022-10-11] MEDS: CEFEPIME 2 GM in NA CHLORIDE 0.9% 100 ML IV SCH (08:07)
[2022-10-11 08:56] LABS: Anisocytosis SLIGHT; Blood Morphology Comment NOTED (NOT SEEN); Platelet Estimate ADEQ; White Blood Cell Scan OK (OK)
[2022-10-11] MEDS ORDERED: FUROSEMIDE 40 MG/4 ML VIAL IV SCH (09:00)
--- NOTE | 2022-10-11 09:09 | RAD REPORT ---
EXAM DESCRIPTION: RAD - Chest Single View - 10/11/2022 6:25 am CLINICAL HISTORY: COPD CHF Chest pain. COMPARISON: Chest Single View dated 10/10/2022; Chest Single View dated 09/24/2022; Chest Single View dated 09/21/2022; Chest Single View dated 09/18/2022 FINDINGS: Portable technique limits examination quality. Moderate bilateral pulmonary opacities are again seen, mildly improved since yesterday's study. The h eart is moderately enlarged in size. Small bilateral effusions. IMPRESSION: Mild improvement in lung aeration is seen since yesterday's study.
--- NOTE | 2022-10-11 09:35 | P.PN ---
Subjective Date of Service: 10/11/22 Chief Complaint: CHF exacerbation, NSTEMI No change in patient's condition she is still very weak have some element of depression Review of Systems General: Weakness Respiratory: Shortness of Breath Physical Examination - Vital Signs Temperature: 97.3 F Blood Pressure: 121/59 Pulse: 78 Respirations: 16 Pulse Ox (%): 97 - Physical Exam General: Alert, In no apparent distress, Mild distress Respiratory: Clear to auscultation bilaterally, Diminished Cardiovascular: No edema, Regular rate/rhythm - Studies Microbiology Data (last 24 hrs): 10/10/22 01:35 Blood - Blood Anaerobic Blood Culture - Final Assessment And Plan - Current Problems (Diagnosis) (1) Diastolic heart failure Current Visit: No Status: Acute Plan: Patient is 77 years of age terminal COPD with diastolic heart failure with persistent A. fib she was just cardioverted this week feels very weak abided low-dose prednisone of prednisone was discontinued at the last visit physical therapy to ambulate changed to IV Lasix twice daily seen by cardiology will DC antibiotics for now x-ray shows some chronic interstitial changes patient has terminal COPD Zickel therapy therapist to assist with ambulation possible di ynes tomorrow White count is mildly elevated no fever continue to monitor Qualifiers: Heart failure chronicity: acute on chronic Qualified Code(s): I50.33 - Acute on chronic diastolic (congestive) heart failure
--- NOTE | 2022-10-11 11:24 | RAD REPORT ---
EXAM DESCRIPTION: Chest Single View 10/10/2022 12:44 AM CAR DROPPER CLINICAL HISTORY: 77 years, Female, COPD COMPARISON: 09/04/2021 FINDINGS: Single view of the chest was obtained portable. Prior films were compared. There is hyperi nflation. External EKG leads within the [id number] limits diagnosis. There are reticulonodular den sities throughout the lung corresponding to most likely chronic lung changes. There is prominence int erstitial pulmonary markings for which interstitial pulmonary edema could be of consideration. Small trace of right pleural effusion. The heart is in the upper normal size. There is a metallic device wi thin the left atrial appendage. Thoracic aorta demonstrate intimal aortic arch calcification. The r est of the soft tissue and bony structures demonstrate to be unremarkable. IMPRESSION: Small trace of right pleural effusion. Increased interstitial pulmonary markings for which interstitial pulmonary edema could be of consider ation. Electronically signed by: Akil Bishop MD 10/10/2022 12:46 AM CAR DROPPER Due to temporary technical issues with the PACS/Fluency reporting system, reports are being signed by the in house radiologists without review as a courtesy to insure prompt reporting. The interpreting radiologist is fully responsible for the content of the report.
[2022-10-11] MEDS ORDERED: VANCOMYCIN 1 GM in NA CHLORIDE 0.9% 250 ML IVPB SCH (16:00)
--- NOTE | 2022-10-11 17:02 | EKG ---
Test Date: 2022-10-10 Test Time: 00:15:09 Thermal Cutting Tracer Machine Operator: RV MEASUREMENT RESULTS: Intervals: Rate: 96 [place]: 184 QRSD: 82 QT: 374 QTc: 472 [place]: P: 87 AK: 184 QRS: 36 T: 57 INTERPRETIVE STATEMENTS: Normal sinus rhythm Normal ECG Compared to ECG 10/08/2022 13:45:10 Atrial premature complex(es) no longer present Electronically Signed On 10-11-22 17:01:26 UNIX SYSTEMS ADMINISTRATOR by Favian Rasmussen
[2022-10-11] MEDS: FUROSEMIDE 40 MG/4 ML VIAL IV SCH (21:43)
[2022-10-11] MEDS: predniSONE 10 MG TAB PO SCH (21:44)
[2022-10-11] MEDS: ROSUVASTATIN 10 MG TAB PO SCH (21:47)
--- NOTE | 2022-10-11 22:00 | PN ---
Date of Progress Note: 10/11/2022 Subjective: Seen by bedside. She has been doing much better. There is no chest pain, breathing eas ier. Review of Systems: No chest pain, shortness of breath, orthopnea, cough, nausea, vomiting, diarrhea. Generally, she is weak. All other systems reviewed and they were negative. Physical Examination: Vital Signs: Reviewed. Head and Neck: Pupils are equal, reactive to light. Intact eye movements. No JVD. No cervical lym phadenopathy. Neck is supple. Thyroid is not enlarged. Lungs: Clear to auscultation bilaterally. No rhonchi, wheezing, or crackles. No accessory muscle u se. Heart: Regular rate and rhythm. No extra sounds. Abdomen: Soft, nontender. Bowel sounds positive. No organomegaly. No masses or hernia. No rigidi ty or rebound. Extremities: No edema, clubbing, or cyanosis. Intact pulses. Skin: No rash. Neurologic: Alert, awake, oriented x3. No acute focal deficits appreciated. Investigations: BUN 42, creatinine 0.26. The troponin is 267, which is down from yesterday. Hemogl obin is 8.9. Assessment And Recommendations: 1.Acute on chronic diastolic heart failure exacerbation, improving. Continue diuretics. Monitor BU N, creatinine, electrolytes, and obtain an echocardiogram tomorrow. 2.Elevated troponin, likely demand ischemia. Obtain echocardiogram. If there are any wall motion a bnormalities, then we will proceed with further ischemia workup. Otherwise, diurese and recommend to start physical therapy and cardiac rehab as well. 3.Atrial fibrillation. She is in sinus rhythm. Continue amiodarone and apixaban just for 3 more weeks and then can be stopped as the patient had Watchman done in the re cent past. SR/MODL Voice ID: [id number] Report ID: [id number]
[2022-10-12 06:17] LABS: Absolute Lymphocytes (CBC) 1.2 K/uL (0.7-4.9); Hematocrit 28.4 % (36.0-45.0); Lymphocytes % 6.1 % (15.3-44.8); MCV 90.3 fL (80-100); MPV 7.1 fL (7.6-11.3); RBC Red Blood Cell Count 3.14 M/uL (3.86-4.86)
[2022-10-12 07:08] LABS: Albumin 2.1 g/dL (3.4-5.0); Bilirubin Total 0.4 mg/dL (0.2-1.0); Potassium 4.5 mmol/L (3.5-5.1); Protein, Total 6.3 g/dL (6.4-8.2)
[2022-10-12] MEDS: HOME MED 1 EA UNK (Fluticasone/Umeclidin/Vilanter [Trelegy Ellipta 100-62.5-25] Blst.W.Dev IH SCH (08:00)
[2022-10-12 08:51] LABS: Platelet Estimate ADEQ
[2022-10-12 08:52] LABS: Anisocytosis 1+; Blood Morphology Comment NOTED (NOT SEEN)
[2022-10-12] MEDS: predniSONE 10 MG TAB PO SCH ×2 (09:58→20:54)
[2022-10-12] MEDS: FUROSEMIDE 40 MG/4 ML VIAL IV SCH (09:58)
[2022-10-12] MEDS: AMIODARONE HCL 200 MG TAB PO SCH ×2 (09:58→20:53)
[2022-10-12] MEDS: METOPROLOL TAR 50 MG TAB PO SCH ×2 (09:58→20:53)
[2022-10-12] MEDS: APIXABAN 2.5 MG TABLET PO SCH ×2 (09:59→20:54)
[2022-10-12] MEDS: INSULIN -REGULAR HUMAN 50 UNIT/0.5 ML ML SQ SCH ×4 (09:59→20:55)
--- NOTE | 2022-10-12 10:04 | RAD REPORT ---
EXAM DESCRIPTION: RAD - Chest Single View - 10/12/2022 5:55 am CLINICAL HISTORY: COPD CHF Chest pain. COMPARISON: Chest Single View dated 10/11/2022; Chest Single View dated 10/10/2022; Chest Single Vie w dated 09/24/2022; Chest Single View dated 09/21/2022 FINDINGS: Portable technique limits examination quality. Bilateral pulmonary opacities with pleural effusions show no real change since 10/11/2022 study. The heart is moderately enlarged. Aortic atherosclerosis. IMPRESSION: Stable chest since yesterday's examination.
--- NOTE | 2022-10-12 10:34 | P.PN ---
Subjective Date of Service: 10/12/22 Chief Complaint: CHF exacerbation, NSTEMI elevated white count Patient is improving no new complaints still feeling a little weak White count has progressively increased eyes any abdominal pain cough or phlegm Review of Systems General: Weakness Respiratory: Shortness of Breath Physical Examination - Vital Signs Temperature: 98.4 F Blood Pressure: 113/58 Pulse: 82 Respirations: 16 Pulse Ox (%): 95 - Physical Exam General: Alert, In no apparent distress, Oriented x3 Respiratory: Clear to auscultation bilaterally, Diminished, Crackles/rales Cardiovascular: No edema, Regular rate/rhythm Assessment And Plan - Current Problems (Diagnosis) (1) Diastolic heart failure Current Visit: No Status: Acute Plan: Patient admitted with diastolic heart failure doing better creatinine is stable from her baseline we will change her back to Lasix once a day patient's troponins have been declining echocardiogram ordered discharge when okay with cardiology Qualifiers: Heart failure chronicity: acute on chronic Qualified Code(s): I50.33 - Acute on chronic diastolic (congestive) heart failure (2) Leukocytosis Current Visit: Yes Status: Acute Plan: Patient's white count is progressively increased start patient on cefepime x-ray no change urinalysis has been ordered procalcitonin ordered (3) COPD (chronic obstructive pulmonary disease) Current Visit: Yes Status: Acute Plan: Patient has terminal COPD is on home oxygen also has home health for physical therapy at home continue with prednisone 10 mg twice a day Qualifiers: Emphysema type: unspecified
[2022-10-12] MEDS: CEFEPIME 1 GM in NA CHLORIDE 0.9% 100 ML IV SCH ×2 (11:15→20:54)
--- NOTE | 2022-10-12 13:49 | PN ---
Date of Progress Note: 10/12/2022 Subjective: Seen by the bedside. Continues to improve. Generally is weak, but other than that, no new symptoms. Review of Systems: There is no chest pain, shortness of breath, orthopnea, or cough. No nausea, vomiting, diarrhea. Al l other systems reviewed and they were negative. Physical Examination: Vital Signs: Reviewed. Head and Neck: Pupils are equal, reactive to light. Intact eye movements. No JVD. No cervical lym phadenopathy. Neck: Supple. Thyroid is not enlarged. Lungs: Clear to auscultation bilaterally. No rhonchi, rales, or crackles. No accessory muscle use. Heart: Regular rate and rhythm. No extra sounds. Abdomen: Soft, nontender. Bowel sounds positive. No organomegaly. No masses or hernia. No rigidi ty or rebound. Extremities: No edema, clubbing, or cyanosis. Intact pulses. Skin: No rash. Neurologic: Alert, awake, oriented x3. No acute focal deficits appreciated. Lymph Nodes: No cervical or axillary lymphadenopathy. Investigations: Labs are reviewed. Assessment And Recommendation: 1.Acute on chronic diastolic heart failure exacerbation. She appears to be euvolemic. Hold IV Lasi x. Restart her on oral Lasix 40 mg twice a day starting tomorrow and she can be ready from my standp oint. The patient can be released and will follow her up as an outpatient. We will plan for stress test and an echo to be done as an outpatient. 2.Chronic obstructive pulmonary disease, appears to be stable. The patient needs to go home on home oxygen. 3.Atrial fibrillation. She is in sinus rhythm. Continue amiodarone and Eliquis. SR/MODL Voice ID: [id number] Report ID: [id number]
[2022-10-12] MEDS: ROSUVASTATIN 10 MG TAB PO SCH (20:53)
[2022-10-12 22:24] VITALS: O2SAT 95
[2022-10-13 03:43] LABS: Absolute Lymphocytes (CBC) 1.2 K/uL (0.7-4.9); Hematocrit 27.4 % (36.0-45.0); MCV 89.6 fL (80-100); MPV 7.3 fL (7.6-11.3); RBC Red Blood Cell Count 3.06 M/uL (3.86-4.86)
[2022-10-13 03:56] LABS: Potassium 4.3 mmol/L (3.5-5.1)
[2022-10-13 04:36] VITALS: TEMP 96.9
[2022-10-13 06:33] LABS: Calcium Oxalate Crystals- Ur Few /HPF (None Seen); Specific Gravity 1.018 (1.005-1.030); Urine Bacteria None Seen /HPF (<20); Urine Bilirubin NEGATIVE (Negative); Urine Blood Negative (Negative); Urine Clarity Clear (Clear); Urine Color Light-Yellow (Yellow); Urine Glucose NEGATIVE (Negative); Urine Protein TRACE (Negative); Urine RBC <5 /HPF (None Seen); Urine Urobilinogen Normal (Normal); Urine pH 5.5 (5.0-7.0)
[2022-10-13] MEDS: INSULIN -REGULAR HUMAN 50 UNIT/0.5 ML ML SQ SCH (07:27)
[2022-10-13] MEDS: METOPROLOL TAR 50 MG TAB PO SCH (07:47)
[2022-10-13] MEDS: APIXABAN 2.5 MG TABLET PO SCH (07:47)
[2022-10-13] MEDS: predniSONE 10 MG TAB PO SCH (07:48)
[2022-10-13] MEDS: AMIODARONE HCL 200 MG TAB PO SCH (07:48)
[2022-10-13] MEDS: CEFEPIME 1 GM in NA CHLORIDE 0.9% 100 ML IV SCH (07:48)
[2022-10-13] MEDS: HOME MED 1 EA UNK (Fluticasone/Umeclidin/Vilanter [Trelegy Ellipta 100-62.5-25] Blst.W.Dev IH SCH (07:48)
[2022-10-13] MEDS ORDERED: FUROSEMIDE 40 MG/4 ML VIAL IV SCH (09:00)
--- NOTE | 2022-10-13 09:20 | RAD REPORT ---
EXAM DESCRIPTION: RAD - Chest Single View - 10/13/2022 6:56 am CLINICAL HISTORY: COPD CHF Chest pain. COMPARISON: Chest Single View dated 10/12/2022; Chest Single View dated 10/11/2022; Chest Single Vie w dated 10/10/2022; Chest Single View dated 09/24/2022 FINDINGS: Portable technique limits examination quality. Since 10/12/2022, mild progression in CHF pattern is identified. Bilateral pleural effusions are agai n noted, small. Heart is moderately enlarged. Aortic atherosclerosis. IMPRESSION: Mild worsening lung aeration seen since yesterday's study.
[2022-10-13 09:21] VITALS: BP 139/69
--- NOTE | 2022-10-13 10:44 | P.DS ---
Admission Date: 10/10/22 Discharge Date: 10/13/22 Disposition: ROUTINE DISCHARGE Discharge Condition: FAIR Reason for Admission: CHF exacerbation, NSTEMI elevated white count Consultations: Cardiology - Problems (1) Acute on chronic diastolic heart failure Status: Acute (2) Chronic respiratory failure with hypoxia Status: Acute (3) COPD exacerbation Status: Acute (4) Pneumonia Status: Acute Brief History of Present Illness: 77-year-old female with history of COPD on chronic home O2, 2 L by NC, chronic diastolic congestive heart failure, atrial fibrillation status post watchman procedure October 2021/cardioversion 10/08/2022, insulin-dependent diabetes presented to the emergency department for shortness of breath of sudden onset. She was evaluated in the emergency department and her labs were significant for leukocytosis white blood cell count of 14.5 hemoglobin 10 hematocrit 30.6 creatinine 1.42 GFR 38 glucose 246 lactic acid 2.3 high-sensitivity troponin initially 211.4 BNP 6816 ABG pH 7.45 PCO2 44.3 PO2 74.8. Chest x-ray revealed small trace of right pleural effusion, increased interstitial pulmonary markings for which interstitial pulmonary edema could be of consideration. Patient was given Solu-Medrol, nebulizer treatments, IV Lasix as well as vancomycin and cefepime in ED and admitted for further management. Hospital Course: Patient evaluated at L4 and treated for systolic heart failure exacerbation with IV Lasix. She was also treated with antibiotics for possible pneumonia. Her troponin peaked at 800 and then trended down. Seen by consultation by cardiology and elevated troponin deemed secondary to demand ischemia. Patient clinically improved with treatment. She was maintained on baseline oxygen-2 L by nasal canula. Patient deemed stable for discharge. Her home dose Bumex resumed on discharge. She is also prescribed antibiotics for pneumonia. Vital Signs/Physical Exam: Temp Pulse Resp BP Pulse Ox 96.9 F 71 18 139/69 99 10/13/22 08:00 10/13/22 08:00 10/13/22 08:00 10/13/22 08:00 10/13/22 08:00 General: In no apparent distress HEENT: Mucous membr. moist/pink Neck: JVD not distended Respiratory: Clear to auscultation bilaterally Cardiovascular: No edema, Normal S1 S2, Irregular heart rate/rhythm Gastrointestinal: Soft and benign, Non-distended Neurological: Other (No focal motor deficit) Laboratory Data at Discharge: WBC 14.80 K/uL (4.3-10.9) H 10/13/22 03:08 Hgb 9.2 g/dL (12.0-15.0) L 10/13/22 03:08 Hct 27.4 % (36.0-45.0) L 10/13/22 03:08 Plt Count 373 K/uL (152-406) 10/13/22 03:08 Sodium 135 mmol/L (136-145) L 10/13/22 03:08 Potassium 4.3 mmol/L (3.5-5.1) 10/13/22 03:08 BUN 58 mg/dL (7-18) H 10/13/22 03:08 Creatinine 1.11 mg/dL (0.55-1.02) H 10/13/22 03:08 Glucose 229 mg/dL (74-106) H 10/13/22 03:08 Total Bilirubin 0.4 mg/dL (0.2-1.0) 10/12/22 06:07 AST 18 U/L (15-37) 10/12/22 06:07 ALT 22 U/L (13-56) 10/12/22 06:07 Alkaline Phosphatase 68 U/L (45-117) 10/12/22 06:07 Home Medications: Albuterol Sulfate [Proair Digihaler] 2 puff IH DAILY PRN 05/27/22 Fluticasone/Umeclidin/Vilanter [Trelegy Ellipta 100-62.5-25] 1 puff IH BREAKFAST 05/27/22 Rosuvastatin [Crestor*] 1 tab PO DAILY 05/27/22 Apixaban [Eliquis *] 2.5 mg PO BID #60 09/28/22 Bumetanide [Bumex*] 1 mg PO BID #60 tab 09/28/22 Cranberry Fruit Extract 200 mg PO BID cap 09/28/22 Docusate/Senna [Senokot-S*] 2 tab PO BID PRN tab 09/28/22 Ferrous Sulfate [Ferrous Sulfate*] 325 mg PO DAILY #30 tab 09/28/22 Insulin Glargine,Hum.rec.anlog [Semglee] 5 unit SQ BREAKFAST #10 ml 09/28/22 Magnesium Oxide [Mag 0X*] 400 mg PO BID tab 09/28/22 Metoprolol Tartrate [Lopressor*] 50 mg PO BID #60 tab 09/28/22 Amiodarone HCl [Cordarone*] 200 mg PO BID 10/10/22 predniSONE [Deltasone*] 10 mg PO DAILY #30 tab 10/12/22 Albuterol Neb [Proventil 0.083% Neb Soln] 2.5 mg NEB Q6HP PRN amp 10/13/22 Amox/Clavulanate [Augmentin 500-125 mg Tab] 500 mg PO TID #30 tab 10/13/22 Doxycycline Hyclate 100 mg PO BID #20 10/13/22 Doxycycline Hyclate 100 mg PO BID 10 Days #20 tab 10/13/22 Ipratropium Neb [Atrovent*] 0.5 mg NEB [id number] PRN amp 10/13/22 New Medications: Amox/Clavulanate [Augmentin 500-125 mg Tab] 500 mg PO TID #30 tab predniSONE [Deltasone*] 10 mg PO DAILY #30 tab Doxycycline Hyclate 100 mg PO BID #20 Doxycycline Hyclate 100 mg PO BID 10 Days #20 tab Diet: ADA Activity: Fall precautions Followup: Kemar Dunlap MD [ACTIVE - CAN ADMIT] - 1-2 Weeks Cayden Guzmán MD [Primary Care Provider] - 1-2 Weeks Time spent managing pt's care (in minutes): 33
--- NOTE | 2022-10-13 14:49 | ECHO ---
HEIGHT: 5 ft 6 in WEIGHT: 136 lb 0 oz DATE OF STUDY: 10/13/[address]: Kemar Dunlap MD 2-DIMENSIONAL: YES M.MODE: YES DOPPLER: YES COLOR FLOW: YES TDS: PORTABLE: YES DEFINITY: BUBBLE STUDY: DIAGNOSIS: CONGESTIVE HEART FAILURE CARDIAC HISTORY: CATHERIZATION: SURGERY: PROSTHETIC VALVE: PACEMAKER: MEASUREMENTS (cm) DIASTOLIC (NORMALS) SYSTOLIC (NORMALS) IVSd 1.2 (0.6-1.2) LA Diam 4.8 (1.9-4.0) LVEF 45% LVIDd 4.1 (3.5-5.7) LVIDs 3.0 (2.0-3.5) %FS 26% LVPWd 1.2 (0.6-1.2) Ao Diam 2.6 (2.0-3.7) 2 DIMENSIONAL ASSESSMENT: RIGHT ATRIUM: NORMAL LEFT ATRIUM: ENLARGED RIGHT VENTRICLE: NORMAL LEFT VENTRICLE: NORMAL TRICUSPID VALVE: MILD TRICUSPID REGURGITATION MITRAL VALVE: MODERATE MITRAL REGURGITATION PULMONIC VALVE: MILD PULMONIC INSUFFICIENCY AORTIC VALVE: MILD PULMONIC INSUFFICIENCY PERICARDIAL EFFUSION: NONE AORTIC ROOT: NORMAL LEFT VENTRICULAR WALL MOTION: MILD APICAL HYPOKINESIS DOPPLER/COLOR FLOW: SEE BELOW COMMENTS: 1. MILDLY DEPRESSED LEFT VENTRICULAR EJECTION FRACTION 45% 2. MODERATE MITRAL REGURGITATION 3. MODERATE TRICUSPID REGURGITATION WITH RIGHT VENTRICULAR SYSTOLIC PRESSURE OF 40-45 mmHg 4. DIASTOLIC DYSFUNCTION 5. MILD PULMONIC INSUFFICIECNY/ MILD AORTIC INSUFFICIENCY/ MILD TRICUSPID REGURGITATION TECHNOLOGIST: GULSHAN DUMONT
== END 2022-10-13 10:28 | disposition home or self-care (01) | DRG 871 ==
LOC: ER 23:57 → ERHOLD 10-10 02:40 → 4TH 10-10 03:08
PROVIDERS: ADMIT Internal Medicine Sleep Medicine; ATTEND Internal Medicine
DX: A41.9 Sepsis, unspecified organism (principal); I50.33 Acute on chronic diastolic (congestive) heart failure; J18.9 Pneumonia, unspecified organism; J96.21 Acute and chronic respiratory failure with hypoxia; I5A Non-ischemic myocardial injury (non-traumatic); J44.0 Chronic obstructive pulmonary disease with (acute) lower respiratory infection; J44.1 Chronic obstructive pulmonary disease with (acute) exacerbation; I24.8 Other forms of acute ischemic heart disease; I48.20 Chronic atrial fibrillation, unspecified; I11.0 Hypertensive heart disease with heart failure; E11.9 Type 2 diabetes mellitus without complications; E78.5 Hyperlipidemia, unspecified; Z79.4 Long term (current) use of insulin; Z99.81 Dependence on supplemental oxygen; Z79.01 Long term (current) use of anticoagulants; Z86.73 Personal history of transient ischemic attack (TIA), and cerebral infarction without residual deficits; Z90.49 Acquired absence of other specified parts of digestive tract; Z79.899 Other long term (current) drug therapy; Z90.710 Acquired absence of both cervix and uterus; Z20.822 Contact with and (suspected) exposure to COVID-19
CPT/HCPCS: 0240U; 36415; 71045; 80048; 80053; 81001; 82805; 82947; 83605; 83880; 84145; 84484; 85025; 85610; 85730; 87040; 92960; 93005; 93306; 94640; 96365; 96375; 97110; 97116; 97161; 97530; 99285; J0282; J0461; J0692; J1815; J1940; J2250; J2930; J3010; J3370; J7040; J7050; J7512; J7613; J7644

== ENCOUNTER 2022-12-30 10:46 | Emergency (ER) | payer OTHER, BC ==
--- OUTSIDE RECORDS SUMMARY | 2022-12-30 10:50 | XMS REPORT | Continuity of Care Document ---
:1945 Author Organization [facility] t Address [address] [place] [address] [place] [id number] Care Team Providers Name Role Phone Cayden Guzmán MD Primary Care Physician Nba Garcias MA Attending Clinician Unavailable Cathie Landin MD Attending Clinician Doctor Unassigned, [place] Attending Clinician Unavailable MACO FULLER Attending Clinician [...] in CAD in Disease Active 2020-10 [facility] [place] 2-07 st artery artery 00:00: Hospita 00 [...] U [facility] Allergie 1-03 Clear s 00:00: [place] 00 [facility] NO KNOWN Drug Active Univers ALLERGIE Class ity of S [facility] Family History Family Member Diagnosis Comments Start Date Stop Date Source Other [facility] ital Social History Social Habit Start Date Stop Date Quantity Comments Source History of Current smoker [facility] tobacco use Hospital Tobacco use and 2017-11-30 2017-11-30 Smokeless tobacco [facility] exposure 00:00:00 00:00:00 non-user Hospital Sex Assigned At [birth year] [facility] 00:00:00 00:00:00 Hospital Smoking Status Start Date Stop Date Source Tobacco smoking [facility] [place] consumption unknown Medical Bran ch Ex-smoker 2017-11-30 00:00:00 2017-11-30 [facility]ital 00:00:00 Medications Ordered Filled Start [...] mouth 2 (two) times a day. ALBUTEROL Yes Inhale. Unive rs SULFATE 02 ity of INHALE 14:24: [place] [address] Medical Branch fluticasone 0 Yes Inhale Univ ers -umeclidin- 02 daily. ity of vilanter 14:24: [place] ([place] [address] Medical ELLIP) Branch 100-62.5-25 mcg DsDv SERTraline Yes 25mg Take 25 mg U nivers 25 mg 02 by mouth ity of tablet 14:24: in the [place] [address] morning. Medical Branch metoprolol Yes 100mg Take 100 Un padmini succinate 9-02 mg by ity of XL 100 mg 14:24: mouth in [facility] [place] [facility] 24 hr 58 the Medical tablet morning. Branch rosuvastati Yes Take by Uni vers n 10 mg 9-02 mouth. ity of CpSP 14:24: [place] [address] Medical Branch furosemide 2021-0 Yes 40mg Take 40 mg U nivers 40 mg 902 by mouth ity of tablet 14:24: in the [place] [address] morning. Medical Branch amiodarone 0 Yes 200mg Take 200 Un padmini 200 mg 9-02 mg by ity of tablet 14:24: mouth in [place] [address] the Medical morning. Branch diltiazem 0 Yes 240mg Take 240 Uni vers XR 240 mg 9-02 mg by ity of 24 hr 14:24: mouth in [place] capsule 58 the Medical morning. Branch SERTraline Yes [id number] 25mg 25 mg, Univers (ZOLOFT) 06-19 Oral, ity of tablet 25 14:00: DAILY, [place] mg 00 First dose Medical on Wed Branch 06/19/22 at 0900, Until Discontinu ed, Routine metoprolol Yes [id number] 100mg 100 mg, Univers succinate 06-19 Oral, ity of XL (TOPROL 14:00: DAILY, [place] XL) tablet 00 First dose Med ical 100 mg on Wed Branch 06/19/22 at 0900, Until Discontinu ed, Routine furosemide Yes [id number] 40mg 40 mg, Univers (LASIX) 06-19 Oral, ity of tablet 40 14:00: DAILY, [place] mg 00 First dose Medical on Wed Branch 06/19/22 at 0900, Until Discontinu ed, Routine diltiazem Yes [id number] 240mg 240 mg, Univers XR 06-19 Oral, ity of (DILT-XR) 14:00: DAILY, [place] capsule 240 00 First dose Me dical mg on Wed Branch 06/19/22 at 0900, Until Discontinu ed, Routine amiodarone Yes [id number] 200mg 200 mg, Univers (PACERONE) 06-19 Oral, ity of tablet 200 14:00: DAILY, [place] mg 00 First dose Medical on Wed Branch 06/19/22 at 0900, Until Discontinu ed, Routine SERTraline 2021- No [id number] 25mg 25 mg, Univers (ZOLOFT) 06-19 Oral, ity of tablet 25 14:00: 21:25 DAILY, [place] mg 00 :00 First dose Medical on Wed Branch 06/19/22 at 0900, Until Discontinu ed, Routine metoprolol 2021- No [id number] 100mg 100 mg, Univers succinate 06-19 Oral, ity of XL (TOPROL 14:00: 21:25 DAILY, [facility] XL[facility] tablet 00 :00 First dose Med ical 100 mg on Wed Branch 06/19/22 at 0900, Until Discontinu ed, Routine furosemide 2021- No [id number] 40mg 40 mg, Univers (LASIX) 06-19 Oral, ity of tablet 40 14:00: 21:25 DAILY, [place] mg 00 :00 First dose Medical on Wed Branch 06/19/22 at 0900, Until Discontinu ed, Routine diltiazem 2021- No [id number] 240mg 240 mg, Univers XR 06-19 Oral, ity of (DILT-XR) 14:00: 21:25 DAILY, [place] capsule 240 00 :00 First dose Me dical mg on Wed Branch 06/19/22 at 0900, Until Discontinu ed, Routine amiodarone 2021- No [id number] 200mg 200 mg, Univers (PACERONE) 06-19 Oral, ity of tablet 200 14:00: 21:25 DAILY, [place] mg 00 :00 First dose Medical on Wed Branch 06/19/22 at 0900, Until Discontinu ed, Routine apixaban Yes [id number] 2.5mg 2.5 mg, Univers (ELIQUIS) 06-19 Oral, BID, ity of tablet 2.5 13:45: First dose [place] mg 00 (after Medical last Branch modificati on) on Wed06/19/22 at 0845, Until Discontinu ed, Routine
Indicatio ns: Non-Valvul ar Atrial Fibrillati on apixaban 2021- No [id number] 2.5mg 2.5 mg, Univers (ELIQUIS) 06-19 Oral, BID, ity of tablet 2.5 13:45: 21:25 First dose [place] mg 00 :00 (after Medical last Branch modificati on) on Wed06/19/22 at 0845, Until Discontinu ed, Routine
Indicatio ns: Non-Valvul ar Atrial Fibrillati on ALBUTEROL Yes Inhale. Unive rs SULFATE 06-19 ity of INHALE 11:20: [place] [address] Medical Branch fluticasone Yes Inhale Univ ers -umeclidin- 06-19 daily. ity of vilanter 11:20: [place] (TRELEGY 12 Medical ELLIPTA) Branch 100-62.5-25 mcg DsDv SERTraline Yes 25mg Take 25 mg U nivers 25 mg 02 by mouth ity of tablet 11:20: in the [place] [address] morning. Medical Branch metoprolol Yes 100mg Take 100 Un padmini succinate 9-02 mg by ity of XL 100 mg 11:20: mouth in [facility] [place] [facility] 24 hr 12 the Medical tablet morning. Branch rosuvastati Yes Take by Uni vers n 10 mg -02 mouth. ity of CpSP 11:20: [place] [address] Medical Branch furosemide Yes 40mg Take 40 mg U nivers 40 mg 02 by mouth ity of tablet 11:20: in the [place] [address] morning. Medical Branch amiodarone Yes 200mg Take 200 Un padmini 200 mg 06-19 mg by ity of tablet 11:20: mouth in [place] [address] the Medical morning. Branch diltiazem Yes 240mg Take 240 Uni vers XR 240 mg 9-02 mg by ity of 24 hr 11:20: mouth in [facility] 12 the Medical morning. Branch rosuvastati Yes [id number] 10mg 10 mg, Univers n (CRESTOR) 9 Oral, QHS, it y of tablet 10 02:00: [place] 00 on [facility] 06/18/22 at Branch 2100, Until Discontinu ed rosuvastati 2021- No [id number] 10mg 10 mg, Univers n (CRESTOR) 9 09-02 Oral, QHS, i ty of tablet 10 02:00: 21:25 First dose [place] mg 00 :00 on [facility] 06/18/22 at Branch 2100, Until Discontinu ed apixaban Yes 1358 2.5mg Take 1 Univer s 2.5 mg 9-02 tablet by ity of tablet 00:00: mouth in [place] [address] the Medical morning Branch and 1 tablet in the evening. Indication s: atrial fibrillati on apixaban Yes 1358 2.5mg Take 1 Univer s 2.5 mg 9-02 tablet by ity of tablet 00:00: mouth in [place] [address] the morning Branch and 1 tablet in the evening. Indication s: atrial fibrillati on apixaban Yes 1358 2.5mg Take 1 Univer s 2.5 mg 06-19 tablet by ity of tablet 00:00: mouth in [place] 00 the Medical morning Branch and 1 tablet in the evening. Indication s: atrial fibrillati on heparin 2021- No [id number] 18U/kg/ 18 U nivers 25,000 06-18-02 h Units/kg/h ity of Units/250 23:00: 13:00 r ?64 kg [place] mL 00 :00 (11.52 Medical (Premixed mL/hr), IV Bran ch Bag) in Infusion, 0.45 % NS TITRATE, Starting on [place] 06/18/22 at 1800, Until Wed06/19/22 at 0800, Routine heparin 2021- No [id number] 18U/kg/ 18 U nivers 25,000 06-18 h Units/kg/h ity of Units/250 23:00: 13:00 r ?64 kg [place] as mL 00 :00 (11.52 Medical (Premixed mL/hr), IV Bran ch Bag) in Infusion, 0.45 % NS TITRATE, Starting on [place] 06/18/22 at 1800, Until Wed06/19/22 at 0800, Routine ondansetron Yes 4mg 4 mg, Slow Univers (ZOFRAN 06-18 IV Push, ity of (PF)) 18:12: Q6HPRN, [place] injection 4 30 Starting Medi adeline mg [...] [place] Branch tablet 06/18/22 at 1312, Until 06/19/22 at 1625, Routine, Pain (scale 4-6) acetaminoph Yes 650mg 650 mg, Un padmini en 06-18 Oral, ity of (TYLENOL) 18:12: Q6HPRN, [place] tablet 650 23 Starting Medic al mg on [facility] Branch 06/18/22 at 1312, Until Discontinu ed, Routine, Pain (scale 1-3) acetaminoph 2021- No 650mg 650 mg, U nivers en 06-18 Oral, ity of (TYLENOL) 18:12: 21:25 Q6HPRN, [place] tablet 650 23 :00 Starting Medic al mg on [place] Branch 06/18/22 at 1312, Until 06/19/22 at 1625, Routine, Pain (scale 1-3) albuterol Yes [id number] 2.5mg 2.5 mg, Univers (PROVENTIL) 06-18 Inhalation it y of 2.5 mg /3 17:34: , Q4HPRN, [place] as mL (0.083 45 Starting Medica l %) on [facility] nebulizer 06/18/22 at solution 1234, 2.5 mg Until Discontinu ed, Routine, Shortness of Breath, Wheezing albuterol 0 2021- No [id number] 2.5mg 2.5 mg, Univers (PROVENTIL) 06-18 Inhalation i ty of 2.5 mg /3 17:34: 21:25 , Q4HPRN, [place] mL (0.083 45 :00 Starting Medica l %) on [place] Branch nebulizer 06/18/22 at solution 1234, 2.5 [...] mouth 2 (two) times a day. metoprolol 2020-102- No 100mg Q.5D Take 1 Met hodi tartrate 2-07 11-[address] (LOPRESSOR) 00:00: 00:00 (100 mg [...] (two) times a day. digOXIN 2020-10 Yes [id number] Take 1 Meth lyn (LANOXIN) 1-[address] 125 mcg 00:00: mouth once Hosp deion (0.125 mg) 00 daily l tablet digOXIN 2020-10 Yes [id number] Take 1 Meth lyn (LANOXIN) 1-[address] 125 mcg 00:00: mouth once Hosp deion (0.125 mg) 00 daily l tablet digOXIN 2020-10 Yes [id number] Take 1 Meth lyn (LANOXIN) 1-[address] 125 mcg 00:00: mouth once Hosp deion (0.125 mg) 00 daily l tablet digOXIN 2020-10 Yes [id number] Take 1 Meth lyn (LANOXIN) 1-[address] 125 mcg 00:00: mouth once Hosp deion (0.125 mg) 00 daily l tablet apixaban 2020-10 No 5mg Q.5D Take 1 Method i (Eliquis) 5 10-28 tablet (5 st mg tablet 00:00: 00:00 mg total) Ho spita 00 :00 by mouth 2 l (two) times a day. apixaban 2021-1 2021- No 5mg Q.5D Take 1 Method i (Eliquis) 5 10-28 tablet (5 st mg tablet 00:00: 00:00 mg total) Ho spita 00 :00 by mouth 2 l (two) times a day. Bystolic 10 2020- No Take 1 Met hodi mg tablet 07-[address] 00:00: 00:00 mouth once Hospit a 00 :00 daily l Bystolic 2020- No Take 1 Met hodi mg [...] l capsule mouth daily. digOXIN 2020- No [id number] 125ug QD Take 1 Me thodi (LANOXIN) 05-[address] 125 mcg 00:00: 00:00 (125 mcg Hospi ta (0.125 mg) 00 :00 total) by l tablet mouth daily. digOXIN 2020- No [id number] 125ug QD Take 1 Me thodi (LANOXIN) 809-[address] 125 mcg 00:00: 00:00 (125 mcg Hospi ta (0.125 mg) 00 :00 total) by l tablet mouth daily. ipratropium Yes Method i (ATROVENT) 1-13 st 0.06 % 00:00: Hospita nasal spray 00 l ipratropium Yes Method i (ATROVENT) 1-13 st 0.06 % 00:00: Hospita nasal spray 00 l ipratropium 2017-0 Yes Method i (ATROVENT) 1-13 st 0.06 % 00:00: Hospita nasal spray 00 l ipratropium 2017-0 Yes Method i (ATROVENT) 1-13 st 0.06 % 00:00: Hospita nasal spray 00 l TRAVATAN Z 2015-10 Yes Methodi 0.004 % 2- st 00:00: Hospita 00 l TRAVATAN Z 2015-10 Yes Methodi 0.004 % 205 st 00:00: Hospita 00 l TRAVATAN Z 2015-10 Yes Methodi 0.004 % 205 st 00:00: Hospita 00 l TRAVATAN Z 2015-10 Yes Methodi 0.004 % 205 st 00:00: Hospita 00 l Vital Signs Vital Name Observation Time Observation Value Comments Source Systolic blood 2022-06-19 12:31:00 164 mm[Hg] [facility]iver [facility] Diastolic blood 2022-06-19 12:31:00 78 mm[Hg] [facility] Heart rate 2022-06-19 12:31:00 91 /min [facility] Body temperature 2022-06-19 12:31:00 36.33 Stefany [facility] Oxygen saturation in 2022-06-19 12:31:00 92 /min [facility] Arterial blood by [facility] Pulse oximetry Branch Respiratory rate 2022-06-19 09:30:00 18 /min Univ [facility] Systolic blood 2022-06-18 14:45:00 158 mm[Hg] Univer sity [facility] Diastolic blood 2022-06-18 14:45:00 72 mm[Hg] [facility] Heart rate 2022-06-18 14:45:00 71 /min [facility] Respiratory rate 2022-06-18 14:45:00 20 /min [facility] Oxygen saturation in 2022-06-18 14:45:00 100 /min University of Arterial blood by [facility] Pulse oximetry Branch Systolic blood 2021-09-23 17:08:00 230 mm[Hg] Method ist Hospital pressure Diastolic blood 2021-09-23 17:08:00 93 mm[Hg] [facility] pressure Heart rate 2021-09-23 17:08:00 70 /min [facility] Body height 2021-09-23 17:01:00 167.6 cm [facility] Body weight 2021-09-23 17:01:00 62.052 kg [facility] BMI 2021-09-23 17:01:00 22.08 kg/m2 [facility] Procedures Procedure Date / Time Performing Clinician Source Performed EXTERNAL PROVIDER RECORDS 2022-06-29 05:01:00 Doctor Unassigned, [facility] BASIC METABOLIC PANEL (NA, 2022-06-19 05:29:00 [place] [facility] K, CL, CO2, GLUCOSE, BUN, [facility] CREATININE, CA) CBC WITH DIFF 2022-06-19 05:29:00 [facility] ACTIVATED PARTIAL THRMPLAS 2022-06-19 05:29:00 Amadeo [facility] BASIC METABOLIC PANEL (NA, 2022-06-19 05:29:00 [place], [facility] K, CL, CO2, GLUCOSE, BUN, [facility] CREATININE, CA) CBC WITH DIFF 2022-06-19 05:29:00 Codijacque [facility] ACTIVATED PARTIAL THRMPLAS 2022-06-19 05:29:00 Amadeo [facility] POCT ACT LOW RANGE 2022-06-18 17:06:00 Lona [facility] POCT ACT LOW RANGE 2022-06-18 17:06:00 Artem [facility] ELECTROPHYSIOLOGY PROCEDURE 2022-06-18 16:49:58 Artem [facility] POCT ACT LOW RANGE 2022-06-18 16:29:00 Artem [facility] POCT ACT LOW RANGE 2022-06-18 16:29:00 Artem [facility] POCT ACT LOW RANGE 2022-06-18 16:07:00 Hortencia Zamorano [facility] POCT ACT LOW RANGE 2022-06-18 16:07:00 Hortencia Zamorano [facility] POCT ACT LOW RANGE 2022-06-18 15:50:00 Hortencia Zamorano [facility] POCT ACT LOW RANGE 2022-06-18 15:50:00 Hortencia Zamorano [facility] CATH PROCEDURE LOG 2022-06-18 15:25:11 [facility] CATH PROCEDURE LOG 2022-06-18 15:25:11 [facility] TRANSESOPHAGEAL ECHO (ALIE) 2022-06-18 14:19:29 Hortencia Zamorano [facility] COMPLETE W/ DOPPLER AND Medical [place] COLOR HB ECG ROUTINE & RHYTHM 2022-06-18 12:25:50 Hortencia Zamorano Uni versity [facility] HB ABO GROUPING 2022-06-18 12:10:00 Jose Lange [place] [facility] EXTERNAL PROVIDER RECORDS 2022-06-12 05:01:00 Doctor Unassigned, [facility] Name [facility] EXTERNAL PROVIDER RECORDS 2022-06-12 05:01:00 Doctor Unassigned, [facility] [id number] 2021-10-22 00:00:00 RASSA [facility] [id number] 2021-10-22 00:00:00 RASSA [facility] US RENAL DOPPLER 2021-09-25 17:00:18 Cathie Landin H ospital ECG 12-LEAD 2021-09-23 17:05:29 Cathie Landin Ho spital Plan of Care Planned Activity Planned Date Details Comments Source Future Scheduled 2022-10-02 INFLUENZA VACCINE [facility] Hospital Test 17:15:31 [code = INFLUENZA VACCINE] Future Scheduled 2022-10-02 COVID-19 VACCINE (#1) [facility] Test 17:15:31 [code = COVID-19 VACCINE (#1)] Future Scheduled 2022-10-02 65+ PNEUMOCOCCAL Methodi Hospital Test 17:15:31 VACCINE (1 - PCV) [code = 65+ PNEUMOCOCCAL VACCINE (1 - PCV)] Future Scheduled 2022-10-02 Hepatitis C screening [facility] Hospital Test 17:15:31 (procedure) [code = 943582834] Future Scheduled 2022-10-02 SHINGLES VACCINES (1 Met [facility] Test 17:15:31 of 2) [code = SHINGLES VACCINES (1 of 2)] Future Scheduled 2022-10-02 [facility] 17:15:31 [code = COVID-19 VACCINE (#1)] Future Scheduled 2022-10-02 65+ PNEUMOCOCCAL Methodi Hospital Test 17:15:31 VACCINE (1 - PCV) [code = 65+ PNEUMOCOCCAL VACCINE (1 - PCV)] Future Scheduled 2022-10-02 Hepatitis C screening [facility] Hospital Test 17:15:31 (procedure) [code = 310266577] Future Scheduled 2022-10-02 SHINGLES VACCINES (1 Met [facility] Hospital Test 17:15:31 of 2) [code = SHINGLES VACCINES (1 of 2)] Future Scheduled 2022-10-02 INFLUENZA VACCINE Method is Hospital Test 17:15:31 [code = INFLUENZA VACCINE] Future Scheduled 2022-09-09 HEPATITIS B VACCINES Met [facility] Hospital Test 07:58:21 (1 of 3 - 3-dose series) [code = HEPATITIS B VACCINES (1 of 3 - 3-dose series)] Future Scheduled 2022-09-09 COVID-19 VACCINE (#1) [facility] Hospital Test 07:58:21 [code = COVID-19 VACCINE (#1)] Future Scheduled 2022-09-09 65+ PNEUMOCOCCAL Methodi Hospital Test 07:58:21 VACCINE (1 - PCV) [code = 65+ PNEUMOCOCCAL VACCINE (1 - PCV)] Future Scheduled 2022-09-09 Hepatitis C screening [facility] Hospital Test 07:58:21 (procedure) [code = 163793555] Future Scheduled 2022-09-09 SHINGLES VACCINES (1 Met [facility] Test 07:58:21 of 2) [code = SHINGLES VACCINES (1 of 2)] Future Scheduled 2022-09-09 INFLUENZA VACCINE Method ist Hospital Test 07:58:21 [code = INFLUENZA VACCINE] Future Scheduled 2022-09-03 HEPATITIS B VACCINES Met [facility] Test 09:04:03 (1 of 3 - 3-dose series) [code = HEPATITIS B VACCINES (1 of 3 - 3-dose series)] Future Scheduled 2022-09-03 COVID-19 VACCINE (#[facility] Test 09:04:03 [code = COVID-19 VACCINE (#1)] Future Scheduled 2022-09-03 65+ [facility]OCOCCAL [facility] 09:04:03 VACCINE (1 - PCV) [code = 65+ PNEUMOCOCCAL VACCINE (1 - PCV)] Future Scheduled 2022-09-03 Hep[facility] C screening [facility] Test 09:04:03 (procedure) [code = 713288452] Future Scheduled 2022-09-03 SHINGLES VACCINES (1 Met [facility] Test 09:04:03 of 2) [code = SHINGLES VACCINES (1 of 2)] Future Scheduled 2022-09-03 INFLUENZA VACCINE Method [facility] Test 09:04:03 [code = INFLUENZA VACCINE] Encounters Start End Encounter Admission Attending Care Care Encounter Source Date/Time Date/Time Type Type Clinicians Facility Department ID 2022-09-03 2022-09-03 Orders Nba Garcias 1.2.840.1 [id number] Methodi 00:00:00 00:00:[address] 3.430.2.7 Hospit a .3.353579 l .8 2022-09-03 2022-09-03 Orders Nba Garcias 1.2.840.1 [id number] Methodi 00:00:00 00:00:[address] 3.430.2.7 Hospit a .3.769348 l .8 2022-08-20 2022-08-20 Adrianne Tadeo2.840.1 [id number] Methodi 00:00:00 00:00:00 Cathie Medina [address]01.1.[address] 3.430.2.7 Hospit a .3.790260 l .8 2022-08-20 2022-08-20 Marissa Landin 1.2.840.1 [id number] Methodi 00:00:00 00:00:00 Cath[address] Adam [address]213.1.[address] 3.430.2.7 Hospit a .3.901928 l .8 2022-06-29 2022-06-29 Orders Doctor SOBEIDA 1.2.840.114 [id number] Univers 00:00:00 00:00:00 Only Unassigned, MAXI 350.1.13.10 ity of [place] [facility] 4.2.7.2.686 [place] [id number] [place] [address] Branch 2022-06-18 2022-06-19 [id number] Univers 07:00:00 12:30:00 MACO ity [facility] 2022-06-18 2022-06-[address] [facility] [id number] Univers 07:00:00 12:30:00 MACO ity [facility] 2022-06-18 2022-06-19 [facility] 1.2.840. 114 [id number] Univers 07:00:00 12:30:00 Encounter AlinaMaco [facility] 350.1.13.10 ity of Jimmie Neal CLEAR 4.2.7.2.686 [place] MOORE [id number] [facility] 110 Branch ([facility]) 2022-06-18 2022-06-18 Surgery [facility] 1.2.840.114 [id number] Univers 09:00:00 11:00:00 [facility] 350.1.13.10 it y of [place] 4.2.7.2.686 [place] [id number] [facility] 8[address] [place] ([facility]) 2022-06-18 2022-06-18 [facility] 1.2.903.628 [id number] Univers 06:57:51 06:59:00 Encounter [facility] 350.1.13.10 ity of [place] 4.[place].686 [place] [id number] [facility] 851 Branch ([facility]) 2022-06-16 2022-06-16 Outpatient R LONA, [facility] [id number] Univers 09:30:00 09:30:00 HORTENCIA ospina [facility] 2021-11-26 2021-11-26 Inpatient JAIDA Rasmussen, [facility] OUTD [id number] [facility] 05:24:00 05:24:00 Favian 13 [facility] 2021-10-22 2021-10-22 Inpatient JAIDA Branham [facility] INTE.02 [id number] [facility] 09:25:00 15:34:00 Diego 65 [facility] 2021-09-25 2021-09-25 Outpatient BISI, [facility] [id number] [place] 00:00:00 00:00:00 CATHIE [address] 2021-09-25 2021-09-25 Travel 1.2.840.1 1.2.545.793 [id number] Methodi 00:00:00 00:00:[address] 3.430.2.7 0.2.7.3.698 Ho spita .3.296129 084.8 l .8 2021-09-23 2021-09-23 Office Bisi, 1.2.840.1 [id number] Methodi 11:00:00 12:42:45 Visit Cathie Medina 41450.1.[address] 3.430.2.7 Hospit a .3.535992 l .8 2021-09-23 2021-09-23 Travel 1.2.840.1 1.2.309.908 [id number] Methodi 00:00:00 00:00:[address] 3.430.2.7 0.2.7.3.698 Ho spita .3.445614 084.8 l .8 2021-09-16 2021-09-16 Telephone Bisi, 1.2.840.1 [id number] Methodi 00:00:00 00:00:00 Cathie Medina [address].1.[address] 3.430.2.7 Hospit a .3.905694 l .8 2021-09-13 2021-09-13 Refill Bisi 1.2.840.1 [id number] Methodi 00:00:00 00:00:00 Cathie RLorenzo [address]85.1.[address] 3.430.2.7 Hospit a .3.701260 l .8 2021-07-29 2021-07-29 [facility] [id number] [place] 00:00:00 00:00:00 CATHIE [address] 2021-07-22 2021-07-22 [facility]patient [facility] [id number] [place] 00:00:00 00:00:00 CATHIE [address] 2020-05-28 2020-05-28 [facility]patient [facility] [id number] [place] 00:00:00 00:00:[address] CATHIE [address] [...] normal/abnormal. Lab Interpretation (test code Abnormal = 17368-3) [facility] Drip[facility]2022-06-19 06:47:24 Test Item Value Reference Range Interpretation Comments APTT Patient (test code See_Comment HH [Au tomated message] = 3173-2) The system [employer] h generated this result transmitted ref erence range: 26 - 36 Seconds. The reference range was not used to int erpret this result as normal/abnormal . Lab Interpretation (test Abnormal code = 30913-8) [facility] with [id number] 06:22:37 Test Item Value Reference Range Interpretation [...] RDW-SD (test code = 47.8 fL 39-49.9 52331-8) RDW-CV (test code = 16.0 % 12-15.5 H 788-0) PLT (test code = See_Comment [Automated 777-3) message] The sy stem which generated this result transmitted reference range : 166 - 358 10*3/ ?L. The reference r abdirizak was not used to interpret this result as normal/abnormal . MPV (test code = 8.6 fL 9.5-12.9 L 98746-3) NRBC/100 WBC (test See_Comment [Automat ed code = 1285940015) message] The system which generated this result transmitted reference range : 0.0 - 10.0 /100 WBCs. The refer ence range was not u sed to interpret th is result as normal/abnormal . NRBC x10^3 (test code See_Comment [Auto mated = [id number]) message] The s ystem which generated this result transmitted reference range : 10*3/?L. The reference range was not used to interpret this result as normal/abnormal . SEG % (test code = 91 % 33-76 H 91315-3) BAND % (test code = 2 % 0-1 H 41883-7) MYELO % (test code = 1 % See_Comment H [Autom ated 55808-9) message] The sy stem which generated this result transmitted reference range : <=0. The refere nce range was not u sed to interpret th is result as normal/abnormal . LYMPH % (test code = 4 % 14-54 L 41882-5) MONO % (test code = 2 % 0-4 36164-2) ANC (test code = 9.69 10*3/uL 1.88-7.09 H 753-4) RITCHIE CELLS (test code 2+ See_Comment A [Auto mated = 7790-9) message] The sy stem which generated this result transmitted reference range : (none). The reference range was not used to interpret this result as normal/abnormal . Lab Interpretation Abnormal (test code = 33940-5) [facility] with [id number] 06:22:37 Test Item Value Reference Range Interpretation [...] RDW-SD (test code = 47.8 fL 39-49.9 53879-4) RDW-CV (test code = 16.0 % 12-15.5 H 788-0) PLT (test code = See_Comment [Automated 777-3) message] The sy stem which generated this result transmitted reference range : 166 - 358 10*3/ ?L. The reference r abdirizak was not used to interpret this result as normal/abnormal . MPV (test code = 8.6 fL 9.5-12.9 L 53429-4) NRBC/100 WBC (test See_Comment [Automat ed code = 3019719459) message] The system which generated this result transmitted reference range : 0.0 - 10.0 /100 WBCs. The refer ence range was not u sed to interpret th is result as normal/abnormal . NRBC x10^3 (test code See_Comment [Auto mated = 8762141471) message] The s ystem which generated this result transmitted reference range : 10*3/?L. The reference range was not used to interpret this result as normal/abnormal . SEG % (test code = 91 % 33-76 H 71368-8) BAND % (test code = 2 % 0-1 H 01353-2) MYELO % (test code = 1 % See_Comment H [Autom ated 97517-8) message] The sy stem which generated this result transmitted reference range : <=0. The refere nce range was not u sed to interpret th is result as normal/abnormal . LYMPH % (test code = 4 % 14-54 L 30144-0) MONO % (test code = 2 % 0-4 05994-4) ANC (test code = 9.69 10*3/uL 1.88-7.09 H 753-4) RITCHIE CELLS (test code 2+ See_Comment A [Auto mated = 7790-9) message] The sy stem which generated this result transmitted reference range : (none). The reference range was not used to interpret this result as normal/abnormal . Lab Interpretation Abnormal (test code = 08570-8) [facility] (NA, K, CL, CO2, GLUCOSE, BUN, CREATININE, CA)2022-06-19 05:51:33 Test Item Value Reference Range Interpretation Comments NA (test code = 135 mmol/L 135-145 8123465283) K (test code = 3.3 mmol/L 3.5-5 L 4624159198) CL (test code = 96 mmol/L 98-108 L 9828031938) CO2 TOTAL (test code = 31 mmol/L 23-31 3241707560) AGAP (test code = 2-16 7142094072) BUN (test code = 15 mg/dL 7-23 8178181967) GLUCOSE (test code = 210 mg/dL 70-110 H 3630917520) CREATININE (test code = 0.82 mg/dL 0.5-1.04 9813070350) CALCIUM (test code = 8.5 mg/dL 8.6-10.6 L 9067269110) eGFR (test code = mL/min/1.73m2 3802198689) VIK (test code = VIK) Association of [...] tests). Lab Interpretation Abnormal (test code = 23958-1) [facility] [place] Metabolic Panel (NA, K, CL, CO2, GLUCOSE, BUN, CREATININE, CA)2022-06-19 05:51:33 Test Item Value Reference Range Interpretation Comments NA (test code = 135 mmol/L 135-145 2506014106) K (test code = 3.3 mmol/L 3.5-5 L 7057509841) CL (test code = 96 mmol/L 98-108 L 0003683579) CO2 TOTAL (test code = 31 mmol/L 23-31 7933248593) AGAP (test code = 2-16 1385979731) BUN (test code = 15 mg/dL 7-23 0135722967) GLUCOSE (test code = 210 mg/dL 70-110 H 8613465327) CREATININE (test code = 0.82 mg/dL 0.5-1.04 5869321978) CALCIUM (test code = 8.5 mg/dL 8.6-10.6 L 6315074532) eGFR (test code = mL/min/1.73m2 6223869512) VIK (test code = VIK) Association of [...] tests). Lab Interpretation Abnormal (test code = 52966-5) [facility] ACT LOW [id number] 21:01:51 Test Item Value Reference Range Interpretation Comments ACTLR (test code = See_Comment H [Automat ed message] 9133666905) The system [employer] generated this result transmitted ref erence range: 89 - 169 Seconds. The reference range was not used to int erpret this result as normal/abnormal . Lab Interpretation (test Abnormal code = 11331-2) [facility] ACT LOW [id number] 21:01:51 Test Item Value Reference Range Interpretation Comments ACTLR (test code = See_Comment [Automat ed message] 2313947857) The system [employer] generated this result transmitted ref erence range: 89 - 169 Seconds. The re ference range was not u sed to interpret this result as normal/abnor mal. Lab Interpretation (test Normal code = 85326-4) [facility] ACT LOW [id number] 21:01:51 Test Item Value Reference Range Interpretation Comments ACTLR (test code = See_Comment H [Automat ed message] 4272244256) The system [employer] generated this result transmitted ref erence range: 89 - 169 Seconds. The reference range was not used to int erpret this result as normal/abnormal . Lab Interpretation (test Abnormal code = 86986-5) [facility] ACT LOW [id number] 21:01:51 Test Item Value Reference Range Interpretation Comments ACTLR (test code = See_Comment [Automat ed message] 4929161850) The system [employer] generated this result transmitted ref erence range: 89 - 169 Seconds. The re ference range was not u sed to interpret this result as normal/abnor mal. Lab Interpretation (test Normal code = 89378-1) [facility] ACT LOW [id number] 21:01:50 Test Item Value Reference Range Interpretation Comments ACTLR (test code = See_Comment H [Automat ed message] 8604686911) The system [employer] generated this result transmitted ref erence range: 89 - 169 Seconds. The reference range was not used to int erpret this result as normal/abnormal . Lab Interpretation (test Abnormal code = 78497-0) [facility] ACT LOW [id number] 21:01:50 Test Item Value Reference Range Interpretation Comments ACTLR (test code = See_Comment H [Automat ed message] 0294279078) The system [employer] generated this result transmitted ref erence range: 89 - 169 Seconds. The reference range was not used to int erpret this result as normal/abnormal . Lab Interpretation (test Abnormal code = 10305-8) [facility] ACT LOW [id number] 21:01:45 Test Item Value Reference Range Interpretation Comments ACTLR (test code = See_Comment H [Automat ed message] 9070260278) The system [employer] generated this result transmitted ref erence range: 89 - 169 Seconds. The reference range was not used to int erpret this result as normal/abnormal . Lab Interpretation (test Abnormal code = 22662-1) [facility] ACT LOW [id number] 21:01:45 Test Item Value Reference Range Interpretation Comments ACTLR (test code = See_Comment H [Automat ed message] 7186508391) The system [employer] generated this result transmitted ref erence range: 89 - 169 Seconds. The reference range was not used to int erpret this result as normal/abnormal . Lab Interpretation (test Abnormal code = 71545-2) [facility]2022-06-18 18:15:42 Test Item Value Reference Range Interpretation Comments Height (test code = in 0362318208) Weight (test code = lbs 4723585839) Systolic BP (test mmHg code = 7189908235) Diastolic BP (test mmHg code = 8946211221) Heart Rate (test code bpm = 8538661276) BSA (test code = 1.72 m2 7736408221) Radiology Study observation (narrative) (test code = 69690-1) VIK (test code = VIK) Formatting of [...] captured. The probe was inserted by the morgue librarian. There was no probe insertion difficulty.There were 1 attempts to insert the probe. Probe in 08:17 am. Probe out 08: 39 am. Sedation and monitoring provided by anesthesia, see Epic documentation. There were no complications during the procedure. Based on abnormal findings of 2D echocardiogram, 3D was performed on an acquisition scanner for further assessment of the left atrium. [facility] - ONCE [id number] 13:33:41 Test Item Value Reference Range Interpretation Comments ABO & RH (test code O Positive Performe d at [facility] = 20) Laboratory Serv Workables - [facility] [place], [place] [address]Toll Free: [phone] 266CLIA No. [id number] IAT (test code = Negative Performed a t [facility] 1185) Laboratory Serv Workables - [facility] [address] [place], [place] [address] 4Toll Free: [phone] 266CLIA No. [id number] [facility] System[facility]OLIC [id number] 12:58:00 Test Item Value Reference Range Interpretation [...] = 9.8 mg/dL 8.0-10.5 N CA) PROTHROMBIN [id number] 12:46:00 Test Item Value Reference Range Interpretation [...] (to prevent recurrent infar ct). CBC W/AUTO [id number] 12:39:00 Test Item Value Reference Range Interpretation [...] x10 3/uL 0.0-0.1 N NRBC#) COAGULATION TIME [id number] 10:50:00 Test Item Value Reference Range Interpretation Comments COAGULATION TIME 317 SECONDS Performed b y ACTIVATED (test code = certi fied narrow gauge operator ACT) at [facility] COAGULATION TIME [id number] 10:50:00 Test Item Value Reference Range Interpretation Comments COAGULATION TIME 285 SECONDS Performed b y ACTIVATED (test code = certi fied narrow gauge operator ACT) at [facility] - XR CHEST 1 [id number] 00:00:00 [facility] 1945 Sex: F FAX: Favian Garcia MD [phone] [place]: St: [facility] FAX: Cayden Garcia MD [phone] FAX: Yifan Catalan [phone] Name: KAVITHA BRANHAM [facility] : 1945 Age/S: 76/F [address] [place] [address] Unit #: [id number] Loc: [place] [address] Phys: Yifan Catalan [facility] Acct: [id number] Dis Date: Status: ADM IN PHONE #: [phone] Exam Date: 10/22/2021 1308 FAX #: [phone] Reason: WATCHMAN EXAMS: CPT CODE: [id number] XR CHEST 1 V 67208 PROCEDURE INFORMATION: Exam: XR Chest Exam date and time: 10/22/2021 11:42 AM Age: 76 years old Clinical indication: Condition or disease; Other: Watchman TECHNIQUE: Imaging protocol: XR of the chest. Views: 1 view. COMPARISON: DX XR CHEST 2 V 10/20/2021 2:59 PM FINDINGS: Tubes, catheters and devices: Left atrial appendage closure device is demonstrated. Lungs:Pleural and lung parenchymal scarring identified within bilateral [...] demonstrated within the aorta. Bones/joints: Diffusely decreased bonedensity. Mild to moderate generalized bony degenerative changes. IMPRESSION: 1. Pulmonary emphysema.Mild interstitial edema. 2. Mild enlarged cardiac silhouette. 3. Degenerative and postsurgical changes are demonstrated, as described above. at 1315 Reported and signed by: Nicko Vidales M.D. CC: Favian Rasmussen MD; Cayden Guzmán MD; Yifan Catalan Technologist: RT Koko(R) Trnscrd Date/Time/By: 10/22/2021 (3037) : By: [email or web address] Orig Print D/T: S: 10/22/2021 (6071) PAGE 1 Signed ReportCBC W/AUTO [id number] 15:26:00 Test Item Value Reference Range Interpretation [...] (test code NO = MDIFF) BASIC METABOLIC [id number] 15:25:00 Test Item Value Reference Range Interpretation [...] code = 9.7 mg/dL 8.0-10.5 N CA) [id number] 15:25:00 Test Item Value Reference Range Interpretation Comments PREALBUMIN (test code = PREALB) 18.0 mg/dL 16.0-40.0 N PROTHROMBIN [id number] 15:23:00 Test Item Value Reference Range Interpretation [...] recurrent infar ct). COVID 19 Asymptomatic IH [id number] 13:58:00 Test Item Value Reference Range Interpretation [...] waivedcomplexit y tests. - XR CHEST 2 [id number] 00:00:00 [facility] : 1945 Sex: F FAX: Favian Garcia MD [phone] [place]: St: PRE FAX: Cayden Garcia MD [phone] Name: KAVITHA BRANHAM [facility] : 1945 Age/S: 76/F [address] [place] [address] Unit #: [id number] Loc: [place] [address]Xjso: Favian Rasmussen MD Acct: [id number] Dis Date: Status: PRE SDC PHONE #: [phone] Exam Date: 10/20/2021 1503 FAX #: [phone] Reason: PREOP EXAMS: CPT CODE: [id number] XR CHEST 2 V 35773 PROCEDURE INFORMATION: Exam: XR Chest Exam date and time: 10/20/2021 2:59 PM Age: 76 years old Clinical indication: Pre-operative exam; Respiratory screening exam; Additional info: Preop TECHNIQUE: Imagingprotocol: XR of the chest. Views: 2 views. [...] Willard M.D. CC: Favian Rasmussen MD; Cayden Guzmán MD Technologist: RT Ignacio(R) Trnscrd Date/Time/By: 10/20/2021 (153) : By: [email or web address] Orig Print D/T: S: 10/20/2021 (153) PAGE 1 Signed ReportECG 12 [id number] 20:48:45 Test Item Value Reference Range Interpretation [...] wave inversion now evident in Lateral leads- [facility] 12 [id number] 20:48:45 Test Item Value Reference Range Interpretation [...] wave inversion now evident in Lateral leads- [facility]
[2022-12-30] MEDS ORDERED: ASPIRIN 81 MG CHEWABLE TABLET ONE (11:39)
[2022-12-30 11:59] LABS: Absolute Lymphocytes (CBC) 1.8 K/uL (0.7-4.9); Hematocrit 39.3 % (36.0-45.0); Lymphocytes % 11.5 % (15.3-44.8); MCV 85.8 fL (80-100); MPV 6.7 fL (7.6-11.3); RBC Red Blood Cell Count 4.59 M/uL (3.86-4.86)
[2022-12-30 12:01] LABS: Protime INR 0.96
[2022-12-30 12:18] LABS: ALT/SGPT 33 U/L (13-56); AST/SGOT 17 U/L (15-37); Albumin 3.1 g/dL (3.4-5.0); Alkaline Phosphatase 129 U/L (45-117); BUN Blood Urea Nitrogen 48 mg/dL (7-18); Bicarbonate 35 mmol/L (21-32); Bilirubin Total 0.3 mg/dL (0.2-1.0); Glomerular Filtration Rate 39 ml/min (=/>90); Glucose Level 146 mg/dL (74-106); Magnesium 2.4 mg/dL (1.6-2.4); NT PRO-BNP 1473 pg/mL (<450); Potassium 4.2 mmol/L (3.5-5.1); Protein, Total 7.3 g/dL (6.4-8.2); Sodium Level 135 mmol/L (136-145); Troponin High Sensitivity 23.4 pg/mL (<58.9)
[2022-12-30 12:27] LABS: Bilirubin Direct < 0.1 mg/dL (0-0.2)
--- NOTE | 2022-12-30 12:27 | RAD REPORT ---
[facility]37 am CLINICAL HISTORY: CHEST PAIN COMPARISON: Chest Single View dated 10/13/2022; Chest Single View dated 10/12/2022; Chest Single Vie w dated 10/11/2022; Chest Single View dated 10/10/2022 TECHNIQUE: Portable AP view of the chest. FINDINGS: The lungs are clear.Diffuse parenchymal chronic interstitial changes and mild hyperinflati on noted. Interval improvement of bibasilar opacities and small right pleural effusion. No pneumothor ax or effusion. The cardiomediastinal contours are unremarkable. IMPRESSION: No acute cardiopulmonary process.
[2022-12-30 12:41] LABS: SARS-COV-2 RT PCR NEGATIVE (NEGATIVE)
[2022-12-30 13:15] LABS: Blood Morphology Comment NOT SEEN (NOT SEEN); Platelet Estimate ADEQ
--- NOTE | 2022-12-30 13:43 | RAD REPORT ---
EXAM DESCRIPTION: CT - Chest For Pe Angio - 12/30/2022 1:36 pm CLINICAL HISTORY: Chest pain. SOB COMPARISON: Chest For Pe Angio dated 05/28/2022 TECHNIQUE: CT angiogram of the pulmonary arteries was performed with MIP. All CT scans are performed using dose optimization technique as appropriate and may include automated exposure control or mA/KV adjustment according to patient size. FINDINGS: No evidence of pulmonary thromboembolism. No acute aortic finding demonstrated. Aortic atherosclerosis. Advanced COPD is present. Mild pulmonary edema likely also present. No significant pericardial or pleural fluid. Cardiac size mildly enlarged. No concerning bony finding. IMPRESSION: No evidence of pulmonary thromboembolism. Significant COPD with mild pulmonary edema suspected.
[2022-12-30] MEDS ORDERED: NA CHLORIDE 0.9% 1,000 ML ONE (14:13)
--- NOTE | 2022-12-30 16:43 | ER ---
Nurse's Notes [facility] Name: Ruby Soriano Age: 77 yrs Sex: Female : 1945 Arrival Date: 12/30/2022 Time: 10:47 Bed 17 Private MD: Cayden Guzmán Diagnosis: COPD/ Chronic obstructive pulmonary disease, unspecified;Dehydration Presentation: 12/30 11:30 Chief complaint: Patient states: chest pain since Wednesday that has progressively gotten kc6 worse when she takes a deep breath. Coronavirus screen: Vaccine status: Patient reports receiving the 2nd dose of the covid vaccine. At this time, the client does not indicate any symptoms associated with coronavirus-19. Ebola Screen: No symptoms or risks identified at this time. Initial Sepsis Screen: Does the patient meet any 2 criteria? No. Patient's initial sepsis screen is negative. Does the patient have a suspected source of infection? No. Patient's initial sepsis screen is negative. Risk Assessment: Do you want to hurt yourself or someone else? Patient reports no desire to harm self or others. Onset of symptoms was December 30, 2022. 11:30 Method Of Arrival: Ambulatory kc6 11:30 Acuity: SERINA 3 kc6 Triage Assessment: 11:31 General: Appears in no apparent distress. comfortable, Behavior is calm, cooperative, kc6 appropriate for age. Pain: Complains of pain in chest Pain does not radiate. Pain currently is 7 out of 10 on a pain scale. Pain began 2-3 days ago. Is continuous, Alleviated by rest, Aggravated by taking a deep breath Also complains of no other associated symptoms. EENT: No signs and/or symptoms were reported regarding the EENT system. Neuro: Romero Agitation-Sedation Scale (RASS): 0 - Alert and Calm Level of Consciousness is awake, alert, obeys commands, Oriented to person, place, time, situation, Appropriate for age. Cardiovascular: Heart tones S1 S2 present Capillary refill < 3 seconds Rhythm is sinus rhythm. Respiratory: Airway is patent Trachea midline Respiratory effort is even, unlabored, Respiratory pattern is regular, symmetrical. GI: No signs and/or symptoms were reported involving the gastrointestinal system. : No signs and/or symptoms were reported regarding the genitourinary system. Derm: No signs and/or symptoms reported regarding the dermatologic system. Skin is intact, Skin is pink, warm \T\ dry. Musculoskeletal: No signs and/or symptoms reported regarding the musculoskeletal system. Circulation, motion, and sensation intact. Capillary refill < 3 seconds, Range of motion: intact in all extremities. Historical: - Allergies: 11:31 No Known Allergies; kc6 - PMHx: 11:31 COPD; Hyperlipidemia; Hypertension; Irregular heart rate; stroke 2011; kc6 - PSHx: 11:31 Cholecystectomy; hysterectomy; kc6 - Immunization history:: Client reports receiving the 2nd dose of the Covid vaccine, Flu vaccine is up to date. - Social history:: Smoking status: Patient denies any tobacco usage or history of. Screenin:49 [facility] ED Fall Risk Assessment (Adult) History of falling in the last 3 months, kc6 including since admission No falls in past 3 months (0 pts) Confusion or Disorientation No (0 pts) Intoxicated or Sedated No (0 pts) Impaired Gait No (0 pts) Mobility Assist Device Used No (0 pt) Altered Elimination No (0 pt) Score/Fall Risk Level 0 - 2 = Low Risk Oriented to surroundings, Maintained a safe environment, Educated pt \T\ family on fall prevention, incl call for assistance when getting out of bed, Assessed \T\ reinforced patient's understanding of fall precautions, Hourly rounding (assess needs \T\ fall precautionary measures) done. Abuse screen: Denies threats or abuse. Denies injuries from another. Nutritional screening: No deficits noted. Tuberculosis screening: No symptoms or risk factors identified. Assessment: 11:30 Reassessment: please see triage assessment. Pain: Complains of pain in chest. kc6 12:30 Reassessment: Patient appears in no apparent distress at this time. No changes from kc6 previously documented assessment. Patient and/or family updated on plan of care and expected duration. Pain level reassessed. Patient is alert, oriented x 3, equal unlabored respirations, skin warm/dry/pink. 13:30 Reassessment: Patient appears in no apparent distress at this time. No changes from kc6 previously documented assessment. Patient and/or family updated on plan of care and expected duration. Pain level reassessed. Patient is alert, oriented x 3, equal unlabored respirations, skin warm/dry/pink. 14:30 Reassessment: Patient appears in no apparent distress at this time. No changes from kc6 previously documented assessment. Patient and/or family updated on plan of care and expected duration. Pain level reassessed. Patient is alert, oriented x 3, equal unlabored respirations, skin warm/dry/pink. 15:30 Reassessment: Patient appears in no apparent distress at this time. No changes from kc6 previously documented assessment. Patient and/or family updated on plan of care and expected duration. Pain level reassessed. Patient is alert, oriented x 3, equal unlabored respirations, skin warm/dry/pink. 16:30 Reassessment: Patient appears in no apparent distress at this time. No changes from kc6 previously documented assessment. Patient and/or family updated on plan of care and expected duration. Pain level reassessed. Patient is alert, oriented x 3, equal unlabored respirations, skin warm/dry/pink. Vital Signs: 11:30 BP 174 / 96; Pulse 68; Resp 16 S; Pulse Ox 100% on R/A; Weight 62.14 kg (R); Height 5 kc6 ft. 6 in. (R); Pain 7/10; 12:50 BP 145 / 60; Pulse 57; Resp 16 S; Pulse Ox 94% on R/A; kc6 14:02 BP 170 / 62; Pulse 60; Resp 16 S; Pulse Ox 100% on R/A; kc6 14:55 BP 155 / 63; Pulse 61; Resp 17; Pulse Ox 98% on R/A; kc6 15:50 BP 168 / 66; Pulse 62; Resp 15 S; Pulse Ox 98% on R/A; kc6 11:30 Body Mass Index 22.11 (62.14 kg, 167.64 cm) kc6 11:30 Pain Scale: Adult kc6 ED Course: 10:47 Patient arrived in ED. mr 10:47 Cayden Guzmán MD is Private Physician. mr 10:54 Mei Nettles [facility]-C [facility] sb4 10:54 Dhruv Del Valle MD is Attending Physician. sb4 11:08 Karime Lowery, ERIKA is Primary Nurse. kc6 11:31 Triage completed. kc6 11:31 Arm band placed on. kc6 11:32 Patient has correct armband on for positive identification. Placed in gown. Bed in low kc6 position. Call light in reach. Side rails up X2. Adult w/ patient. Client placed on continuous cardiac and pulse oximetry monitoring. NIBP monitoring applied. electronic device monitor on. 11:33 Patient maintains SpO2 saturation greater than 95% on room air. kc6 11:39 XRAY Chest (1 view) In Process Unspecified. EDMS 11:48 COVID-19/FLU A+B Sent. kc6 11:48 Basic Metabolic Panel Sent. kc6 11:48 CBC with Diff Sent. kc6 11:48 D-Dimer Sent. kc6 11:48 LFT's Sent. kc6 11:48 Magnesium Sent. kc6 11:48 PT-INR Sent. kc6 11:48 Troponin HS Sent. kc6 11:49 Inserted saline lock: 22 gauge in left antecubital area, using aseptic technique. Blood kc6 collected. 13:17 Inserted saline lock: 22 gauge in left wrist, using aseptic technique. kc6 13:38 Chest For PE Angio CT In Process Unspecified. EDMS 16:42 Cayden Guzmán MD is Referral Physician. sb4 Administered Medications: 11:49 Drug: Aspirin PO Chewable Tablet 324 mg Route: PO; kc6 16:43 Follow up: Response: No adverse reaction kc6 14:29 Drug: NS 0.9% IV 1000 ml Route: IV; Rate: 75 ml/hr; Site: left antecubital; kc6 16:43 Follow up: Response: No adverse reaction; IV Status: Completed infusion kc6 Outcome: 16:43 Discharge ordered by . sb4 Signatures: Dispatcher [employer] Desi Aguirre Kaitlyn RN RN [email or web address] Mei Nettles PA-C PATaco sb4
--- NOTE | 2022-12-30 16:43 | EDPHYS ---
Physician Documentation [facility] Name: Ruby Soriano Age: 77 yrs Sex: Female : 1945 Arrival Date: 12/30/2022 Time: 10:47 Bed 17 Private MD: Cayden Guzmán ED Physician Dhruv Del Valle HPI: 12/30 11:16 This 77 yrs old Female presents to ER via Unassigned with complaints of Chest Tightness.sb4 11:16 Onset: The symptoms/episode began/occurred 5 day(s) ago. Associated signs and symptoms: sb4 Pertinent positives: chest pain, shortness of breath, Pertinent negatives: abdominal pain, cough, sore throat. Modifying factors: The patient symptoms are alleviated by nothing, the patient symptoms are aggravated by nothing. The patient has experienced similar episodes in the past, a few times. The patient has not recently seen a physician. Patient with COPD who presents with chest pain and shortness of breath. Daughter states symptoms began Je and have been worsening. She tried to relieve the symptoms by increasing her prednisone and lasix because she thought it was a COPD exacerbation but the symptoms have persisted. Denies cough, fever, hypoxia. . Historical: - Allergies: 11:31 No Known Allergies; kc6 - PMHx: 11:31 COPD; Hyperlipidemia; Hypertension; Irregular heart rate; stroke 2011; kc6 - PSHx: 11:31 Cholecystectomy; hysterectomy; kc6 - Immunization history:: Client reports receiving the 2nd dose of the Covid vaccine, Flu vaccine is up to date. - Social history:: Smoking status: Patient denies any tobacco usage or history of. ROS: 11:16 Constitutional: Negative for fever, chills, and weight loss, Abdomen/GI: Negative for sb4 abdominal pain, nausea, vomiting, diarrhea, and constipation, MS/Extremity: Negative for injury and deformity, Skin: Negative for injury, rash, and discoloration. 11:16 Eyes: Positive for redness, tearing, Negative for blurry vision, pain, swelling, vision loss. 11:16 ENT: Negative for nasal discharge, rhinorrhea, sinus congestion, sinus pain, sore throat, difficulty swallowing, difficulty handling secretions. 11:16 Cardiovascular: Positive for chest pain, Negative for edema, orthopnea, paroxysmal nocturnal dyspnea. 11:16 Respiratory: Positive for shortness of breath, at rest. Negative for cough, hemoptysis, sputum production, wheezing. Exam: 11:16 Cardiovascular: Regular rate and rhythm with a normal S1 and S2. Respiratory: Lungs sb4 have equal breath sounds bilaterally, clear to auscultation and percussion. No rales, rhonchi or wheezes noted. No increased work of breathing, no retractions or nasal flaring. Abdomen/GI: Soft, non-tender, no distension. Back: No spinal tenderness. No costovertebral tenderness. Full range of motion. Skin: Warm, dry with normal turgor. Normal color with no rashes, no lesions, and no evidence of cellulitis. MS/ Extremity: Pulses equal, no cyanosis. Neurovascular intact. Full, normal range of motion. 11:16 Constitutional: The patient appears alert, awake, uncomfortable. 11:16 Head/face: Noted is 11:16 Eyes: Extraocular movements: intact throughout, Conjunctiva: injected, bilaterally, tearing noted, bilaterally. 11:42 ECG was reviewed by the Attending Physician. sb4 Vital Signs: 11:30 BP 174 / 96; Pulse 68; Resp 16 S; Pulse Ox 100% on R/A; Weight 62.14 kg (R); Height 5 kc6 ft. 6 in. (R); Pain 7/10; 12:50 BP 145 / 60; Pulse 57; Resp 16 S; Pulse Ox 94% on R/A; kc6 14:02 BP 170 / 62; Pulse 60; Resp 16 S; Pulse Ox 100% on R/A; kc6 14:55 BP 155 / 63; Pulse 61; Resp 17; Pulse Ox 98% on R/A; kc6 15:50 BP 168 / 66; Pulse 62; Resp 15 S; Pulse Ox 98% on R/A; kc6 11:30 Body Mass Index 22.11 (62.14 kg, 167.64 cm) kc6 11:30 Pain Scale: Adult kc6 MDM: 11:08 Patient medically screened. sb4 11:16 Differential diagnosis: viral Infection, bacterial infection, URI, bronchitis, sb4 pneumonia ACS, pericarditis, covid/flu. 14:10 ED course: Workup negative so far. Patient not feeling any improvement. Spoke with sb4 patient's PCP, Dr. Guzmán, who recommended giving patient slow IVF and then reassessing. States she has responded well to fluids in the past. He is okay with admitting her if not.. 15:43 Data reviewed: vital signs, nurses notes, lab test result(s), EKG, radiologic studies. sb4 Management of patient was discussed with the following: Primary Care Provider: Dr. Guzmán. 12/30 11:14 Order name: Basic Metabolic Panel; Complete Time: 12:28 sb4 12/30 11:14 Order name: CBC with Diff; Complete Time: 13:21 sb4 12/30 11:14 Order name: D-Dimer; Complete Time: 12:06 sb4 12/30 11:14 Order name: LFT's; Complete Time: 12:28 sb4 12/30 11:14 Order name: Magnesium; Complete Time: 12:28 sb4 12/30 11:14 Order name: NT PRO-BNP; Complete Time: 12:28 sb4 12/30 11:14 Order name: PT-INR; Complete Time: 12:06 sb4 12/30 11:14 Order name: Troponin HS; Complete Time: 12:28 sb4 12/30 11:14 Order name: XRAY Chest (1 view); Complete Time: 12:28 sb4 12/30 11:14 Order name: EKG; Complete Time: 11:15 sb4 12/30 11:14 Order name: Cardiac monitoring; Complete Time: 11:19 sb4 12/30 11:14 Order name: EKG - Nurse/Tech; Complete Time: 11:33 sb4 12/30 11:14 Order name: IV Saline Lock; Complete Time: 11:48 sb4 12/30 11:14 Order name: Labs collected and sent; Complete Time: 11:48 sb12/30 11:14 Order name: O2 Per Protocol; Complete Time: 11:19 sb4 12/30 11:14 Order name: O2 Sat Monitoring; Complete Time: 11:19 12/30 11:14 Order name: COVID-19/FLU A+B; Complete Time: 12:43 sb4 12/30 12:06 Order name: Chest For PE Angio CT; Complete Time: 13:45 sb4 12/30 13:16 Order name: Manual Differential; Complete Time: 13:21 EDMS EC:42 Rate is 62 beats/min. Rhythm is regular, Normal Sinus Rhythm. MT interval is normal at sb4 192 msec. QRS interval is normal at 82 msec. QT interval is normal at 444 msec. Administered Medications: 11:49 Drug: Aspirin PO Chewable Tablet 324 mg Route: PO; [facility] 16:43 Follow up: Response: No adverse reaction 6 14:29 Drug: NS 0.9% IV 1000 ml Route: IV; Rate: 75 ml/hr; Site: left antecubital; 6 16:43 Follow up: Response: No adverse reaction; IV Status: Completed infusion kc6 Disposition Summary: 12/30/22 16:43 Discharge Ordered Location: Home sb4 Problem: an acute exacerbation sb4 Symptoms: have improved sb4 Condition: Stable sb4 Diagnosis - COPD/ Chronic obstructive pulmonary disease, unspecified sb4 - Dehydration sb4 Followup: sb4 - With: Cayden Guzmán MD - When: Tomorrow - Reason: Recheck today's complaints, Continuance of care, Re-evaluation by your physician Forms: - Medication Reconciliation Form sb4 - Thank You Letter sb4 - Antibiotic Education sb4 - Prescription Opioid Use sb4 Signatures: Dispatcher [employer] Karime Chaudhary RN RN kc6 Mei Nettles PATaco PATaco sb4
[2022-12-30 23:03] VITALS: BP 153/63; O2SAT 100
--- NOTE | 2022-12-31 12:37 | EKG ---
Test Date: 2022-12-30 Test Time: 11:33:34 Export Documents Clerk: JAYDEN MEASUREMENT RESULTS: Intervals: Rate: 62 [place]: 192 QRSD: 82 QT: 444 QTc: 450 [place]: P: 81 [place]: 192 QRS: 67 T: 22 INTERPRETIVE STATEMENTS: Normal sinus rhythm Nonspecific ST abnormality Abnormal ECG Compared to ECG 10/10/2022 00:15:09 ST (T wave) deviation now present Electronically Signed On 12-31-22 12:35:14 CDT by Favian Rasmussen
== END 2022-12-30 16:56 | disposition home or self-care (01) ==
LOC: ER 10:46
DX: J44.9 Chronic obstructive pulmonary disease, unspecified (principal); E86.0 Dehydration; I10 Essential (primary) hypertension; Z20.822 Contact with and (suspected) exposure to COVID-19
CPT/HCPCS: 85025; 80048; 36415; 83735; 85610; 85379; 80076; 84484; 83880; 0240U; 71275; 71045; Q9967; J7030; 93005

== ENCOUNTER 2023-09-09 17:29 | Inpatient (IN) | payer OTHER, BC ==
--- OUTSIDE RECORDS SUMMARY | 2023-09-09 17:32 | XMS REPORT | Continuity of Care Document ---
:1945 Author Organization [facility] t Address [address] [place] [address] [place] [id number] Care Team Providers Name Role Phone Steven Guzmán MD Primary Care Physician Nba Garcias MA Attending Clinician Unavailable Bisi CHACON, Lg Medina Attending Clinician Doctor Unassigned, [place] Attending Clinician Unavailable MACO FULLER Attending Clinician Unavailable Amy Zamorano MD Attending Clinician Maco Fuller DO Attending Clinician Yaron Neal MD Attending Clinician AMY ZAMORANO Attending Clinician Unavailable Call, [facility] Phone Attending Clinician Unavailable Favian Rasmussen Attending Clinician Unavailable Diego Branham Attending Clinician Unavailable YARON NEAL Admitting Clinician Unavailable Yaron Neal MD Admitting Clinician Steven Guzmán Admitting Clinician Unavailable Diego Branham Admitting Clinician Unavailable Payers Payer Name Policy Type Policy Number Effective Date Expiration Date S ource Problems Condition Condition Condition Status Onset Resolution Last Treating Co mments Source Name Details Category Date Date Treatment Clinician Date Paroxysmal Paroxysmal Disease Active U nivers atrial atrial 06-18 ity of fibr[place] COPD COPD Disease Recurre Univers (chronic (chronic nce 06-18 [place]y of obstructiv [place]iv [place] Medical pulmonary pulmonary Bran ch disease) disease) CAD in CAD in Disease Active 2020-10 [facility] [place] [facility] artery artery 00:00: [facility]osp[facility] 00 [...] No Known DA Active U [facility] Allergie 03 Clear s 00:00: [place] 00 [facility] NO KNOWN Drug Active Univers ALLERGIE Class ity of S [facility] Family History Family Member Diagnosis Comments Start Date Stop Date Source Other [facility] Hosp ital Social History Social Habit Start Date Stop Date Quantity Comments Source History of tobacco Current smoker [facility] Sexual orientation [facility] History of Social 2021-07-22 2021-07-[address] function 00:00:00 00:00:00 Hospital Tobacco use and 2017-11-30 2017-11-30 Smokeless [facility] exposure 00:00:00 00:00:00 tobacco non-user Hospital Sex Assigned At [birth year] [facility] 00:00:00 00:00:00 Hospital Smoking Status Start Date Stop Date Source Tobacco smoking [facility] [place] consumption unknown Medical Bran ch Ex-smoker 2017-11-30 00:00:00 2017-11-30 [facility] Ho spital 00:00:00 Medications Ordered Filled Start [...] rs SULFATE 02 ity of INHALE 14:24: [address] fluticasone Yes Inhale Univ ers -umeclidin- 06-19 daily. ity of vilanter 14:24: [place] ([place]RE[place] 58 Medical ELLIPTA) Branch 100-62.5-25 mcg DsDv SERTraline Yes 25mg Take 25 mg U nivers 25 mg 02 by mouth ity of tablet 14:24: in the [place] 58 morning. Medical Branch metoprolol Yes 100mg Take 100 Un padmini succinate 06-19 mg by ity of XL 100 mg 14:24: mouth in [facility] 24 hr 58 the Medical tablet morning. Branch rosuvastati Yes Take by Uni vers n 10 mg 02 mouth. ity of CpSP 14:24: [place] [address] Medical Branch furosemide 0 Yes 40mg Take 40 mg U nivers 40 mg 02 by mouth ity of tablet 14:24: in the [place] [address] morning. Medical Branch amiodarone Yes 200mg Take 200 Un padmini 200 mg 9-02 mg by ity of tablet 14:24: mouth in [place] [address] the Medical morning. Branch diltiazem Yes 240mg Take 240 Uni vers XR 240 mg 9-02 mg by ity of 24 hr 14:24: mouth in [place] [address] the Medical morning. Branch ALBUTEROL Yes Inhale. Unive rs SULFATE 06-19 ity of INHALE 14:24: [place] [address] Medical Branch fluticasone Yes Inhale Univ ers -umeclidin- 06-19 daily. ity of vilanter 14:24: [place] (TRELE 58 Medical ELLIPTA) Branch 100-62.5-25 mcg DsDv SERTraline Yes 25mg Take 25 mg U nivers 25 mg 02 by mouth ity of tablet 14:24: in the [place] [address] morning. Medical Branch metoprolol Yes 100mg Take 100 Un padmini succinate 9-02 mg by ity of XL 100 mg 14:24: mouth in [facility] 24 hr 58 the Medical tablet morning. Branch rosuvastati Yes Take by Uni vers n 10 mg 02 mouth. ity of CpSP 14:24: [place] [address] Medical Branch furosemide Yes 40mg Take 40 mg U nivers 40 mg 02 by mouth ity of tablet 14:24: in the [place] [address] morning. Medical Branch amiodarone Yes 200mg Take 200 Un padmini 200 mg 9-02 mg by ity of tablet 14:24: mouth in [place] [address] the Medical morning. Branch diltiazem 0 Yes 240mg Take 240 Uni vers XR 240 mg 9-02 mg by ity of 24 hr 14:24: mouth in [place] [address] the Medical morning. Branch SERTraline Yes [id number] 25mg 25 mg, Univers (ZOLOFT) 06-19 Oral, ity of tablet 25 14:00: DAILY, [place] 00 First dose Medical on Wed Branch 06/19/22 at 0900, Until Discontinu ed, Routine metoprolol Yes [id number] 100mg 100 mg, Univers succinate 06-19 Oral, ity of XL (TOPROL 14:00: DAILY, [place] XL) tablet 00 First dose Med ical 100 mg on Wed Branch 06/19/22 at 0900, Until Discontinu ed, Routine furosemide Yes [id number] 40mg 40 mg, Univers (LASIX) 06-19 Oral, ity of tablet 40 14:00: DAILY, [place] mg 00 First dose Medical on Wed Branch 06/19/22 at 0900, Until Discontinu ed, Routine diltiazem Yes [id number] 240mg 240 mg, Univers XR 06-19 Oral, ity of (DILT-XR) 14:00: DAILY, [place] capsule 240 00 First dose Me dical mg on Wed Branch 06/19/22 at 0900, Until Discontinu ed, Routine amiodarone Yes [id number] 200mg 200 mg, Univers (PACERONE) 06-19 Oral, ity of tablet 200 14:00: DAILY, [place] mg 00 First dose Medical on Wed Branch 06/19/22 at 0900, Until Discontinu ed, Routine SERTraline 2021- No [id number] 25mg 25 mg, Univers (ZOLOFT) 06-19 Oral, ity of tablet 25 14:00: 21:25 DAILY, [place] mg 00 :00 First dose Medical on Wed Branch 06/19/22 at 0900, Until Discontinu ed, Routine metoprolol 2021- No [id number] 100mg 100 mg, Univers succinate 06-19 Oral, ity of XL (TOPROL 14:00: 21:25 [place]ILY, [place] XL) tablet 00 :00 First dose Med ical 100 mg on Wed Branch 06/19/22 at 0900, Until Discontinu ed, Routine furosemide 2021- No [id number] 40mg 40 mg, Univers (LASIX) 06-19 Oral, ity of tablet 40 14:00: 21:25 DAILY, [place] mg 00 :00 First dose Medical on Wed Branch 06/19/22 at 0900, Until Discontinu ed, Routine diltiazem 2021- No [id number] 240mg 240 mg, Univers XR 06-19 Oral, ity of (DILT-XR) 14:00: 21:25 DAILY, [place] capsule 240 00 :00 First dose Me dical mg on Wed Branch 06/19/22 at 0900, Until Discontinu ed, Routine amiodarone 2021- No [id number] 200mg 200 mg, Univers (PACERONE) 06-19 Oral, ity of tablet 200 14:00: 21:25 [place]ILY, [place] mg 00 :00 First dose Medical on Wed Branch 06/19/22 at 0900, Until Discontinu ed, Routine apixaban Yes [id number] 2.5mg 2.5 mg, Univers (ELIQUIS) 06-19 Oral, BID, ity of tablet 2.5 13:45: First dose [place] mg 00 (after Medical last Branch modificati on) on Wed06/19/22 at 0845, Until Discontinu ed, Routine
Indicatio ns: Non-Valvul ar Atrial Fibrillati on apixaban 2021- No [id number] 2.5mg 2.5 mg, Univers (ELIQUIS) 06-19 Oral, BID, ity of tablet 2.5 13:45: 21:25 First dose [place] mg 00 :00 (after Medical last Branch modificati on) on Wed06/19/22 at 0845, Until Discontinu ed, Routine
Indicatio ns: Non-Valvul ar Atrial Fibrillati on ALBUTEROL Yes Inhale. Unive rs SULFATE 06-19 ity of INHALE 11:20: [address] Branch fluticasone Yes Inhale Univ ers -umeclidin- 06-19 daily. ity of vilanter 11:20: [place] ([place] [address] Medical ELLIPTA) Branch 100-62.5-25 mcg DsDv SERTraline Yes 25mg Take 25 mg U nivers 25 mg 06-19 by mouth ity of tablet 11:20: in the [place] [address] morning. Medical Branch metoprolol Yes 100mg Take 100 Un padmini succinate 06-19 mg by ity of XL 100 mg 11:20: mouth in [facility] 24 hr 12 the Medical tablet morning. Branch rosuvastati Yes Take by Uni vers n 10 mg 06-19 mouth. ity of CpSP 11:20: [place] [address] Medical Branch furosemide Yes 40mg Take 40 mg U nivers 40 mg 02 by mouth ity of tablet 11:20: in the [place] [address] morning. Medical Branch amiodarone Yes 200mg Take 200 Un padmini 200 mg 06-19 mg by ity of tablet 11:20: mouth in [place] [address] the Medical morning. Branch diltiazem Yes 240mg Take 240 Uni vers XR 240 mg 06-19 mg by ity of 24 hr 11:20: mouth in [facility] 12 the Medical morning. Branch rosuvastati Yes [id number] 10mg 10 mg, Univers n (CRESTOR) 902 Oral, QHS, it y of tablet 10 02:00: [place] 00 on [facility] 06/18/22 at Branch 2100, Until Discontinu ed rosuvastati 2021- No [id number] 10mg 10 mg, Univers n (CRESTOR) 9- 09-02 Oral, QHS, i ty of tablet 10 02:00: 21:25 First dose [place] mg 00 :00 on [facility] 06/18/22 at Branch 2100, Until Discontinu ed apixaban Yes 1358 2.5mg Take 1 Univer s 2.5 mg - tablet by ity of tablet 00:00: mouth in [place] [address] the morning Branch and 1 tablet in the evening. Indication s: atrial fibrillati on apixaban Yes 1358 2.5mg Take 1 Univer s 2.5 mg -02 tablet by ity of tablet 00:00: mouth in [place] [address] the morning Branch and 1 tablet in the evening. Indication s: atrial fibrillati on apixaban Yes 1358 2.5mg Take 1 Univer s 2.5 mg 9-02 tablet by ity of tablet 00:00: mouth in [place] [address] the morning Branch and 1 tablet in the evening. Indication s: atrial fibrillati on heparin 2021- No [id number] 18U/kg/ 18 U nivers 25,000 06-18 h Units/kg/h ity of Units/250 23:00: 13:00 r ?64 kg [place] as mL 00 :00 (11.52 Medical (Premixed mL/hr), IV Bran ch Bag) in Infusion, 0.45 % NS TITRATE, Starting on [place] 06/18/22 at 1800, Until Wed06/19/22 at 0800, Routine heparin 2021-2021- No [id number] 18U/kg/ 18 U nivers 25,000 06-18 h Units/kg/h ity of Units/250 23:00: 13:00 r ?64 kg [place] mL 00 :00 (11.52 Medical (Premixed mL/hr), IV Bran ch Bag) in Infusion, 0.45 % NS TITRATE, Starting on [place] 06/18/22 at 1800, Until Wed06/19/22 at 0800, Routine ondansetron Yes 4mg 4 mg, Slow Univers (ZOFRAN 06-18 IV Push, ity of (PF)) 18:12: Q6HPRN, [place] injection 4 30 Starting Medi adeline mg [...] 1625, Routine, Nausea and Vomiting (N/V) HYDROcodone 2021-2021- No 1{tbl} 1 tablet, Univers -acetaminop 06-18 Oral, ity of hen (NORCO 18:12: 18:11 Q6HPRN, [place] as 5) 5-325 mg 25 :25 Starting Medi adeline tablet 1 on [place] Branch tablet 06/18/22 at 1312, Until 06/20/22 at 1311, Routine, Pain (scale 4-6) HYDROcodone 2021-0 2022- No 1{tbl} 1 tablet, Univers -acetaminop 06-18 Oral, ity of hen (NORCO 18:12: 21:25 Q6HPRN, [place] 5) 5-325 mg 25 :00 Starting Medi adeline tablet 1 on [facility] Branch tablet 06/18/22 at 1312, Until 06/19/22 [...] 23 :00 Starting Medic al mg on [facility] Branch 06/18/22 at 1312, Until Wed06/19/22 at 1625, Routine, Pain (scale 1-3) albuterol 2021-0 Yes [id number] 2.5mg 2.5 mg, Univers (PROVENTIL) 06-18 Inhalation it y of 2.5 mg /3 17:34: , Q4HPRN, [place] mL (0.083 45 Starting Medica l %) on [facility] Branch nebulizer 06/18/22 at solution 1234, 2.5 mg Until Discontinu ed, Routine, Shortness of Breath, Wheezing albuterol 2021-0 2021- No [id number] 2.5mg 2.5 mg, Univers (PROVENTIL) 06-18 Inhalation i ty of 2.5 mg /3 17:34: 21:25 , [place]4HPRN, [place] mL (0.083 45 :00 Starting Medica l %) on [facility] Branch nebulizer 06/18/22 at solution 1234, 2.5 mg Until 06/19/22 at 1625, Routine, Shortness of Breath, Wheezing CALCIUM 2020-10 Yes Take by Methodi CARBONATE/V [...] 2-[address] 11:02: Hospita 00 l apixaban 2020-10 Yes 2.5mg Q.5D [...] 2.5mg Q.5D Take 1 Method i (Eliquis) 2- tablet st 2.5 mg 00:00: (2.5 mg Hospita tablet 00 total) by l mouth 2 (two) times a day. apixaban 2020-10 Yes 2.5mg Q.5D Take 1 Method i (Eliquis) 2- tablet st 2.5 mg 00:00: (2.5 mg [...] (two) times a day. digOXIN 2020-10 Yes [id number] Take 1 Meth lyn (LANOXIN) 1-[address] 125 mcg 00:00: mouth once Hosp deion (0.125 mg) 00 daily l tablet digOXIN 2020-10 Yes [id number] Take 1 Meth lyn (LANOXIN) 1-[address] 125 mcg 00:00: mouth once Hosp deion (0.125 mg) 00 daily l tablet digOXIN 2020-10 Yes [id number] Take 1 Meth lyn (LANOXIN) 1-[address] 125 mcg 00:00: mouth once Hosp deion (0.125 mg) 00 daily l tablet digOXIN 2020-10 Yes [id number] Take 1 Meth lyn (LANOXIN) 1-[address] 125 mcg 00:00: mouth once Hosp deion (0.125 mg) 00 daily l tablet digOXIN 2020-10 Yes [id number] Take 1 Meth lyn (LANOXIN) 1-[address] 125 mcg 00:00: mouth once Hosp deion (0.125 mg) 00 daily l tablet apixaban 2020-10- No 5mg Q.5D Take 1 Method i (Eliquis) 5 10-28- tablet (5 st mg tablet 00:00: 00:00 [...] No Take 1 Met hodi mg tablet -06 10- tablet by st 00:00: 00:00 mouth once Hospit a 00 :00 daily l Bystolic 10 2020- No Take 1 Met hodi mg tablet -06 10- tablet by st 00:00: 00:00 mouth once [...] total) by l capsule mouth daily. choline 2020 Yes 135mg QD Take 1 Methodi fenofibrate [address] (TRILIPIX) 00:00: (135 mg Hosp deion 135 mg 00 total) by l capsule mouth daily. digOXIN 2020- No [id number] 125ug QD Take 1 Me thodi (LANOXIN) 05-[address] 125 mcg 00:00: 00:00 (125 mcg Hospi ta (0.125 mg) 00 :00 total) by l tablet mouth daily. digOXIN 2020- No [id number] 125ug QD Take 1 Me thodi (LANOXIN) [...] 12:31:00 164 mm[Hg] Univer sity of pressure [facility] Diastolic blood 2022-06-19 12:31:00 78 mm[Hg] Unive rsity of pressure [facility] Heart rate 2022-06-19 12:31:00 91 /min [facility] Body temperature 2022-06-19 12:31:00 36.33 [facility] saturation in 2022-06-19 12:31:00 92 /min University of Arterial blood by [place] [facility] adeline Pulse oximetry Branch Respiratory rate 2022-06-19 09:30:00 18 /min Univ ersity of [facility] Systolic blood 2022-06-18 14:45:00 158 mm[Hg] Univer sity of pressure [facility] Diastolic blood 2022-06-18 14:45:00 72 mm[Hg] Unive rsity of [facility] Heart rate 2022-06-18 14:45:00 71 /min [facility] Respiratory rate 2022-06-18 14:45:00 20 /min [facility] Oxygen saturation in 2022-06-18 14:45:00 100 /min University of Arterial blood by [employer] adeline Pulse oximetry Branch Body height 2022-06-16 14:10:00 167.6 cm [facility] Body weight 2022-06-16 14:10:00 63.957 kg [facility] BMI 2022-06-16 14:10:00 22.76 kg/m2 [facility] Systolic blood 2021-09-23 17:08:00 230 mm[Hg] [facility] pressure Diastolic blood 2021-09-23 17:08:00 93 mm[facility]Hg[facility] pressure Heart rate 2021-09-23 17:08:00 70 /min [facility] Body height 2021-09-23 17:01:00 167.6 cm [facility] Body weight 2021-09-23 17:01:00 62.052 kg [facility] BMI 2021-09-23 17:01:00 22.08 kg/m2 [facility] Procedures Procedure Date / Time Performing Clinician Source Performed EXTERNAL PROVIDER RECORDS 2022-06-29 05:01:00 Doctor Unassigned, [facility] BASIC METABOLIC PANEL (NA, 2022-06-19 05:29:00 [place], [facility] K, CL, CO2, GLUCOSE, BUN, Medica l Branch CREATININE, CA) CBC WITH DIFF 2022-06-19 05:29:00 [place], [facility] ACTIVATED PARTIAL THRMPLAS 2022-06-19 05:29:00 Amadeo [facility] BASIC METABOLIC PANEL (NA, 2022-06-19 05:29:00 [place], [facility] K, CL, CO2, GLUCOSE, BUN, Medica l Branch CREATININE, CA) CBC WITH DIFF 2022-06-19 05:29:00 Teqwimjacque, [facility] ACTIVATED PARTIAL THRMPLAS 2022-06-19 05:29:00 Amadeo [facility] POCT ACT LOW RANGE 2022-06-18 17:06:00 Artem [facility] POCT ACT LOW RANGE 2022-06-18 17:06:00 Artem [facility] ELECTROPHYSIOLOGY PROCEDURE 2022-06-18 16:49:58 Artem [facility] POCT ACT LOW RANGE 2022-06-18 16:29:00 Lona [facility] POCT ACT LOW RANGE 2022-06-18 16:29:00 Artem [facility] POCT ACT LOW RANGE 2022-06-18 16:07:00 Lona [facility] POCT ACT LOW RANGE 2022-06-18 16:07:00 Artem [facility] POCT ACT LOW RANGE 2022-06-18 15:50:00 Artem [facility] POCT ACT LOW RANGE 2022-06-18 15:50:00 Artem [facility] CATH PROCEDURE LOG 2022-06-18 15:25:11 Amy Zamorano [facility] CATH PROCEDURE LOG 2022-06-18 15:25:11 Amy Zamorano [facility] TRANSESOPHAGEAL ECHO (ALIE) 2022-06-18 14:19:29 Amy Zamorano [facility] COMPLETE W/ DOPPLER AND Medical Branch COLOR HB ECG ROUTINE & RHYTHM 2022-06-18 12:25:50 Amy Zamorano Uni versity [facility] HB ABO GROUPING 2022-06-18 12:10:00 Joes [facility] o f [facility] EXTERNAL PROVIDER RECORDS 2022-06-12 05:01:00 Doctor Unassigned, [facility] Name [facility] EXTERNAL PROVIDER RECORDS 2022-06-12 05:01:00 Doctor Unassigned, [facility] Name [facility] [id number] 2021-10-22 00:00:[address] [facility] [id number] 2021-10-22 00:00:[address] [facility] US RENAL DOPPLER 2021-09-25 17:00:18 Lg [facility]ws [facility] ECG 12-LEAD 2021-09-23 17:05:29 Lg [facility]ws Ho [facility]ital Plan of Care Planned Activity Planned Date Details Comments Source Future Scheduled 2023-08-13 COVID-19 VACCINE (#1) [facility] Hospital Test 02:25:34 [code = COVID-19 VACCINE (#1)] Future Scheduled 2023-08-13 65+ [facility]OCOCCAL [facility] Test 02:25:34 VACCINE (1 - PCV) [code = 65+ PNEUMOCOCCAL VACCINE (1 - PCV)] Future Scheduled 2023-08-13 SHINGLES VACCINES (1 Met [facility] Hospital Test 02:25:34 of 2) [code = SHINGLES VACCINES (1 of 2)] Future Scheduled 2023-08-13 INFLUENZA VACCINE (#1) [facility] Hospital Test 02:25:34 [code = INFLUENZA VACCINE (#1)] Future Scheduled 2022-10-02 INFLUENZA VACCINE [facility] Hospital Test 17:15:31 [code = INFLUENZA VACCINE] Future Scheduled 2022-10-02 COVID-19 VACCINE (#1) [facility] Hospital Test 17:15:31 [code = COVID-19 VACCINE (#1)] Future Scheduled 2022-10-02 65+ PNEUMOCOCCAL Methodi Hospital Test 17:15:31 VACCINE (1 - PCV) [code = 65+ PNEUMOCOCCAL VACCINE (1 - PCV)] Future Scheduled 2022-10-02 Hepatitis C screening [facility] Hospital Test 17:15:31 (procedure) [code = 964930638] Future Scheduled 2022-10-02 SHINGLES VACCINES (1 Met [facility] Test 17:15:31 of 2) [code = SHINGLES VACCINES (1 of 2)] Future Scheduled 2022-10-02 INFLUENZA VACCINE Method [facility] Hospital Test 17:15:31 [code = INFLUENZA VACCINE] Future Scheduled 2022-10-02 COVID-19 VACCINE (#1) [facility] Hospital Test 17:15:31 [code = COVID-19 VACCINE (#1)] Future Scheduled 2022-10-02 65+ [facility]OCOCCAL [facility] 17:15:31 VACCINE (1 - PCV) [code = 65+ PNEUMOCOCCAL VACCINE (1 - PCV)] Future Scheduled 2022-10-02 Hepatitis C screening [facility] Hospital Test 17:15:31 (procedure) [code = 168103333] Future Scheduled 2022-10-02 SHINGLES VACCINES (1 Met [facility] Test 17:15:31 of 2) [code = SHINGLES VACCINES (1 of 2)] Future Scheduled 2022-09-09 HEPATITIS B VACCINES Met [facility] Test 07:58:21 (1 of 3 - 3-dose series) [code = HEPATITIS B VACCINES (1 of 3 - 3-dose series)] Future Scheduled 2022-09-09 COVID-19 VACCINE (#1) [facility] Hospital Test 07:58:21 [code = COVID-19 VACCINE (#1)] Future Scheduled 2022-09-09 65+ PNEUMOCOCCAL Methodi [facility] Test 07:58:21 VACCINE (1 - PCV) [code = 65+ PNEUMOCOCCAL VACCINE (1 - PCV)] Future Scheduled 2022-09-09 Hepatitis C screening [facility] Hospital Test 07:58:21 (procedure) [code = [id number]] Future Scheduled 2022-09-09 SHINGLES VACCINES (1 [facility] Test 07:58:21 of 2) [code = SHINGLES VACCINES (1 of 2)] Future Scheduled 2022-09-09 INFLUENZA VACCINE Method [facility] Hospital Test 07:58:21 [code = INFLUENZA VACCINE] Future Scheduled 2022-09-03 HEPATITIS B VACCINES Met [facility] Test 09:04:03 (1 of 3 - 3-dose series) [code = HEPATITIS B VACCINES (1 of 3 - 3-dose series)] Future Scheduled 2022-09-03 COVID-19 VACCINE (#1) [facility] Test 09:04:03 [code = COVID-19 VACCINE (#1)] Future Scheduled 2022-09-03 65+ [facility]OCOCCAL [facility] 09:04:03 VACCINE (1 - PCV) [code = 65+ PNEUMOCOCCAL VACCINE (1 - PCV)] Future Scheduled 2022-09-03 Hepatitis C screening [facility] Test 09:04:03 (procedure) [code = [id number]] Future Scheduled 2022-09-03 SHINGLES VACCINES (1 Met [facility] Test 09:04:03 of 2) [code = SHINGLES VACCINES (1 of 2)] Future Scheduled 2022-09-03 INFLUENZA VACCINE Method [facility] Test 09:04:03 [code = INFLUENZA VACCINE] Encounters Start End Encounter Admission Attending Care Care Encounter Source Date/Time Date/Time Type Type Clinicians Facility Department ID 2022-09-03 2022-09-03 Orders Nba Garcias 1.2.840.1 [id number] Methodi 00:00:00 00:00:[address] 3.430.2.7 Hospit a .3.446634 l .8 2022-08-20 2022-08-20 Refill Bisi 1.2.840.1 [id number] Methodi 00:00:00 00:00:00 Lg Medina [address]34.1.[address] 3.430.2.7 Hospit a .3.999574 l .8 2022-06-29 2022-06-29 Orders Doctor VIDALES [id number] Univers 00:00:00 00:00:00 Only UnassMAXI boone [id number] ity of [place] [facility] 4.2.7.2.686 [place] as [id number] [facility] [place] 009 Branch 2022-06-18 2022-06-19 Outpatient R [facility] [id number] Univers 07:00:00 12:30:00 MACO ity of [facility] 2022-06-18 2022-06-19 Outpatient R [facility] [id number] Univers 07:00:00 12:30:00 MACO ity of [facility] 2022-06-18 2022-06-19 [facility] 1.2.840. 114 [id number] Univers 07:00:00 12:30:00 Encounter Mariluz Fullery HEALTH [id number] ity of Yaron Neal CLEAR 4.2.7.2.686 [place] MOORE [id number] [facility] 110 Branch ([facility] 2022-06-18 2022-06-[address] [facility] 1.2.840.114 [id number] Univers 09:00:00 11:00:00 [facility] [id number] it y of [place] 4[place]2.686 [place] [phone] [facility] 840 Branch ([facility]) 2022-06-18 2022-06-18 [facility] [id number] Univers 06:57:51 06:59:00 Encounter [facility] [id number] ity of [place].686 [place] [id number] [facility] 851 Branch ([facility]) 2022-06-16 2022-06-16 Outpatient [facility] [id number] Univers 09:30:00 09:30:00 [facility] ity [facility] [place] [facility] 2022-06-16 2022-06-16 Pre-Anesth Call, [facility] [id number] Univers 09:05:00 09:10:00 [facility] Phone HEALTH [id number] ity of Evaluation CLEAR 4.2.7.2.686 T sajan MOORE [phone] [place] [address] Branch ([facility]) 2021-11-26 2021-11-26 Inpatient JAIDA Rasmussen, [facility] OUTD [id number] [facility] 05:24:00 05:24:00 Favian 13 [facility] 2021-10-22 2021-10-22 Inpatient JAIDA Branham, [facility] INTE.02 [id number] [facility] 09:25:00 15:34:00 Diego 65 [facility] 2021-09-25 2021-09-25 Outpatient MATHEWS, [facility] [id number] [place] 00:00:00 00:00:00 LG [address] 2021-09-25 2021-09-25 Travel 1.2.840.1 1.2.665.335 4231 916068 Methodi 00:00:00 00:00:[address] 3.430.2.7 0.2.7.3.698 Ho spita .3.450158 084.8 l .8 2021-09-23 2021-09-23 Office Bisi, 1.2.840.1 [id number] 404045 7842 Methodi 11:00:00 12:42:45 Visit Lg [place]50.1.[address] 3.430.2.7 Hospit a .3.592060 l .8 2021-09-23 2021-09-23 Travel 1.2.840.1 1.2.606.299 7901 357264 Methodi 00:00:00 00:00:[address] 3.430.2.7 0.2.7.3.698 Ho spita .3.290331 084.8 l .8 2021-09-16 2021-09-16 Telephone Bisi, 1.2.840.1 [id number] 2100 715388 Methodi 00:00:00 00:00:00 L[place] [address] 3.430.2.7 Hospit a .3.148711 l .8 2021-09-13 2021-09-13 Refill Bisi, 1.2.840.1 [id number] 466099 0468 Methodi 00:00:00 00:00:00 L[place] [address] 3.430.2.7 Hospit a .3.917527 l .8 2021-07-29 2021-07-29 Outpatient BISI, [facility] [id number] 017 [place] 00:00:00 00:00:[address] LG [address] 2021-07-22 2021-07-22 [id number] 110 [place] 00:00:00 00:00:00 LG [address] 2020-05-28 2020-05-28 [facility] [id number] 393 [place] 00:00:00 00:00:00 LG [address] Results Test Description [...] normal/abnormal. Lab Interpretation (test code Abnormal = 93046-7) [facility] with Hep[facility] Drip[facility]2022-06-19 06:47:24 Test Item Value Reference Range Interpretation Comments APTT Patient (test code See_Comment HH [Au tomated message] = 3173-2) The system NoWaitic h generated this result transmitted ref erence range: 26 - 36 Seconds. The reference range was not used to int erpret this result as normal/abnormal . Lab Interpretation (test Abnormal code = 24616-5) [facility] with Qomvysdzptcg3060-05-36 06:22:37 Test Item Value Reference Range Interpretation Comments WBC (test code = See_Comment [Automated 5490-2) message] The sy stem which generated this [...] RDW-SD (test code = 47.8 fL 39-49.9 85658-9) RDW-CV (test code = 16.0 % 12-15.5 H 788-0) PLT (test code = See_Comment [Automated 777-3) message] The sy stem which generated this result transmitted reference range : 166 - 358 10*3/ ?L. The reference r abdirizak was not used to interpret this result as normal/abnormal . MPV (test code = 8.6 fL 9.5-12.9 L 15043-0) NRBC/100 WBC (test See_Comment [Automat ed code = 5408622597) message] The system which generated this result transmitted reference range : 0.0 - 10.0 /100 WBCs. The refer ence range was not u sed to interpret th is result as normal/abnormal . NRBC x10^3 (test code See_Comment [Auto mated = 4848343856) message] The s ystem which generated this result transmitted reference range : 10*3/?L. The reference range was not used to interpret this result as normal/abnormal . SEG % (test code = 91 % 33-76 H 74253-7) BAND % (test code = 2 % 0-1 H 65543-3) MYELO % (test code = 1 % See_Comment H [Autom ated 66798-7) message] The sy stem which generated this result transmitted reference range : <=0. The refere nce range was not u sed to interpret th is result as normal/abnormal . LYMPH % (test code = 4 % 14-54 L 30430-7) MONO % (test code = 2 % 0-4 70475-8) ANC (test code = 9.69 10*3/uL 1.88-7.09 H 753-4) RITCHIE CELLS (test code 2+ See_Comment A [Auto mated = 7790-9) message] The sy stem which generated this result transmitted reference range : (none). The reference range was not used to interpret this result as normal/abnormal . Lab Interpretation Abnormal (test code = 68253-8) [facility] with Hcfaraslbvga8352-52-09 06:22:37 Test Item Value Reference Range Interpretation [...] RDW-SD (test code = 47.8 fL 39-49.9 93189-9) RDW-CV (test code = 16.0 % 12-15.5 H 788-0) PLT (test code = See_Comment [Automated 777-3) message] The sy stem which generated this result transmitted reference range : 166 - 358 10*3/ ?L. The reference r abdirizak was not used to interpret this result as normal/abnormal . MPV (test code = 8.6 fL 9.5-12.9 L 09263-9) NRBC/100 WBC (test See_Comment [Automat ed code = 0948499615) message] The system which generated this result transmitted reference range : 0.0 - 10.0 /100 WBCs. The refer ence range was not u sed to interpret th is result as normal/abnormal . NRBC x10^3 (test code See_Comment [Auto mated = 1971910990) message] The s ystem which generated this result transmitted reference range : 10*3/?L. The reference range was not used to interpret this result as normal/abnormal . SEG % (test code = 91 % 33-76 H 54085-5) BAND % (test code = 2 % 0-1 H 90336-6) MYELO % (test code = 1 % See_Comment H [Autom ated 34303-0) message] The sy stem which generated this result transmitted reference range : <=0. The refere nce range was not u sed to interpret th is result as normal/abnormal . LYMPH % (test code = 4 % 14-54 L 96241-0) MONO % (test code = 2 % 0-4 90204-3) ANC (test code = 9.69 10*3/uL 1.88-7.09 H 753-4) RITCHIE CELLS (test code 2+ See_Comment A [Auto mated = 4290-9) message] The sy stem which generated this result transmitted reference range : (none). The reference range was not used to interpret this result as normal/abnormal . Lab Interpretation Abnormal (test code = 21301-6) [facility] Metabolic Panel (NA, K, CL, CO2, GLUCOSE, BUN, CREATININE, CA)2022-06-19 05:51:33 Test Item Value Reference Range Interpretation Comments NA (test code = 135 mmol/L 135-145 8986530783) K (test code = 3.3 mmol/L 3.5-5 L 1276339618) CL (test code = 96 mmol/L 98-108 L 9178085557) CO2 TOTAL (test code = 31 mmol/L 23-31 8722044893) AGAP (test code = 2-16 2527117037) BUN (test code = 15 mg/dL 7-23 7135042582) GLUCOSE (test code = 210 mg/dL 70-110 H 3628467933) CREATININE (test code = 0.82 mg/dL 0.5-1.04 1309056821) CALCIUM (test code = 8.5 mg/dL 8.6-10.6 L 2298261411) eGFR (test code = mL/min/1.73m2 7101258451) VIK (test code = VIK) Association of [...] tests). Lab Interpretation Abnormal (test code = 88881-5) [facility] (NA, K, CL, CO2, GLUCOSE, BUN, CREATININE, CA)2022-06-19 05:51:33 Test Item Value Reference Range Interpretation Comments NA (test code = 135 mmol/L 135-145 0616364792) K (test code = 3.3 mmol/L 3.5-5 L 0112839180) CL (test code = 96 mmol/L 98-108 L 7944720113) CO2 TOTAL (test code = 31 mmol/L 23-31 6454179598) AGAP (test code = 2-16 0162312995) BUN (test code = 15 mg/dL 7-23 4542981571) GLUCOSE (test code = 210 mg/dL 70-110 H 0434567028) CREATININE (test code = 0.82 mg/dL 0.5-1.04 8239664798) CALCIUM (test code = 8.5 mg/dL 8.6-10.6 L 1464845577) eGFR (test code = mL/min/1.73m2 7727830860) VIK (test code = VIK) Association of [...] tests). Lab Interpretation Abnormal (test code = 31151-4) [facility] ACT LOW [id number] 21:01:51 Test Item Value Reference Range Interpretation Comments ACTLR (test code = See_Comment H [Automat ed message] 1473043719) The system [employer] generated this result transmitted ref erence range: 89 - 169 Seconds. The reference range was not used to int erpret this result as normal/abnormal . Lab Interpretation (test Abnormal code = 92437-1) [facility] ACT LOW [id number] 21:01:51 Test Item Value Reference Range Interpretation Comments ACTLR (test code = See_Comment [Automat ed message] 1746164381) The system [employer] generated this result transmitted ref erence range: 89 - 169 Seconds. The re ference range was not u sed to interpret this result as normal/abnor mal. Lab Interpretation (test Normal code = 46949-5) [facility] ACT LOW [id number] 21:01:51 Test Item Value Reference Range Interpretation Comments ACTLR (test code = See_Comment H [Automat ed message] 3463325111) The system [employer] generated this result transmitted ref erence range: 89 - 169 Seconds. The reference range was not used to int erpret this result as normal/abnormal . Lab Interpretation (test Abnormal code = 71327-1) [facility] ACT LOW [id number] 21:01:51 Test Item Value Reference Range Interpretation Comments ACTLR (test code = See_Comment [Automat ed message] 5755999207) The system [employer] generated this result transmitted ref erence range: 89 - 169 Seconds. The re ference range was not u sed to interpret this result as normal/abnor mal. Lab Interpretation (test Normal code = 85026-5) [facility] ACT LOW [id number] 21:01:50 Test Item Value Reference Range Interpretation Comments ACTLR (test code = See_Comment H [Automat ed message] 0524507577) The system [employer] generated this result transmitted ref erence range: 89 - 169 Seconds. The reference range was not used to int erpret this result as normal/abnormal . Lab Interpretation (test Abnormal code = 74006-3) [facility] ACT LOW [id number] 21:01:50 Test Item Value Reference Range Interpretation Comments ACTLR (test code = See_Comment H [Automat ed message] 6170757980) The system [employer] generated this result transmitted ref erence range: 89 - 169 Seconds. The reference range was not used to int erpret this result as normal/abnormal . Lab Interpretation (test Abnormal code = 76491-2) [facility] ACT LOW [id number] 21:01:45 Test Item Value Reference Range Interpretation Comments ACTLR (test code = See_Comment H [Automat ed message] 2474140469) The system [employer] generated this result transmitted ref erence range: 89 - 169 Seconds. The reference range was not used to int erpret this result as normal/abnormal . Lab Interpretation (test Abnormal code = 54152-9) [facility] ACT LOW [id number] 21:01:45 Test Item Value Reference Range Interpretation Comments ACTLR (test code = See_Comment H [Automat ed message] 4497795633) The system [employer] generated this result transmitted ref erence range: 89 - 169 Seconds. The reference range was not used to int erpret this result as normal/abnormal . Lab Interpretation (test Abnormal code = 82359-4) [facility]2022-06-18 18:15:42 Test Item Value Reference Range Interpretation Comments Height (test code = in 5224493307) Weight (test code = lbs 6847915607) Systolic BP (test mmHg code = 0558358125) Diastolic BP (test mmHg code = 5908508018) Heart Rate (test code bpm = 6734032930) BSA (test code = 1.72 m2 1402278974) Radiology Study observation (narrative) (test code = 94335-5) VIK (test code = VIK) Formatting of [...] captured. The probe was inserted by the nut sheller machine operator. There was no probe insertion difficulty.There were 1 attempts to insert the probe. Probe in 08:17 am. Probe out 08: 39 am. Sedation and monitoring provided by anesthesia, see Epic documentation. There were no complications during the procedure. Based on abnormal findings of 2D echocardiogram, 3D was performed on an acquisition scanner for further assessment of the left atrium. [facility] Antonio[facility] and Screen - ONCE [id number] 13:33:41 Test Item Value Reference Range Interpretation Comments ABO & RH (test code O Positive Performe d at [facility] = 20) Laboratory [facility] [address] [place], [place] [address]Toll Free: [phone] 266CLIA No. [id number] IAT (test code = Negative Performed a t [facility] 1185) Laboratory [facility] [address] [place], [place] [address]Toll Free: [phone] 266CLIA No. [id number] [facility]ABOLIC [id number] 12:58:00 Test Item Value Reference Range Interpretation [...] = 9.8 mg/dL 8.0-10.5 N CA) PROTHROMBIN [id number] 12:46:00 Test Item Value Reference Range Interpretation [...] (to prevent recurrent infar ct). CBC W/AUTO [id number] 12:39:00 Test Item Value Reference Range Interpretation [...] x10 3/uL 0.0-0.1 N NRBC#) COAGULATION TIME [id number] 10:50:00 Test Item Value Reference Range Interpretation Comments COAGULATION TIME 317 SECONDS Performed b y ACTIVATED (test code = certi fied senior system operator ACT) at [facility] COAGULATION TIME [id number] 10:50:00 Test Item Value Reference Range Interpretation Comments COAGULATION TIME 285 SECONDS Performed b y ACTIVATED (test code = certi fied senior system operator ACT) at [facility] - XR CHEST 1 [id number] 00:00:00 [facility] : 1945 Sex: F FAX: Favian Garcia MD [phone] [place]: St: [facility] FAX: Steven Garcia MD [phone] FAX: Yifan Catalan F [phone] Name: KAVITHA BRANHAM [facility] : 1945 Age/S: 76/F [address] [place] [address] Unit #: [id number] Loc: [place] [address] Phys: Yifan Catalan [facility] Acct: [id number] Dis Date: Status: ADM IN PHONE #: [phone] Exam Date: 10/22/2021 1308 FAX #: [phone] Reason: WATCHMAN EXAMS: CPT CODE: [id number] XR CHEST 1 V 14720 PROCEDURE INFORMATION: Exam: XR Chest Exam date and time:10/22/2021 11:42 AM Age: 76 years old Clinical [...] pulmonary venous congestion with bilateral perihilar and basilarinterstitial opacities, suggesting pulmonary edema within the lungs. [...] Nicko Vidales M.D. CC: Favian Rasmussen MD; Steven Guzmán MD; Yifan Catalan Technologist: DON Sutherland) Trnscrd Date/Time/By: 10/22/2021 (3025) : By: [email or web address] Orig Print D/T: S: 10/22/2021 (2775) PAGE 1 Signed ReportCBC W/AUTO [id number] 15:26:00 Test Item Value Reference Range Interpretation [...] (test code NO = MDIFF) BASIC METABOLIC [id number] 15:25:00 Test Item Value Reference Range Interpretation [...] code = 9.7 mg/dL 8.0-10.5 N CA) [id number] 15:25:00 Test Item Value Reference Range Interpretation Comments PREALBUMIN (test code = PREALB) 18.0 mg/dL 16.0-40.0 N PROTHROMBIN [id number] 15:23:00 Test Item Value Reference Range Interpretation [...] recurrent infar ct). COVID 19 Asymptomatic IH [id number] 13:58:00 Test Item Value Reference Range Interpretation [...] waivedcomplexit y tests. - XR CHEST 2 [id number] 00:00:00 [facility] : 1945 Sex: F FAX: Favian Garcia MD [phone] [place]: St: PRE FAX: Steven Garcia MD [phone] Name: KAVITHA BRANHAM [facility] : 1945 Age/S: 76/F [address] [place] [address] Unit #: [id number] Loc: [place] [address] Phys: Favian Rasmussen MD Acct: [id number] Dis Date: Status: PRE SDC PHONE #: [phone] Exam Date: 10/20/2021 1501 FAX #: [phone] Reason: PREOP EXAMS: CPT CODE: [id number] XR CHEST 2 V 76658 PROCEDURE INFORMATION: Exam: XR Chest Exam date [...] Niharika Willard M.D. CC: Favian Rasmussen MD; Steven Guzmán MD Technologist: Tsering Guerrero RT(R) Trnscrd Date/Time/By: 10/20/2021 (1531) : By: [email or web address] Orig Print D/T: S: 10/20/2021 (153) PAGE 1 Signed ReportECG 12 [id number] 20:48:45 Test Item Value Reference Range Interpretation [...] wave inversion [facility] [id number] 20:48:45 Test Item Value Reference Range Interpretation [...] wave inversion now evident in Lateral leads- [facility] Notes Date/Time Note Provider Source 2021-12-17 16:40:00 [id number]:40:[id number] [place] [address] PATIENT NAME: KAVITHA BRANHAM ADMIT DATE: 11/26/21ACCOUNT NO: [id number] ROOM NO: AGE: 76 REPORT TYPE: eTRANSESOPHAGEAL ECHO REPORT SEX: F ADMITTING PHYSICIAN: LAMONT Escobedo PHYSICIAN:Favian Rasmussen MD *[address] [address]Ttwwm: [phone]: [phone] Transesophageal Echocardiogram Patient: Catrachito Branhamtudy Date: 11/26/2021 BP: Location: [place]: [id number] : 1945 Age: 76 Height: 66 in / 167.6 cmAccession#: [id number] Gender: F Weight: 133.7 lb / 60. 8 kgBMI/BSA: 21.6 kg/m 2 / 1.68 m 2 *Ordering Physician: * Favian Rasmussen *Interpreting Physician: * Valery Ballesteros MD*Marketing Systems Manager: * Jameson Barrganga - Indications: POST WATCHMAN. - Study data: Consent: The risks, benefits, and alternatives to theprocedur e were explained to the patient and informed consent wasobtained. Procedure: Initial setup: [facility].Intravenous access was obtained. SurfaceECG leads and pulse oximetric signals wer e monitored. Sedation. Moderatesedation was administered by cardiology staff. Transesophagealechocardiography was performed. Topical anesthesia was obtained usingviscous lidocaine. A transesophageal probe (SN: [id number]) was inserted bythe attending nut sheller machine operator nirav dominguez. Study completion: Thepatient tolerated the procedure well. There were no complications. - Findings Left ventricle: The cavity size is normal. Wall thickness is normal.PATIENT NAME: KAVITHA BRANHAM Systolic function is normal. The estimated ejection fraction is 55-60%.Wall motio n is normal; there are no regional wall motion abnormalities.Right ventricle: The cavity size i s normal. Systolic function isnormal.Left atrium: The atrium is dilated. Post Watchman: There is n o evidenceof residual flow around the Watchman occluder device.Right atrium: The atrium is dilated.Atrial septum: There is a xdir-dt-vwvbv shunt.Mitral valve: There is mild regurgitation.Tricuspid valve: There is mild regurgitation. - Conclusions Summary: 1. Left ventricle: The cavity size is normal. Wall thickness is normal. Systolic function is normal . The estimated ejection fraction is 55-60%. Wall motion is normal; there are no regional wall motion abnormalities.2. Left atrium: The atrium is dilated. Post Watchman: There is no evidence of residual flow around the Watchman occluder device.3. Right atrium: The atrium is dilated.4. Atrial septum: There is a ulic-fh-fvlnr shunt. Prepared and electronically signed by Valery Ballesteros MD12/17/2021 16:40 at 1640 PATIEN T NAME: KAVITHA BRANHAM nrwpcmo1720-64-41G60:40:00G.[id number] a ilable for patient ejpqCCRMJTTIAJJGLU1330-63-13D85:41:34 2021-10-29 15:06:00 [id number]:06:878430-8392 [place] [address] PATIENT NAME: KAVITHA BRANHAM ADMIT DATE: 10/22/21ACCOUNT NO: [id number] ROOM NO: [facility] AGE: 76 REPORT TYPE: eTRANSESOPHAGEAL ECHO REPORT SEX: F ADMITTING PHYSICIAN:Diego Branham MD ATTENDING PHYSICIAN:Diego Branham MD *[place] [id number]: Wqf: [phone] Transesophageal Echocardiogram for Watchman Patient: Catrachito Branhamtudy Date: 10/22/2021 BP: Location: [place]: [id number] : 1945 Age: 76 Height: / Gender: F Weight: /BMI/BSA: / *Ordering Physician: Favian Swanson *Interpreting Physician: Catracho Ballseteros MD - Indications: WATCHMAN. - Study data: Transesophageal Echocardiogram for Watchman. Consent: Therisks, benefits, and alternatives to the procedure and sedation wereexplained to the patient and informed consent was obtained. Procedure:Initial setup: The patient was brought to the laboratory in the fastingstate.Intravenou s access was obtained. Surface ECG leads, blood pressuremeasurements, and pulse oximetric signal s were monitored. Sedation. Deepsedation was administered by anesthesiology staff. Transesophagealechocardiography was performed. A transesophageal probe (SN: [id number])was inserted by the anesthesiologist. Images were obtained using makexyz cardiac ultrasound machine. Study completion: The patienttolerated the procedure well. There were no complications. - Findings - Conclusions Summary:PATIENT NAME: KAVITHA BRANHAM 1. Study data: Transesophageal Echocardiogram for Watchman.2. Procedure narrative: Transesophageal echocardiography was performed. A transesophageal probe (SN: [id number] ) was inserted by the anesthesiologist. Images wer e obtained using a SIEMENS cardiac ultrasound machine. Prepared and electronically signed by Valery Ballesteros MD10/29/2021 15:06 at 1506 PATIENT NAME: KAVITHA BRANHAM fttqnfr7643-83-68X85:06:00G.[id number] a ilable for patient zwyeDFEILHOYALMNMP0794-70-31G25:06:40 2021-10-22 15:29:00 [id number]:29:[id number] [place] [address] PATIENT NAME: KAVITHA BRANHAM ADMIT DATE: 10/22/21ACCOUNT NO: [id number] [facility] 76 REPORT TYPE: eECHOCARDIOGRAM REPORT SEX: F ADMITTING PHYSICIAN:Diego Branham MD ATTENDING PHYSICIAN:Diego Branham MD *[place], [place] [address]Phone: Xwz: [phone] Limited Transthoracic Echocardiogra m Patient: Catrachito Branhamtudy Date: 10/22/2021 BP: 160 / 71 Location: [place]: [id number] : 1945 Age: 76 Height: 66 in / 167.6 cmAccession#: [id number] Gender: F Weight: 129.7 lb / 59 kgBMI/BSA: 21 kg/m 2 / 1.66 m 2 *Ordering Physician: * Yifan Catalan *Aidee escobedo Physician: * Guanako Naranjo MD*Marketing Systems Manager: * Sheree Barr - Indications: POST WATCHMAN. - Study data: Transthoracic echocardiogram, limited study. Procedure:Transthoracic echocardiography was performed. Image quality wasadequate. Limited 2D and limited spectral Doppler. Location: Bedside. Patient status: Inpatient. Patient room number: CVPACU. Study status: Routine. - Findings Left ventricle: The cavity size is normal. Wall thickness is normal.Systolic function is normal. The estimate d ejection fraction is 55-60%.Wall motion is normal; there are no regional wall motion abnormalities.Right ventricle: The cavity size i s normal. Systolic function isnormal.Ventricular septum: The ventricular septum is normal.PATIENT NAME: KAVITHA BRANHAM Left atrium: The atrium is dilated.Right atrium: The atrium is dilated.Pericardium: There is no pericardial effusion. - Measurements Left ventricle Value Ref JUAN, LAX 4.0 cm 3.8 - 5.2 ESD, LAX 2.8 cm 2.2 - 3.5 ESD/bsa, LAX 1.7 cm/m 2 1.3 - 2.1 FS, LAX 30 % 27 - 45 ESD/bsa major ax, A4C 3.1 cm/m 2 --------- JUAN/bsa minor ax, A4C 3.1 cm/m 2 --------- JUAN major ax, A2C 5.6 cm --------- JUAN/bsa major ax, A2C 3.4 cm/m 2 --------- PW, ED 1.3 cm 0.6 - 0.9 IVS/PW, ED 1.0 7 --------- EF 58 % 54 - 74 LVOT Value Ref Diam, S 1.87 cm --------- Area 2.7 cm 2 --------- Ventricular septum Value Ref IVS, ED 1.4 cm 0.6 - 0.9 Right ventricle Value Ref JUAN, LAX 2.5 cm --------- Left atrium Value Ref Vol/bsa, ES, 1-p A4C 42 ml/m 2 11 - 40 Vol/bsa, ES, A/L 44 ml/m 2 16 - 34 AP dim, ES MM 3.9 cm 2.7 - 3.8 LA/Ao andree t ratio, MM 1.24 --------- Aortic valve Value Ref Leaflet sep, MM 1.87 cm --------- Mitral valve Value Ref E-septal separation 0.5 cm --------- E-F slope 0.13 m/sec --------- Aortic root Valu e Ref Root diam, ED MM 3.16 cm --------- - Conclusions Summary: 1. Left ventricle: The cavity size is normal. Wall thickness is normal. Systolic function is normal . The estimated ejection fraction is 55-60%. Wall motion is normal; there are no regional wall motionPATIENT NAME: KAVITHA BRANHAM abnormalities.2. Left atrium: The atrium is dilated.3. Right atrium: The atrium is dilated.4. Pericardium, extracardiac: There is n o pericardial effusion. Prepared and electronicall y signed by Guanako Naranjo MD10/22/2021 15:29 at 1529 PATIENT NAME: KAVITHA BRANHAM :29: 0 0G.[id number] for patient uuelCAKTTMBCXSVIJR8934-97-22W15:29:39 2021-10-22 13:10:00 [id number]:10:00 [facility] ([facility])Discharge SummaryREPORT#:[id number] REPORT STATUS: SignedDATE:10/22/21 TIME: 1310 PATIENT: KAVITHA BRANHAM UNIT #: [id number]#: [id number] [address] AGE: 76 SEX: F ATTEND: Diego Branham [facility] AUTHOR: Yifan Catalan LINER HELPER * ALL edits or amendments must be made on the electronic/computer document * Yifan Catalan 10/22/21 1310:PCP PCPDischarge to: home General InformationDischarge date: 10/22/21Hospital course:Patient with paroxysmal atrial fibrillation, CHADSVASC score of 6, and intolerance to long-term anticoagulation due to GI bleeding. Patient is s/p successful implantation of a 35mm Watchman device in the left atrial appendage. Patient tolerated the procedure without post-op complications. No thrombus was identified in the pre-/intra-op ALIE . Postoperatively, chest x-ray is negative for any acute process. Post-op echo didnot show a pericardial effusion. Patient ambulated without any difficulty, and heart rate and blood pressur e are stable. Right groin suture removed by this RESEARCH PHARMACIST. No infection, bleeding, or hematoma. Dermabond applied and intact. Patient was provided with post-Watchman discharge instructions. Patient is to follow up with PCP and nut sheller machine operator in 1 to 2 weeks post discharge. Patient is to follow up with nut sheller machine operator for th e 45-day ALIE, and for anticoagulation recommendation. Patient is to continue Eliquis until the 45-day ALIE. If the 45-day ALIE shows a well-seated watchman device with no leaks or thrombus,then Eliquis will be discontinued and the patient will be initiated on aspirin and Plavix. Duration of aspirin is lifelong. Duratio n of Plavix is 6 months post 45-day ALIE. Post-Watchman discharge instructions given to th e patient who verbalized understanding, and francisco t was instructed to report any complaints of chest pain, shortness of breath, lightheadedness, or dizziness to the nut sheller machine operator. Dispo: It is medically necessary that patients undergoing percutaneous left atrial appendage occlusion are admitted as an inpatient. This patient had a recovery that was earlier than expected and can be discharged today. Med Rec PCPPCP:PCP: Steven Guzmán MD Med RecDischarge meds:Continue taking these medications:APIXABAN (ELIQUIS) 2.5 MG TAB 2.5 MILLIGRAM ORAL TWICE DAILY. METOPROLO L TARTRATE (LOPRESSOR) 100 MG TAB 100 MILLIGRAM ORAL TWICE DAILY. Fluticasone/Umeclidin/Vilanter (TRELEGY ELLIPTA 100-62.5-25) 100-62.5 BLST.W.DE V 1 PUFF INHALATION DAILY. ALBUTEROL (PROAIR HFA 9 0 MCG/ACT 8.5 GM) 90 MCG INHALER Start taking the following new medications:amLODIPine (NORVASC) 1 0 MG TAB 10 MILLIGRAM ORAL DAILY. Days = 30 Qty = 30 Refills = 3 ObjectiveVS/I OLast Documented: Result Date Time O2 Delivery Nasal cannula 10/22 1203 O2 Flow Rate 2 10/22 1203 Pulse Ox 100 01/0 5 1040 B/P 160/71 10/22 1040 B/P Mean 100 10/22 1040 Temp 36.6 10/22 1040 Pulse 56 10/22 1040 Resp 23 10/22 1040 PATIENT WEIGHT: Weight (lb): 130Weight (oz): 8.22Weight (kg): 59.200 General appearance: alert, awake, orientedRespiratory: clear to auscultation, no distressGI: soft, non-tenderExtremities: moves allNeuro/BINDERY WORKER: alert , oriented X 3Skin: dryWound/incision: Location:Right groin suture removed by this RESEARCH PHARMACIST. No infection, bleeding, or hematoma. Dermabond applied and intact. Treatments ProceduresTreatments Procedures:Left atrial appendage closure using a 35 mm Watchman FLX closure device.Imaging:Recent Impressions:RADIOLOGY - XR CHEST 2 V 10/20 1501 Report Impression - Status: SIGNED Entered: 10/20/2021 1532 IMPRESSION: 1. No acute cardiopulmonary disease.2. Atherosclerotic disease. Impression By: [id number] Corrine Willard M.D. Discharge Instructions PCPPCP:PCP: Steven Guzmán MD )( Discharge to: Home/Self Care Discharge InstructionsAdditional Discharge Routines: Attending Follow-Up)( Diet: Cardiac)( Activity: As Tolerated Follow-up AppointmentsAttending Physician: Attending Physician: Favian Rasmussen MD Attending physician follow up timeframe: In 1-2 weeks Quality: Gen Med Crit Care VTE ProphylaxisVTE prophylaxis initiated: yes Advanced Care Plan 65 or OlderDiscussed with: patientDiscussion included: living will, power o f assistant pressman, code status at 1559 at 1606 RPT #:[id number] OF REPORTDSDischarge [id number]:10:00G.[id number] v ailable for patient [id number]:59:27 2021-10-22 10:18:00 [id number]:[id number] [address] PATIENT NAME: KAVITHA BRANHAM ADMIT DATE: 10/22/21ACCOUNT NO: [id number] ROOM NO: CORY AGE: 76 REPORT TYPE: eELECTROCARDIOGRAM REPORT SEX: F ADMITTING PHYSICIAN:Diego Branham MD ATTENDING PHYSICIAN:Diego Branham MD Order:[id number] Reason : [id number] Test Date/Time Stamp:WedOct 22 2021 10:18:11Blood Pressure : / mmHGVent. Rate : 052 BPM Atrial Rate : 052 BPM P-R Int : 192 ms QRS Dur : 084 ms QT Int : 402 ms P-R-T Axes : 089 028 269 degrees QTc Int : 373 ms Sinus bradycardia with marked sinus arrhythmiaNonspecific ST and T wave abnormalityAbnormal ECGPRE_OPConfirmed by STEVEN BANKS MD ([id number]) on 10/22/2021 10:38:18 AM Referred By: Favian Rasmussen Confirmed by:STEVEN BANKS MD at 1038 PATIENT NAME: KAVITHA BRANHAM .[id number] AVAvailable for patient [id number]:38:35 2021-10-22 08:51:00 [id number] [address] PATIENT NAME: KAVITHA BRANHAM ADMIT DATE: 10/22/21ACCOUNT NO: [id number] ROOM NO: CORY AGE: 76 REPORT TYPE: OPERATIVE REPOR T SEX: F ADMITTING PHYSICIAN:Diego Branham MD ATTENDING PHYSICIAN:Diego Branham MD OPERATION DATE: 10/22/2021 PROCEDURE PERFORMED: Left atrial appendage closure using a 35 mm Watchman FLXclosure device. ACCESS: Right femora l vein, 16-Tongan closed with farnoc-bf-bympy suture. INDICATIONS: Atrial fibrillation with high risk for stroke and history of GIbleed, intolerant of anticoagulants. COMPLICATIONS: None. BLEEDING: Less than 50 mL. DESCRIPTION OF PROCEDURE: After risks, benefits, and alternatives wereexplained, the patient agreed t o procedure and signed informed consent. Thepatien t was brought into the cardiac catheterization laboratory, prepped anddraped in usual sterile fashion. General anesthesia was applied by anesthesiateam and ALIE probe was inserted by the same team. Preprocedure ALIE was done andno thrombus in the left atrial appendage is seen. Then, we charged the paddleswith 200 joules and synchronized cardioversion was done and converte d the rhythmto sinus. Then, I took a micropuncture kit and accessed right femoral veinusing ultrasound guidance and placed an 8-Tongan Ethel sheath and thenupgraded to 16-Tongan Cook sheath, gave partial dose of heparin, then took theSL1 sheath over the wire into the SVC an d with the Rochester needle inside,descended into the interatrial septum under the guidance of ALIE and fluoroscopyand in the low mid position. The transseptal puncture was performedsuccessfully. LA pressure was measured at 12 mmHg. Then, a ful l dose ofheparin was given to assure ACT level above 250. Then, I took ProTrack wireinto the left atrium, exchanged the SL1 sheath for the Watchman double curvesheath that was placed in the left atrium. Then, I took a pigtail through theWatchman sheath into the left atrium and navigated that into the appendage andtelescoped the Watchman sheath over it into the appendage and angiogram of theappendage was done and determined the 35 mm device will be suitable for closure. The device was prepped and de-aired in the usual sterile fashion and then tookthe pigtail out after a good bleed back from the sheath and with a positiveflush through the device delivery system. The delivery system was introducedthrough the Watchman sheath and advanced into the left atrial appendage and thenunder fluoroscopy and ALIE guidance device wa s deployed successfully PASScriteria were all evaluated and are met such a device was released in place andit was in a stable position. Deliver y system and Watchman sheath was removedand the Cook sheath was removed and hxysln-dq-qyxos suture was used for closurewith good hemostasis. PATIENT NAME: KAVITHA BRANHAM CONCLUSION: Successful left atrial appendage closure using 35 mm Watchman FLXclosur e device. PLAN: Monitor for the next 5 hours if no bleeding and no effusion on echo. Thepatient pallavi l be discharged home to continue Eliquis for 6 weeks. Follow up withme in the office in 2 weeks . Dictated By: Favian Rasmussen MD WT: OP:G.ÁNGEL/ELEAZAR/NTSDD: 10/22/2021 08:51:14DT: 10/22/2021 10:31:31Conf#: [id number]/DID#: [id number] Authenticated by Favian Rasmussen MD On 10/22/2021 04:04:20 PM at 0404 PATIENT NAME: KAVITHA BRANHAM [id number]:31:00G.[id number] i lable for patient [id number]:04:58 2021-10-20 14:58:00 [id number]:58:00 [facility]Hospitalist History PhysicalREPORT#:[id number] REPORT STATUS: SignedDATE:10/20/21 TIME: 1458 PATIENT: KAVITHA BRANHAM UNIT #: [id number]#: [id number] ROOM/BED:: 43 AGE: 76 SEX: F ATTEND: Favian Rasmussen MDADM AUTHOR: nAders Howe MD * ALL edits or amendments must be made on the electronic/computer document * History of Present Illness HPIChief complaint:HERE FOR PREOP EVAL FOR WATCHMANPCP:PCP: Steven Guzmán MD HPI:76 WF WIT H HTN, COPD, HLP, CHRONIC A.FIB, DX SINCE 08/2021, ON ELIQUIS, WHITE COAT SYNDROME, AND RECENT ANEMIA WITH NEGAIVE GI W/U, AND EASY BRUISING. HER DAUGHTER AT BROUGHT HER TODAY, SHE HAS NO CP/COUGH/N/V/D/SICK CONTACT/F/C. SHE HAS CHRONIC STEINBERG IF WALKING OUTSIDE OF HER HOUSE. 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 Medication/Allergy-Vaccine HxMedications:Home Medications:amLODIPine (NORVASC) 10 MG PO DAILY Allergies:Coded Allergies:No Known Allergies (10/20/21) Review of Systems Free Text ROS NotesFree Text ROS Notes:12 POINT TSERING WERE NEGATIVE. Physical ExamVS/I O:Patient Weight and BMI Weight (kg): 59.200 BMI: 21.1 General appearance: chronically ill appearing, frail, alert, awake, orientedENT: normal noseNeck: no JVDCardiovascular: irregularly irregular, normal heart soundsRespiratory: aerating well, clear to auscultationAbdomen: non-tender, normal bowel sounds, softExtremities: no edemaMusculoskeletal : normal inspectionNeuro/BINDERY WORKER: alert, oriented X 3, normal speech, no motor deficitsSkin: normal colorPsychiatry: normal affect ResultsFindings/Data:Laboratory Tests: 10/20 1234 Serology SARS-CoV-2 Ag (Rapid) (Negative) Negative Diagnosis, Assessment PlanFree Text A P:CHRONIC A.FIB WITH H/O ANEMIA/EASY BRUISING - PLAN FOR WATCHMAN, LABS PENDING, CARD SEEN HTN - NOW HIGH, 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, ADD NORVASC 10 MG, AND NEED F/U WITH PCP/CARD TO ADJUST, DAILY BP MONITOR AT HOME H/O COPD - STABLE, ON NO MEDS DVT PX - ON ELIQUIS NOW Quality: Gen Med Crit Care VTE ProphylaxisVTE prophylaxis initiated: yes Advanced Care Plan 65 or OlderDiscussed with : patientDiscussion included: living will, power o f assistant pressman, code status at 1506 RPT #:[id number] OF REPORTHPHistory and physical [id number]:58:00G.[id number] 2 AVAvailable for patient [id number]:07:02 2021-10-20 14:12:00 [id number] [facility] [place] [address] PATIENT NAME: KAVITHA BRANHAM ADMIT DATE: ACCOUNT NO: [id number] ROOM NO: AGE: 76 REPORT TYPE: eELECTROCARDIOGRAM REPORT SEX: F ADMITTING PHYSICIAN: ATTENDING PHYSICIAN:Favian Rasmussen MD Order:[id number] Reason : PREOP Test Date/Time Stamp:WedOct 20 2021 14:12:34Blood Pressure : / mmHGVent. Rate : 061 BPM Atrial Rate : 258 BPM P-R Int : 000 ms QRS Dur : 078 ms QT Int : 364 ms P-R-T Axes : 000 086 -45 degrees QTc Int : 366 ms Atrial fibrillation wit h slow ventricular responseST and T wave abnormality, consider inferior ischemiaAbnormal ECGPRE_OPConfirmed by JOCELYN CHACON, STEVEN ([id number]) o n 10/20/2021 2:52:34 PM Referred By: Favian Rasmussen Confirmed by:STEVEN BANKS MD at 145 2 PATIENT NAME: KAVITHA BRANHAM .[id number] AVAvailable for patient [id number]:53:00
[2023-09-09 18:00] LABS: Hematocrit 41.3 % (36.0-45.0); Lymphocytes % 7.1 % (15.3-44.8); MCV 91.5 fL (80-100); MPV 7.1 fL (7.6-11.3); Platelets 297 thou/uL (152-406); RBC Red Blood Cell Count 4.52 M/uL (3.86-4.86)
[2023-09-09] MEDS ORDERED: PHENAZOPYRIDINE 100MG TAB PO ONE (18:11)
[2023-09-09] MEDS ORDERED: CEFTRIAXONE 1000 MG/VIAL ONE ×2 (18:11→19:44)
[2023-09-09] MEDS ORDERED: NA CHLORIDE 0.9% 1,000 ML ONE (18:11)
[2023-09-09] MEDS ORDERED: NA CHLORIDE 0.9% 50 ML ONE (18:12)
[2023-09-09 18:17] LABS: Albumin 3.4 g/dL (3.4-5.0); Bilirubin Total 0.9 mg/dL (0.2-1.0); Potassium 4.4 mEq/L (3.5-5.1); Protein, Total 7.5 g/dL (6.4-8.2)
[2023-09-09] MEDS ORDERED: ONDANSETRON 4 MG/2 ML VIAL ONE (18:34)
[2023-09-09] MEDS ORDERED: MORPHINE 2 MG/ML SYR ONE (18:34)
--- NOTE | 2023-09-09 18:35 | RAD REPORT ---
EXAM DESCRIPTION: CT - Stone Protocol - 09/09/2023 6:15 pm CLINICAL HISTORY: Abdominal pain. Flank pain COMPARISON: 2021 TECHNIQUE: Computed axial tomography of the abdomen pelvis was obtained without oral or IV contrast. Lack of IV and oral contrast limits evaluation of solid organs, appendix, bowel, and vessels. Gonzales l reformatted images were obtained and reviewed. All CT scans are performed using dose optimization technique as appropriate and may include automated exposure control or mA/KV adjustment according to patient size. FINDINGS: A renal calculus is not seen. An ureteral calculus is not noted. A bladder calculus is not present. No hydronephrosis. Left renal cortical thinning perhaps secondary to prior inflammation Hepatic cysts without significant change. Cholecystectomy. Splenic granulomata. Pancreas and adrenals appear grossly normal. There is no evidence of diverticulitis. Hysterectomy. No adnexal mass. Small umbilical hernia Mild compression deformities have developed within the T11 and L3 vertebral bodies. IMPRESSION: Negative for a genitourinary calculus Mild compression deformities T11 and L3 vertebral bodies have developed since 2011. The T11 compressi on fracture appears subacute. The L3 compression fracture appears more remote. If clinically indicate d further evaluation with nonemergent MRI could be obtained
--- NOTE | 2023-09-09 19:01 | RAD REPORT ---
EXAM DESCRIPTION: Joselin Single View09/09/2023 6:38 pm CLINICAL HISTORY: Cough COMPARISON: December 2022 FINDINGS: The lungs appear clear of acute infiltrate. The heart is mildly enlarged IMPRESSION: No acute abnormalities displayed
--- NOTE | 2023-09-09 19:15 | EDPHYS ---
Physician Documentation [facility] Name: Ruby Soriano Age: 78 yrs Sex: Female : 1945 Arrival Date: 09/09/2023 Time: 17:29 Bed 8 Private MD: ED Physician Joo Silva HPI: 09/09 18:16 This 78 yrs old Female presents to ER via Wheelchair with complaints of sarah Urinary Problem. 18:16 The patient complains of pain in the left low back, left mid back, right mid back and sarah right low back. The pain radiates to the left mid back and right mid back. Modifying factors: the symptoms are aggravated by movement, palpation/percussion. The patient presents with pain that is acute, with no known mechanism of injury. The symptoms are located in the low back, left low back, left mid back, right mid back and right low back. Onset: The symptoms/episode began/occurred 2 day(s) ago. Associated signs and symptoms: Pertinent positives: dysuria, weakness. Modifying factors: The patient symptoms are alleviated by remaining still, the patient symptoms are aggravated by any movement. Severity of symptoms: At their worst the symptoms were moderate, in the emergency department the symptoms are unchanged. Severity of pain: At its worst the pain was mild moderate in the emergency department the pain is unchanged. Historical: - Allergies: 17:36 No Known Allergies; nj1 - PMHx: 17:36 COPD; Hyperlipidemia; Hypertension; Irregular heart rate; stroke 2011; nj1 - PSHx: 17:36 Cholecystectomy; hysterectomy; nj1 - Immunization history:: Client reports receiving the 2nd dose of the Covid vaccine. - Social history:: Smoking status: Patient/guardian denies using tobacco, the patient reports quitting approximately 25 years ago. - Family history:: not pertinent. ROS: 18:16 Constitutional: Negative for fever, chills, and weight loss, Eyes: Negative for injury, sarah pain, redness, and discharge, ENT: Negative for injury, pain, and discharge, Neck: Negative for injury, pain, and swelling, Cardiovascular: Negative for chest pain, palpitations, and edema, Respiratory: Negative for shortness of breath, cough, wheezing, and pleuritic chest pain, Abdomen/GI: Negative for abdominal pain, nausea, vomiting, diarrhea, and constipation, MS/Extremity: Negative for injury and deformity, Skin: Negative for injury, rash, and discoloration, Neuro: Negative for headache, weakness, numbness, tingling, and seizure, Psych: Negative for depression, anxiety, suicide ideation, homicidal ideation, and hallucinations, Allergy/Immunology: Negative for hives, rash, and allergies, Endocrine: Negative for neck swelling, polydipsia, polyuria, polyphagia, and marked weight changes, Hematologic/Lymphatic: Negative for swollen nodes, abnormal bleeding, and unusual bruising, 18:16 Back: Positive for decreased range of motion, pain at rest, pain with movement, of the lumbar area, left low back and right low back, 18:16 : Positive for urinary symptoms, flank pain, urinary frequency, small amounts, burning with urination, difficulty urinating, foul smelling urine, Exam: 18:16 Constitutional: This is a well developed, well nourished patient who is awake, alert, sarah and in no acute distress. Head/Face: Normocephalic, atraumatic. Eyes: Pupils equal round and reactive to light, extra-ocular motions intact. Lids and lashes normal. Conjunctiva and sclera are non-icteric and not injected. Cornea within normal limits. Periorbital areas with no swelling, redness, or edema. ENT: Nares patent. No nasal discharge, no septal abnormalities noted. Tympanic membranes are normal and external auditory canals are clear. Oropharynx with no redness, swelling, or masses, exudates, or evidence of obstruction, uvula midline. Mucous membranes moist. Neck: Trachea midline, no thyromegaly or masses palpated, and no cervical lymphadenopathy. Supple, full range of motion without nuchal rigidity, or vertebral point tenderness. No Meningismus. Chest/axilla: Normal chest wall appearance and motion. Nontender with no deformity. No lesions are appreciated. Cardiovascular: Regular rate and rhythm with a normal S1 and S2. No gallops, murmurs, or rubs. Normal PMI, no JVD. No pulse deficits. Respiratory: Lungs have equal breath sounds bilaterally, clear to auscultation and percussion. No rales, rhonchi or wheezes noted. No increased work of breathing, no retractions or nasal flaring. Female : Normal external genitalia. Skin: Warm, dry with normal turgor. Normal color with no rashes, no lesions, and no evidence of cellulitis. Neuro: Awake and alert, GCS 15, oriented to person, place, time, and situation. Cranial nerves II-XII grossly intact. Motor strength 5/5 in all extremities. Sensory grossly intact. Cerebellar exam normal. Normal gait. Psych: Awake, alert, with orientation to person, place and time. Behavior, mood, and affect are within normal limits. 18:16 Abdomen/GI: Inspection: distension, Bowel sounds: active, all quadrants, Palpation: mild abdominal tenderness, in the suprapubic area, right lower quadrant and left lower quadrant, Liver: no appreciated palpable abnormalities, Hernia: not appreciated, 18:16 : CVA tenderness, noted bilaterally, Bladder: tenderness, that is moderate, Rectal exam: is not applicable, Sexual behavior: the patient is not sexually active, 19:23 ECG was reviewed by the Attending Physician. [facility] Vital Signs: 17:34 BP 204 / 89; Pulse 77; Resp 18; Temp 97.6(TE); Pulse Ox 96% ; Weight 68.04 kg; Height 5 nj1 ft. 7 in. ; 17:49 BP 156 / 73; Pulse 78; Resp 18 S; Pulse Ox 96% ; kc6 18:50 BP 100 / 59; Pulse 105; Resp 18; Pulse Ox 100% ; ph 21:00 BP 154 / 66; Pulse 73; Resp 18; Pulse Ox 98% on R/A; vc1 17:34 Body Mass Index 23.49 (68.04 kg, 170.18 cm) nj1 21:00 requested not to do blood pressures too often do to pt being on blood thinners and vc1 bruising easily. MDM: 17:33 Patient medically screened. [facility] 18:19 Differential diagnosis: nephrolithiasis, pyelonephritis, UTI, diverticulitis, Obesity. [facility] Data reviewed: vital signs, nurses notes, lab test result(s), EKG, radiologic studies, CT scan. Consideration of Admission/Observation Patient was admitted/placed on observation. Escalation of care including admission/observation considered. I considered the following discharge prescriptions or medication management in the emergency department Medications were administered in the Emergency Department. See MAR. Independent interpretation of the following test(s) in the Emergency Department EKG: See my EKG interpretation above. Test considered but Not performed: Ultrasound no abd usg. Care significantly affected by the following chronic conditions: Hypertension, Chronic Obstructive Pulmonary Disease, Obesity, Chronic Kidney Disease, irr hr. 09/09 17:39 Order name: CBC with Diff [facility] 09/09 17:39 Order name: Comprehensive Metabolic Panel; Complete Time: 18:22 [facility] 09/09 17:39 Order name: Urinalysis w/ reflexes; Complete Time: 20:49 [facility] 09/09 17:39 Order name: Urine Culture [facility] 09/09 18:14 Order name: Blood Culture Adult (2) [facility] 09/09 18:14 Order name: Lactate w/ 2H reflex if indic.; Complete Time: 20:35 [facility] 09/09 18:21 Order name: Troponin HS; Complete Time: 19:05 [facility] 09/09 20:36 Order name: T4 Free EDMS 09/09 20:36 Order name: Thyroid Stimulating Hormone EDMS 09/09 20:36 Order name: Basic Metabolic Panel EDMS 09/09 20:36 Order name: Basic Metabolic Panel EDMS 09/09 20:36 Order name: Basic Metabolic Panel EDMS 09/09 20:36 Order name: Basic Metabolic Panel EDMS 09/09 20:36 Order name: CBC with Automated Diff EDMS 09/09 20:36 Order name: CBC with Automated Diff EDMS 09/09 20:36 Order name: CBC with Automated Diff EDMS 09/09 20:36 Order name: CBC with Automated Diff EDMS 09/09 20:36 Order name: Lipid Profile EDMS 09/09 20:36 Order name: Lipid Profile EDMS 09/09 20:36 Order name: Magnesium EDMS 09/09 20:36 Order name: Magnesium EDMS 09/09 20:36 Order name: Magnesium EDMS 09/09 20:36 Order name: Magnesium EDMS 09/09 20:36 Order name: Phosphorus EDMS 09/09 20:36 Order name: Phosphorus EDMS 09/09 20:36 Order name: Phosphorus EDMS 09/09 20:36 Order name: Phosphorus EDMS 09/09 21:46 Order name: CBC Smear Scan EDMS 09/10 09:30 Order name: Manual Differential EDMS 09/09 17:39 Order name: CT Stone Protocol; Complete Time: 19:05 [facility] 09/09 18:21 Order name: Chest Single View XRAY; Complete Time: 19:05 [facility] 09/09 18:21 Order name: EKG; Complete Time: 18:22 [facility] 09/09 20:36 Order name: CONS Physician Consult [facility] 09/09 18:21 Order name: EKG - Nurse/Tech; Complete Time: 18:58 sarah EC: Rate is 70 beats/min. Rhythm is regular. QRS [place] is Normal. IA interval is normal. QRS sarah interval is normal. QT interval is normal at 481 msec. No Q waves. T waves are Normal. No ST changes noted. Clinical impression: NSR w/ Non-specific ST/T Changes and No evidence of ischemia. Interpreted by me. Reviewed by me. Administered Medications: 18:14 Not Given (Duplicate Order): ns 0.9% 1000 ml IV at 1 bolus Per protocol; 1000 mL bolus [facility] 18:37 Drug: morphine IVP or IV 2 mg IVP once over 4 mins Route: IVP; Infused Over: 4 mins; ph Site: left antecubital; 18:58 Follow up: Response: No adverse reaction ph 18:41 Drug: Ondansetron IVP 4 mg IVP once; over 2 minutes Route: IVP; Site: left antecubital; ph 18:58 Follow up: Response: No adverse reaction ph 18:41 Drug: NS 0.9% IV 500 ml IV at bolus once Route: IV; Rate: bolus; Site: left antecubital;ph 19:03 Follow up: Response: No adverse reaction; IV Intake: 500ml ph 19:03 Drug: NS 0.9% IV 1000 ml IV at 125 ml/hr continuous Route: IV; Rate: 125 ml/hr; Site: ph left antecubital; 19:43 Drug: Phenazopyridine PO 200 mg PO once Route: PO; vc1 19:43 Drug: Rocephin IV 1 grams IV at per protocol once; Given slow IV push per pharmacy vc1 instructions Route: IV; Rate: per protocol; Site: left antecubital; 19:43 Drug: Levalbuterol Inhalation 1.25 mg Inhalation once Route: Inhalation; vc1 19:43 Drug: Ipratropium Inhalation Aerosol 0.5 mg Inhalation once Route: Inhalation; vc1 19:43 Drug: MethylPrednisoLONE IVP 125 mg IVP once Route: IVP; Site: left antecubital; vc1 19:43 Drug: Famotidine IVP 20 mg IVP once; dilute with 10 mL 0.9% NaCl; give over 2 minutes vc1 Route: IVP; Site: left antecubital; 20:54 Drug: Metoprolol PO 25 mg PO once Route: PO; vc1 Disposition Summary: 09/09/23 19:14 Hospitalization Ordered Notes: Hospitalization Status: Inpatient Admission sarah Condition: Fair sarah Problem: new sarah Symptoms: have improved sarah Bed/Room Type: Standard sarah Provider: Poncho Hartman(09/09/23 19:38) sarah Location: Telemetry/MedSurg (observation)(09/10/23 19:16) rv1 Room Assignment: 213(09/10/23 19:16) rv1 Diagnosis - Wedge compression fracture of unspecified thoracic vertebra - SUBACUTE T11 sarah - Wedge compression fracture of unspecified lumbar vertebra - REMOTE L3 sarah - Elevated white blood cell count sarah - Unspecified kidney failure - CHRONIC sarah - UTI/ Urinary tract infection, site not specified sarah - Dysuria sarah - COPD/ Chronic obstructive pulmonary disease, unspecified sarah Forms: - Medication Reconciliation Form sarah - SBAR form sarah - Leadership Thank You Letter sarah Signatures: Dispatcher [employer] Joo Velarde MD MD cha Hall, Patricia, RN RN ph Sherita Burroughs RN RN vc1 Ruma Pandey RN RN pf1 Reyna Regan rv1 Loyda Tanner, RN RN nj1 Corrections: (The following items were deleted from the chart) 19:38 19:14 Lakeisha Bauer sarah sarah 20:56 19:14 Telemetry/MedSurg (Inpatient) sarah pf1 20:56 19:14 sarah pf1 09/10 19:16 09/09 20:56 [facility] ER HOLD pf1 rv1 09/10 19:16 09/09 20:56 ERHOLD- pf1 rv1
--- NOTE | 2023-09-09 19:15 | ER ---
Nurse's Notes [facility] Name: Ruby Soriano Age: 78 yrs Sex: Female : 1945 Arrival Date: 09/09/2023 Time: 17:29 Bed 8 Private MD: Diagnosis: Wedge compression fracture of unspecified thoracic vertebra-SUBACUTE T11;Wedge compression fracture of unspecified lumbar vertebra-REMOTE L3;Elevated white blood cell count;Unspecified kidney failure-CHRONIC;UTI/ Urinary tract infection, site not specified;Dysuria;COPD/ Chronic obstructive pulmonary disease, unspecified Presentation: 09/09 17:34 Chief complaint: Patient's son or daughter states: Started on abx on Wednesday for UTI, nj1 getting worse. Coronavirus screen: Vaccine status: Patient reports receiving the 2nd dose of the covid vaccine. Ebola Screen: Patient denies travel to an Ebola-affected area in the 21 days before illness onset. Initial Sepsis Screen: Does the patient meet any 2 criteria? No. Patient's initial sepsis screen is negative. Does the patient have a suspected source of infection? No. Patient's initial sepsis screen is negative. Risk Assessment: Do you want to hurt yourself or someone else? Patient reports no desire to harm self or others. Onset of symptoms was September 02, 2023. 17:34 Method Of Arrival: [facility] 17:34 Acuity: SERINA 3 nj1 Historical: - Allergies: 17:36 No Known Allergies; nj1 - PMHx: 17:36 COPD; Hyperlipidemia; Hypertension; Irregular heart rate; stroke 2011; nj1 - PSHx: 17:36 Cholecystectomy; hysterectomy; nj1 - Immunization history:: Client reports receiving the 2nd dose of the Covid vaccine. - Social history:: Smoking status: Patient/guardian denies using tobacco, the patient reports quitting approximately 25 years ago. - Family history:: not pertinent. Screenin:54 [facility] ED Fall Risk Assessment (Adult) History of falling in the last 3 months, ph including since admission No falls in past 3 months (0 pts) Confusion or Disorientation No (0 pts) Intoxicated or Sedated No (0 pts) Impaired Gait No (0 pts) Mobility Assist Device Used No (0 pt) Altered Elimination No (0 pt) Score/Fall Risk Level 0 - 2 = Low Risk Oriented to surroundings, Maintained a safe environment, Provided non-skid footwear, Hourly rounding (assess needs \T\ fall precautionary measures) done. Abuse screen: Denies threats or abuse. Denies injuries from another. Nutritional screening: No deficits noted. Tuberculosis screening: No symptoms or risk factors identified. Assessment: 18:46 General: Appears in no apparent distress. uncomfortable, Behavior is calm, cooperative, ph appropriate for age. Pain: Complains of pain in lumbar area and left low back. Neuro: Level of Consciousness is awake, alert, obeys commands, Oriented to person, place, time, situation. Cardiovascular: Capillary refill < 3 seconds in bilateral fingers Patient's skin is warm and dry. Respiratory: Airway is patent Respiratory effort is Respiratory pattern is regular, symmetrical. GI: No signs and/or symptoms were reported involving the gastrointestinal system. : Reports pain in left in lower back. Derm: Skin is pink, warm \T\ dry. 19:00 Reassessment: Patient and/or family updated on plan of care and expected duration. Pain vc1 level reassessed. Patient is alert, oriented x 3, equal unlabored respirations, skin warm/dry/pink. Patient states symptoms have improved. 20:00 Reassessment: No changes from previously documented assessment. Patient and/or family vc1 updated on plan of care and expected duration. Pain level reassessed. Patient is alert, oriented x 3, equal unlabored respirations, skin warm/dry/pink. 21:00 Reassessment: No changes from previously documented assessment. Patient and/or family vc1 updated on plan of care and expected duration. Pain level reassessed. Patient is alert, oriented x 3, equal unlabored respirations, skin warm/dry/pink. 22:00 Reassessment: No changes from previously documented assessment. Patient and/or family vc1 updated on plan of care and expected duration. Pain level reassessed. Patient is alert, oriented x 3, equal unlabored respirations, skin warm/dry/pink. Vital Signs: 17:34 BP 204 / 89; Pulse 77; Resp 18; Temp 97.6(TE); Pulse Ox 96% ; Weight 68.04 kg; Height 5 nj1 ft. 7 in. ; 17:49 BP 156 / 73; Pulse 78; Resp 18 S; Pulse Ox 96% ; kc6 18:50 BP 100 / 59; Pulse 105; Resp 18; Pulse Ox 100% ; ph 21:00 BP 154 / 66; Pulse 73; Resp 18; Pulse Ox 98% on R/A; vc1 17:34 Body Mass Index 23.49 (68.04 kg, 170.18 cm) nj1 21:00 requested not to do blood pressures too often do to pt being on blood thinners and vc1 bruising easily. ED Course: 17:30 Patient arrived in ED. rg4 17:33 Joo Silva MD is Attending Physician. sarah 17:36 Triage completed. nj1 17:37 Arm band placed on right wrist. nj1 17:47 Marlene Harrison, RN is Primary Nurse. ph 17:56 CBC with Diff Sent. bc6 17:56 Comprehensive Metabolic Panel Sent. bc6 17:56 Inserted saline lock: 22 gauge in left antecubital area, using aseptic technique. Blood bc6 collected. 18:17 CT Stone Protocol In Process Unspecified. EDMS 18:39 Chest Single View XRAY In Process Unspecified. EDMS 18:55 Patient has correct armband on for positive identification. Bed in low position. Call ph light in reach. Side rails up X2. Pulse ox on. NIBP on. 18:55 No provider procedures requiring assistance completed. ph 19:11 Lakeisha Bauer MD is Hospitalizing Provider. sarah 19:38 Poncho Hartman MD is Hospitalizing Provider. sarah 22:00 Provided Education on: oxygen, safety. vc1 22:00 Patient admitted, IV remains in place. vc1 Administered Medications: 18:14 Not Given (Duplicate Order): ns 0.9% 1000 ml IV at 1 bolus Per protocol; 1000 mL bolus sarah 18:37 Drug: morphine IVP or IV 2 mg IVP once over 4 mins Route: IVP; Infused Over: 4 mins; ph Site: left antecubital; 18:58 Follow up: Response: No adverse reaction ph 18:41 Drug: Ondansetron IVP 4 mg IVP once; over 2 minutes Route: IVP; Site: left antecubital; ph 18:58 Follow up: Response: No adverse reaction ph 18:41 Drug: NS 0.9% IV 500 ml IV at bolus once Route: IV; Rate: bolus; Site: left antecubital;ph 19:03 Follow up: Response: No adverse reaction; IV Intake: 500ml ph 19:03 Drug: NS 0.9% IV 1000 ml IV at 125 ml/hr continuous Route: IV; Rate: 125 ml/hr; Site: ph left antecubital; 19:43 Drug: Phenazopyridine PO 200 mg PO once Route: PO; vc1 19:43 Drug: Rocephin IV 1 grams IV at per protocol once; Given slow IV push per pharmacy vc1 instructions Route: IV; Rate: per protocol; Site: left antecubital; 19:43 Drug: Levalbuterol Inhalation 1.25 mg Inhalation once Route: Inhalation; vc1 19:43 Drug: Ipratropium Inhalation Aerosol 0.5 mg Inhalation once Route: Inhalation; vc1 19:43 Drug: MethylPrednisoLONE IVP 125 mg IVP once Route: IVP; Site: left antecubital; vc1 19:43 Drug: Famotidine IVP 20 mg IVP once; dilute with 10 mL 0.9% NaCl; give over 2 minutes vc1 Route: IVP; Site: left antecubital; 20:54 Drug: Metoprolol PO 25 mg PO once Route: PO; vc1 Medication: 18:55 VIS not applicable for this client. ph Intake: 19:03 IV: 500ml; Total: 500ml. ph Outcome: 19:14 Decision to Hospitalize by Provider. sarah 22:00 Admitted to ER Hold. Please see [facility] for further documentation. vc1 22:00 Condition: good 22:00 Instructed on the need for admit, 09/10 21:16 Patient left the ED. vc1 Signatures: Dispatcher [employer] Joo Velarde MD MD cha Hall, Patricia, RN RN ph Garcia, Rubi rg4 Sherita Burroughs RN RN vc1 Karime Lowery RN RN [id number] Rozina [id number] Loyda Tanner RN RN nj1 Corrections: (The following items were deleted from the chart) 09/09 17:36 17:34 BP 204 / 89; Pulse 77bpm; Resp 18bpm; Pulse Ox 96%; 68.04 kg; Height 5 ft. 7 in.; nj1 BMI: 23.4; nj1
[2023-09-09] MEDS ORDERED: LEVALBUTEROL 1.25 MG/3 ML NEB ONE (19:44)
[2023-09-09] MEDS ORDERED: IPRATROPIUM BROM 0.5MG/2.5ML ONE (19:44)
[2023-09-09] MEDS ORDERED: METHYLPREDNISOLONE 125 MG INJ ONE (19:44)
[2023-09-09] MEDS ORDERED: FAMOTIDINE 20 MG/2 ML VIAL IV ONE (19:45)
[2023-09-09] MEDS ORDERED: ALBUTEROL 2.5 MG/3 ML NEB SOL NEB PRN (20:29)
[2023-09-09] MEDS ORDERED: ACETAMINOPHEN 500 MG TAB PO PRN (20:29)
[2023-09-09] MEDS ORDERED: MORPHINE 2 MG/ML SYR IV PRN (20:41)
[2023-09-09] MEDS ORDERED: HYDROCODONE/APAP 5/325 MG TAB PO PRN (20:41)
[2023-09-09] MEDS ORDERED: SODIUM CHLORIDE 0.9% 10ML INJ IV PRN (20:41)
[2023-09-09 20:42] LABS: Specific Gravity 1.019 (1.005-1.030); Urine Bacteria <20 /HPF (<20); Urine Bilirubin 1+ (Negative); Urine Blood Negative (Negative); Urine Clarity Clear (Clear); Urine Color Dark-Orange (Yellow); Urine Glucose 4+ (Over) (Negative); Urine Mucus Slight /HPF (None Seen); Urine Protein NEGATIVE (Negative); Urine RBC <5 /HPF (None Seen); Urine Urobilinogen 2+ (Normal); Urine pH 5.5 (5.0-7.0)
--- NOTE | 2023-09-09 20:57 | P.HP ---
Certification for Inpatient With expected LOS: <2 Midnights Patient will require the following post-hospital care: None Practitioner: I am a practitioner with admitting privileges, knowledge of patient current condition, hospital course, and medical plan of care. Services: Services provided to patient in accordance with Admission requirements found in Title 42 Section 412.3 of the Code of Federal Regulations Patient History Date of Service: 09/09/23 Reason for admission: Low back pain, UTI,compression fractures T11 and L3 History of Present Illness: Ms. Soriano, 78-year-old female with a history of COPD, hypertension, atrial fibrillation, hyperlipidemia presented to the ER via wheelchair with complaints of UTI, failed outpatient treatment. Patient's daughter at bedside helping with the history. She reports that patient has lower back pain since last , 09/02/2023, her PCP prescribed antibiotics for UTI. Patient came into the hospital today asked the back pain is getting worse. Patient reports her pain is 4 out of 10 at this time. Patient is alert oriented x3. Patient denies chest pain, palpitation or shortness of breath. Patient denies fever chills, nausea or vomiting. ED course Vital signs blood pressure 156/73, pulse 78, respiration 18, pulse ox 96% on room air. EKG showing normal sinus rhythm. Patient received morphine, Rocephin and IV normal saline in the ER. Patient's initial lab results significant for stage IV CKD, leukocytosis WBC of 13.6. CT abdomen showing compression fracture T11 and L3. T3 compression fracture appears of acute and at the L3 compression fracture appears more remote. Admitting the patient with the diagnosis of UTI, chronic kidney failure, compression fracture T11, compression fracture L3. Allergies No Known Allergies Allergy (Verified 10/07/22 13:38) Home medications list reviewed: Yes Home Medications: Albuterol Sulfate [Proair Digihaler] 2 puff IH DAILY PRN 05/27/22 Fluticasone/Umeclidin/Vilanter [Trelegy Ellipta 100-62.5-25] 1 puff IH BREAKFAST 05/27/22 Rosuvastatin [Crestor*] 1 tab PO DAILY 05/27/22 Apixaban [Eliquis *] 2.5 mg PO BID #60 09/28/22 Bumetanide [Bumex*] 1 mg PO BID #60 tab 09/28/22 Cranberry Fruit Extract 200 mg PO BID cap 09/28/22 Docusate/Senna [Senokot-S*] 2 tab PO BID PRN tab 09/28/22 Ferrous Sulfate [Ferrous Sulfate*] 325 mg PO DAILY #30 tab 09/28/22 Insulin Glargine,Hum.rec.anlog [Semglee] 5 unit SQ BREAKFAST #10 ml 09/28/22 Magnesium Oxide [Mag 0X*] 400 mg PO BID tab 09/28/22 Metoprolol Tartrate [Lopressor*] 50 mg PO BID #60 tab 09/28/22 Amiodarone HCl [Cordarone*] 200 mg PO BID 10/10/22 predniSONE [Deltasone*] 10 mg PO DAILY #30 tab 10/12/22 Albuterol Neb [Proventil 0.083% Neb Soln] 2.5 mg NEB Q6HP PRN amp 10/13/22 Amox/Clavulanate [Augmentin 500-125 mg Tab] 500 mg PO TID #30 tab 10/13/22 Doxycycline Hyclate 100 mg PO BID #20 10/13/22 Doxycycline Hyclate 100 mg PO BID 10 Days #20 tab 10/13/22 Ipratropium Neb [Atrovent*] 0.5 mg NEB [id number] PRN amp 10/13/22 - Past Medical/Surgical History Diabetic: No -: Stroke -: COPDon home O2 -: Chronic diastolic congestive heart failure -: Insulin-dependent diabetes -: Atrial fibrillation S/P watchman/cardioversion 202 Psychosocial/ Personal History: Patient lives at home with her daughter - Family History Father -: Lung disease Notes: emphysema - Social History Alcohol use: No CD- Drugs: No Caffeine use: No Review of Systems 10-point ROS is otherwise unremarkable Physical Examination - Physical Exam General: Alert, In no apparent distress, Oriented x3 HEENT: Atraumatic, Normocephalic Neck: Supple, 2+ carotid pulse no bruit Respiratory: Clear to auscultation bilaterally, Normal air movement Cardiovascular: No edema, Normal pulses, Normal S1 S2 Capillary refill: <2 Seconds Gastrointestinal: Normal bowel sounds, Soft and benign, Distended Musculoskeletal: No clubbing, No swelling Integumentary: Skin lesion, Erythema, Other (Multiple ecchymotic spots on the both upper and lower extremities) Neurological: Normal gait, Normal speech, Normal tone - Studies Laboratory Data (last 24 hrs) 09/09/23 09/09/23 09/09/23 20:46 17:55 17:55 WBC 13.60 H Hgb 14.0 Hct 41.3 Plt Count 297 PT Cancelled INR Cancelled Sodium 133 L Potassium 4.4 BUN 24 H Creatinine 1.55 H Glucose 160 H Total Bilirubin 0.9 AST 19 ALT 20 Alkaline Phosphatase 98 Assessment and Plan - Problems (Diagnosis) (1) UTI (urinary tract infection) Current Visit: Yes Status: Acute Qualifiers: Hematuria presence: without hematuria (2) Dorsalgia of lumbosacral region Current Visit: Yes Status: Acute (3) Compression fracture of T11 vertebra Current Visit: Yes Status: Acute Qualifiers: Encounter type: initial encounter Qualified Code(s): S22.080A - Wedge compression fracture of T11-T12 vertebra, initial encounter for closed fracture (4) Compression fracture of L3 vertebra Current Visit: Yes Status: Acute Qualifiers: Encounter type: initial encounter Qualified Code(s): S32.030A - Wedge compression fracture of third lumbar vertebra, initial encounter for closed fracture (5) Atrial fibrillation Current Visit: No Status: Chronic Qualifiers: Atrial fibrillation type: unspecified chronic Qualified Code(s): I48.20 - Chronic atrial fibrillation, unspecified; I48.2 - Chronic atrial fibrillation (6) Leukocytosis Current Visit: No Status: Acute Qualifiers: Leukocytosis type: unspecified Qualified Code(s): D72.829 - Elevated white blood cell count, unspecified - Plan (1) UTI (urinary tract infection) (2) Leukocytosis Current Visit: Yes Status: Acute * Patient came in with complaints of UTI, failed outpatient treatment. Patient's daughter at bedside helping with the history. She reports that patient has lower back pain since last , 09/02/2023, her PCP prescribed antibiotics for UTI. * ital signs blood pressure 156/73, pulse 78, respiration 18, pulse ox 96% on room air. * Patient's initial lab results significant for stage IV CKD, leukocytosis WBC of 13.6. Pending new urine * Patient received morphine, Rocephin and IV normal saline in the ER. * Admitting the patient to the hospital, IV fluid IV antibiotics, analgesics, * Monitor CBC and electrolytes (2) Dorsalgia of lumbosacral region (3) Compression fracture of T11 vertebra (4) Compression fracture of L3 vertebra * Discussed the the findings of CT scan with the patient and the daughters. Recommended that the patient need to follow-up with a neurologist and need to do a MRI. At this time the hospital does not have a neurologist and recommended transfer to another facility. Patient's daughters and patient refused to transfer to advanced facility and wanted to be treated here. They voiced understanding of complications. * MRI thoracic and lumbar spine ordered * Admitting the patient, analgesics ordered, neuro neuro consult with the neurologist is available (5) Atrial fibrillation Current Visit: No Status: Chronic * Chronic, controlled. Patient reports no palpitation no chest pain or discomfort * Continue the current management (7 )CKD stage IV Current Visit: No Status: Acute * Chronic, worsening. Patient sees Dr. Merchant * Continue the current management recommend follow-up with Dr. Cheatham * We will continue to monitor kidney function, renal dose the medication, avoid nephrotoxins CODE STATUS -DNR Diet-cardiac DVT prophylaxis-SCDs Discharge Plan: Home Plan to discharge in: 48 Hours - Advance Directives Does patient have a Living Will: Yes Does patient have a Durable POA for Healthcare: Yes - Code Status/Comfort Care Code Status Assessed: Yes (DNR) Code Status: Do Not Attempt Resuscitat Physician Review: Patient Assessed, Agree with Above Assessment and Plan Critical Care: No Time Spent Managing Pts Care (In Minutes): 55 (minutes)
[2023-09-09] MEDS ORDERED: METOPROLOL TAR 25 MG TAB ONE (21:05)
[2023-09-09 21:46] LABS: Blood Morphology Comment NOT SEEN (NOT SEEN); Platelet Estimate ADEQ; White Blood Cell Scan OK (OK)
[2023-09-10] MEDS: IPRATROPIUM BROM 0.5MG/2.5ML NEB SCH ×5 (00:45→20:00)
[2023-09-10] MEDS ORDERED: HEPARIN 5000 UNIT/ML 1 ML VIAL SQ SCH (01:00)
[2023-09-10 01:16] VITALS: BMI 10.6
[2023-09-10 06:57] LABS: Absolute Lymphocytes (CBC) 0.6 K/uL (0.7-4.9); Hematocrit 37.4 % (36.0-45.0); Lymphocytes % 5.1 % (15.3-44.8); MCV 91.8 fL (80-100); MPV 7.6 fL (7.6-11.3); Platelets 278 thou/uL (152-406); RBC Red Blood Cell Count 4.08 M/uL (3.86-4.86)
[2023-09-10 07:18] LABS: Magnesium 2.3 mg/dL (1.6-2.4); Phosphorus 4.5 mg/dL (2.5-4.9); Potassium 4.1 mEq/L (3.5-5.1)
[2023-09-10 07:28] LABS: Thyroid Stimulating Hormone 2.45 uIU/mL (0.358-3.740)
--- NOTE | 2023-09-10 07:29 | P.PN ---
Date of Service: 09/10/23 Subjective: patient reports some improvement of pain daughter at bedside states patient is already starting to look better /more comfortable report ~1-2 weeks of lower back pain, which prompted to check urine for possible UTI urine dip done at home with some slight concern for UTI, however patient never had urinary symptoms, no fever renal function currently better than most recent labs in last year, per daughter, GFR was in low 20s 1 year ago ROS: 10 point ROS as noted above, otherwise negative Physical Exam: GEN: Alert, oriented, uncomfortable with movement HEENT: Normal conjunctiva, sclera anicteric CV: Regular rate and rhythm, no edema Pulm: Nonlabored respirations on room air, clear bilaterally ABD: Soft, nontender, nondistended Integumentary: multiple/diffuse Scattered ecchymosis bilaterally upper and lower extremities MSK: tenderness to palpation along spinous processes R>L in lumbar region, ~L3, slightly more on right near T11 and greater at ~T3 Neuro: Normal speech, normal affect vitals reviewed Problem List: lower back pain, likely secondary to compression fracture T11, L3 Osteoporosis Suspected UTI CKD4 COPD, on home O2 A-fib, s/p watchman (2021) Chronic diastolic CHF IDDM2 h/o CVA Suspected UTI no urinary symptoms, no fever. no outpatient culture done. urine dip at home slightly concerning only symptom was lower back pain; which did not improve with antibiotics family reports back pain since last 09/02. Prescribed antibiotics for UTI by PCP. (Macrobid), now s/p ~7 days urine cx (09/09): pending blood cx (09/09): pending antibiotics given in ED; will discontinue at this time and monitor no leukocytes, no bacteria seen on UA, afebrile mild leukocytosis may be reactive in setting of pain / dehydration Mild compression fracture T11, L3 CT abdomen (09/09): Mild compression deformities T11 and L3 vertebral bodies have developed since 2011. T11 fracture appears subacute. L3 fracture appears more remote. patient is tender at these areas, and palpation at L3 and T11 recreate her pain she has been having suspect compression fractures have become more symptomatic suspect osteoporosis, patient is on daily prednisone for ~1 year, protonix, age pain control consider calcitonin if pain does not improve; no immediate effect, but can improve speed of recovery and pain for short course monitor for pain control today, re-eval neuro exam denies any numbness/tingling / weakness in b/l legs at this time CKD3-4 daughter at bedside state current levels are better than they have been in last year Nephrology consulted Continue to monitor renal function COPD, on home O2 ODILIA atrovent, PRN albuterol A-fib, s/p watchman (2021) Chronic diastolic CHF IDDM2 h/o CVA confirm home medications, restart as appropriate VTE: SCD Code: DNR Dispo: Home, ~1-2 days Pending further workup
[2023-09-10] MEDS: PANTOPRAZOLE 40 MG INJ IVP SCH (09:00)
[2023-09-10] MEDS ORDERED: CEFEPIME 1 GM in NA CHLORIDE 0.9% 100 ML IV SCH (09:00)
[2023-09-10] MEDS: TRAMADOL HCL 50 MG TAB PO PRN ×2 (09:15→16:40)
[2023-09-10 09:30] LABS: Blood Morphology Comment NOT SEEN (NOT SEEN); Platelet Estimate ADEQ; Platelets, Giant PRESENT
[2023-09-10] MEDS ORDERED: TRAMADOL HCL 50 MG TAB ONE ×2 (09:52→16:35)
[2023-09-10] MEDS ORDERED: PANTOPRAZOLE 40 MG INJ ONE (09:52)
[2023-09-10] MEDS ORDERED: INSULIN GLARGINE 100 UNIT/ML SQ ONE (12:26)
[2023-09-10] MEDS ORDERED: METOPROLOL TAR 25 MG TAB PO ONE (12:31)
--- NOTE | 2023-09-10 12:53 | P.DS ---
Admission Date: 09/09/23 Discharge Date: 09/11/23 Disposition: ROUTINE DISCHARGE Discharge Condition: GOOD Reason for Admission: Low back pain, UTI,compression fractures T11 and L3 Consultations: Nephrology - Dr. Cruz Brief History of Present Illness: 78yo F, PMH: COPD, hypertension, atrial fibrillation, hyperlipidemia Patient presented to the ER via wheelchair with complaints of UTI, failed outpatient treatment. Patient's daughter at bedside helping with the history. She reports that patient has lower back pain since last , 09/02/2023, her PCP prescribed antibiotics for UTI. Patient came into the hospital today asked the back pain is getting worse. Patient reports her pain is 4 out of 10 at this time. Patient is alert oriented x3. Patient denies chest pain, palpitation or shortness of breath. Patient denies fever chills, nausea or vomiting. Vital signs blood pressure 156/73, pulse 78, respiration 18, pulse ox 96% on room air. EKG showing normal sinus rhythm. Patient received morphine, Rocephin and IV normal saline in the ER. Patient's initial lab results significant for stage IV CKD, leukocytosis WBC of 13.6. CT abdomen showing compression fracture T11 and L3. T3 compression fracture appears of acute and at the L3 compression fracture appears more remote. Hospital Course: Problem List: Mild compression fracture T11, L3 CKD3-4 COPD, on home O2 A-fib, s/p watchman (2021) Chronic diastolic CHF IDDM2 h/o CVA Patient presented with worsening lower back pain. CT abdomen (09/09): Mild compression deformities T11 and L3 vertebral bodies have developed since 2011. T11 fracture appears subacute. L3 fracture appears more remote. Initially thought to be secondary to UTI per family/PCP, family reported ~1-2 weeks of lower back pain, which prompted to check urine for possible UTI. PCP subsequently prescribed antibiotics for suspected UTI. Urine dip done at home with some slight concern for UTI, however patient never had urinary symptoms, no fever. no outpatient culture done. Patients only symptom was lower back pain; which did not improve with 7 day course of macrobid antibiotic. Patient with mild leukocytosis may be reactive in setting of pain / dehydration, no bacteria on UA, afebrile. No findings to warrant antibiotics. Upon examination patient is tender at these areas, and palpation at L3 and T11 recreate her pain she has been having. Suspect compression fractures have become more symptomatic and suspect some component of osteoporosis as patient has multiple risk factors including daily prednisone for ~1 year, protonix, age. Patient was given pain medication and had some improvement of her symptoms. No further inpatient work up. Recommend follow up with PCP within a week for further discussion. Patient responded well to hydrocodone and was able to obtain better pain control. Patient able to ambulate to bathroom with cane and assistance on day of discharge. Avoid ibuprofen / naproxen (advil/aleve). Okay to take tylenol. Of note: Creatinine on discharge: 1.67 After brief discussion with daughter at bedside, she state current levels are better than they have been in last year. Medications: Hydrocodone for compression fracture pain Hold bumex for 2 days, then restart as taking previously Discussed with nephrology, Do not need to get ultrasound after discharge. CT was done in ED. Follow up: PCP 3-5 days Physical Exam: GEN: Alert, oriented, uncomfortable with movement HEENT: Normal conjunctiva, sclera anicteric CV: Regular rate and rhythm, no edema Pulm: Nonlabored respirations on room air, clear bilaterally ABD: Soft, nontender, nondistended Integumentary: multiple/diffuse Scattered ecchymosis bilaterally upper and lower extremities MSK: tenderness to palpation along spinous processes R>L in lumbar region, ~L3, slightly more on right near T11 and greater at ~T3 Neuro: Normal speech, normal affect Vital Signs/Physical Exam: Temp Pulse Resp BP Pulse Ox 97.6 F 74 18 141/59 H 98 09/10/23 08:00 09/10/23 12:31 09/10/23 09:15 09/10/23 12:31 09/10/23 09:15 Laboratory Data at Discharge: WBC 11.50 thou/uL (4.3-10.9) H 09/10/23 06:27 Hgb 12.6 g/dL (12.0-15.0) D 09/10/23 06:27 Hct 37.4 % (36.0-45.0) 09/10/23 06:27 Plt Count 278 thou/uL (152-406) 09/10/23 06:27 PT Cancelled 09/09/23 20:46 INR Cancelled 09/09/23 20:46 Sodium 135 mEq/L (136-145) L 09/10/23 06:27 Potassium 4.1 mEq/L (3.5-5.1) 09/10/23 06:27 BUN 28 mg/dL (7-18) H 09/10/23 06:27 Creatinine 1.54 mg/dL (0.55-1.02) H 09/10/23 06:27 Glucose 184 mg/dL (74-106) H 09/10/23 06:27 Phosphorus 4.5 mg/dL (2.5-4.9) 09/10/23 06:27 Magnesium 2.3 mg/dL (1.6-2.4) 09/10/23 06:27 Total Bilirubin 0.9 mg/dL (0.2-1.0) 09/09/23 17:55 AST 19 U/L (15-37) 09/09/23 17:55 ALT 20 U/L (13-56) 09/09/23 17:55 Alkaline Phosphatase 98 U/L (45-117) 09/09/23 17:55 Triglycerides 122 mg/dL (<150) 09/10/23 06:27 Cholesterol 139 mg/dL (<200) 09/10/23 06:27 HDL Cholesterol 43 mg/dL (40-60) 09/10/23 06:27 Cholesterol/HDL Ratio 3.23 09/10/23 06:27 Home Medications: Albuterol Sulfate [Proair Digihaler] 2 puff IH DAILY PRN 05/27/22 Fluticasone/Umeclidin/Vilanter [Trelegy Ellipta 100-62.5-25] 1 puff IH BREAKFAST PRN 05/27/22 Rosuvastatin [Crestor*] 1 tab PO DAILY 05/27/22 Bumetanide [Bumex*] 1 mg PO BID #60 tab 09/28/22 Cranberry Fruit Extract 200 mg PO BID cap 09/28/22 Ferrous Sulfate [Ferrous Sulfate*] 325 mg PO DAILY #30 tab 09/28/22 Magnesium Oxide [Mag 0X*] 400 mg PO BID tab 09/28/22 Albuterol Neb [Proventil 0.083% Neb Soln] 2.5 mg NEB Q6HP PRN amp 10/13/22 Ipratropium Neb [Atrovent*] 0.5 mg NEB [id number] PRN amp 10/13/22 Insulin Glargine,Hum.rec.anlog [Semglee] 10 unit SQ BREAKFAST PRN 09/10/23 Metoprolol Tartrate [Lopressor*] 25 mg PO BID 09/10/23 predniSONE [Deltasone*] 5 mg PO DAILY 09/10/23 traMADol HCL [Ultram*] 50 mg PO Q6H PRN #20 tab 09/10/23 Hydrocodone 5/APAP 325 [Sutton 5/325*] 1 tab PO Q8H PRN #15 tab 09/11/23 New Medications: Hydrocodone 5/APAP 325 [Sutton 5/325*] 1 tab PO Q8H PRN #15 tab PRN Reason: Pain Scale 8-10 (Severe) traMADol HCL [Ultram*] 50 mg PO Q6H PRN #20 tab PRN Reason: Pain Scale 5-7 (Moderate) Physician Discharge Instructions: Patient presented with worsening lower back pain. CT abdomen (09/09): Mild compression deformities T11 and L3 vertebral bodies have developed since 2011. T11 fracture appears subacute. L3 fracture appears more remote. Initially thought to be secondary to UTI per family/PCP, family reported ~1-2 weeks of lower back pain, which prompted to check urine for possible UTI. PCP subsequently prescribed antibiotics for suspected UTI. Urine dip done at home with some slight concern for UTI, however patient never had urinary symptoms, no fever. no outpatient culture done. Patients only symptom was lower back pain; which did not improve with 7 day course of macrobid antibiotic. Patient with mild leukocytosis may be reactive in setting of pain / dehydration, no bacteria on UA, afebrile. No findings to warrant antibiotics. Upon examination patient is tender at these areas, and palpation at L3 and T11 recreate her pain she has been having. Suspect compression fractures have become more symptomatic and suspect some component of osteoporosis as patient has multiple risk factors including daily prednisone for ~1 year, protonix, age. Patient was given pain medication and had some improvement of her symptoms. No f urther inpatient work up. Recommend follow up with PCP within a week for further discussion. Patient responded well to hydrocodone and was able to obtain better pain control. Patient able to ambulate to bathroom with cane and assistance on day of discharge. Avoid ibuprofen / naproxen (advil/aleve). Okay to take tylenol. Of note: Creatinine on discharge: 1.67 After brief discussion with daughter at bedside, she state current levels are better than they have been in last year. Medications: Hydrocodone for compression fracture pain Hold bumex for 2 days, then restart as taking previously Discussed with nephrology, Do not need to get ultrasound after discharge. CT was done in ED. Follow up: PCP 3-5 days Followup: NONE,NONE [Primary Care Provider] - Time spent managing pt's care (in minutes): 45
--- NOTE | 2023-09-10 14:45 | P.CNS ---
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 She reports receiving abx recently for UTI. Urinalysis showed no hematuria, no proteinuria, no pyuria. CT abdomen showing compression fracture T11 and L3. T3 compression fracture appears of acute and at the L3 compression fracture appears more remote. SCr 1.5 on adm. She denies dysuria. Allergies No Known Allergies Allergy (Verified 10/07/22 13:38) Home Medications: Albuterol Sulfate [Proair Digihaler] 2 puff IH DAILY PRN 05/27/22 Fluticasone/Umeclidin/Vilanter [Trelegy Ellipta 100-62.5-25] 1 puff IH BREAKFAST PRN 05/27/22 Rosuvastatin [Crestor*] 1 tab PO DAILY 05/27/22 Bumetanide [Bumex*] 1 mg PO BID #60 tab 09/28/22 Cranberry Fruit Extract 200 mg PO BID cap 09/28/22 Ferrous Sulfate [Ferrous Sulfate*] 325 mg PO DAILY #30 tab 09/28/22 Magnesium Oxide [Mag 0X*] 400 mg PO BID tab 09/28/22 Albuterol Neb [Proventil 0.083% Neb Soln] 2.5 mg NEB Q6HP PRN amp 10/13/22 Ipratropium Neb [Atrovent*] 0.5 mg NEB [id number] PRN amp 10/13/22 Insulin Glargine,Hum.rec.anlog [Semglee] 10 unit SQ BREAKFAST PRN 09/10/23 Metoprolol Tartrate [Lopressor*] 25 mg PO BID 09/10/23 predniSONE [Deltasone*] 5 mg PO DAILY 09/10/23 traMADol HCL [Ultram*] 50 mg PO Q6H PRN #20 tab 09/10/23 - Past Medical/Surgical History Diabetic: Yes -: Stroke -: COPDon home O2 -: Chronic diastolic congestive heart failure -: Insulin-dependent diabetes -: Atrial fibrillation S/P watchman/cardioversion 202 Psychosocial/ Personal History: Patient lives at home with her daughter - Family History Father Medical History: Lung disease Notes: emphysema - Social History Smoking Status: Former smoker Alcohol use: No CD- Drugs: No Caffeine use: No Place of Residence: Home Review of Systems General: Unremarkable Eyes: Unremarkable ENT: Unremarkable Respiratory: Unremarkable Cardiovascular: Unremarkable Gastrointestinal: Unremarkable Genitourinary: Unremarkable Musculoskeletal: Other (low back pain) Integumentary: Unremarkable Neurological: Unremarkable Lymphatics: Unremarkable Physical Examination Temp Pulse Resp BP Pulse Ox 97.6 F 74 18 141/59 H 98 09/10/23 08:00 09/10/23 12:31 09/10/23 09:15 09/10/23 12:31 09/10/23 09:15 General: Other (chronically ill-appearing) HEENT: Atraumatic, Normocephalic Neck: Supple Respiratory: Other (symmetric chest expansion) Cardiovascular: No rubs, No murmurs Gastrointestinal: Soft and benign, No guarding Musculoskeletal: No clubbing Integumentary: No warmth Neurological: Normal tone Urinary: Other (no bladder distention) External genitalia: Deferred Rectal: Deferred Laboratory Data (last 24 hrs) 09/09/23 09/09/23 17:55 17:55 WBC 13.60 H Hgb 14.0 Hct 41.3 Plt Count 297 Sodium 133 L Potassium 4.4 BUN 24 H Creatinine 1.55 H Glucose 160 H Total Bilirubin 0.9 AST 19 ALT 20 Alkaline Phosphatase 98 Conclusions/Impression: # RICHARD likely 2/2 prerenal state +/- ATN from prolonged prerenal SCr 1.5 on adm Urinalysis negative for proteinuria, hematuria, or pyuria CT KUB showed left cortical thinning, otherwise unremarkable F/u urine chem, random UPCR, CK, BNP Encourage po fluid intake IVF prn # 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 T3 compression fracture appears of acute and at the L3 compression fracture appears more remote Per other services # Htn Cont current med regimen # HLD Statin # Chronic afib s/p Watchman in 2021, COPD on home O2, chronic diastolic HF TTE in Sep 2022 showed LVEF 45% RVSP 40-45 mmHg Per other services # DM2 Per primary team # Hx of CVA PT/OT
[2023-09-10] MEDS ORDERED: CALCITONIN NASAL SPRAY 200 IU/DOSE NAS SCH (16:30)
[2023-09-10] MEDS ORDERED: CALCITONIN 200 IU/ML INJ (2ML VIAL) SQ SCH (16:30)
[2023-09-10] MEDS ORDERED: ALBUTEROL SULFATE 90 MCG IH PRN (17:38)
[2023-09-10] MEDS ORDERED: Fluticasone/Umeclidin/Vilanter (Trelegy Ellipta) 100-62.5-25 Blst.W.Dev IH PRN (17:38)
[2023-09-10] MEDS ORDERED: INSULIN GLARGINE 100 UNIT/ML SQ PRN ×2 (17:38→17:54)
[2023-09-10] MEDS ORDERED: CEFTRIAXONE 1,000 MG in NA CHLORIDE 0.9% 50 ML IVPB SCH (21:00)
[2023-09-10] MEDS: HYDROCODONE/APAP 5/325 MG TAB PO PRN (21:07)
[2023-09-10] MEDS: METOPROLOL TAR 25 MG TAB PO SCH (21:07)
[2023-09-11] MEDS: IPRATROPIUM BROM 0.5MG/2.5ML NEB SCH ×2 (01:58→08:45)
[2023-09-11 04:18] LABS: Absolute Lymphocytes (CBC) 0.8 K/uL (0.7-4.9); Hematocrit 36.2 % (36.0-45.0); Lymphocytes % 2.9 % (15.3-44.8); MCV 91.6 fL (80-100); Platelets 301 thou/uL (152-406); RBC Red Blood Cell Count 3.95 M/uL (3.86-4.86)
[2023-09-11 04:27] LABS: Magnesium 2.3 mg/dL (1.6-2.4); Phosphorus 3.6 mg/dL (2.5-4.9); Potassium 4.8 mEq/L (3.5-5.1)
[2023-09-11] MEDS: TRAMADOL HCL 50 MG TAB PO PRN (05:08)
[2023-09-11 08:09] LABS: Blood Morphology Comment NOT SEEN (NOT SEEN); Platelet Estimate ADEQ; Platelets, Giant FEW
[2023-09-11] MEDS ORDERED: FERROUS SULFATE 325 MG TAB PO SCH (09:00)
[2023-09-11] MEDS ORDERED: predniSONE 5 MG TAB PO SCH (09:00)
[2023-09-11] MEDS ORDERED: ROSUVASTATIN 10 MG TAB PO SCH (09:00)
[2023-09-11 09:23] VITALS: O2SAT 92
[2023-09-11] MEDS: METOPROLOL TAR 25 MG TAB PO SCH (09:25)
[2023-09-11] MEDS: PANTOPRAZOLE 40 MG INJ IVP SCH (09:26)
[2023-09-11 09:37] LABS: UR SODIUM < 15 mmol/L (27-287)
[2023-09-11 09:46] LABS: UR PROTEIN 18.2 mg/dL (<11.9); Urine Protein/Creatinine Ratio 0.19 ratio (<0.15)
[2023-09-11 10:04] VITALS: BP 159/72; TEMP 97.8
[2023-09-11] MEDS: HYDROCODONE/APAP 5/325 MG TAB PO PRN (10:37)
--- NOTE | 2023-09-13 16:57 | EKG ---
Test Date: 2023-09-09 Test Time: 18:47:44 Ground Instructor Basic: LIBBY MEASUREMENT RESULTS: Intervals: Rate: 70 OR: 182 QRSD: 88 QT: 446 QTc: 481 Clifford: P: 83 OR: 182 QRS: 17 T: 17 INTERPRETIVE STATEMENTS: Normal sinus rhythm Nonspecific ST and T wave abnormality Prolonged QT Abnormal ECG Compared to ECG 12/30/2022 11:33:34 Prolonged QT interval now present ST (T wave) deviation still present Electronically Signed On 09-13-23 16:53:20 SENIOR STAFF CONSULTANT by Favian Rasmussen
== END 2023-09-11 11:26 | disposition home or self-care (01) | DRG 543 ==
LOC: ER 17:29 → ERHOLD 20:26 → 2ND 09-10 19:48
PROVIDERS: ADMIT Hospitalist; ATTEND Hospitalist
DX: M48.54XA Collapsed vertebra, not elsewhere classified, thoracic region, initial encounter for fracture (principal); I13.0 Hypertensive heart and chronic kidney disease with heart failure and stage 1 through stage 4 chronic kidney disease, or unspecified chronic kidney disease; N18.4 Chronic kidney disease, stage 4 (severe); Z68.1 Body mass index [BMI] 19.9 or less, adult; I50.32 Chronic diastolic (congestive) heart failure; I48.20 Chronic atrial fibrillation, unspecified; N17.9 Acute kidney failure, unspecified; E11.22 Type 2 diabetes mellitus with diabetic chronic kidney disease; E66.9 Obesity, unspecified; E86.0 Dehydration; E78.5 Hyperlipidemia, unspecified; D72.829 Elevated white blood cell count, unspecified; M48.56XD Collapsed vertebra, not elsewhere classified, lumbar region, subsequent encounter for fracture with routine healing; J44.9 Chronic obstructive pulmonary disease, unspecified; Z66 Do not resuscitate; Z79.4 Long term (current) use of insulin; Z86.73 Personal history of transient ischemic attack (TIA), and cerebral infarction without residual deficits; Z79.52 Long term (current) use of systemic steroids; Z99.81 Dependence on supplemental oxygen; Z79.01 Long term (current) use of anticoagulants; Z90.49 Acquired absence of other specified parts of digestive tract; Z87.891 Personal history of nicotine dependence; Z90.710 Acquired absence of both cervix and uterus; Z79.899 Other long term (current) drug therapy
CPT/HCPCS: 36415; 71045; 74176; 76377; 80048; 80053; 80061; 81001; 82570; 82947; 83605; 83735; 83935; 84100; 84132; 84156; 84300; 84439; 84443; 84484; 85025; 87040; 87086; 87088; 94640; 96374; 96375; 99285; C9113; J0696; J2270; J2405; J2930; J7030; J7512; J7614; J7644